=== PATIENT | male | born 1950 | race Caucasian/White ===

== ENCOUNTER 2022-01-24 09:32 | Outpatient (RCR) | payer OTHER, SELFPAY | END 2022-01-24 23:59 | disposition home or self-care (01) | LOC: CR 09:32 | PROVIDERS: PCP Family Medicine; Visit Provider Internal Medicine Cardiovascular Disease | DX: Z51.89 Encounter for other specified aftercare (principal); I25.2 Old myocardial infarction; Z95.5 Presence of coronary angioplasty implant and graft | CPT/HCPCS: S9472 ==

== ENCOUNTER 2022-02-23 10:17 | Outpatient (RCR) | payer OTHER, SELFPAY ==
--- OUTSIDE RECORDS SUMMARY | 2022-02-09 10:32 | XMS_ITS | Continuity of Care Document ---
:1950 Author Organization [facility] Care Team Providers Name Role Phone [facility] Unavailable Unavailable Problems Combined list of problems from Department of Defense and Veterans Affairs facilities. It does not include entries that were removed or entered in error. Problem Status Onset Problem Date of Comments Source Date Type Resolution Anemia Active Condition [place] [facility] Asteatotic eczema Active Condition [place] [facility] Pierre's esophagus Active Condition Nov 042017 Entered T [facility] DOM By: TRACY ALLEN Comment: Last EGD 09/25/2016; Bx demonstrate precancerous changes Chronic ischemic Active Condition Nov 04 [place] heart disease 2017 Entered [facility] By: RTACY ALLEN Comment: normal pefusion scan 2014 Diabetes mellitus Active Condition Nov 04 W [place] 2017 Entered [facility] By: TRACY ALLEN Comment: agent orange - needs to do eval Diverticulosis Active Condition [place] [facility] Essential Active Condition [place] hypertension T [facility] DOM GERD - Active Condition [place] Gastro-esophageal [place] [facility] reflux disease HLD - Hyperlipidemia Active Condition [place] [facility] Impetigo Active Condition [place] [facility] OA - Osteoarthrosis Active Condition [place] [facility] Peripheral vascular Active Condition [place] disease [place] [facility] Venous insufficiency Active Condition [place] of leg T [facility] Venous stasis edema Active Condition [place] of bilateral lower J [place] [facility] limbs Wound Active Condition [place] [facility] Diagnosis: ICD-10-CM Active Diagnosis [place] E83.42 T [facility] Hypomagnesemiawith Provider Comments: Hypomagnesemia Diagnosis: ICD-10-CM Active Diagnosis ST. R03.0 Elevated [facility] blood-pressure CBOC reading, w/o diagnosis of htnwith Provider Comments: Elevated B/P Reading w/o HTN Dx Diagnosis: ICD-10-CM Active Diagnosis [place] E87.8 Oth disorders [place] [facility] of electrolyte and fluid balance, NECwith Provider Comments: Other Disorders of Electrolyte and Fluid Balance, not elsewhere classified Diagnosis: ICD-10-CM Active Diagnosis ST. H90.3 Sensorineural [facility] hearing loss, CBOC bilateralwith Provider Comments: Sensorineural Hearing Loss, Bilateral Diagnosis: ICD-10-CM Active Diagnosis ST. 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 Z23 Encounter for [facility] immunizationwith CBO C Provider Comments: Encounter for Immunization Diagnosis: ICD-10-CM Active Diagnosis ST. L97.821 Non-prs chr [facility] ulcer oth prt l low CBOC leg limited to brkdwn skinwith Provider Comments: Non-Pressure Chronic Ulcer of other part of left lower Leg Limited to Breakdown of Skin Diagnosis: ICD-10-CM Active Diagnosis [place] I87.2 Venous [place] [facility] DOM insufficiency (chronic) (peripheral)with Provider Comments: Venous insufficiency of leg ([facility] [id number]) Diagnosis: ICD-10-CM Active Diagnosis [place] I73.89 Other [place] [facility] DOM specified peripheral vascular diseaseswith Provider Comments: Peripheral vascular disease ([facility] [id number]) Diagnosis: ICD-10-CM Active Diagnosis [place] S81.802D Unspecified [place] [facility] open wound, left lower leg, subsequent encounterwith Provider Comments: Unspecified open Wound, left lower Leg, Subsequent Encounter Diagnosis: ICD-10-CM Active Diagnosis [place] S81.801D Unspecified [place] [facility] open wound, right lower leg, subs encntrwith Provider Comments: Wound ([facility] [id number]) Diagnosis: ICD-10-CM Active Diagnosis [place] Z48.01 Encounter for [place] [facility] change or removal of surgical wound dressingwith Provider Comments: Encounter for Change or Removal of Surgical Wound Dressing Diagnosis: ICD-10-CM Active Diagnosis SARAH RAE E11.622 Type 2 [place] [facility] diabetes mellitus with other skin ulcerwith Provider Comments: Type 2 diabetes mellitus with other skin ulcer Diagnosis: ICD-10-CM Active Diagnosis SARAH RAE Z01.818 Encounter for [place] [facility] other preprocedural examinationwith Provider Comments: Encounter for other Preprocedural Examination Diagnosis: ICD-10-CM Active Diagnosis ST. E11.622 Type 2 ADRIAN LO diabetes mellitus CB OC with other skin ulcerwith Provider Comments: Type 2 Diabetes Mellitus with other Skin Ulcer Medications Combined list of outpatient medications from Department of Defense and Veterans Affairs facilities. Medications provided include 1) outpatient medications from the last 15 months, and 2) patient-reported medications. Medication Details Route Status Patient Prescription Prescription Last Ordering Order Source Instructions Expires Number Dispense Provider Date Date ALBUTEROL INHALE 2 ACTIVE 03/09/2022 [id number] Katarzyna ALLEN 03/09/ ST. 90MCG/ACTUA PUFFS BY 2 2020 MARGARITA Esparza ([facility]) MOUTH RY CBOC INHL,ORAL,8 EVERY .5GM DOSE FOUR TO COUNTER SIX HOURS NEEDED FOR BREATHIN G ALOGLIPTIN TAKE ONE ORAL SUSPEND 12/28/2022 [id number] MELISSAA NN P 02/22/ WHITE 6.25MG TAB TABLET ED 2 2021 [place] BY MOUTH [place] EVERY [facility] DAY FOR DIABETES ALOGLIPTIN TAKE ONE ORAL DISCONT 03/09/2022 [id number] Katarzyna SALINAS 03/09/ ST. 6.25MG TAB TABLET INUED 2 2020 [place] BY MOUTH RY CBOC EVERY DAY FOR DIABETES ALOGLIPTIN TAKE ONE ORAL DISCONT 09/27/2021 [id number] Katarzyna SALINAS 09/28/ ST. 6.25MG TAB TABLET INUE 1 2020 [place] BY MOUTH RY CBOC EVERY DAY FOR DIABETES ASPIRIN TAKE ONE ORAL SUSPEND 12/28/2022 [id number] VOEVERTON P 02/22/ WHITE 81MG TAB,EC TABLET ED 2 2021 [place] BY MOUTH [place] EVERY [facility] DAY TO PREVENT STROKE/H EART ATTACK OR FOR PAIN/SWE LLING/IN FLAMMATI ON ASPIRIN TAKE ONE ORAL DISCONT 03/09/2022 [id number] Katarzyna ALLEN 03/09/ ST. 81MG TAB,EC TABLET INUED 2 ICH2020 [place] U BY MOUTH RY CBOC EVERY DAY TO PREVENT STROKE/H EART ATTACK OR FOR PAIN/SWE LLING/IN FLAMMATI ON ASPIRIN TAKE ONE ORAL DISCONT 05/14/2021 [id number] Katarzyna ALLEN 05/17/ ST. 81MG TAB,EC TABLET INUE 1 ICHAEL 2019 [place] U BY MOUTH RY CBOC EVERY DAY TO PREVENT STROKE/H EART ATTACK OR FOR PAIN/SWE LLING/IN FLAMMATI ON ATORVASTATI TAKE ONE ORAL DISCONT 03/09/2022 [id number] S Katarzyna HERNDON 03/09/ ST. N CA 10MG TABLET INUED 2 ICH2020 [place] TAB BY MOUTH (EDIT) RY CBOC EVERY EVENING TO LOWER CHOLESTE ROL ATORVASTATI TAKE ONE ORAL DISCONT 05/14/2021 [id number] S Katarzyna HERNDON 07/25/ ST. N CA 10MG TABLET INUE 1 ICH2020 [place] TAB BY MOUTH RY CBOC EVERY EVENING TO LOWER CHOLESTE ROL ATORVASTATI TAKE ONE ORAL ACTIVE 12/14/2022 [id number] VO,AN N P 12/13/ ST. N CA 80MG TABLET 2 2021 [place] TAB BY MOUTH RY CBOC EVERY EVENING TO LOWER CHOLESTE ROL CALCIUM TAKE 2 ORAL ACTIVE 01/24/2023 [id number] VO,EVERTON P / WHITE 500MG/VITAM TABLETS 2 2021 [place] IN D 200UNT BY MOUTH JCT TAB TWICE A [facility] DAY TO SUPPLEME NT CALCIUM/ STRENGTH EN BONES CLOPIDOGREL TAKE ONE ORAL ACTIVE 12/14/2022 [id number] VO,AN N P 12/13/ ST. BISULFATE TABLET 2 2021 [place] 75MG TAB BY MOUTH RY CBOC EVERY DAY TO PREVENT BLOOD CLOTS COLLAGENASE APPLY TOPICA 11/18/2021 [id number] PUNNI, MAN 11/17/ WHITE 250UNT/GM SMALL LLY 1 EVERETT N 2021 [place] OINT,TOP AMOUNT J[place] TOPICALL [facility] Y EVERY OTHER DAY LEFT LEG WOUND DIRECTED FLUTICASONE INSTILL NASAL ACTIVE TIFFANYM 11/04/ WHITE PROPIONATE 1 SPRAY ICHAEL 2017 [place] 50MCG/SPRAY INTO JCT SOLN,NASAL, EACH [facility]OC 16GM NOSTRIL EVERY DAY LISINOPRIL TAKE ONE ORAL SUSPEND 12/28/2022 [id number] VO,A NN P 02/22/ WHITE 5MG TAB TABLET ED 2 2021 [place] BY MOUTH JCT EVERY [facility] DAY TO CONTROL BLOOD PRESSURE LISINOPRIL TAKE ONE ORAL DISCONT 03/09/2022 [id number] STANL EY,M 03/09/ ST. 5MG TAB TABLET INUED 2 ICHAEL 2020 [place] BY MOUTH RY CBOC EVERY DAY TO CONTROL BLOOD PRESSURE LISINOPRIL TAKE ONE ORAL DISCONT 05/14/2021 [id number] STANL EY,M 05/17/ ST. 5MG TAB TABLET INUE 1 ICHAEL 2019 [place] BY MOUTH RY CBOC EVERY DAY TO CONTROL BLOOD PRESSURE MAGNESIUM TAKE TWO ORAL ACTIVE 01/24/2023 [id number] VO,EVERTON P 01/23/ WHITE GLUCONATE TABLETS 2 2021 [place] 500MG TAB BY MOUTH JCT TWICE A [facility] DAY MAGNESIUM TAKE ONE ORAL DISCONT 09/28/2022 [id number] RAN Sierra,M 09/27/ ST. OXIDE 400MG TABLET INUED 2 ICHAEL 2021 [place] U TAB BY MOUTH RY CBOC EVERY DAY MAGNESIUM TAKE ONE ORAL ACTIVE Katarzyna ALLEN 11/04/ W ROSIO OXIDE 420MG TABLET ICHAEL 2017 [place] TAB BY MOUTH JCT EVERY [facility] DAY METFORMIN TAKE ONE ORAL SUSPEND 12/28/2022 [id number] VO,AN N P 02/22/ WHITE HCL 1000MG TABLET ED 2 2021 [place] TAB BY MOUTH J[place] TWICE [facility] DAILY WITH MEALS FOR DIABETES METFORMIN TAKE ONE ORAL DISCONT 03/09/2022 [id number] STANLE Y,M 03/09/ ST. HCL 1000MG TABLET INUED 2 ICHAEL 2020 [place] TAB BY MOUTH RY CBOC TWICE DAILY WITH MEALS FOR DIABETES METFORMIN TAKE ONE ORAL DISCONT 05/14/2021 [id number] RAN Y,M 05/17/ ST. HCL 1000MG TABLET INUE 1 ICHAEL 2019 [place] TAB BY MOUTH RY CBOC TWICE DAILY WITH MEALS FOR DIABETES METOLAZONE TAKE ONE ORAL SUSPEND 12/28/2022 [id number] VO,A NN P 02/22/ WHITE 2.5MG TAB TABLET ED 2 2021 [place] BY MOUTH J[place] EVERY [facility] MORNING METOLAZONE TAKE ONE ORAL DISCONT 03/09/2022 [id number] STANL EY,M 03/09/ ST. 2.5MG TAB TABLET INUED 2 ICHAEL 2020 [place] BY MOUTH RY CBOC EVERY MORNING METOLAZONE TAKE ONE ORAL DISCONT 09/27/2021 [id number] STANL EY,M 09/28/ ST. 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 SUCCINATE TABLET INUED 2 ICHAEL 2020 [place] 50MG TAB,SA BY MOUTH RY CB OC EVERY DAY FOR BLOOD PRESSURE /HEART METOPROLOL TAKE ONE ORAL DISCONT 09/27/2021 [id number] STANL EY,M 09/28/ ST. SUCCINATE TABLET INUE 1 ICHAEL 2020 [place] 50MG TAB,SA BY MOUTH RY CB OC EVERY DAY FOR BLOOD PRESSURE /HEART MULTIVITAMI TAKE ONE ORAL ACTIVE TIFFANY,M 11/04/ WHITE NS CAP/TAB ICHAEL 2017 [place] W/MINERALS BY MOUTH JCT CAP/TAB EVERY [facility] DAY NICOTINE APPLY 1 TOPICA 01/24/2022 [id number] VO,EVERTON P 12/13/ ST. 14MG/24HRS PATCH LLY 2 2021 [place] PATCH TOPICALL RY CBOC Y EVERY DAY TO STOP TOBACCO USE NICOTINE APPLY 1 TOPICA 01/12/2022 [id number] VO,EVERTON P 12/13/ ST. 7MG/24HRS PATCH LLY 2021 [place] PATCH TOPICALL RY CBOC Y EVERY DAY TO STOP TOBACCO USE NITROGLYCER TAKE ONE SUBLIN ACTIVE 03/13/2022 [id number] VO ,EVERTON P 12/13/ ST. IN 0.4MG TABLET GUAL 2021 [place] TAB,SUBLING UNDER RY CBOC UAL THE TONGUE EVERY 5 MINUTES NEEDED FOR CHEST PAIN (ANGINA) MAY REPEAT FOR THREE DOSES (IF NO RELIEF,S [facility] PROM[facility] )DO NOT TAKE SILDENAF IL WHILE ON THIS MEDICATI ON PANTOPRAZOL TAKE ONE ORAL SUSPEND 12/28/2022 [id number] VO,EVERTON P 02/22/ WHITE E NA 40MG TABLET ED 2 2021 [place] TAB,EC BY MOUTH JCT EVERY [facility] DAY FOR STOMACH ACID (TAKE HALF-JANNETTE R BEFORE A MEAL(S) PANTOPRAZOL TAKE ONE ORAL DISCONT 03/09/2022 [id number] S Katarzyna HERNDON 03/09/ ST. E NA 40MG TABLET INUED 2 2020 [place] TAB,EC BY MOUTH RY CBOC EVERY DAY FOR STOMACH ACID (TAKE HALF-JANNETTE R BEFORE A MEAL(S) PANTOPRAZOL TAKE ONE ORAL DISCONT 03/26/2021 [id number] S Katarzyna HERNDON 12/27/ ST. E NA 40MG TABLET INUE 1 2020 [place] TAB,EC BY MOUTH RY CBOC EVERY DAY FOR STOMACH ACID (TAKE HALF-JANNETTE R BEFORE A MEAL(S) POTASSIUM TAKE ONE ORAL ACTIVE 01/24/2023 [id number] VO,EVERTON P 01/23/ WHITE CHLORIDE TABLET 2 2021 [place] 10MEQ BY MOUTH JCT TAB,SA TWICE A [facility] DAY TO SUPPLEME NT POTASSIU M POTASSIUM TAKE ONE ORAL DISCONT 12/28/2022 [id number] VO,AN N P 02/22/ WHITE CHLORIDE TABLET INUED 2021 [place] 10MEQ BY MOUTH (EDIT) JCT TAB,SA EVERY VAOC DAY TO SUPPLEME NT POTASSIU M POTASSIUM TAKE ONE ORAL DISCONT 03/09/2022 [id number] STANLE Y,M 03/09/ ST. CHLORIDE TABLET INUED 2 ICHAEL 2020 [place] 10MEQ BY MOUTH RY CBOC TAB,SA EVERY DAY TO SUPPLEME NT ENID M POTASSIUM TAKE ONE ORAL DISCONT 09/06/2021 [id number] STANLE Y,M 09/09/ ST. CHLORIDE TABLET INUE 1 ICHAEL 2020 [place] 10MEQ BY MOUTH RY CBOC TAB,SA EVERY DAY TO SUPPLEME NT ENID M PREGABALIN TAKE ONE ORAL ACTIVE 02/14/2022 [id number] STANLE Y,M 08/15/ ST. 75MG CAPSULE 2 ICHAEL 2021 [place] CAP,ORAL BY MOUTH RY CBOC TWICE A DAY TO PREVENT SEIZURES OR NEUROPAT HIC PAIN PREGABALIN TAKE ONE ORAL DISCONT 09/08/2021 [id number] STANL MADAN,M 03/09/ ST. 75MG CAPSULE INUED 2 ICHAEL 2020 [place] CAP,ORAL BY MOUTH RY CBOC TWICE A DAY TO PREVENT SEIZURES OR NEUROPAT HIC PAIN PREGABALIN TAKE ONE ORAL DISCONT 03/29/2021 [id number] STANL MADAN,M 10/08/ ST. 75MG CAPSULE INUE 1 ICHAEL 2020 [place] CAP,ORAL BY MOUTH RY CBOC TWICE A DAY TO PREVENT SEIZURES OR NEUROPAT HIC PAIN SILDENAFIL TAKE ONE ORAL ACTIVE 09/28/2022 [id number] STANLE Rigo,M 09/27/ ST. CITRATE TABLET 2 ICHAEL 2021 [place] 100MG TAB BY MOUTH RY CBOC NEEDED FOR ERECTILE DYSFUNCT ION , MAX USE ONCE IN 24 HOUR PERIOD SULFAMETHOX TAKE 1 ORAL 07/14/2021 [id number] ANGELIA ,PE 06/14/ WHITE AZOLE TABLET 2 NNY 2021 [place] 800MG/TRIME BY MOUTH JCT THOPRIM TWICE A [facility] 160MG TAB DAY FOR LEG INFECTIO N Allergies, Adverse Reactions, Alerts Combined list of allergies from Department of Defense and Veterans Affairs facilities. It does not include entries that were removed or entered in error. Substance Category Reaction Severity Reaction Status Date Comments S ource type Reported SHELLFISH Propensity Urticaria Propensity active WHITE to adverse to adverse 8 RI FLO reactions to reactions J CT food to food [facility] (finding) (finding) Immunizations Combined list of available immunizations from the Department of Defense and Veterans Affairs facilities. Immunization Series Date Administered Site Reaction Lot CVX Drug St atus Comments Source Given By Number Code Audiometrist PNEUMOCOCCAL complet WHITE CONJUGATE 2021 ed RIVE R PCV20, [place] POLYSACCHARID [facility] E [id number] CONJUGATE, ADJUVANT, PF COVID-19 4 complet MOD; ST . (MODERNA), 2021 ed [id number]; [facility] MRNA, LNP-S, 02 RY CBOC PF, 100 2 MCG/0.5ML DOSE OR 50 MCG/0.25ML DOSE COVID-19 3 complet WH ITE (MODERNA), 2020 ed MARIA G ER MRNA, LNP-S, J CT PF, 100 [facility] MCG/0.5ML DOSE OR 50 MCG/0.25ML DOSE INFLUENZA complet W ROSIO VACCINE, 2020 ed RIVER QUADRIVALENT, [place]CT ADJUVANTED VAM DOM ZOSTER [address] RECOMBINANT 2020 ed ANTOINETTE HNSBU RY CBOC COVID-19 2 complet MOD; WH ITE (MODERNA), 2020 ed [id number]; R[place] MRNA, LNP-S, 02 JCT PF, 100 1 [facility]OC MCG/0.5 ML DOSE COVID-19 1 complet MOD; ITE (MODERNA), 2020 ed [id number]; RIVER MRNA, LNP-S, 02 JCT PF, 100 1 [facility] MCG/0.5 ML DOSE PNEUMOCOCCAL complet WHITE POLYSACCHARID 2019 ed RIVER E PPV23 [place] [facility] ZOSTER 1 complet WHIT E RECOMBINANT 2019 ed RI FLO [place] [facility] INFLUENZA, complet WHITE INJECTABLE, 2019 ed RI FLO QUADRIVALENT, [place] PRESERVATIVE V [facility] FREE INFLUENZA, complet Site: ST. INJECTABLE, 2018 ed Left ANTOINETTE [place] QUADRIVALENT, [place] d RY CBOC PRESERVATIVE FREE TDAP complet Site: ST. 2019 ed Left [place] Deltoid RY CBO C INFLUENZA, complet [place] t WHITE SEASONAL, 2017 ed in RIVE R INJECTABLE [place] ,[place] [facility] INFLUENZA, complet wallma rt WHITE SEASONAL, 2016 ed RIVE R INJECTABLE [place] [facility] TD(ADULT) complet W ROSIO UNSPECIFIED 2014 ed RI FLO FORMULATION WIN[place] T [facility] Results Combined list of recent chemistry, hematology and other laboratory results from Department of Defense and Veterans Affairs, ranging from 15 months to all on record, depending upon the facility. Order Results Value Reference Date Interpretation Specimen Commen ts Source Name Range MAGNESIUM MAGNESIUM 0.7 1.6 - 2.6 01/22 L Specimen T ype: PLASMA WHITE [MASS/VOLUM /2021 Comment: Te sts performed on [employer] (405) SN:[id number] [place] E] IN SERUM Ordering Pr ovider: EVERTON TORRES [facility] OR PLASMA Report Releas ed Date/Time: Jan 22, 2022 09:48 AM Reporting Lab: [place] [facility] [address] [place] [facility] [place] [place] [address] Performing Lab: [place] [facility] [address] [place] [facility] [place] [address] PHOSPHORU PHOSPHATE 3.2 2.5 - 5.0 01/22 Specimen T ype: PLASMA WHITE S [MASS/VOLUM /2021 Comment: Te sts performed on [employer] (405) SN:[id number] [place] E] IN SERUM Ordering Pr ovider: EVERTON TORRES [facility] OR PLASMA Report Releas ed Date/Time: Jan 22, 2022 09:48 AM Reporting Lab: [place] [facility] [address] [place] [facility] [place] [facility] [place] [address] Performing Lab: [place] [facility] [address] [place] [facility] [place] [address] CALCIUM CALCIUM 8.8 8.5 - 10.5 01/22 Specimen Type : PLASMA WHITE [MASS/VOLUM Comment: Te sts performed on [employer] (405) SN:[id number] [place] E] IN SERUM Ordering Pr ovider: EVERTON TORRES [facility] OR PLASMA Report Releas ed Date/Time: Jan 22, 2022 09:48 AM Reporting Lab: [place] [facility] [address] [place] [facility] [place] [facility] [place] [address] Performing Lab: [facility] [address] [facility] [address] P4 UREA 13 7 - 25 01/22 Specimen Type: P CY WHITE GLU,BUN,C NITROGEN /2021 Comment: Carolann ts performed on [employer] (405) SN:[id number] [facility] [MASS/VOLUM Ordering Provider: EVERTON TORRES,ALEJO E] IN SERUM Report Rele ased Date/Time: Jan 22, 2022 09:48 AM OR PLASMA Reporting Lab : [facility] [address] [facility] [address] Performing Lab: [facility] [address] [facility] [address] P4 SODIUM 137 135 - 145 01/22 Specimen Type: PLASMA WHITE GLU,BUN,C [MOLES/VOLU /2021 Comment: Tests performed on [employer] (405) SN:[id number] [facility] [place] ME] IN Ordering Prov ider: EVERTON TORRES S,CA SERUM OR Report Release d Date/Time: Jan 22, 2022 09:48 AM PLASMA Reporting Lab: [facility] [address] [facility] [address] Performing Lab: [facility] [address] [facility] [address] P4 POTASSIUM 3.8 3.5 - 5.0 01/22 Specimen Typ e: PLASMA WHITE GLU,BUN,C [MOLES/VOLU /2021 Comment: Tests performed on [employer] (405) SN:[id number] [facility] [place] ME] IN Ordering Prov ider: EVERTON TORRES S,CA SERUM OR Report Release d Date/Time: Jan 22, 2022 09:48 AM PLASMA Reporting Lab: [facility] [address] [facility] [address] Performing Lab: [facility] [address] [facility] [address] P4 CHLORIDE 99 100 - 110 01/22 L Specimen Type : PLASMA WHITE GLU,BUN,C [MOLES/VOLU /2021 Comment: Tests performed on [employer] (405) SN:[id number] [facility] RE[facility] ME] IN Ordering Prov ider: EVERTON TORRES CA SERUM OR Report Release d Date/Time: Jan 22, 2022 09:48 AM PLASMA Reporting Lab: [facility] [address] [facility] [address] Performing Lab: [place] [facility] [address] [facility] [address] P4 CARBON 26 20 - 30 01/22 Specimen Type: P LASMA WHITE GLU,BUN,C DIOXIDE, /2021 Comment: Carolann ts performed on [employer] (405) SN:[id number] [place] RECOSTALYTE TOTAL Ordering Prov ider: EVERTON TORRES CA [MOLES/VOLU Report Rele ased Date/Time: Jan 22, 2022 09:48 AM ME] IN Reporting Lab: [facility] SERUM OR [address] [facility] [address] PLASMA Performing Lab: [facility] [address] [facility] [address] P4 ANION GAP 12 4 - 16 01/22 Specimen Type: PLASMA WHITE GLU,BUN,C IN SERUM OR /2021 Comment: Tests performed on [employer] (405) SN:[id number] [place] JOVANYLYYONI PLASMA Ordering Prov ider: EVERTON TORRES CA Report Released Date/Time: Jan 22, 2022 09:48 AM Reporting Lab: [facility] [address] [facility] [address] Performing Lab: [facility] [address] [facility] [address] P4 GLUCOSE 121 65 - 100 01/22 H Specimen Type: PLASMA WHITE GLU,BUN,C [MASS/VOLUM /2021 Comment: Tests performed on [employer] (405) SN:[id number] [place] WINIFREDT CYDNEY MANZO E] IN SERUM Ordering Provider: EVERTON TORRES CA OR PLASMA Report Releas ed Date/Time: Jan 22, 2022 09:48 AM Reporting Lab: [facility] [address] [facility] [address] Performing Lab: [facility]ITE [place] [facility] [address] [facility] [address] P4 CREATININE 0.89 0.5 - 1.5 01/22 Specimen Ty pe: PLASMA WHITE GLU,BUN,C [MASS/VOLUM /2021 Comment: Tests performed on [employer] (405) SN:[id number] [place] REATLYTE E] IN SERUM Ordering Provider: EVERTON TORRES S,CA OR PLASMA Report Releas ed Date/Time: Jan 22, 2022 09:48 AM Reporting [facility] [address] [facility] [address] Performing Lab: [place] [facility] [address] [facility] [address] P4 CALCIUM 8.8 8.5 - 10.5 01/22 Specimen Type : PLASMA WHITE GLU,BUN,C [MASS/VOLUM /2021 Comment: Tests performed on [employer] (405) SN:[id number] [place] REATLYTE E] IN SERUM Ordering Provider: EVERTON TORRES SCA OR PLASMA Report Releas ed Date/Time: Jan 22, 2022 09:48 AM Reporting Lab: [place] [facility] [address] [facility] [address] [facility] [address] [facility] [address] P4 eGFR(CKD-EP >90.0 60 01/22 Specimen Typ e: PLASMA WHITE GLU,BUN,C I /2021 Comment: Test s performed on [employer] (405) SN:[id number] [place] JOVANYLYTE Ordering Prov ider: EVERTON TORRES S,CA Report Released Date/Time: Jan 22, 2022 09:48 AM Reporting Lab: [place] [facility] [address] [facility] [address] [facility] [address] [facility] [address] PHOSPHORU PHOSPHATE 2.9 2.5 - 5.0 09/27 Specimen T ype: PLASMA ST. S [MASS/VOLUM /2021 Comment: Te sts performed on [employer] (405) SN:[id number] [place] E] IN SERUM Ordering Pr ovider: SHANELL ALLEN [facility] OR PLASMA Report Releas ed Date/Time: Aug 14, 2021 03:10 PM Reporting [facility] [address] [facility] [address] [facility] Lab: [facility] [address] [facility] [address] MAGNESIUM MAGNESIUM 0.7 1.6 - 2.6 05/04 L Specimen T ype: PLASMA ST. [MASS/VOLUM /2021 Comment: Te sts performed on [employer] (405) SN:[id number] SHILPI E] IN SERUM Ordering Pr ovider: SHANELL ALLEN OR PLASMA Report Releas ed Date/Time: Aug 14, 2021 03:10 PM Reporting Lab: [facility] [address] [facility] [address] Performing Lab: [facility] [address] [facility] [address] LIPOPROTE CHOLESTEROL 156 0 - 199 05/04 Specimen T ype: PLASMA ST. IN [MASS/VOLUM /2021 Comment: Te sts performed on [employer] (405) SN:[id number] SHILPI CHOLESTER E] IN SERUM Ordering Provider: SHANELL ALLEN OL FRACT. OR PLASMA Report Rele ased Date/Time: Aug 14, 2021 03:10 PM PANEL Reporting Lab: [facility] [address] [facility] [address] Performing Lab: [facility] [address] [facility] [address] LIPOPROTE TRIGLYCERID 109 0 - 149 05/04 Specimen T ype: PLASMA ST. IN E Comment: Tests performed on [employer] (405) SN:[id number] SHILPI CHOLESTER [MASS/VOLUM Ordering Provider: SHANELL ALLEN OL FRACT. E] IN SERUM Report Re leased Date/Time: Aug 14, 2021 03:10 PM PANEL OR PLASMA Reporting Lab : [facility] [address] [facility] [address] Performing Lab: [facility] [address] [facility] [address] LIPOPROTE CHOLESTEROL 40 40 05/04 Specimen T ype: PLASMA ST. IN IN HDL Comment: Tests performed on [employer] (405) SN:[id number] [place] CHOLESTER [MASS/VOLUM Ordering Provider: SHANELL ALLEN OL FRACT. E] IN SERUM Report Re leased Date/Time: Aug 14, 2021 03:10 PM PANEL OR PLASMA Reporting Lab : [facility] [address] [place] [facility] [place] [place] [address] Performing Lab: [facility] [address] [place] [place] [place] [address] LIPOPROTE CHOLESTEROL 94 0 - 129 05/04 Specimen T ype: PLASMA ST. IN IN LDL /2021 Comment: Tests performed on [employer] (405) SN:[id number] [facility] CHOLESTER [MASS/VOLUM Ordering Provider: SHANELL ALLEN OL FRACT. E] IN SERUM Report Re leased Date/Time: Aug 14, 2021 03:10 PM PANEL OR PLASMA Reporting Lab : [facility] BY [address] [place] [place] [place] [address] CALCULATION Performing Lab: [facility] [address] [place] [facility] [place] [address] LIVER PROTEIN 7.7 6.0 - 8.5 09/27 Specimen Type: PLASMA ST. PROFILE [MASS/VOLUM /2021 Comment: Te sts performed on [employer] (405) SN:[id number] [facility] E] IN SERUM Ordering Pr ovider: SHANELL ALLEN CBOC OR PLASMA Report Releas ed Date/Time: Aug 14, 2021 03:10 PM Reporting Lab: [facility] [address] [place] [place] [place] [address] Performing Lab: [facility] [address] [place] [facility] [place] [address] LIVER ALBUMIN 3.3 3.2 - 5.0 05/ Specimen Type: PLASMA ST. PROFILE [MASS/VOLUM /2021 Comment: Te sts performed on [employer] (405) SN:[id number] [facility] E] IN SERUM Ordering Pr ovider: SHANELL ALLEN CBOC OR PLASMA Report Releas ed Date/Time: Aug 14, 2021 03:10 PM Reporting Lab: [facility] [address] [place] [place] [facility] [place] [address] Performing Lab: [facility] [address] [place] [place] [address] LIVER BILIRUBIN.T 1.2 0.2 - 1.2 05/04 Specimen T ype: PLASMA ST. PROFILE OTAL /2021 Comment: Tests performed on [employer] (405) SN:[id number] [facility] [MASS/VOLUM Ordering Pr ovider: SHANELL ALLEN E] IN SERUM Report Rele ased Date/Time: Aug 14, 2021 03:10 PM OR PLASMA Reporting Lab : [facility] [address] [place] [facility] [place] [address] Performing Lab: [facility] [address] [facility] [address] LIVER BILIRUBIN.D 0.5 0 - 0.5 09/27 Specimen Typ e: PLASMA ST. PROFILE IRECT /2021 Comment: Tests performed on [employer] (405) SN:[id number] [facility] [MASS/VOLUM Ordering Pr ovider: SHANELL ALLEN E] IN SERUM Report Rele ased Date/Time: Aug 14, 2021 03:10 PM OR PLASMA Reporting Lab : [facility] [address] [place] [facility] [place] [address] Performing Lab: [facility] [address] [place] [facility] [place] [address] LIVER ALKALINE 118 40 - 150 09/27 Specimen Type: PLASMA ST. PROFILE PHOSPHATASE /2021 Comment: Te sts performed on [employer] (405) SN:[id number] [facility] [ENZYMATIC Ordering Pro vider: SHANELL ALLEN ACTIVITY/VO Report Rele ased Date/Time: Aug 14, 2021 03:10 PM LUME] IN Reporting Lab: [facility] SERUM OR [address] [place] [facility] [place] [address] PLASMA Performing Lab: [facility] [address] [place] [facility] [place] [address] LIVER ALANINE 25 7 - 52 05 Specimen Type: P LASMA ST. PROFILE AMINOTRANSF /2021 Comment: Te sts performed on [employer] (405) SN:[id number] [facility] ERASE Ordering Provid er: SHANELL ALLEN [ENZYMATIC Report Relea sed Date/Time: Aug 14, 2021 03:10 PM ACTIVITY/VO Reporting L ab: [facility] LUME] IN [address] [place] [facility] [place] [address] SERUM OR Performing Lab : [facility] PLASMA [address] [facility] [address] LIVER ASPARTATE 26 5 - 34 05/ Specimen Type: PLASMA ST. PROFILE AMINOTRANS Comment: Te sts performed on [employer] (405) SN:[id number] [facility] Ordering Provid er: SHANELL ALLEN [ENZYMATIC Report Relea sed Date/Time: Aug 14, 2021 03:10 PM ACTIVITY/VO Reporting L ab: [facility] LUME] IN [address] [facility] [address] SERUM OR Performing Lab : [facility] [place] PLASMA [address] [facility] [address] LIVER FIB-4 SCORE 1.46 <2.67 - 09/27 Specimen Typ e: PLASMA ST. PROFILE 2. Comment: Tests performed on [employer] (405) SN:[id number] [facility] Ordering Provid er: SHANELL ALLEN Report Released Date/Time: Aug 14, 2021 03:10 PM Reporting Lab: [facility] [address] [facility] [address] Performing Lab: [facility] [address] [place] [facility] [place] [address] CBC NO LEUKOCYTES 12.0 4.5 - 11.0 05/04 H Specimen T ype: BLOOD ST. DIFF [#/VOLUME] /2021 No comment en tered. DOBBINS IN BLOOD BY Ordering Pr ovider: SHANELL ALLEN AUTOMATED Report Releas ed Date/Time: Aug 14, 2021 03:10 PM COUNT Reporting Lab: [facility] [address] [place] [place] [facility] [place] [address] Performing Lab: [facility] [address] [place] [facility] [place] [address] CBC NO ERYTHROCYTE 5.00 4.23 - 05/04 Specimen Typ e: BLOOD ST. DIFF S 5.66 No comment enter ed. ADRIANBANNER [#/VOLUME] Ordering Pro vider: SHANELL ALLEN IN BLOOD BY Report Rele ased Date/Time: Aug 14, 2021 03:10 PM AUTOMATED Reporting Lab : [facility] COUNT [address] [facility] [address] Performing Lab: [facility] [address] [place] [place] [facility] [place] [address] CBC NO HEMOGLOBIN 14.1 12.8 - 17 09/27 Specimen Ty pe: BLOOD ST. DIFF [MASS/VOLUM /2021 No comment e ntered. [place] E] IN BLOOD Ordering Pr ovider: SHANELL ALLEN Report Released Date/Time: Aug 14, 2021 03:10 PM Reporting Lab: [facility] [address] [place] [place] [facility] [place] [address] Performing Lab: [facility] [address] [place] [facility] [place] [address] CBC NO HEMATOCRIT 44.6 39.2 - 05 Specimen Type : BLOOD ST. DIFF [VOLUME 50.4 /2021 No comment enter ed. [place] FRACTION] Ordering Prov ider: SHANELL ALLEN OF BLOOD BY Report Rele ased Date/Time: Aug 14, 2021 03:10 PM AUTOMATED Reporting Lab : [facility] COUNT [address] [place] [facility] [place] [address] Performing Lab: [facility] [address] [place] [facility] [place] [address] CBC NO MCV 89.2 82 - 99 09/27 Specimen Type: B LOOD ST. DIFF [ENTITIC /2021 No comment ente red. [facility] VOLUME] BY Ordering Pro vider: SHANELL ALLEN AUTOMATED Report Releas ed Date/Time: Aug 14, 2021 03:10 PM COUNT Reporting Lab: [facility] [address] [place] [place] [facility] [place] [address] Performing Lab: [facility] [address] [place] [facility] [place] [address] CBC NO MCH 28.2 26.2 - 09/27 Specimen Type: B LOOD ST. DIFF [ENTITIC 32.6 No comment ente red. [place] MASS] BY Ordering Provi violet: SHANELL ALLEN AUTOMATED Report Releas ed Date/Time: Aug 14, 2021 03:10 PM COUNT Reporting Lab: [facility] [address] [place] [place] [facility] [place] [address] Performing Lab: [facility] [address] [place] [facility] [place] [address] CBC NO MCHC 31.6 30.8 - 05 Specimen Type: B LOOD ST. DIFF [MASS/VOLUM 35.1 /2021 No comment e ntered. [place] E] BY Ordering Provid er: SHANELL ALLEN AUTOMATED Report Releas ed Date/Time: Aug 14, 2021 03:10 PM COUNT Reporting Lab: [facility] [address] [place] [place] [facility] [place] [address] Performing Lab: [facility] [address] [place] [place] [facility] [place] [address] CBC NO PLATELETS 257 140 - 360 05 Specimen Typ e: BLOOD ST. DIFF [#/VOLUME] /2021 No comment en tered. DOBBINS IN BLOOD BY Ordering Pr ovider: SHANELL ALLEN AUTOMATED Report Releas ed Date/Time: Aug 14, 2021 03:10 PM COUNT Reporting Lab: [facility] [address] [place] [place] [facility] [place] [address] Performing Lab: [facility] [address] [place] [facility] [place] [address] CBC NO PLATELET 11.6 9.2 - 12.4 09/27 Specimen Typ e: BLOOD ST. DIFF MEAN VOLUME /2021 No comment e ntsandra. SHILPI [ENTITIC Ordering Provi violet: SHANELL ALLEN VOLUME] IN Report Relea sed Date/Time: Aug 14, 2021 03:10 PM BLOOD BY Reporting Lab: [facility] AUTOMATED [address] [place] [place] [address] COUNT Performing Lab: [facility] [address] [place] [facility] [place] [address] CBC NO ERYTHROCYTE 15.8 12.0 - 05 Specimen Typ e: BLOOD ST. DIFF DISTRIBUTIO 16.0 /2021 No comment e ntered. SHILPI N WIDTH Ordering Provid er: SHANELL ALLEN [RATIO] BY Report Relea sed Date/Time: Aug 14, 2021 03:10 PM AUTOMATED Reporting Lab : [facility] COUNT [address] [place] [place] [facility] [place] [address] Performing Lab: [facility] [address] [place] [place] [facility] [place] [address] GLYCOHEMO HEMOGLOBIN 6.4 4.0 - 5.6 05/04 H Specimen Type: BLOOD ST. GLOBIN A1C/HEMOGLO /2021 Comment: Te sts performed on [employer] (405) SN:[id number] [facility] (A1C BIN.TOTAL Ordering Prov ider: SHANELL ALLEN [facility] ONLY) IN BLOOD BY Report Rele ased Date/Time: Aug 14, 2021 03:10 PM HPLC Reporting Lab: [facility] [address] [place] [facility] [place] [address] Performing Lab: [facility] [address] [place] [facility] [place] [address] Vital Signs Combined list of inpatient and outpatient Vital Signs from Department of Defense and Veterans Affairs, ranging from 12 months to all on record, depending upon the facility. Vital Sign Value Date Comments Source SYSTOLIC BLOOD PRESSURE 145 01/22/2022 09:17:29 [facility] DIASTOLIC BLOOD PRESSURE 73 01/22/2022 09:17:29 [facility] PULSE OXIMETRY 94% 01/22/2022 09:17:29 [facility] WEIGHT 192.2 01/22/2022 09:17:29 [facility] BMI 29kg/m2 01/22/2022 09:17:29 [facility] PAIN 0 01/22/2022 09:17:29 [facility] HEIGHT 68 01/22/2022 09:17:29 [facility] TEMPERATURE 96.8 01/22/2022 09:17:29 [facility] PULSE 77 01/22/2022 09:17:29 [facility] RESPIRATION 20 01/22/2022 09:17:29 [facility] SYSTOLIC BLOOD PRESSURE 129 12/27/2021 11:20:03 [facility] DIASTOLIC BLOOD PRESSURE 80 12/27/2021 11:20:03 [facility] PULSE OXIMETRY 97% 12/27/2021 11:20:03 [facility] WEIGHT 191.2 12/27/2021 11:20:03 [facility] BMI 29kg/m2 12/27/2021 11:20:03 [facility] PAIN 0 12/27/2021 11:20[facility] HEIGHT 68 12/27/2021 11:20:03 [facility] TEMPERATURE 96.8 12/27/2021 11:20:03 [facility] PULSE 92 12/27/2021 11:20:03 [facility] SYSTOLIC BLOOD PRESSURE 119 09/27/2021 08:51:00 [facility] DIASTOLIC BLOOD PRESSURE 73 09/27/2021 08:51:00 [facility] PULSE OXIMETRY 93% 09/27/2021 08:51:00 [facility] WEIGHT 207.8 09/27/2021 08:51:00 [facility] BMI 32kg/m2 09/27/2021 08:51:00 [facility] PAIN 0 09/27/2021 08:51:00 [facility] HEIGHT 68 09/27/2021 08:51:00 [facility] TEMPERATURE 96.4 09/27/2021 08:51:00 [facility] PULSE 88 09/27/2021 08:51:00 [facility] Encounters Combined list of: 1) Encounters from Department of Veterans Affairs facilities going back up to the last 18 months. 2) Encounters from the Department of Defense facilities going back up to 280 months. Location Location Encounter Encounter Reason Attending ADM DC Stat us Disposition Source Details Type Number For Provider Date Date Visit Outpatient 52424-3.40 TRISH MATA 08/15 WHITE Encounter [id number] ANA L R IVER [facility] Outpatient 04544-0.40 08/17 WHIT E Encounter [id number] /[facility]21 [facility] 56474-9.40 Diagnos KENNA TELLEZ 08/18 WHITE EST LOW [id number] is: TI N RIVER 20-29 MIN ICD-10- [place] CM [facility] S81.802 D Unspeci fied open wound, left lower leg, subsequ ent encount er
with Provide r Comment s: Unspeci fied open Wound, left lower Leg, Subsequ ent Encount er OFFICE O/P 08016-0.40 Diagnos DEV JORGENSEN 08/29 ST. EST [id number] is: MIKE M [place] MINIMAL 73 ICD-10- R[facility] PROB CM Z23 Encount er for immuniz ation<b r/>with Provide r Comment s: Encount er for Immuniz ation OFFICE O/P Diagnos MAN TELLEZ 09/01 WHITE EST MOD [id number] is: TI N [place] 30-39 MIN ICD-10- [place] [facility] S81.802 D Unspeci fied open wound, left lower leg, subsequ ent encount er
with Provide r Comment s: Unspeci fied open Wound, left lower Leg, Subsequ ent Encount er Outpatient 57839-709/01 WHIT E Encounter [id number] /2021 [place] [facility] OFFICE O/P Diagnos KENNA TELLEZ 09/15 WHITE EST MOD [id number] is: TI N [place] 30-39 MIN ICD-10- [place] [facility] S81.802 D Unspeci fied open wound, left lower leg, subsequ ent encount er
with Provide r Comment s: Unspeci fied open Wound, left lower Leg, Subsequ ent Encount er Outpatient 09/15 WHIT E Encounter [id number] /2020 [place] [facility] [facility] OFFICE O/P Diagnos PHILIP PATTERSON 09/23 WHITE EST [id number] is: A [place] MINIMAL ICD-10- [place] PROB CM [facility] Z01.818 Encount er for other preproc edural examina tion
with Provide r Comment s: Encount er for other Preproc edural Examina tion Outpatient 64784-609/26 WHIT E Encounter [id number] /2020 [place] [facility] OFFICE O/P Diagnos [place] 09/26 . EST MOD [id number] is: CHAEL J[place] 30-39 MIN 86 ICD-10- [facility] CM E11.622 Type 2 diabete s mellitu s with other skin ulcer<b r/>with Provide r Comment s: Type 2 Diabete s Mellitu s with other Skin Ulcer Outpatient 28776-4.40 09/27 WHIT E Encounter [id number] /2021 [place] [facility] OFFICE O/P 98645-6.40 Diagnos KENNA TELLEZ 09/28 WHITE EST LOW [id number] is: TI N [place] 20-29 MIN ICD-10- [facility] [facility] S81.802 D Unspeci fied open wound, left lower leg, subsequ ent encount er
with Provide r Comment s: Unspeci fied open Wound, left lower Leg, Subsequ ent Encount er Outpatient 27302-109/28 WHIT E Encounter [id number] /2021 [place] [facility] [facility] HC PRO 34180-8.40 Diagnos SUNILVilma 09/29 W ROSIO PHONE CALL [id number] is: GARLAND L /2020 [place] G ER 5-10 MIN ICD-10- [place] [facility] Z01.818 Encount er for other preproc edural examina tion
with Provide r Comment s: Encount er for other Preproc edural Examina tion Outpatient 17976-4.40 09/30 WHIT E Encounter [id number] /2021 [place] [facility] [facility] Outpatient 42278-509/30 WHIT E Encounter [id number] /2021 [place] [facility] [facility] Outpatient 13462-3.40 Diagnos KENNA TELLEZ 09/30 WHITE Encounter [id number] is: TI N [place] ICD-10- [facility] [facility] E11.622 Type 2 diabete s mellitu s with other skin ulcer<b r/>with Provide r Comment s: Type 2 diabete s mellitu s with other skin ulcer [place] 74453-4.40 KENNA TELLEZ 09/30 W ROSIO TISSUE 20 [id number] TI N [place] SQ CM/< [place] [facility] Outpatient 74491-6.10/03 WHIT E Encounter [id number] /2020 [place] [facility] [facility] Outpatient 48467-2.40 10/05 ST. Encounter [id number] [facility] RY CBOC OFFICE O/P 44818-8 Diagnos KOFI TELLEZ 10/05 WHITE EST MOD [id number] is: TI N RIVER 30-39 MIN ICD-10- [place] CM [facility] Z48.01 Encount er for change or removal of surgica l wound dressin g
w ith Provide r Comment s: Encount er for Change or Removal of Surgica l Wound Dressin g OFFICE O/P 48768-6 Diagnos KOFI TELLEZ 10/13 WHITE EST [place] [id number] is: TI N RIVER 40-54 MIN ICD-10- [place] CM [facility] S81.802 D Unspeci fied open wound, left lower leg, subsequ ent encount er
with Provide r Comment s: Unspeci fied open Wound, left lower Leg, Subsequ ent Encount er Outpatient 36825-010/17 WHIT E Encounter [id number] /2020 [place] [facility] OFFICE O/P 87393-2 Diagnos KOFI TELLEZ 10/20 WHITE EST HI [id number] is: TI RIVER 40-54 MIN ICD-10- [place] [facility] S81.802 D Unspeci fied open wound, left lower leg, subsequ ent encount er
with Provide r Comment s: Unspeci fied open Wound, left lower Leg, Subsequ ent Encount er OFFICE O/P 86295-1.40 Diagnos KOFI TELLEZ 10/27 WHITE EST MOD [id number] is: TI RIVER 30-39 MIN ICD-10- [place] CM [facility] S81.802 D Unspeci fied open wound, left lower leg, subsequ ent encount er
with Provide r Comment s: Unspeci fied open Wound, left lower Leg, Subsequ ent Encount er OFFICE O/P 78870-840 Diagnos KOFI TELLEZ 11/03 WHITE EST MOD [id number] is: TI N RIVER 30-39 MIN ICD-10- [place] [facility] S81.802 D Unspeci fied open wound, left lower leg, subsequ ent encount er
with Provide r Comment s: Unspeci fied open Wound, left lower Leg, Subsequ ent Encount er Outpatient [id number] 11/03 ST. Encounter [id number] /2020 [facility] 14 RY CBOC OFFICE O/P 80809-8 Diagnos KENNA TELLEZ 11/17 WHITE EST MOD [id number] is: TI N RIVER 30-39 MIN ICD-10- [place] [facility] S81.802 D Unspeci fied open wound, left lower leg, subsequ ent encount er
with Provide r Comment s: Unspeci fied open Wound, left lower Leg, Subsequ ent Encount er Outpatient 80033-740 11/21 WHIT E Encounter [id number] /2020 [place] [facility] [facility] Outpatient 09886-7 Diagnos SALGADOBenny 11/22 WHITE Encounter [id number] is: RESHMA /2020 [place] ICD-10- [facility] [facility] I73.89 Other specifi ed periphe ral vascula r disease s
w ith Provide r Comment s: Periphe ral vascula r disease (SCT [id number] 06) Outpatient [id number] 11/29 WHIT E Encounter [id number] /2020 [place] [facility] OFFICE O/P 84018-3 Diagnos KENNA TELLEZ 12/02 WHITE EST MOD [id number] is: TI N RIVER 30-39 MIN ICD-10- [place] [facility] S81.802 D Unspeci fied open wound, left lower leg, subsequ ent encount er
with Provide r Comment s: Unspeci fied open Wound, left lower Leg, Subsequ ent Encount er OFFICE O/P 40749-640 Diagnos KENNA TELLEZ 12/15 WHITE EST MOD [id number] is: TI N RIVER 30-39 MIN ICD-10- [place] [facility] S81.802 D Unspeci fied open wound, left lower leg, subsequ ent encount er
with Provide r Comment s: Unspeci fied open Wound, left lower Leg, Subsequ ent Encount er Outpatient 77250-0.40 12/20 WHIT E Encounter [id number] /2020 [place] [facility] [facility] Outpatient 79835-8.40 ALANNA CELESTIN 12/26 WHITE Encounter [id number] [facility] OFFICE O/P 69090-8.40 Diagnos KENNA TELLEZ 01/04 WHITE EST MOD [id number] is: TI R[place] 30-39 MIN ICD-10- [place] [facility] S81.802 D Unspeci fied open wound, left lower leg, subsequ ent encount er
with Provide r Comment s: Unspeci fied open Wound, left lower Leg, Subsequ ent Encount er OFFICE O/P 70592-1. Diagnos ANGELIA,PEN 01/25 WHITE EST LOW [id number] is: RIVER 20-29 MIN ICD-10- [facility] [facility] I73.89 Other specifi ed periphe ral vascula r disease s
w ith Provide r Comment s: Periphe ral vascula r disease ([facility] [id number] ) OFFICE O/P 77494-1.40 Diagnos ANGELIA,PEN 02/16 WHITE EST HI [id number] is: RIVER 40-54 MIN ICD-10- [facility] [facility] I87.2 Venous insuffi ciency (chroni c) (periph eral)<b r/>with Provide r Comment s: Venous insuffi ciency of leg (SCT [id number] ) Outpatient 62174-5.40 02/17 WHIT E Encounter [id number] /2020 [place] [facility] [facility] Outpatient 11221-8.40 02/22 WHIT E Encounter [id number] /2021 [facility] [facility] IMMUNIZATI 23898-9.40 Diagnos CK BAKER 03/02 WHITE ON ADMIN [id number] is: RIVER ICD-10- J[place] CM Z23 [facility] Encount er for immuniz ation<b r/>with Provide r Comment s: Encount er for Immuniz ation OFFICE O/P 47281-6.40 Diagnos ANGELIA,PEN 03/02 WHITE EST HI [id number] is: RIVER 40-54 MIN ICD-10- [facility] [facility] I73.89 Other specifi ed periphe ral vascula r disease s
w ith Provide r Comment s: Periphe ral vascula r disease (SCT [id number] 06) Outpatient 20158-7.40 SABIPAMEL 03/07 WHITE Encounter [id number] [place] [facility] OFFICE O/P 80455-2. Diagnos ANGELIA,PEN 03/16 WHITE EST MOD [id number] is: RIVER 30-39 MIN ICD-10- [facility] [facility] I87.2 Venous insuffi ciency (chroni c) (periph eral)<b r/>with Provide r Comment s: Venous insuffi ciency of leg (SCT [id number] 02) Outpatient 23799-3.40 03/17 WHIT E Encounter [id number] /2021 [place] [facility] OFFICE O/P 71114-6. Diagnos ANGELIA,PEN 04/13 WHITE EST MOD [id number] is: RIVER 30-39 MIN ICD-10- [place] [facility] S81.801 D Unspeci fied open wound, right lower leg, subs encntr< br/>wit h Provide r Comment s: Wound (SCT [id number] 03) OFFICE O/P 76562-2.40 Diagnos ANGELIA,PEN 04/26 WHITE EST LOW [id number] is: RIVER 20-29 MIN ICD-10- [facility] [facility] I73.89 Other specifi ed periphe ral vascula r disease s
w ith Provide r Comment s: Periphe ral vascula r disease (SCT [id number] 06) OFFICE O/P 22152-8.40 Diagnos ANGELIA,PEN 05/16 WHITE EST SF [id number] is: RIVER 10-19 MIN ICD-10- [place] [facility] S81.802 D Unspeci fied open wound, left lower leg, subsequ ent encount er
with Provide r Comment s: Unspeci fied open Wound, left lower Leg, Subsequ ent Encount er OFFICE O/P 45856-1.40 Diagnos ANGELIA,PEN 06/07 WHITE EST HI [id number] is: RIVER 40-54 MIN ICD-10- [facility] [facility] I87.2 Venous insuffi ciency (chroni c) (periph eral)<b r/>with Provide r Comment s: Venous insuffi ciency of leg (SCT [id number] ) Outpatient 17691-8.40 06/07 WHIT E Encounter [id number] /2021 [place] [facility] OFFICE O/P 15473-0.40 Diagnos ANGELIA,PEN 06/14 WHITE EST MOD [id number] is: RIVER 30-39 MIN ICD-10- [facility] [facility] I73.89 Other specifi ed periphe ral vascula r disease s
w ith Provide r Comment s: Periphe ral vascula r disease (SCT [id number] 06) OFFICE O/P 81020-2.40 Diagnos ANGELIA,PEN 06/21 WHITE EST LOW [id number] is: [facility] 20-29 MIN ICD-10- [facility] S81.802 D Unspeci fied open wound, left lower leg, subsequ ent encount er
with Provide r Comment s: Unspeci fied open Wound, left lower Leg, Subsequ ent Encount er OFFICE O/P 29452-5.40 Diagnos ANGELIA,PEN 07/05 WHITE EST SF [id number] is: [facility] 10-19 MIN ICD-10- [facility] I73.89 Other specifi ed periphe ral vascula r disease s
w ith Provide r Comment s: Periphe ral vascula r disease (SCT [id number] 06) OFFICE O/P 95222-5.40 Diagnos ANGELIA,PEN 08/04 WHITE EST LOW [id number] is: [place] 20-29 MIN ICD-10- [facility] I73.89 Other specifi ed periphe ral vascula r disease s
w ith Provide r Comment s: Periphe ral vascula r disease (SCT [id number] 06) Outpatient 58206-7. SABIALANNA JAQUEZ 08/14 WHITE Encounter [id number] [facility] 31220-308/14 WHIT E Encounter [id number] [facility] OFFICE O/P 96411-9.40 Diagnos ANGELIA,PEN 09/08 WHITE EST SF [id number] is: [place] 10-19 MIN ICD-10- [facility] I87.2 Venous insuffi ciency (chroni c) (periph eral)<b r/>with Provide r Comment s: Venous insuffi ciency of leg (SCT [id number] 02) OFFICE O/P 95342-9 Diagnos TIFFANYNV 09/27 ST. EST MOD [id number] is: CHAEL JOHNSBU 30-39 MIN 32 ICD-10- [facility] CM L97.821 Non-prs chr ulcer oth prt l low leg limited to brkdwn skin
with Provide r Comment s: Non-Pre ssure Chronic Ulcer of other part of left lower Leg Limited to Break[place] wn of Skin Outpatient 08387-609/27 WHIT E Encounter [id number] [facility] ADM 85748-2 Diagnos DEV JORGENSEN 09/28 ST . SARSCOV2 [id number].[id number] is: MIKE M CAMPBELL BU 50MCG/0.25 97 ICD-10- [facility] MLBST CM Z23 Encount er for immuniz ation<b r/>with Provide r Comment s: Encount er for Immuniz ation OFFICE O/P 19324-7.40 Diagnos ANGELIA,PEN 11/09 WHITE EST MOD [id number] is: [facility] 30-39 MIN ICD-10- [facility] E11.9 Type 2 diabete s mellitu s without complic ations< br/>wit h Provide r Comment s: Diabete s mellitu s (SCT [id number]) Outpatient 18455-5.40 12/13 WHIT E Encounter [id number] /2022 [facility] Out[facility] 23121-9.40 12/13 WHIT E Encounter [id number] /2021 [facility] Outpatient 92308-3.40 12/13 WHIT E Encounter [id number] [facility] 70998-9.40 12/13 WHIT E Encounter [id number] /2021 [facility] Outpatient [id number] 12/25 WHIT E Encounter [id number] /2021 [facility] TELEHEALTH 74370-9.40 Diagnos VO,EVERTON P 12/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.[id number] is: [facility] ON 70 ICD-10- RY CBOC CM I25.9 Chronic ischemi c heart disease , unspeci fied
with Provide r Comment s: Chronic ischemi c heart disease (SCT [id number]) Outpatient 29504-1.40 OSIRIS FELIZ 01/08 WHITE Encounter [id number] ASHLYN [place]ERTON /2021 RI FLO JCT [facility] Outpatient 60901-5.40 01/08 WHIT E [id number] [facility] 52351-1.40 Diagnos YVONNE ARRIAZA 01/18 [facility] EXAM [id number] is: TIMOTEO R /2021 JOHNSB U BOTH EARS 18 ICD-10- RY CBOC CM H90.3 Sensori neural hearing loss, bilater al
with Provide r Comment s: Sensori neural Hearing Loss, Bilater al Outpatient 17489-101/22 ST. Encounter [id number] [facility] 70 RY CBOC OFFICE O/P Diagnos VO,EVERTON P 01/22 WHITE EST MOD [id number] is: /2021 RIVER 30-39 MIN ICD-10- JCT CM [facility] E87.8 Oth disorde rs of electro lyte and fluid balance , NEC<br/ >with Provide r Comment s: Other Disorde rs of Electro lyte and Fluid Balance , not elsewhe re classif ied OFFICE O/P Diagnos PETTIGLIO, 01/22 ST. 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
wi th Provide r Comment s: Hypomag nesemia Outpatient 02/05 WHIT E Encounter [id number] /2021 [facility] Procedures Combined list of: 1) Procedures from Department of Veterans Affairs facilities going back up to the last 18 months, not all VA non-surgical procedures are included; 2) All procedures from the Department of Defense facilities. Procedure Procedure Type Code Date Perfomer Comments Sourc e WOUND DEBRIDEMENT CONRADO SUBQ TISSUE [id number] 09/30/2020 MEJIA TELLEZ WHITE KYRA LEFT LOWER LEG 20 SQ CM/< JCT [facility] Social History Combined list of available smoking, tobacco, and other social history from Department of Defense andVeterans Affairs facilities. Social History Type Response Date Comment Source Tobacco smoking VA-TOBACCO USER EVERY 09/27/2021 [facility] status NHIS DAY History of tobacco VA-TOBACCO USE WI 30 09/27/2021 S Benitez [facility]IL[facility] use MIN OF WAKEUP History of tobacco VA-TOBACCO USE 12/15/2019 TOM [facility] use DAYCARE PROVIDER NO History of tobacco CURRENT SMOKER 02/06/2019 SARAH KUO [facility] use History of tobacco CURRENT SMOKER 02/06/2019 SARAH KUO [facility] use History of tobacco VA-TOBACCO USE 06/18/2018 Bin TOM [facility] use DAYCARE PROVIDER NO History of tobacco CURRENT SMOKER 09/19/2017 Bin TOM [facility] CBOC use Plan of Care List of future care activities from Department of Veterans Affairs facilities. Additional future care activities may be listed in the Assessment and Plan section. Date/Time Care Activity Care Activity Detail Facility 02/12/2022 AMBULATORY - SURGERY AMBULATORY - SURGERY SARAH RAE [facility]
--- OUTSIDE RECORDS SUMMARY | 2022-02-09 10:32 | XMS_ITS | Encounter Summary ---
:1950 Author Organization [facility] Address [address] [place] [address] Support Name Relationship Address Phone ZUHAIR FOSTER Unavailable [address] [place] [address] ZUHAIR FOSTER Unavailable [address] [place] [address] Insurance Providers: All historical and current Section Date Range: From patient's date of to the date document was created.This section includes the names of all active insurance providers for the patient. Insurance Type of Plan Start of End of Group Member Insurance Policy P atient's Provider Coverage Name Policy Policy Number ID Provider's Liu's Relationship Coverage Coverage Telephone Name to Policy Number Liu CBA BLUE HIGH [facility] Jan 25, [id number] [phone] DO Stephanie FOSTER SPOUSE DEDUCTIBL [place] 2013 [id number] NA E [facility] PLAN EXPRESS PRESCRIPT WEI May 27, RXBWEID [id number] [phone] PEYTON FOSTER SPOUSE SCRIPTS ION [place] 2017 [id number] [phone] NA ([id number]) (HD ) MEDICARE MEDICARE PART Jan 25, PART A [id number] CRISTIAN, AND PATIENT (WNR) (M) A 2013 [id number] 2 REW Selected Encounter This section includes the information on record at [place] for the Encounter. Date/Time Encounter Type Encounter Description Reason Provider Source Feb 17, 2021 04:02 Outpatient Encounter TELEPHONE TRIAGE PM IHE Encounter Template Text not used by VA Plan of Treatment: Future Appointments (+ 6 months) and Future Tests (+/- 45 days) The Plan of Treatment section includes future care activities for the patient from all VA treatmentfacilities. This section includes future appointments and future orders which are active, pending orscheduled.Future Appointments This section includes appointments that were scheduled to occur 6 months from the date of the Encounter, up to a maximum of 20 appointments. The data comes from all [place] treatment facilities. Appointment Date/Time Appointment Type Appointment Sonia alex Name Feb 22, 2021 08:00 AM AMBUL[facility]ORY - [place]ONE [place] [facility] Mar 02, 2021 11:00 AM AMBULATORY - SURGERY [place] [facility] Mar 16, 2021 11:00 AM [facility]BUL[place]ORY [facility] [place] [facility] Apr 13, 2021 02:00 PM AMBULATORY - SURGERY [place] [facility] Apr 26, 2021 12:30 PM AMBULATORY - SURGERY [place] [facility] May 16, 2021 10:00 AM AMBUL[facility]ORY - [place] [facility] Jun 07, 2021 01:30 PM AMBULATORY - SURGERY [place] [facility] Jun 14, 2021 12:30 PM AMBULATORY - SURGERY [place] [facility] Jun 21, 2021 01:30 PM AMBULATORY - SURGERY [place] [facility] Jul 05, 2021 12:30 PM AMBULATORY - SURGERY [place] [facility] Aug 04, 2021 01:30 PM AMBULATORY - SURGERY [place] [facility] Social History: Smoking Status (Most current) and Tobacco Use (All prior to encounter date) This section includes the most current, and the historical, smoking and tobacco-related health factors from the VA facility where the Encounter took place.Current Smoking Status This section includes the most current smoking, or tobacco-related health factor, from the VA facility where the Encounter took place. Date/Time Current Smoking Status Comment Facility Feb 06, 2019 11:00 PM CURRENT SMOKER SARAH Whitney [facility] Tobacco Use History This section includes a history of the smoking, or tobacco- related health factors, that were collected on or before the date of the Encounter. The data comes from the [place] facility where the Encounter took place. Date/Time Smoking Status/Tobacco Use Comment [facility] Feb 06, 2019 05:51 PM CURRENT SMOKER SARAH Whitney [facility] Encounter Notes: All associated encounter notes This section contains the clinical notes associated to the Encounter. Date/Time Encounter Note(s) Provider Source Feb 17, 2021 04:03 PM PRIMARY CARE ADMINISTRATIVE NOTE: GEORGETTE CELESTIN [facility] LOCAL TITLE: Administrative Note/Primary Care STANDARD TITLE: PRIMARY CARE ADMINISTRATIVE NOTE DATE OF NOTE: FEB 17, 2021@16:03 ENTRY DATE: FEB 17, 2021@16:03:06 AUTHOR: WANG CELESTIN EXP COSIGNER: URGENCY: STATUS: COMPLETED Administrative Note/Primary Care Has ADDEND A Community Care Consult Being For: Facility: [facility] Address: [address] [place] [address] DX: Routine Eye Exam Does already have appointment: yes If so , when: February 22, 2021 Please confirm completion with , loretta pires. /meena/ WANG CELESTIN AMSLauri Signed: 02/17/2021 16:04 Receipt Acknowledged By: 02/17/2021 16:22 /meena/ SADI CÁRDENAS RN 02/17/2021 16:22 /meena/ JOAQUIN ROSS Registered Nurse * AWAITING SIGNATURE * SHANELL ALLEN 02/17/2021 ADDENDUM STATUS: COMPLETED contact with vet- informed that [facility] for eye care hs been enter- vet is appreciative. /meena/ SADI CÁRDENAS RN Signed: 02/17/2021 16:23
--- OUTSIDE RECORDS SUMMARY | 2022-02-09 10:32 | XMS_ITS ---
:1950 Author Organization [facility] rs Address [address] [place] [address] Support Name Relationship Address Phone ZUHAIR FOSTER Unavailable [address] [place] [address] ZUHAIR FOSTER Unavailable [address] [place] [address] Insurance Providers: All historical and current Section [...] to Policy Number Liu CBA BLUE [place]IGH [facility]I Jan 25, [id number] [phone] DO Stephanie FOSTER SPOUSE DEDUCTIBL [place] 2013 [id number] NA E [facility] PLAN EXPRESS PRESCRIPT WEIDM May 27, RXBWEID [id number] [phone] PEYTON FOSTER SPOUSE SCRIPTS ION [place] 2017 [id number] 557 NA ([id number]) ([facility] ) MEDICARE MEDICARE PART Jan 25, PART A [id number] CRISTIAN, AND PATIENT (WNR) (M) A 2013 [id number] 2 REW Selected Encounter This section includes the information on record at VA for the Encounter. Date/Time Encounter Type Encounter Reason Provider Source Description Feb 16, 2021 OFFICE O/P EST PODIATRY ICD-10-CM I87.2 GENESIS GALAN 10:00 AM [place] 40-54 MIN Venous insufficiency (chronic) (peripheral) with Provider Comments: Venous insufficiency of leg (SCT [id number]) IHE Encounter Template Text not used by VA Assessments - Encounter Diagnoses This section includes the primary and secondary diagnoses documented for the Encounter. Date/Time Primary/Secondary Diagnosis Name Provider Source Diagnosis Mar 01, 2021 PRIMARY Venous insufficiency ANGELIA,GENESIS SMITH R IVER 08:06 AM (chronic[facility]peripheral[facility] Mar 01, 2021 SECONDARY Edema, unspecified ANGELIA,GENESIS SMITH MARIA G ER 08:06 AM JCT [facility] Mar 01, 2021 SECONDARY Other specified ANGELIA,GENESIS SMITH [place] 08:06 AM peripheral vascular T [facility] diseases Mar 01, 2021 SECONDARY Type 2 diabetes ANGELIA,GENESIS SMITH [place] 08:06 AM mellitus without T [facility] complications Mar 01, 2021 SECONDARY Unspecified open ANGELIA,GENESIS SMITH [place] 08:06 AM wound, right lower JCT VA[facility] C leg, subs encntr Plan of Treatment: Future Appointments (+ 6 months) and Future Tests (+/- 45 days) The Plan of Treatment section includes future care activities for the patient from all [place] treatmentfacilities. This section includes future appointments and future orders which are active, pending orscheduled.Future Appointments This section includes appointments that were scheduled to occur 6 months from the date of the Encounter, up to a maximum of 20 appointments. The data comes from all [place] treatment facilities. Appointment Date/Time Appointment Type Appointment Facili ty Name Feb 22, 2021 08:00 AM AMBULATORY - NONE [place] [facility] Mar 02, 2021 11:00 AM AMBULATORY - SURGERY [place] [facility] Mar 16, 2021 11:00 AM AMBULATORY - SURGERY [place] [facility] Apr 13, 2021 02:00 PM AMBULATORY - SURGERY [place] [facility] Apr 26, 2021 12:30 PM AMBULATORY - SURGERY [place] [facility] May 16, 2021 10:00 AM AMBULATORY - SURGERY [place] [facility] Jun 07, 2021 01:30 PM AMBULATORY - [...] smoking and tobacco-related health factors from the [place] facility where the Encounter took place.Current Smoking Status This section includes the most current smoking, or tobacco-related health factor, from the [place] facility where the Encounter took place. Date/Time Current Smoking Status Comment Facility Feb 06, 2019 11:00 PM CURRENT SMOKER SARAH Whitney [facility] Tobacco Use History This section includes a history of the smoking, or tobacco- related health factors, that were collected on or before the date of the Encounter. The data comes from the [place] facility where the Encounter took place. Date/Time Smoking Status/Tobacco Use Comment [facility] Feb 06, 2019 05:51 PM CURRENT SMOKER SARAH Whitney Vilma [facility] Encounter Notes: All associated encounter notes This section contains the clinical notes associated to the Encounter. Date/Time Encounter Note(s) Provider Source Feb 16, 2021 10:13 AM PODIATRY E & M NOTE: GENESIS GALAN [facility] LOCAL TITLE: Podiatry/High Risk Foot [facility] STANDARD TITLE: PODIATRY E & M NOTE DATE OF NOTE: FEB 16, 2021@10:13 ENTRY DATE: FEB 16, 2021@10:14:01 AUTHOR: GENESIS GALAN EXP COSIGNER: URGENCY: STATUS: COMPLETED Mr. Foster is a 70 y/o DM mal e with PVD who was seen today as a follow up for non-healing ulcer LLE. He reports that his W alesia states the wound is improving and appears to hav e new tissue growth in the base. He reports that he has some burning discomfort/pain when th e medihoney colloid sheet is initially placed over the wound for about 20 minutes then it goes away. Per previous notes: THIS ULCER HAS BEEN FOLLOWED WITH VIRTUALLY NO I MPROVEMENT WITH OFFICE DEBRIDEMENT NOT AN OPTION DUE TO SEVERE TENDERNE SS AND SUBSEQUENTLY S/P DEBRIDEMENT OF WOUND LEFT LEG 04/15/2020 IN OR S TILL WITH NO SIGNIFICANT IMPROVEMENT; WITH PVD,POORLY CONTROLLED LES EDEMA AND AT ONE POINT SUPERIMPOSED SIGNIFICANT ECZEMA MANAGED SUCCESSFULLY BY DERM FURTHER COMPLICATED HEALING; EDEMA FACTOR HAS BEEN THE PROBLEM UNTIL RECENTLY AFTER PCP INTERVENTION WITH CHNAGES IN MEDICATIONS THAT LEAD TO BETTER STATU S OF THE WOUND TO ALLOW PLACEMENT OF SUBSTITUTE GRAFT; S/P DEBRIDMENT AN D PLACEMENT OF RESTRATA SUBSTITUTE GRAFT 09/30/2020. ---- MICROBIOLOGY ---- Reporting Lab: [facility] [CLIA# [id number]] [address] [place] [address] Accession [UID]: [id number] [[id number]] Received : Jun 27, 2020@15:49 Collection sample: SWAB/RED Collection date: Jun 27, 2020 15:00 Site/Specimen: WOUND Provider: MEJIA TELLEZ Comment on specimen: L LEG Test(s) ordered: CULTURE,WOUND SUPERFICAL SKIN PANEL completed: Jul 01, 2020 09:37 * BACTERIOLOGY FINAL REPORT => Jul 01, 2020 09:3 8 TECH CODE: [id number] GRAM STAIN: 06/27/20: 3+ WBC'S 4+ GRAM POSITIVE COCCI 2+ GRAM NEGATIVE RODS 1+ GRAM POSITIVE RODS CULTURE RESULTS: 1. KLEBSIELLA OXYTOCA - Quantit y: 4+ 2. STAPHYLOCOCCUS AUREUS - Quantity: 4+ ANTIBIOTIC SUSCEPTIBILITY TEST RESULTS: 1. KLEBSIELLA OXYTOCA : 2. STAPHYLOCOCCUS AUREUS : : Ampicillin.................... R Augmentin..................... S Cefazolin..................... S Cefepime...................... S Cefoxitin..................... S Cefuroxime.................... S Ciprofloxacin................. S Clindamycin................... S Erythromycin.................. S Gentamicin.................... S Oxacillin..................... S Penicillin-G.................. S Tetracycline.................. S Trimeth/Sulfa................. S Vancomycin.................... 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 Essential hypertension ([facility] 62857790) E11.9 Diabetes mellitus ([facility] 61608967) R69. Anemia ([facility] 090916378) E78.5 HLD - Hyperlipidemia ([facility] 84660401) K22.719 Pierre's esophagus ([facility] 317919487) R69. GERD - Gastro-esophageal reflux disease (OR T [id number]) R69. Diverticulosis ([facility] 643201334) R69. OA - Osteoarthrosis ([facility] 621922492) I25.9 Chronic ischemic heart disease ([facility] 880298 009) HGB A1C: 7.4 (10/26/20) BUN/CREAT: 20/0.89 (09/26/20) GLU: 128 (09/26/20) HGB: 14.3 (10/26/20) HCT: 43.3 (10/26/20) Active Outpatient Medications (excluding Supplie s): Active Outpatient Medications Status 1) ACCU-CHEK KYLER PLUS(GLUCOSE) TEST STRIP USE 1 STRIP ACTIVE ACCU-CHEK KYLER PLUS(GLUCOSE) TEST STRIP NEE DED TO TEST BLOOD GLUCOSE LEVEL 2) ALOGLIPTIN 6.25MG TAB/ONE TAB PO QD FOR DIABE MILAGROS ACTIVE 3) ASPIRIN 81MG EC TAB/ONE TAB PO QD PREVENT STR YOSELIN/ ACTIVE HEART ATTACK OR FOR PAIN/SWELLING/INFLAMMATION 4) ATORVASTATIN CALCIUM 10MG TAB/ONE TAB PO QPM ACTIVE TO LOWER CHOLESTEROL 5) COLLAGENASE 250 UNT/GM TOP OINT APPLY SMALL A MOUNT ACTIVE TOPICALLY QOD LEFT LEG WOUND DIRECTED 6) LISINOPRIL 5MG TAB/ONE TAB PO QD FOR BP ACTIV E 7) METFORMIN HCL 1000MG TAB/ONE TAB PO BID W/OTTONIEL LS DM ACTIVE 8) METOLAZONE 2.5MG TAB TAKE ONE TABLET BY MOUTH EVERY ACTIVE MORNING PATIENT TO ATHLETIC AGENT 08/18 9) METOPROLOL SUCCINATE 50MG SA TAB TAKE ONE TAB LET BY ACTIVE MOUTH EVERY DAY FOR BLOOD PRESSURE/HEART 10) PANTOPRAZOLE NA 40MG EC TAB/ONE TAB PO QD FO R STOMACH ACTIVE ACID (TAKE HALF-HOUR BEFORE A MEAL(S) 11) POTASSIUM CHLORIDE 10MEQ SA TAB/ONE TAB PO Q D FOR K+ ACTIVE 12) PREGABALIN 75MG ORAL CAP TAKE ONE CAPSULE BY MOUTH ACTIVE TWICE A DAY TO PREVENT SEIZURES OR NEUROPATHIC PAIN 13) SODIUM HYPOCHLORITE 0.25% TOP SOLN APPLY DANGELO LICATION ACTIVE TOPICALLY QD FOR LEFT LEG WOUND INSTRUCTED Active Non-VA Medications Status 1) Non-VA FLUTICASONE PROP 50MCG 120D NASAL INHL 1 SPRAY ACTIVE INTO EACH NOSTRIL EVERY DAY 2) Non-VA MAGNESIUM OXIDE 420MG TAB 420MG PO QD ACTIVE 3) Non-VA MULTIVITAMIN/MINERALS CAP/TAB ONE CAP/ TAB PO QD ACTIVE 16 Total Medications LAST VITALS: BP: 130/64 (09/26/2020 11:18) Pulse: 91 (09/26/2020 10:31) Temp: 95.7 F [35.4 C] (09/26/2020 10:31) Resp: 18 (04/14/2020 09:56) HT(in): 68 in [172.7 cm] (09/26/2020 10:31) WT(lbs.):224.2 lb [101.9 kg] (09/26/2020 10:31) PULSE OXIMETRY - NONE FOUND - 1M BODY MASS INDEX - SEPTEMBER 26, 2020@10:31:56 34.2 Allergies: SHELLFISH Social: , smoker Shoe/Amb: in good repair/independent Vasc: Previous assessment: +ve doppler pulses, CFT slight decreased B/L but > relatively RIGHT, TEMP WNL, STILL pitting LES edema > LLE as usual but overall some relative improvement but not as impressive today, still more at the foot with pitting.; stable stasis changes with associated ulcer LLE anteriorly DATE: SEPTEMBER 28, 2020 Procedure: LOWER EXTREMITY ARTERIAL STUDY Registered It Engineer: VERONICA IBRAHIM Segmental Pressures (SEG) Ordering Provider: MEJIA TELLEZ Indication for Vascular Lab procedure: DIABETIC MALE WITH H/O PVD WITH NONHEALING CHRONIC LEFT MID LEG ULCERATION S PERTINENT HISTORY: DIABETES:YES VASC OPERATIONS: SYSTOLIC BLOOD PRESSURES (mmHg.): Brach Dorsal Pedal Post Tibial Toe Right 120 81 87 72 Left 109 108 121 60 RATIOS of systolic pressures compared to brachia l pressure: Right DP:0.68 PT:0.73 TOE:0.60 Left DP:0.90 PT:1.01 TOE:0.50 DOPPLER WAVEFORMS: Dorsal Pedal Post Tibial Right [place]-Biphasic Monophasic Left Monophasic INTERPRETATION: RIGHT: Mild lower extremity arterial oc clusive disease. No significant change since the last study on 03-02-20. LEFT: Moderate lower extremity arterial occlusi ve disease. No significant change since the last study on 03-02-20. The left ankle pressures are falsely elevated compared to the Doppler waveforms, due to calcified tibial arteries. Thus, disease severity is based on Doppler waveforms and toe pressures. DERM: LLE distal to tibia there is a small area in the proximal area of the wound that is of concern that it could open back up. He was using Hydrogel, Adaptic and 4X4 over the top, will change to just Adaptic and 4X 4 until next visit or if area looks worse go back to the Hydrogel, Adaptic and 4X4. LLE proximal to tibia previo usly measured 2.4CM long by 2.2CM wide, not measured today. Cleaned away slough in the base of the wo und, pink epithelial layer underneath. Using Medihoney 2X2 colloid sheets a s he has a shellfish allergy. Neurologic: S-W 5.07 intact B/L Orthopedic: Continues to have tenderness to palp ation on LLE proximal wound Previous IMP: Mr. 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 CLOSED AFTER OR DEBRIDEMENT AND PL ACEMENT OF RESTRATA SKIN SUBSTITUTE GRAFT NOW CHRONICALLY WITH UL CER LEFT LEG AFTER TRAUMA/SCRATCH FROM [employer] PRIOR; THIS ULCER HAS BEEN FOLLOWED WITH VIRTUALLY NO IMPROVEMENT WITH OFFICE DEBRIDEMENT NOT AN OPTION DUE TO SEVERE TENDERNESS AND SUBSEQUENTLY S/P DEBRIDEMENT OF WOUND LEFT LEG 1 06/15/2019 IN OR STILL WITH NO SIGNIFICANT IMPROVEMENT; WITH PVD,POORLY CONTROLLED LES EDEMA AND AT ONE POINT SUPERIMPOSED SIGNIFICANT ECZ ALLYSON MANAGED SUCCESSFULLY BY DERM FURTHER COMPLICATED HEALING; EDEMA FACTOR HAS BE EN THE PROBLEM UNTIL RECENTLY AFTER PCP INTERVENTION WITH CHNAGES IN MEDICATIONS THAT LEAD TO BETTER STATUS OF THE WOUND TO ALLOW PLACEMENT OF SUBSTITUTE GRAFT; S/P DEBRIDMENT AN D PLACEMENT OF RESTRATA SUBSTITUTE GRAFT 09/30/2020. TODAY: Mr. Foster continues t o have minimal edema in and around the LLE proximal wound. There was significant slough in the bed o ff the wound that was easily removed with a dry 4X4. Redressed with Medihoney colloid sheet cut out to fit the bed of the wound. There were prints in his leg surrounding the wound where the Medihoney was previously placed. ECZEMA LLE: Remains resolved with Derm intervent ion PLAN: 1. Exam and education 2. LLE Proximal wound: a. Controlling edema with daily compression B/L b. Slowly healing at the proximal edge c. Continued encouragement of smoking cessation 3. LLE Distal to tibia: a. Former wound site b. Healed with dry flaky layer of skin c. Encouraged lotion B/L LE w/exception of open wound area 4. Edema: a. Control as directed by PCP DERESSING INSTRUCTION: Continue same dressings n oted below PROXIMAL TO TIBIA WOUND + Cleaned with dry 4X4 + Medihoney Colloid sheet cut down to size + Adaptic over Medihoney + 2-4X4's, covering proximal wound and distal ar ea of previous wound + 4 Guerrero + Dressings to be done QOD + Advised to go back to QD dressing changes if d ressings become too wet. + Supplies provided RTC: 2 Weeks or as needed /meena/ Genesis Galan MSN GARMENT MANUFACTURER Staff Nurse Practitioner Signed: 03/01/2021 08:06
--- OUTSIDE RECORDS SUMMARY | 2022-02-09 10:34 | XMS_ITS ---
:1950 Author Organization [facility] rs Address [address] [place] [id number] Support Name Relationship Address Phone ZUHAIR FOSTER Unavailable [address] [place] [address] ZUHAIR FOSTER Unavailable [address] [place] [address] Insurance Providers: All historical and current Section [...] Liu CBA BLUE HIGH [place]I Jan 25, [id number] [phone] DO Stephanie FOSTER SPOUSE DEDUCTIBL [place] 2013 [id number] NA E [facility] PLAN EXPRESS PRESCRIPT WEIDM May 27, RXBWEID [id number] [phone] PEYTON FOSTER SPOUSE SCRIPTS ION [place] 2017 [id number] NA ([id number]) ([facility] ) MEDICARE MEDICARE PART Jan 25, PART A [id number] CRISTIAN, AND PATIENT (WNR) (M) A 2013 [id number] 2 REW Selected Encounter This section includes the information on record at [facility] for [facility]counter. Date/Time Encounter Type Encounter Reason Provider Source Description May 16, 2021 OFFICE O/P EST PODIATRY ICD-10-CM GENESIS GALAN 10:00 AM SF 10-19 MIN S81.802D Unspecified open wound, left lower leg, subsequent encounter with Provider Comments: Unspecified open Wound, left lower Leg, Subsequent Encounter IHE Encounter Template Text not used by [facility] Assessments - Encounter Diagnoses This section includes the primary and secondary diagnoses documented for the Encounter. Date/Time Primary/Secondary Diagnosis Name Provider Source Diagnosis May 18, 2021 PRIMARY Unspecified open ANGELIA,GENESIS [place] 02:19 PM wound, left lower [facility] leg, subsequent encounter May 18, 2021 SECONDARY Edema, unspecified ANGELIA,GENESIS SMITH [place] G [place] 02:19 PM [facility] May 18, 2021 SECONDARY Other specified ANGELIA,GENESIS [place] 02:19 PM peripheral vascular [facility] diseases May 18, 2021 SECONDARY Type 2 diabetes ANGELIA,GENESIS [place] 02:19 PM mellitus without [facility] complications May 18, 2021 SECONDARY Venous insufficiency ANGELIA,GENESIS SM[place] 02:19 PM (chronic) [facility] Plan of Treatment: Future Appointments (+ 6 [...] 20 appointments. The data comes from all [place] treatment facilities. Appointment Date/Time Appointment Type Appointment Facili ty Name Jun 07, 2021 01:30 PM AMBULATORY - [...] - SURGERY [place] [facility] Sep 08, 2021 10:30 AM AMBULATORY - SURGERY [place] [facility] September 27, 2021 09:00 AM AMBULATORY - MEDICINE [facility] September 28, 2021 10:00 AM AMBULATORY - NONE [facility] October 18, 2021 09:30 AM AMBULATORY - NONE [place] [facility] Nov 09, 2021 11:00 AM AMBULATORY - SURGERY [place] [facility] Social History: Smoking Status (Most current) and Tobacco Use (All prior to encounter date) This section includes the most current, and the historical, smoking and tobacco-related health factors from the [place] facility where the Encounter took place.Current Smoking Status This section includes the most current smoking, or tobacco-related health factor, from the [place] facility where the Encounter took place. Date/Time Current Smoking Status Comment Facility Feb 06, 2019 11:00 PM CURRENT SMOKER SARAH Whitney [facility] Tobacco Use History This section includes a history of the smoking, or tobacco- related health factors, that were collected on or before the date of the Encounter. The data comes from the [place] facility where the Encounter took place. Date/Time Smoking Status/Tobacco Use Comment [facility] Feb 06, 2019 05:51 PM CURRENT SMOKER SARAH Whitney [facility] Pathology Reports: +/- 30 days of the encounter Pathology Reports For cases when an order for pathology services may have been completed prior to the date of the Encounter, the report list includes the Pathology Reports that were completed up to 30 days before date of the Encounter. For cases when an order for pathology services may have been completed after the date of the Encounter, the report list also includes the Pathology Reports that were completed up to 30days after date of the Encounter. The data comes from all [place] treatment facilities. Date/Time Pathology Report Provider Source Jun 14, 2021 12:30 PM LR [facility] Reporting Lab: [facility] [CLIA# [id number]] [address] [place] [address] Accession [UID]: ID [id number] [[id number]] Received : Jun 14, 2021@13:06 Collection sample: WOUND Collection date: May 12:30 Site/Specimen: LEFT LEG Provider: GENESIS GALAN Comment on specimen: LLE Test(s) ordered: CULTURE,WOUND DEEP ABSCESS(ROBIN EL)completed: Jun 19, 2021 * BACTERIOLOGY FINAL REPORT => Jun 19, 2021 11:4 1 TECH CODE: [id number] GRAM STAIN: 06/14/21 2+ WBC'S 2-3+ GRAM POSITIVE COCCI, IN CLUSTERS <1+ GRAM NEGATIVE RODS CULTURE RESULTS: STAPHYLOCOCCUS AUREUS - Quantit y: 4+ ANTIBIOTIC SUSCEPTIBILITY TEST RESULTS: STAPHYLOCOCCUS AUREUS : Ciprofloxacin................. S Clindamycin................... S Erythromycin.................. S Gentamicin.................... S Linezolid..................... S Oxacillin..................... S Penicillin-G.................. S Tetracycline.................. S Trimeth/Sulfa................. S Vancomycin.................... S =--=--=--=--=--=--=--=--=--=--=--=--=--= --=--=--=--=--=--=--=--=--=--=--=--=-- Performing Laboratory: Bacteriology Report Performed By: [facility] [CLIA# [id number]] [address] [address] 3 Gram Stain Performed By: [facility] [CLIA# [id number]] [address] [address] 3 Encounter Notes: All associated encounter notes This section contains the clinical notes associated to the Encounter. Date/Time Encounter Note(s) Provider Source May 16, 2021 04:14 PM PODIATRY E & M NOTE: GENESIS GALAN [facility] LOCAL TITLE: Podiatry/High Risk Foot [facility] STANDARD TITLE: PODIATRY E & M NOTE DATE OF NOTE: MAY 16, 2021@16:14 ENTRY DATE: MAY 16, 2021@16:14:32 AUTHOR: GENESIS GALAN EXP COSIGNER: URGENCY: STATUS: COMPLETED Mr. Foster is a 71 y/o DM male with PVD w ho is seen today for ongoing wound care of non-healing ulcer LLE. Tod ay Mr. Foster presents with a LLE wound that is slowly filling in at the edges. It is clean and intact, he uses Santyl on it therefore it always lo oks shiny and slightly moist. Otherwise there are no concerns for infection. Mr. Lopez asks about trying a graft on this site. Per previous notes: THIS ULCER HAS BEEN FOLLOWED WITH VIRTUALLY NO I MPROVEMENT WITH OFFICE DEBRIDEMENT NOT AN OPTION DUE TO SEVERE TENDERNE SS AND SUBSEQUENTLY S/P DEBRIDEMENT OF WOUND LEFT LEG 04/15/2020 IN OR S TILL WITH NO SIGNIFICANT IMPROVEMENT; WITH PVD,POORLY CONTROLLED LES RAZ A AND AT ONE POINT SUPERIMPOSED SIGNIFICANT ECZEMA MANAGED SUCCESSF ULLY BY DERM FURTHER COMPLICATED HEALING; EDEMA FACTOR HAS BEEN THE PROBLEM UNTIL RECENTLY AFTER PCP INTERVENTION WITH CHNAGES IN MEDICATIONS THAT LEAD TO BETTER STATUS OF THE WOUND TO ALLOW PLACEMENT OF SUBSTITUTE GRAFT; S/P DEBRIDMENT AN D PLACEMENT OF RESTRATA SUBSTITUTE GRAFT 09/30/2020. 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 Essential hypertension ([facility] 23996330) E11.9 Diabetes mellitus ([facility] 51755973) R69. Anemia ([facility] 846296207) E78.5 HLD - Hyperlipidemia ([facility] 51912127) K22.719 Pierre's esophagus ([facility] 945709034) R69. GERD - Gastro-esophageal reflux disease ([place] T 104645527) R69. Diverticulosis ([facility] 404700120) R69. OA - Osteoarthrosis ([facility] 688375075) I25.9 Chronic ischemic heart disease ([facility] 083432 009) Active Outpatient Medications (excluding Supplie s): Active Outpatient Medications Status 1) ACCU-CHEK KYLER PLUS(GLUCOSE) TEST STRIP USE 1 STRIP ACTIVE ACCU-CHEK KYLER PLUS(GLUCOSE) TEST STRIP NEE DED TO TEST BLOOD GLUCOSE LEVEL 2) ALBUTEROL 90MCG (CFC-F) 200D ORAL INHL INHALE 2 PUFFS ACTIVE BY MOUTH EVERY FOUR TO SIX HOURS NEEDED FOR BREATHING 3) ALOGLIPTIN 6.25MG TAB TAKE ONE TABLET BY MOUT H EVERY ACTIVE DAY FOR DIABETES 4) ASPIRIN 81MG EC TAB TAKE ONE TABLET BY MOUTH EVERY ACTIVE DAY TO PREVENT STROKE/HEART ATTACK OR FOR PAIN/SWELLING/INFLAMMATION 5) ATORVASTATIN CALCIUM 10MG TAB TAKE ONE TABLET BY ACTIVE MOUTH EVERY EVENING TO LOWER CHOLESTEROL 6) COLLAGENASE 250 UNT/GM TOP OINT APPLY SMALL A MOUNT ACTIVE TOPICALLY EVERY OTHER DAY LEFT LEG WOUND DIRECTED 7) LISINOPRIL 5MG TAB TAKE ONE TABLET BY MOUTH E VERY DAY ACTIVE TO CONTROL BLOOD PRESSURE 8) METFORMIN HCL 1000MG TAB TAKE ONE TABLET BY M OUTH ACTIVE TWICE DAILY WITH MEALS FOR DIABETES 9) METOLAZONE 2.5MG TAB TAKE ONE TABLET BY MOUTH EVERY ACTIVE MORNING 10) METOPROLOL SUCCINATE 50MG SA TAB TAKE ONE TA BLET BY ACTIVE MOUTH EVERY DAY FOR BLOOD PRESSURE/HEART 11) PANTOPRAZOLE NA 40MG EC TAB TAKE ONE TABLET BY MOUTH ACTIVE EVERY DAY FOR STOMACH ACID (TAKE HALF-HOUR BEFO RE A MEAL(S) 12) POTASSIUM CHLORIDE 10MEQ SA TAB TAKE ONE TAB LET BY ACTIVE MOUTH EVERY DAY TO SUPPLEMENT POTASSIUM 13) PREGABALIN 75MG ORAL CAP TAKE ONE CAPSULE BY MOUTH ACTIVE TWICE A DAY TO PREVENT SEIZURES OR NEUROPATHIC PAIN Active Non-VA Medications Status 1) Non-VA FLUTICASONE PROP 50MCG 120D NASAL INHL 1 SPRAY ACTIVE INTO EACH NOSTRIL EVERY DAY 2) Non-VA MAGNESIUM OXIDE 420MG TAB 420MG BY RENETTA TH EVERY ACTIVE DAY 3) Non-VA MULTIVITAMIN/MINERALS CAP/TAB ONE CAP/ TAB BY ACTIVE MOUTH EVERY DAY 16 Total Medications HGB A1C: 7.4 (10/26/20) BUN/CREAT: 20/0.89 (09/26/20) GLU: 128 (09/26/20) HGB: 14.3 (10/26/20) HCT: 43.3 (10/26/20) LAST VITALS: BP: 130/64 (09/26/2020 11:18) Pulse: 91 (09/26/2020 10:31) Temp: 95.7 F [35.4 C] (09/26/2020 10:31) Resp: 18 (04/14/2020 09:56) HT(in): 68 in [172.7 cm] (09/26/2020 10:31) WT(lbs.):224.2 lb [101.9 kg] (09/26/2020 10:31) PULSE OXIMETRY: 97% RA (09/26/2020 10:31) BODY MASS INDEX - SEPTEMBER 26, 2020@10:31:56 34.2 Allergies: SHELLFISH Social: , smoker-this is from pre vious visits will inquire next appt if he continues to smoke. Shoe/Amb: in good repair/independent Vasc: Previous assessment: +ve doppler pulses, CFT slight decreased B/L but > relatively RIGHT, TEMP WNL, LES edema improvement. DATE: SEPTEMBER 28, 2020 Procedure: LOWER EXTREMITY ARTERIAL STUDY Registered Fugitive Investigator: VERONICA IBRAHIM Segmental Pressures (SEG) Ordering Provider: [...] DOPPLER WAVEFORMS: Dorsal Pedal Post Tibial Right [place]-Biphasic Monophasic Left Monophasic INTERPRETATION: RIGHT: Mild lower extremity arterial occlusive disease. No significant change since the last study on 03-02-20. LEFT: Moderate lower extremity arterial occlusi ve disease. No significant change since the last study on 03-02-20. The left ankle pressures are falsely elevated co mpared to the Doppler waveforms, due to calcified tibial arteries. Kathleen s, disease severity is based on Doppler waveforms and toe pressures. DERM: LLE proximal to tibia today measured 1.5CM wide X 1.7CM high X 0.2CM deep. Down from original size of 2.4CM long X 2.2CM wide. There was no slough in the base of the wound today and has a nice p ink epithelial layer in the wound bed. He has a shell -fish allergy. Will continue with the Santyl and 4X4, then wrapped with Guerrero and paper tape. No debriding today. Neurologic: S-W 5.07 intact B/L Orthopedic: Continues to have tenderness to palp ation on LLE proximal wound Previous IMP: Mr. Foster is a 71 Y/O diabetic male with PVD, H/O RIGHT [...] AT ONE POINT SUPERIMPOSED SIGNIFICANT ECZEMA MANAGED SUCCESSF ULLY BY DERM THAT FURTHER COMPLICATED HEALING; EDEMA FACTOR HAS BEEN THE P ROBLEM UNTIL RECENTLY AFTER PCP INTERVENTION WITH CHNAGES IN MEDICAT IONS THAT LEAD TO BETTER STATUS OF THE WOUND TO ALLOW PLACEMENT OF SUBSTITUTE GRAFT; S/ P DEBRIDMENT AND PLACEMENT OF RESTRATA SUBSTITUTE GRAFT 09/30/2020. Today Mr. Foster continues to have no edema in an d around the LLE wound. The area is clean and intact around the wound, t here is no erythema. At this point he looks to be a good candidate to try another graft. ECZEMA LLE: Remains resolved with Derm intervention. PLAN: 1. Exam and education: a. Smoking cessation if continues 2. LLE Proximal wound: a. Controlling edema with daily compression B/L b. Currently at a standstill in the healing pro cess. c. Dressed with Santyl, 4X4, Guerrero and paper ta pe. 4. Edema: a. Control as directed by PCP DERESSING INSTRUCTION: PROXIMAL TO TIBIA WOUND + Wipe with dry 4X4, then saline gently wipe + Continue with a small amount of Santyl, + 4X4, covering wound + 4 Guerrero + Dressings to be done QD, . + Supplies not needed today RTC: 3 Weeks or as needed /meena/ Genesis Galan MSN RECREATION ADVISER Staff Nurse Practitioner Signed: 05/18/2021 14:20
--- OUTSIDE RECORDS SUMMARY | 2022-02-09 10:34 | XMS_ITS ---
:1950 Author Organization [facility] rs Address [address] [place] [address] Support Name Relationship Address Phone ZUHAIR FOSTER Unavailable [address] [place] [address] ZUHAIR FOSTER Unavailable [address] [place] [address] Insurance Providers: All historical and current Section [...] to Policy Number Liu CBA BLUE HIGH [facility] Jan 25, [id number] [phone] DO Stephanie FOSTER SPOUSE DEDUCTIBL [place] 2013 [id number] NA E [facility] PLAN EXPRESS PRESCRIPT WEI May 27, RXBWEID [id number] [phone] PEYTON FOSTER SPOUSE SCRIPTS ION [place] 2017 [id number] NA ([id number]) ([facility] ) MEDICARE MEDICARE PART Jan 25, PART A [id number] CRISTIAN, AND PATIENT (WNR) (M) A 2013 [id number] 2 REW Selected Encounter This section includes the information on record at [place] for the Encounter. Date/Time Encounter Type Encounter Reason Provider Source Description Jun 07, 2021 OFFICE O/P EST PODIATRY ICD-10-CM I87.2 GENESIS GALAN 01:30 PM HI 40-54 MIN Venous insufficiency (chronic) (peripheral) with Provider Comments: Venous insufficiency of leg ([facility] 140521878) IHE Encounter Template Text not used by [facility] Assessments - Encounter Diagnoses This section includes the primary and secondary diagnoses documented for the Encounter. Date/Time Primary/Secondary Diagnosis Name Provider Source Diagnosis Jun 07, 2021 PRIMARY Venous insufficiency ANGELIAGENESIS IVER 04:51 PM (chronic) [facility] (peripheral) Jun 07, 2021 SECONDARY Edema, unspecified ANGELIAGENESIS MARIA G ER 04:51 PM [facility] Jun 07, 2021 SECONDARY Encounter for ANGELIAGENESIS 04:51 PM fitting and [facility] adjustment of oth devices Jun 07, 2021 SECONDARY Other specified ANGELIA,GENESIS RAE 04:51 PM peripheral vascular [facility] diseases Jun 07, 2021 SECONDARY Type 2 diabetes ANGELIAGENESIS 04:51 PM mellitus without [facility] complications Jun 07, 2021 SECONDARY Unspecified open ANGELIA,GENESIS RAE 04:51 PM wound, right lower [facility] leg, subs encntr Plan of Treatment: Future Appointments (+ 6 months) and Future Tests (+/- 45 days) The Plan of Treatment section includes future care activities for the patient from all [place] treatmentfacilities. This section includes future appointments and future orders which are active, pending orscheduled.Future Appointments This section includes appointments that were scheduled to occur 6 months from the date of the Encounter, up to a maximum of 20 appointments. The data comes from all [place] treatment facilities. Appointment Date/Time Appointment Type Appointment Facili ty Name Jun 14, 2021 12:30 PM AMBULATORY - [...] 27, 2021 09:00 AM AMBULATORY - MEDICINE [facility] September 28, 2021 10:00 AM AMBULATORY - NONE [facility] October 18, 2021 09:30 AM AMBULATORY - NONE [place] [facility] Nov 09, 2021 11:00 AM AMBULATORY - SURGERY [place] [facility] Social History: Smoking Status (Most current) and Tobacco Use (All prior to encounter date) This section includes the most current, and the historical, smoking and tobacco-related health factors from the [place] facility where the Encounter took place.Current Smoking Status This section includes the most current smoking, or tobacco-related health factor, from the [place] facility where the Encounter took place. Date/Time Current Smoking Status Comment Facility Feb 06, 2019 11:00 PM CURRENT SMOKER SARAH Whitney [facility] Tobacco Use History This section includes a history of the smoking, or tobacco- related health factors, that were collected on or before the date of the Encounter. The data comes from the [place] facility where the Encounter took place. Date/Time Smoking Status/Tobacco Use Comment [facility] Feb 06, 2019 05:51 PM CURRENT SMOKER SARAH Whitney [facility] Pathology Reports: +/- 30 days of the [...] the Encounter. The data comes from all [place] treatment facilities. Date/Time Pathology Report Provider Source Jun 14, 2021 12:30 PM LR MICROBIOLOGY REPORT: KIERRA RAE [facility] Reporting Lab: [facility] [CLIA# [id number]] [address] [place] [address] Accession [UID]: [id number] [[id number]] Received : Jun 14, 2021@13:06 Collection sample: WOUND Collection date: May 12:30 Site/Specimen: LEFT LEG Provider: GENESIS GALAN Comment on specimen: LLE Test(s) ordered: CULTURE,WOUND DEEP ABSCESS(ROBIN EL)completed: Jun 19, 2021 * BACTERIOLOGY FINAL REPORT => Jun 19, 2021 11:4 1 TECH CODE: [id number] GRAM STAIN: 06/14/21 2+ WBC'S 2-3+ GRAM POSITIVE COCCI, IN CLUSTERS <1+ GRAM NEGATIVE RODS CULTURE RESULTS: STAPHYLOCOCCUS AUREUS - Quantit y: 4+ ANTIBIOTIC SUSCEPTIBILITY TEST RESULTS: STAPHYLOCOCCUS AUREUS : Ciprofloxacin................. S Clindamycin................... S Erythromycin.................. S Gentamicin.................... S Linezolid..................... S Oxacillin..................... S Penicillin-G.................. S Tetracycline.................. S Trimeth/Sulfa................. S Vancomycin.................... S =--=--=--=--=--=--=--=--=--=--=--=--=--= --=--=--=--=--=--=--=--=--=--=--=--=-- Performing Laboratory: Bacteriology Report Performed By: [facility] [CLIA# [id number]] [address] [address] 3 Gram Stain Performed By: [facility] [CLIA# [id number]] [address] [address] Encounter Notes: All associated encounter notes This section contains the clinical notes associated to the Encounter. Date/Time Encounter Note(s) Provider Source Jun 07, 2021 01:34 PM PODIATRY E & M NOTE: GENESIS GALAN [facility] LOCAL TITLE: Podiatry/High [facility] STANDARD TITLE: PODIATRY E & M NOTE DATE OF NOTE: JUN 07, 2021@13:34 ENTRY DATE: JUN 07, 2021@13:34:16 AUTHOR: GENESIS GALAN EXP COSIGNER: URGENCY: STATUS: [...] Otherwise there are no concerns for infection. A graft is applied today without incidence Per previous notes: THIS ULCER HAS BEEN [...] GRAFT 09/30/2020. 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 Essential hypertension ([facility] 48081702) E11.9 Diabetes mellitus ([facility] 93467309) R69. Anemia ([facility] 518657654) E78.5 HLD - Hyperlipidemia ([facility] 76886804) K22.719 Pierre's esophagus ([facility] 268972255) R69. GERD - Gastro-esophageal reflux disease ([place] T 989528738) R69. Diverticulosis ([facility] 722434760) R69. OA - Osteoarthrosis ([facility] 009968501) I25.9 Chronic ischemic heart disease ([facility] 919516 009) Active Outpatient Medications (excluding Supplie s): [...] Allergies: SHELLFISH Social: , smoker-this is from previous vi sits Shoe/Amb: NB sneakers in good repair/independent Vasc: Previous assessment: +ve doppler pulses, CFT slight decreased B/L but > relatively RIGHT, TEMP WNL, LES edema improvement. DATE: SEPTEMBER 28, 2020 Procedure: LOWER EXTREMITY ARTERIAL STUDY Registered Expander: VERONICA IBRAHIM Segmental Pressures (SEG) Ordering Provider: [...] DOPPLER WAVEFORMS: Dorsal Pedal Post Tibial Right [place]-Biphasic Monophasic Left Monophasic INTERPRETATION: RIGHT: Mild lower [...] toe pressures. DERM: LLE proximal to tibia not me asured today. Previously measured 1.5CM wide X 1.7CM high X 0.2CM deep. Down from original size of 2.4CM long X 2.2CM wide. There was no slough in the base of the wound today and has a nice pink epithelial layer in the wound bed. He has a anatoliy l -fish allergy never use Cadexomer. Restrata graft placed over LLE wound with no issues. Neurologic: S-W 5.07 intact B/L Orthopedic: Continues [...] LLE wound. The area is clean and intact, there is no erythe ma. ECZEMA LLE: Remains resolved with previous Derm intervention. Today a graft is placed over LLE. PLAN: 1. Exam and education: a. Smoking cessation if continues 2. LLE Proximal wound: a. Restrata Graft placed Lot# [id number], ID# [id number], 2.5CM X 2.5CM b. Covered with wound veil, steri strips, then 4X4 Guerrero and 3M tape c. No compression while graft is in place. d. Outer dressing can be changed every two days 3. Ortho footwear: a. Medical Justification: Hallux valgus Enrobing Machine Corder: Dr. Wallace Style #: Dwayne X [id number] Color: Black Size: 12 W b. Educated pt. stop wearing immediately if any ill-fitting issues DERESSING INSTRUCTION: PROXIMAL TO TIBIA WOUND + 4X4, covering graft + 4 Guerrero + Dressings to be done Q 2 days. + Supplies provided today RTC: 1 Week or as needed /meena/ Genesis Galan MSN FLIGHT PARAMEDIC Staff Nurse Practitioner Signed: 06/07/2021 16:54
--- OUTSIDE RECORDS SUMMARY | 2022-02-09 10:34 | XMS_ITS | Encounter Summary ---
:[address] [facility] Address [address] [place] [address] Support Name Relationship Address Phone ZUHAIR FOSTER Unavailable [address] [place] [address] ZUHAIR FOSTER Unavailable [address] [place] [address] Insurance Providers: All historical and current Section [...] to Policy Number Liu CBA BLUE HIGH [facility] Jan 25, [id number] [phone] DO Stephanie FOSTER SPOUSE DEDUCTIBL [place] 2013 [id number] NA E [facility] PLAN EXPRESS PRESCRIPT WEI May 27, RXBWEID [id number] [phone] PEYTON FOSTER SPOUSE SCRIPTS ION [place] 2017 [id number] 557 NA ([id number]) (HDHP ) MEDICARE MEDICARE PART Jan 25, PART A [id number] CRISTIAN, AND PATIENT (WNR) (M) A 2013 VU70 2 REW Selected Encounter This section includes the information on record at MD for the Encounter. Date/Time Encounter Type Encounter Description Reason Provider Source Jun 07, 2021 02:11 Outpatient Encounter EVENT (HISTORICAL) PM IHE Encounter Template Text not used [...] 20 appointments. The data comes from all MD treatment facilities. Appointment Date/Time Appointment Type Appointment [...] 27, 2021 09:00 AM AMBULATORY - MEDICINE [facility] September 28, 2021 10:00 AM AMBULATORY - NONE [facility] October 18, 2021 09:30 AM AMBULATORY - NONE [place] [facility] Nov 09, 2021 11:00 AM AMBULATORY - [...] smoking, or tobacco-related health factor, from the MD facility where the Encounter took place. Date/Time Current Smoking Status Comment Facility Feb 06, 2019 11:00 PM CURRENT SMOKER SARAH Whitney [facility] Tobacco Use History This section includes a history of the smoking, or tobacco- related health factors, that were collected on or before the date of the Encounter. The data comes from the MD facility where the Encounter took place. Date/Time Smoking Status/Tobacco Use Comment [facility] Feb 06, 2019 05:51 PM CURRENT SMOKER SARAH Whitney [facility] Pathology Reports: +/- 30 days [...] the Encounter. The data comes from all MD treatment facilities. Date/Time Pathology Report Provider Source Jun 14, 2021 12:30 PM LR MICROBIOLOGY REPORT: WH [place] T [facility] Reporting Lab: [facility] [CLIA# [id number]] [address] [place] [address] Accession [UID]: [id number] [[id number]] Received : Jun 14, 2021@13:06 Collection sample: WOUND Collection date: May 12:30 Site/Specimen: LEFT LEG Provider: JOANN GALAN Comment on specimen: LLE Test(s) ordered: CULTURE,WOUND DEEP ABSCESS(ROBIN EL)completed: Jun 19, 2021 * BACTERIOLOGY FINAL REPORT => Jun 19, 2021 11:4 1 TECH CODE: [id number] GRAM STAIN: 06/14/21 2+ WBC'S 2-3+ GRAM POSITIVE COCCI, IN CLUSTERS <1+ GRAM NEGATIVE RODS CULTURE RESULTS: STAPHYLOCOCCUS AUREUS - Quantit y: 4+ ANTIBIOTIC SUSCEPTIBILITY TEST RESULTS: STAPHYLOCOCCUS AUREUS : Ciprofloxacin................. S Clindamycin................... S Erythromycin.................. S Gentamicin.................... S Linezolid..................... S Oxacillin..................... S Penicillin-G.................. S Tetracycline.................. S Trimeth/Sulfa................. S Vancomycin.................... S =--=--=--=--=--=--=--=--=--=--=--=--=--= --=--=--=--=--=--=--=--=--=--=--=--=-- Performing Laboratory: Bacteriology Report Performed By: [facility] [CLIA# [id number]] [address] [address] 3 Gram Stain Performed By: [facility] [CLIA# [id number]] [address] [address]
--- OUTSIDE RECORDS SUMMARY | 2022-02-09 10:34 | XMS_ITS ---
:1950 Author Organization [facility] rs Address [address] [place] [address] Support Name Relationship Address Phone ZUHAIR FOSTER Unavailable [address] [place] [address] ZUHAIR FOSTER Unavailable [address] [place] [address] Insurance Providers: All historical and current Section [...] Liu CBA BLUE HIGH WEI Jan 25, [id number] [phone] DO Stephanie FOSTER SPOUSE DEDUCTIBL [place] 2013 [id number] NA E [facility] PLAN EXPRESS PRESCRIPT WEIDM May 27, RXBWEID [id number] [phone] PEYTON FOSTER SPOUSE SCRIPTS ION [place] 2017 [id number] 557 NA ([id number]) ([facility] ) MEDICARE MEDICARE PART Jan 25, PART A [id number] CRISTIAN, AND PATIENT (WNR) (M) A 2013 VU70 2 REW Selected Encounter This section includes the information on record at OR for the Encounter. Date/Time Encounter Type Encounter Reason Provider Source Description Jun 14, 2021 OFFICE O/P EST PODIATRY ICD-10-CM I73.89 GENESIS GALAN 12:30 PM MOD 30-39 MIN Other specified peripheral vascular diseases with Provider Comments: Peripheral vascular disease (SCT [id number]) IHE Encounter Template Text not used by [facility] Assessments - Encounter Diagnoses This section includes the primary and secondary diagnoses documented for the Encounter. Date/Time Primary/Secondary Diagnosis Name Provider Source Diagnosis Jun 14, 2021 PRIMARY Other specified ANGELIA,GENESIS RAE 04:01 PM peripheral vascular T [facility] diseases Jun 14, 2021 SECONDARY Type 2 diabetes ANGELIA,GENESIS RAE 04:01 PM mellitus without T [facility] complications Jun 14, 2021 SECONDARY Unspecified open ANGELIAGENESIS 04:01 PM wound, right lower T [facility] leg, subs encntr Jun 14, 2021 SECONDARY Venous insufficiency ANGELIA,GENESIS [facility] IVER 04:01 PM (chronic) T [facility] (peripheral) Plan of Treatment: Future Appointments (+ 6 months) and Future Tests (+/- 45 days) The Plan of Treatment section includes future care activities for the patient from all OR treatmentfacilities. This section includes future appointments and future orders which are active, pending orscheduled.Future Appointments This section includes appointments that were scheduled to occur 6 months from the date of the Encounter, up to a maximum of 20 appointments. The data comes from all OR treatment facilities. Appointment Date/Time Appointment Type Appointment Facili ty Name Jun 21, 2021 01:30 PM AMBULATORY - SURGERY [place] [facility] Jul 05, 2021 12:30 PM AMBULATORY - SURGERY [place] [facility] Aug 04, 2021 01:30 PM AMBULATORY - SURGERY [place] [facility] Sep 08, 2021 10:30 AM AMBULATORY - SURGERY [place] [facility] September 27, 2021 09:00 AM AMBULATORY - MEDICINE [facility] September 28, 2021 10:00 AM AMBULATORY - NONE [facility] October 18, 2021 09:30 AM AMBULATORY - NONE [place] [facility] Nov 09, 2021 11:00 AM AMBULATORY [...] 06, 2019 11:00 PM CURRENT SMOKER SARAH LIN[place] R [facility] Tobacco Use History This section includes a history of the smoking, or tobacco- related health factors, that were collected on or before the date of the Encounter. The data comes from the OR facility where the Encounter took place. Date/Time Smoking Status/Tobacco Use Comment Julián loyd Feb 06, 2019 05:51 PM CURRENT SMOKER SARAH Whitney [facility] Pathology Reports: +/- [...] the Encounter. The data comes from all OR treatment facilities. Date/Time Pathology Report Provider Source Jun 14, 2021 12:30 PM LR MICROBIOLOGY REPORT: KIERRA RAE [facility] Reporting Lab: [facility] [CLIA# [id number]] [address] [place] [address] Accession [UID]: [id number] [[id number]] Received : Jun 14, 2021@13:06 Collection sample: WOUND Collection date: May 12:30 Site/Specimen: LEFT LEG Provider: GENESIS GALAN Comment on specimen: LLE Test(s) ordered: CULTURE,WOUND DEEP ABSCESS(ROBIN EL)completed: Jun 19, 2021 * BACTERIOLOGY FINAL REPORT => Jun 19, 2021 11:4 1 TECH CODE: [id number] GRAM STAIN: 06/14/21 2+ WBC'S 2-3+ GRAM POSITIVE COCCI, IN CLUSTERS <1+ GRAM NEGATIVE RODS CULTURE RESULTS: STAPHYLOCOCCUS AUREUS - Quantit y: 4+ ANTIBIOTIC SUSCEPTIBILITY TEST RESULTS: STAPHYLOCOCCUS AUREUS : Ciprofloxacin................. S Clindamycin................... S Erythromycin.................. S Gentamicin.................... S Linezolid..................... S Oxacillin..................... S Penicillin-G.................. S Tetracycline.................. S Trimeth/Sulfa................. S Vancomycin.................... S =--=--=--=--=--=--=--=--=--=--=--=--=--= --=--=--=--=--=--=--=--=--=--=--=--=-- Performing Laboratory: Bacteriology Report Performed By: [facility] [CLIA# [id number]] [address] [address] 3 Gram Stain Performed By: [facility] [CLIA# [id number]] [address] [address] Encounter Notes: All associated encounter notes This section contains the clinical notes associated to the Encounter. Date/Time Encounter Note(s) Provider Source Jun 14, 2021 12:48 PM PODIATRY E & M NOTE: GENESIS GALAN [facility] LOCAL TITLE: Podiatry/High Risk Foot [facility] STANDARD TITLE: PODIATRY E & M NOTE DATE OF NOTE: JUN 14, 2021@12:48 ENTRY DATE: JUN 14, 2021@12:48:29 AUTHOR: GENESIS GALAN EXP COSIGNER: URGENCY: STATUS: COMPLETED Mr. Foster is a 71 y/o DM male with PVD w ho is seen for ongoing wound care of non-healing ulcer LLE. Today Mr. Foster p resents with a LLE wound that has infection under the Restrata graft that was applied one week ago. He has c/o erythema and discomfort where he has had none in recent history. Per previous notes: THIS ULCER HAS BEEN FOLLOWED WITH VIRTUALLY NO I MPROVEMENT WITH OFFICE DEBRIDEMENT NOT AN OPTION DUE TO SEVERE TENDERNE SS AND SUBSEQUENTLY S/P DEBRIDEMENT OF WOUND LEFT LEG 04/15/2020 IN OR S TILL WITH NO SIGNIFICANT IMPROVEMENT; WITH PVD,POORLY CONTROLLED LES RAZ A AND AT ONE POINT SUPERIMPOSED SIGNIFICANT ECZEMA MANAGED SUCCESSF ULLY BY DERM FURTHER COMPLICATED HEALING; EDEMA F ACTOR HAS BEEN THE PROBLEM UNTIL RECENTLY AFTER PCP INTERVENTION WITH CHNAGES IN MEDICATIONS THAT LEAD TO BETTER STATUS OF THE WOUND TO ALLOW PLACEMENT OF SUBSTI TUTE GRAFT; S/P DEBRIDMENT AND PLACEMENT OF RESTRATA SUBSTITUTE GRAFT 09/30/2020. 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 Essential hypertension ([facility] 88472133) E11.9 Diabetes mellitus ([facility] 22080614) R69. Anemia ([facility] 449486151) E78.5 HLD - Hyperlipidemia ([facility] 57784856) K22.719 Pierre's esophagus ([facility] 568263742) R69. GERD - Gastro-esophageal reflux disease ([place] T 794498705) R69. Diverticulosis ([facility] 796076120) R69. OA - Osteoarthrosis ([facility] 702598915) I25.9 Chronic ischemic heart disease ([facility] 040594 009) Active Outpatient Medications (excluding Supplie s): [...] DAY TO PREVENT SEIZURES OR NEUROPATHIC PAIN 14) SULFAMETHOXAZOLE 800/TRIMETH 160MG TAB TAKE 1 TABLET ACTIVE BY MOUTH TWICE A DAY FOR LEG INFECTION Active Non-VA Medications Status 1) Non-VA FLUTICASONE PROP 50MCG 120D NASAL INHL 1 SPRAY ACTIVE INTO EACH NOSTRIL EVERY DAY 2) Non-VA MAGNESIUM OXIDE 420MG TAB 420MG BY RENETTA TH EVERY ACTIVE DAY 3) Non-VA MULTIVITAMIN/MINERALS CAP/TAB ONE CAP/ TAB BY ACTIVE MOUTH EVERY DAY 17 Total Medications HGB A1C: 7.4 (10/26/20) BUN/CREAT: [...] 2020 Procedure: LOWER EXTREMITY ARTERIAL STUDY Registered Coroner'S Juror: VERONICA IBRAHIM Segmental Pressures (SEG) Ordering Provider: [...] DOPPLER WAVEFORMS: Dorsal Pedal Post Tibial Right Wallace-Biphasic Monophasic Left Monophasic INTERPRETATION: RIGHT: Mild lower [...] 2.4CM long X 2.2CM wide. There was slough and serosanguinous drainage in the base o f the wound today as well as covering the dressing. He al so has erythema and pain to palpation in and around the wound. There are many sm all blisters under the medial edge of the graft and on the outside of the graft continuing on the me dial side. He has a shellfish allergy never use Cadexomer. Restrata graft muriel sumanth today. Neurologic: S-W 5.07 intact B/L Orthopedic: [...] AND PLACEMENT OF RESTRATA SUBSTITUTE GRAFT 09/30/2020. Mr. foster is a 71 year old DMII male vet hiral who is seen in clinic today for a one week follow up to graft placement. On arrival he is noted to have blistering and cellulitis under and cassius und the wound. The graft is removed and he is placed on ABX for 10days. His dressing modality is chambers ged from Santyl (previous to graft placement) to Melgisorb. PLAN: 1. Exam and education: a. Smoking cessation if continues 2. LLE Proximal wound: a. Restrata Graft removed b. Covered with Melgisorb, 4X4 Guerrero and 3M tap e c. Dressing needs to be changed every day d. ABX Bactrim for 10 days (Instructed to not t josiah his K+ for the 10 days he is taking the Bactrim) DERESSING INSTRUCTION: PROXIMAL TO TIBIA WOUND + Melgisorb + 4X4, + 4 Guerrero + Dressings to be done Q day. + Supplies provided today RTC: 1 Week or as needed /meena/ Genesis Galan MSN AUTOMOTIVE WORKER Staff Nurse Practitioner Signed: 06/14/2021 16:01
--- OUTSIDE RECORDS SUMMARY | 2022-02-09 10:35 | XMS_ITS ---
:1950 Author Organization [facility] rs Address [address] [place] [address] Support Name Relationship Address Phone ZUHAIR FOSTER Unavailable [address] [place] [address] ZUHAIR FOSTER Unavailable [address] [place] [address] Insurance Providers: All historical and current Section [...] Liu CBA BLUE HIGH WEI Jan 25, [id number] [phone] DO Stephanie FOSTER SPOUSE DEDUCTIBL [place] 2013 [id number] NA E [facility] PLAN EXPRESS PRESCRIPT WEIDM May 27, RXBWEID [id number] [phone] PEYTON FOSTER SPOUSE SCRIPTS ION [place] 2017 [id number] NA ([id number]) ([facility] ) MEDICARE MEDICARE PART Jan 25, PART A [id number] CRISTIAN, AND PATIENT (WNR) (M) A 2013 VU70 2 REW Selected Encounter This section includes the information on record at [facility] for the Encounter. Date/Time Encounter Type Encounter Reason Provider Source Description Apr 13, 2021 OFFICE O/P EST PODIATRY ICD-10-CM ANGELIAGENESIS 02:00 PM MOD 30-39 MIN S81.801D Unspecified open wound, right lower leg, subs encntr with Provider Comments: [facility]ound [facility] [id number]) IHE Encounter Template Text not used by VA Assessments - Encounter Diagnoses This section includes the primary and secondary diagnoses documented for the Encounter. Date/Time Primary/Secondary Diagnosis Name Provider Source Diagnosis Apr 14, 2021 PRIMARY Unspecified open ANGELIAGENESIS 04:19 PM wound, right lower [facility] leg, subs encntr Apr 14, 2021 SECONDARY Type 2 diabetes ANGELIAGENESIS 04:19 PM mellitus without [facility] complications Apr 14, 2021 SECONDARY Venous insufficiency ANGELIAGENESIS IVER 04:19 PM (chronic) [facility] (peripheral) Plan of Treatment: Future Appointments (+ [...] Date/Time Appointment Type Appointment Facili ty Name Apr 26, 2021 12:30 PM AMBULATORY - [...] 27, 2021 09:00 AM AMBULATORY - MEDICINE [facility] September 28, 2021 10:00 AM [facility] Social History: Smoking Status (Most current) and [...] 2019 11:00 PM CURRENT SMOKER SARAH [facility] Tobacco Use History This section includes a history of the smoking, or tobacco- related health factors, that were collected on or before the date of the Encounter. The data comes from the OR facility where the Encounter took place. Date/Time Smoking Status/Tobacco Use Comment Julián loyd Feb 06, 2019 05:51 PM CURRENT SMOKER SARAH [facility] Encounter Notes: All associated encounter notes This section contains the clinical notes associated to the Encounter. Date/Time Encounter Note(s) Provider Source Apr 13, 2021 01:27 PM PODIATRY OUTPATIENT NOTE: GENESIS GALAN LOCAL TITLE: Podiatry/Outpatient Note [facility] STANDARD TITLE: PODIATRY OUTPATIENT NOTE DATE OF NOTE: APR 13, 2021@13:27 ENTRY DATE: APR 13, 2021@13:27:30 AUTHOR: GENESIS GALAN EXP COSIGNER: URGENCY: STATUS: COMPLETED Mr. Foster is a 71 y/o DM male with PVD w ho is seen today for ongoing wound care of non-healing ulcer LLE. Tod ay Mr. Foster presents with a LLE wound that is no longer macerated/wet around it. He rodriguez s been using the Medihoney sheets with good healing effect but does not lik e the burning that it causes for about an hour or two after it is applied. Per previous notes: THIS ULCER HAS BEEN FOLLOWED WITH VIRTUALLY NO I MPROVEMENT WITH OFFICE DEBRIDEMENT NOT AN OPTION DUE TO SEVERE TENDERNE SS AND SUBSEQUENTLY S/P DEBRIDEMENT OF WOUND LEFT LEG 04/15/2020 IN OR S TILL WITH NO SIGNIFICANT IMPROVEMENT; WITH PVD,POORLY CONTROLLED LES RAZ A AND AT ONE POINT SUPERIMPOSED SIGNIFICANT ECZ ALLYSON MANAGED SUCCESSFULLY BY DERM FURTHER COMPLICATED HEALING; EDEMA FACTOR HAS BE EN THE PROBLEM UNTIL RECENTLY AFTER PCP INTERVENTION WITH CHNAGES IN MEDICATIONS THAT LEAD TO BETTER STATUS OF THE WOUND TO ALLOW PLACEMENT OF SUBSTITUTE GRAFT; S/P DEBRIDMENT AN D PLACEMENT OF RESTRATA SUBSTITUTE GRAFT 09/30/2020. 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 Essential hypertension ([facility] 50742604) E11.9 Diabetes mellitus ([facility] 22891431) R69. Anemia ([facility] 841371317) E78.5 HLD - Hyperlipidemia ([facility] 68039737) K22.719 Pierre's esophagus ([facility] 263945151) R69. GERD - Gastro-esophageal reflux disease ([place] T 434199452) R69. Diverticulosis ([facility] 369583007) R69. 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 Down from original size of 2.4CM long X 2.2CM wide. There was a moderate amount of slough in the base of the wound, wi th pink epithelial layer underneath. He has a shell -fish allergy. Today switched to Santyl and 4X4, then wrapped with Guerrero and paper tape. (We actually used Hydrogel in the of fice today, when he does the dressing at home he will use Santyl) Numbed with Lido gel before debriding. Neurologic: S-W 5.07 intact B/L Orthopedic: Continues [...] BY DERM THAT FURTHER COMPLICATED HEALING; EDEMA F ACTOR HAS BEEN THE PROBLEM UNTIL RECENTLY AFTER PCP INTERVENTION WITH CHNAGES IN MEDICATIONS THAT LEAD TO BETTER STATUS OF THE WOUND TO ALLOW PLACEMENT OF SUBSTI TUTE GRAFT; S/P DEBRIDMENT AND PLACEMENT OF RESTRATA SUBSTITUTE GRAFT 09/30/2020. Mr. Foster continues to have minimal edema in and around the LLE proximal wound. There was moderate sl ough in the bed of the wound today that was removed ECZEMA LLE: Remains resolved with Derm intervent ion PLAN: 1. Exam and education 2. LLE Proximal wound: a. Controlling edema with daily compression B/L b. Slowly healing at the proximal edges slight decrease in size. c. Dressed with Hydrogel, 4X4, Guerrero and paper tape. 4. Edema: a. Control as directed by PCP DERESSING INSTRUCTION: PROXIMAL TO TIBIA WOUND + Wipe with dry 4X4, then saline gently wipe + Changed to Santyl, + 4X4, covering proximal wound + 4 Guerrero + Dressings to be done QD, . + Supplies provided except for Santyl of which h e has at home RTC: 2 Weeks or as needed /meena/ Genesis Galan MSN DEVOPS ARCHITECT Staff Nurse Practitioner Signed: 04/14/2021 16:19
--- OUTSIDE RECORDS SUMMARY | 2022-02-09 10:35 | XMS_ITS ---
:1950 Author Organization [facility] rs Address [address] [place] [address] Support Name Relationship Address Phone ZUHAIR FOSTER Unavailable [address] [place] [address] ZUHAIR FOSTER Unavailable [address] [place] [address] Insurance Providers: All historical and current Section [...] Liu CBA BLUE HIGH WEI Jan 25, [id number] [phone] DO Stephanie FOSTER SPOUSE DEDUCTIBL [place] 2013 [id number] NA E [facility] PLAN EXPRESS PRESCRIPT WEIDM May 27, RXBWEID [id number] [phone] PEYTON FOSTER SPOUSE SCRIPTS ION [place] 2017 [id number] 557 NA ([id number]) ([facility] ) MEDICARE MEDICARE PART Jan 25, PART A [id number] CRISTIAN, AND PATIENT (WNR) (M) A 2013 VU70 2 REW Selected Encounter This section includes the information on record at [place] for the Encounter. Date/Time Encounter Type Encounter Reason Provider Source Description Mar 16, 2021 OFFICE O/P EST PODIATRY ICD-10-CM I87.2 GENESIS GALAN 11:00 AM MOD 30-39 MIN Venous insufficiency (chronic) (peripheral) with Provider Comments: Venous insufficiency of leg (SCT [id number]) IHE Encounter Template Text not used by [facility] Assessments - Encounter Diagnoses This section includes the primary and secondary diagnoses documented for the Encounter. Date/Time Primary/Secondary Diagnosis Name Provider Source Diagnosis Mar 16, 2021 PRIMARY Venous insufficiency ANGELIAGENESIS IVER 11:57 AM (chronic) [facility] (peripheral) Mar 16, 2021 SECONDARY Edema, unspecified ANGELIAGENESIS MARIA G ER 11:57 AM [facility] Mar 16, 2021 SECONDARY Type 2 diabetes ANGELIA,GENESIS [place] 11:57 AM mellitus without [facility] complications Mar 16, 2021 SECONDARY Unspecified open ANGELIA,GENESIS [place] 11:57 AM wound, right lower [facility] leg, subs encntr Plan of Treatment: Future Appointments (+ 6 months) and Future Tests (+/- 45 days) The Plan of Treatment section includes future care activities for the patient from all [place] treatmentfacilities. This section includes future appointments and future orders which are active, pending orscheduled.Future Appointments This section includes appointments that were scheduled to occur 6 months from the date of the Encounter, up to a maximum of 20 appointments. The data comes from all [place] treatment facilities. Appointment Date/Time Appointment Type Appointment Facili ty Name Apr 13, 2021 02:00 PM AMBULATORY - [...] 2019 11:00 PM CURRENT SMOKER SARAH Whitney L[facility] Tobacco Use History This section includes a history of the smoking, or tobacco- related health factors, that were collected on or before the date of the Encounter. The data comes from the [place] facility where the Encounter took place. Date/Time Smoking Status/Tobacco Use Comment [facility] Feb 06, 2019 05:51 PM CURRENT SMOKER SARAH Whitney Vilma [facility] Encounter Notes: All associated encounter notes This section contains the clinical notes associated to the Encounter. Date/Time Encounter Note(s) Provider Source Mar 16, 2021 11:26 AM PODIATRY OUTPATIENT NOTE: GENESIS GALAN LOCAL TITLE: Podiatry/Outpatient Note [facility] STANDARD TITLE: PODIATRY OUTPATIENT NOTE DATE OF NOTE: MAR 16, 2021@11:26 ENTRY DATE: MAR 16, 2021@11:26:11 AUTHOR: GENESIS GALAN EXP COSIGNER: URGENCY: STATUS: COMPLETED Mr. Foster is a 70 y/o DM male with PVD w ho is seen today for ongoing wound care of non-healing ulcer LLE. Tod ay Mr. Foster presents with a LLE wound that is no longer macerated/wet around it. He rodriguez s been using the Medihoney sheets with good effect. He states that he continues to have burning for about 2-3 hours after the new medihoney sheet is applied. He understands the science behind why it rosado. We talked about doing the d ressing QOD to lessen the burning. Per previous notes: THIS ULCER HAS BEEN [...] 09/30/2020. 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 Essential hypertension ([facility] 54845885) E11.9 Diabetes mellitus ([facility] 91016081) R69. Anemia ([facility] 370246995) E78.5 HLD - Hyperlipidemia ([facility] 37276617) K22.719 Pierre's esophagus ([facility] [id number]) R69. GERD - Gastro-esophageal reflux disease ([facility] [id number]) R69. Diverticulosis ([facility] 868590037) R69. OA - Osteoarthrosis ([facility] [id number]) I25.9 Chronic ischemic heart disease ([facility] 526593 009) HGB A1C: 7.4 (10/26/20) BUN/CREAT: 20/0.89 [...] BY MOUTH EVERY ACTIVE MORNING PATIENT TO MANAGER CULINARY 08/18 9) METOPROLOL SUCCINATE 50MG SA TAB [...] 2020 Procedure: LOWER EXTREMITY ARTERIAL STUDY Registered Firm Administrator: VERONICA IBRAHIM Segmental Pressures (SEG) Ordering Provider: [...] DOPPLER WAVEFORMS: Dorsal Pedal Post Tibial Right Motley-Biphasic Monophasic Left Monophasic INTERPRETATION: RIGHT: Mild lower [...] DERM: LLE proximal to tibia today measured 1.4CM X 2.0 CM X 0.2CM deep. Previously measured 2.4CM long X 2.2CM wide. Modera te amount of slough in the base of the wound, pink epithelial layer underneath. Using Medihoney 2X2 sheets as he has a shellfish allergy. Placed medihoney shee t in wound bed(trimmed to fit),covered with Adaptic and 4X4, then wrapped with Guerrero an d paper tape. Neurologic: S-W 5.07 intact B/L Orthopedic: Continues [...] was moderate sl ough in the bed off the wound today. Redressed with Medihoney sheet cut out to fit the bed o f the wound. Continued directions that he not do soaks. ECZEMA LLE: Remains resolved with Derm intervent ion PLAN: 1. Exam and education 2. LLE Proximal wound: a. Controlling edema with daily compression B/L b. Slowly healing at the proximal edges c. Dressed today with Medihoney, first cleansed with saline to remove slough c. Continued encouragement of smoking cessation 3. LLE Distal to tibia: a. Former wound site b. Healed with dry flaky layer of skin c. Encouraged lotion B/L LE w/exception of open wound area 4. Edema: a. Control as directed by PCP DERESSING INSTRUCTION: Continue same dressings n oted below PROXIMAL TO TIBIA WOUND + Wipe with dry 4X4, then saline gently wipe + Medihoney sheet cut down to size + Adaptic over Medihoney + 4X4, covering proximal wound + 4 Guerrero + Dressings to be done QOD, to limit burning + Advised to go back to QD dressing changes if d ressings become too wet. + Supplies provided RTC: 4 Weeks or as needed /meena/ Genesis Galan MSN TANK BUILDER HELPER Staff Nurse Practitioner Signed: 03/16/2021 11:57
--- OUTSIDE RECORDS SUMMARY | 2022-02-09 10:35 | XMS_ITS | Encounter Summary ---
:1950 Author Organization [facility] rs Address [address] [place] [address] Support Name Relationship Address Phone ZUHAIR FOSTER Unavailable [address] [place] [address] ZUHAIR FOSTER Unavailable [address] [place] [address] Insurance Providers: All historical and current Section [...] Liu CBA BLUE HIGH WEI Jan 25, 67932 [id number] [phone] DO Stephanie FOSTER SPOUSE DEDUCTIBL [place] 2013 [id number] NA E [facility] PLAN EXPRESS PRESCRIPT WEIDM May 27, RXBWEID [id number] [phone] PEYTON FOSTER SPOUSE SCRIPTS ION [place] 2017 [id number] 557 NA ([id number]) ([facility] ) MEDICARE MEDICARE PART Jan 25, PART A [id number] CRISTIAN, AND PATIENT (WNR) (M) A 2013 VU70 2 REW Selected Encounter This section includes the information on record at [place] for the Encounter. Date/Time Encounter Type Encounter Reason Provider Source Description Apr 26, 2021 OFFICE O/P EST PODIATRY ICD-10-CM I73.89 GENESIS GALAN 12:30 PM LOW 20-29 MIN Other specified peripheral vascular diseases with Provider Comments: Peripheral vascular disease (SCT [id number]) IHE Encounter Template Text not used by VA Assessments - Encounter Diagnoses This section includes the primary and secondary diagnoses documented for the Encounter. Date/Time Primary/Secondary Diagnosis Name Provider Source Diagnosis Apr 26, 2021 PRIMARY Other specified ANGELIAGENESIS 01:40 PM peripheral vascular T [facility] diseases Apr 26, 2021 SECONDARY Type 2 diabetes ANGELIA,GENESIS RAE 01:40 PM mellitus without T [facility] complications Apr 26, 2021 SECONDARY Unspecified open ANGELIAGENESIS 01:40 PM wound, right lower [facility] leg, subs encntr Apr 26, 2021 SECONDARY Venous insufficiency NAGELIA,GENESIS SMITH R IVER 01:40 PM (chronic) T [facility] (peripheral) Plan of Treatment: Future Appointments (+ 6 months) and Future Tests (+/- 45 days) The Plan of Treatment section includes future care activities for the patient from all [place] treatmentfacilities. This section includes future appointments and future orders which are active, pending orscheduled.Future Appointments This section includes appointments that were scheduled to occur 6 months from the date of the Encounter, up to a maximum of 20 appointments. The data comes from all [place] treatment facilities. Appointment Date/Time Appointment Type Appointment Facili ty Name May 16, 2021 10:00 AM AMBULATORY - [...] 27, 2021 09:00 AM AMBULATORY - MEDICINE [facility] September 28, 2021 10:00 AM AMBULATORY - NONE [facility] October 18, 2021 09:30 AM AMBULATORY - NONE [place] [facility] Social History: Smoking Status (Most current) and Tobacco Use (All prior to encounter date) This section includes the most current, and the historical, smoking and tobacco-related health factors from the [facility] facility where the Encounter took place.Current Smoking Status This section includes the most current smoking, or tobacco-related health factor, from the [place] facility where the Encounter took place. Date/Time Current Smoking Status Comment Facility Feb 06, 2019 11:00 PM CURRENT SMOKER SARAH Whitney L[facility] Tobacco Use History This section includes a history of the smoking, or tobacco- related health factors, that were collected on or before the date of the Encounter. The data comes from the [place] facility where the Encounter took place. Date/Time Smoking Status/Tobacco Use Comment [facility] Feb 06, 2019 05:51 PM CURRENT SMOKER SARAH Whitney [facility] Encounter Notes: All associated encounter notes This section contains the clinical notes associated to the Encounter. Date/Time Encounter Note(s) Provider Source Apr 26, 2021 12:56 PM PODIATRY E & M NOTE: GENESIS GALAN LOCAL TITLE: Podiatry/High Risk Foot [facility] STANDARD TITLE: PODIATRY E & M NOTE DATE OF NOTE: APR 26, 2021@12:56 ENTRY DATE: APR 26, 2021@12:56:42 AUTHOR: GENESIS GALAN EXP COSIGNER: URGENCY: STATUS: COMPLETED Mr. Foster is a 71 y/o DM male with PVD w ho is seen today for ongoing wound care of non-healing ulcer LLE. Tod ay Mr. Foster presents with a LLE wound that is no longer macerated/wet around it. he do es have some erythema on the distal edge of the wound from banging his maza r ight at the distal end of the wound a few days ago. Otherw ise the wound appears to be slowly filling in at the outer perimeter. Per previous notes: THIS ULCER HAS BEEN [...] ---- MICROBIOLOGY ---- Reporting Lab: SARAH PERES [facility] [CLIA# [id number]] [address] [place] [id number] Accession [UID]: [id number] [[id number]] Received : Jun 27, 2020@15:49 Collection sample: SWAB/RED Collection date: Jun 27, 2020 15:00 Site/Specimen: WOUND Provider: MEJIA TELLEZ Comment on specimen: L LEG Test(s) ordered: CULTURE,WOUND SUPERFICAL SKIN PANEL completed: Jul 01, 2020 09:37 * BACTERIOLOGY FINAL REPORT => Jul 01, 2020 09:3 8 TECH CODE: [id number] GRAM STAIN: 06/27/20: 3+ WBC'S 4+ GRAM [...] Problem list: Code Description 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 Essential hypertension ([facility] 15496400) E11.9 Diabetes mellitus ([facility] 55112777) R69. Anemia ([facility] 407422555) E78.5 HLD - Hyperlipidemia ([facility] 81933674) K22.719 Pierre's esophagus ([facility] 955151548) R69. GERD - Gastro-esophageal reflux disease ([facility] [id number]) R69. Diverticulosis ([facility] 931255439) R69. OA - Osteoarthrosis ([facility] 963449206) I25.9 Chronic ischemic heart disease ([facility] 580703 009) HGB A1C: 7.4 (10/26/20) BUN/CREAT: 20/0.89 [...] BY MOUTH EVERY ACTIVE MORNING PATIENT TO LICENSE CLERK 08/18 9) METOPROLOL SUCCINATE 50MG SA TAB [...] 2020 Procedure: LOWER EXTREMITY ARTERIAL STUDY Registered Betting Clerk: VERONICA IBRAHIM Segmental Pressures (SEG) Ordering Provider: [...] DOPPLER WAVEFORMS: Dorsal Pedal Post Tibial Right Tarrant-Biphasic Monophasic Left Monophasic INTERPRETATION: RIGHT: Mild lower [...] to tibia today measured 1.5CM wide X 1.3CM high X 0.2CM deep. Down from original [...] in and around the LLE proximal wound. He did have some eryt holley from inadvertently banging the wound a few days ago. There was no slough in the bed of the wound today. ECZEMA LLE: Remains resolved with Derm intervent ion PLAN: 1. Exam and education 2. LLE Proximal wound: a. Controlling edema with daily compression B/L b. Slowly healing at the proximal edges slight decrease in size. c. Dressed with Santyl, 4X4, Guerrero and paper ta pe. 4. Edema: a. Control as directed by PCP DERESSING INSTRUCTION: PROXIMAL TO TIBIA WOUND + Wipe with dry 4X4, then saline gently wipe + Continue with a small amount of Santyl, + 4X4, covering proximal wound + 4 Guerrero + Dressings to be done QD, . + Supplies not needed today RTC: 3 Weeks or as needed /meena/ Genesis Galan MSN LCAC RADAR OPERATOR/NAVIGATOR Staff Nurse Practitioner Signed: 04/26/2021 13:40
--- OUTSIDE RECORDS SUMMARY | 2022-02-09 10:36 | XMS_ITS | Encounter Summary ---
:1950 Author Organization [facility] Address [address] [place] [address] Support Name Relationship Address Phone ZUHAIR FOSTER Unavailable [address] [place] [address] ZUHAIR FOSTER Unavailable [address] [place] [address] Insurance Providers: All historical and current Section [...] to Policy Number Liu CBA BLUE HIGH [facility] Jan 25, [id number] [phone] DO Stephanie FOSTER SPOUSE DEDUCTIBL [place] 2013 [id number] NA E [facility] PLAN EXPRESS PRESCRIPT WEI May 27, RXBWEID [id number] [phone] PEYTON FOSTER SPOUSE SCRIPTS ION [place] 2017 [id number] 557 NA ([phone]) ([facility] ) MEDICARE MEDICARE PART Jan 25, PART A [id number] CRISTIAN, AND PATIENT (WNR) (M) A 2013 [id number] 2 REW Selected Encounter This section includes the information on record at [facility] for the Encounter. Date/Time Encounter Type Encounter Reason Provider Source Description Mar 02, 2021 IMMUNIZATION ADMIN PRIMARY ICD-10-CM Z23 ANDRES BAKER 10:00 AM CARE/MEDICINE Encounter for immunization with Provider Comments: Encounter for Immunization IHE Encounter Template Text not used by VA Assessments - Encounter Diagnoses This section includes the primary and secondary diagnoses documented for the Encounter. Date/Time Primary/Secondary Diagnosis Name Provider Source Diagnosis Mar 07, 2021 PRIMARY Encounter for ANDRES BAKER 07:48 AM immunization T [facility] Plan of Treatment: Future Appointments (+ 6 months) and Future Tests (+/- 45 days) The Plan of Treatment section includes future care activities for the patient from all [place] treatmentfacilities. This section includes future appointments and future orders which are active, pending orscheduled.Future Appointments This section includes appointments that were scheduled to occur 6 months from the date of the Encounter, up to a maximum of 20 appointments. The data comes from all [place] treatment facilities. Appointment Date/Time Appointment Type Appointment Facili ty Name Mar 16, 2021 11:00 AM AMBULATORY - [...] - SURGERY [place] [facility] Immunizations: All administered on the encounter date This section contains immunizations associated to the Encounter. Immunization Series Date Issued Reaction Comments INFLUENZA VACCINE, QUADRIVALENT, ADJUVANTED Mar 02 Social History: Smoking Status (Most current) and Tobacco Use (All prior to encounter date) This section includes the most current, and the historical, smoking and tobacco-related health factors from the [place] facility where the Encounter took place.Current Smoking Status This section includes the most current smoking, or tobacco-related health factor, from the [place] facility where the Encounter took place. Date/Time Current Smoking Status Comment Facility Feb 06, 2019 11:00 PM CURRENT SMOKER SARAH Whitney [facility] Tobacco Use History This section includes a history of the smoking, or tobacco- related health factors, that were collected on or before the date of the Encounter. The data comes from the [place] facility where the Encounter took place. Date/Time Smoking Status/Tobacco Use Comment Julián miller Feb 06, 2019 05:51 PM CURRENT SMOKER SARAH Whitney [facility] Encounter Notes: All associated encounter notes This section contains the clinical notes associated to the Encounter. Date/Time Encounter Note(s) Provider Source Mar 07, 2021 07:47 AM IMMUNIZATION NOTE: ANDRES BAKER Vilma [facility] LOCAL TITLE: Flu Shot Note STANDARD TITLE: IMMUNIZATION NOTE DATE OF NOTE: MAR 07, 2021@07:47 ENTRY DATE: MAR 07, 2021@07:47:17 AUTHOR: ANDRES BAKER EXP COSIGNER: URGENCY: STATUS: COMPLETED The patient was given the influenza VIS which li sts the benefits and side effects of the vaccine and which reviews the ris ks of not receiving the flu vaccine. The VIS was reviewed with the patient a nd they were given an opportunity to ask questions. The patient was pr ovided education on how to decrease the risk of influen za infection including social distancing and use of good hand hygiene. The patient denied any prior severe reaction to the flu vaccine or its components. The patient gave verb al consent to receive the vaccine. The seasonal influenza vaccine VIS given to the patient: VIS version date Dec. The patient received seasonal influenza vaccine today - Influenza, Quadrivalent, Adjuvanted (Fluad) 0.5 ml IM toda y in Right Deltoid. Chief Ii Dispatcher: Seq[employer] Lot # and Expiration Date: Lot # [id number] Exp. (Fluad) Administered by protocol/policy Complications: None /meena/ ANDRES BAKER RN Signed: 03/07/2021 07:48
--- OUTSIDE RECORDS SUMMARY | 2022-02-09 10:36 | XMS_ITS | Encounter Summary ---
:1950 Author Organization [facility] Address [address] [place] [address] Support Name Relationship Address Phone ZUHAIR FOSTER Unavailable [address] [place] [address] ZUHAIR FOSTER Unavailable [address] [place] [address] Insurance Providers: All historical and current Section [...] to Policy Number Liu CBA BLUE HIGH [facility] Jan 25, [id number] [phone] DO Stephanie FOSTER SPOUSE DEDUCTIBL [place] 2013 [id number] NA E [facility] PLAN EXPRESS PRESCRIPT WEI May 27, RXBWEID [id number] [phone] PEYTON FOSTER SPOUSE SCRIPTS ION [place] 2017 [id number] 557 NA ([id number]) ([facility] ) MEDICARE MEDICARE PART Jan 25, PART A [id number] CRISTIAN, AND PATIENT (WNR) (M) A 2013 VU70 2 REW Selected Encounter This section includes the information on record at [place] for the Encounter. Date/Time Encounter Type Encounter Reason Provider Source Description Mar 07, 2021 11:51 Outpatient Encounter PRIMARY SILVIA CELESTIN AM CARE/MEDICINE IHE Encounter Template Text not used by [...] 20 appointments. The data comes from all [place] treatment facilities. Appointment Date/Time Appointment Type Appointment [...] smoking, or tobacco-related health factor, from the [place] facility where the Encounter took place. Date/Time Current Smoking Status Comment Facility Feb 06, 2019 11:00 PM CURRENT SMOKER SARAH Whitney [place] [facility] Tobacco Use History This section includes a history of the smoking, or tobacco- related health factors, that were collected on or before the date of the Encounter. The data comes from the [place] facility where the Encounter took place. Date/Time Smoking Status/Tobacco Use Comment [facility] Feb 06, 2019 05:51 PM CURRENT SMOKER SARAH Whitney [place] [facility] Encounter Notes: All associated encounter notes This section contains the clinical notes associated to the Encounter. Date/Time Encounter Note(s) Provider Source Mar 07, 2021 11:51 AM PRIMARY CARE SECURE MESSAGING: WANG CELESTIN [facility] LOCAL TITLE: PRIMARY CARE SECURE MESSAGING STANDARD TITLE: PRIMARY CARE SECURE MESSAGING DATE OF NOTE: MAR 07, 2021@11:51:40 ENTRY DATE: MAR 07, 2021@11:51:40 AUTHOR: WANG CELESTIN EXP COSIGNER: URGENCY: STATUS: COMPLETED ------Original Message Sent: 03/07/2021 09:01 AM From: ANASTASIA FOSTER To: Katarzyna [facility] Subject: refills I need 6 months refills for all my meds ALBUTEROL 90MCG (CFC-F) 200D ORAL INHL ALOGLIPTIN 6.25MG TAB ASPIRIN 81MG EC TAB ATORVASTATIN CALCIUM 10MG TAB LISINOPRIL 5MG TAB METFORMIN HCL 1000MG TAB METOLAZONE 2.5MG TAB METOPROLOL SUCCINATE 50MG SA TAB PANTOPRAZOLE NA 40MG EC TAB PREGABALIN 75MG ORAL CAP POTASSIUM CHLORIDE 10MEQ SA TAB all except pregabalin, 90 day supply please. Thank you for the help /meena/ WANG CELESTIN AMSA Signed: 03/07/2021 11:51 Receipt Acknowledged By: * AWAITING SIGNATURE * AXEL JORGENSEN * AWAITING SIGNATURE * SADI CÁRDENAS * AWAITING SIGNATURE * SHANELL ALLEN
--- OUTSIDE RECORDS SUMMARY | 2022-02-09 10:36 | XMS_ITS ---
:1950 Author Organization [facility] Address [address] [place] [address] Support Name Relationship Address Phone ZUHAIR FOSTER Unavailable [address] [place] [address] ZUHAIR FOSTER Unavailable [address] [place] [address] Insurance Providers: All historical and current Section [...] Liu CBA BLUE HIGH WEI Jan 25, 13765 [id number] [phone] DO Stephanie FOSTER SPOUSE DEDUCTIBL [place] 2013 [id number] NA E [facility] PLAN EXPRESS PRESCRIPT WEIDM May 27, RXBWEID [id number] [phone] PEYTON FOSTER SPOUSE SCRIPTS ION [place] 2017 [id number] NA ([id number]) ([facility] ) MEDICARE MEDICARE PART Jan 25, PART A [id number] CRISTIAN, AND PATIENT (WNR) (M) A 2013 VU70 2 REW Selected Encounter This section includes the information on record at [facility] for the Encounter. Date/Time Encounter Type Encounter Reason Provider Source Description Jun 21, 2021 OFFICE O/P EST PODIATRY ICD-10-CM ANGELIAGENESIS BARNETT 01:30 PM LOW 20-29 MIN S81.802D Unspecified open wound, left lower leg, subsequent encounter with Provider Comments: Unspecified open Wound, left lower Leg, Subsequent Encounter IHE Encounter Template Text not used by [facility] Assessments - Encounter Diagnoses This section includes the primary and secondary diagnoses documented for the Encounter. Date/Time Primary/Secondary Diagnosis Name Provider Source Diagnosis Jun 21, 2021 PRIMARY Unspecified open ANGELIA,GENESIS RAE 02:09 PM wound, left lower [facility] leg, subsequent encounter Plan of Treatment: Future Appointments (+ 6 months) and Future Tests (+/- 45 days) The Plan of Treatment section includes future care activities for the patient from all [place] treatmentfacilities. This section includes future appointments and future orders which are active, pending orscheduled.Future Appointments This section includes appointments that were scheduled to occur 6 months from the date of the Encounter, up to a maximum of 20 appointments. The data comes from all [place] treatment facilities. Appointment Date/Time Appointment Type Appointment Facili ty Name Jul 05, 2021 12:30 PM AMBULATORY - [place] [facility] Aug 04, 2021 01:30 PM AMBUL[facility]ORY - SUR[facility] [facility] Sep 08, 2021 10:30 AM AMB[facility] - SURGERY [place] [facility] September 27, 2021 09:00 AM AM[facility] - MEDICINE [facility] September 28, 2021 10:00 AM AMBULATORY - NONE [facility] October 18, 2021 09:30 AM AMBUL[place]ORY [place] NONE [place] [facility] Nov 09, 2021 11:00 AM AMBULATORY - SURGERY [place] [facility] Social History: Smoking Status (Most current) and Tobacco Use (All prior to encounter date) This section includes the most current, and the historical, smoking and tobacco-related health factors from the [place] facility where the Encounter took place.Current Smoking Status This section includes the most current smoking, or tobacco-related health factor, from the [facility] facility where the Encounter took place. Date/Time Current Smoking Status Comment Facility Feb 06, 2019 11:00 PM CURRENT SMOKER SARAH Whitney [facility] Tobacco Use History This section includes a history of the smoking, or tobacco- related health factors, that were collected on or before the date of the Encounter. The data comes from the [place] facility where the Encounter took place. Date/Time Smoking Status/Tobacco Use Comment [facility] Feb 06, 2019 05:51 PM CURRENT SMOKER SARAH Whitney Vilma [facility] Pathology Reports: +/- 30 days of [...] the Encounter. The data comes from all [place] treatment facilities. Date/Time Pathology Report Provider Source Jun 14, 2021 12:30 PM LR MICROBIOLOGY REPORT: [facility]IER[facility] Reporting Lab: [facility] [CLIA# [id number]] [address] [place] [address] Accession [UID]: [id number] [[id number]] Received : Jun 14, 2021@13:06 Collection sample: WOUND Collection date: May 12:30 Site/Specimen: LEFT LEG Provider: GENESIS HOFFMAN Comment on specimen: LLE Test(s) ordered: CULTURE,WOUND DEEP ABSCESS(ROBIN EL)completed: Jun 19, 2021 * BACTERIOLOGY FINAL REPORT => Jun 19, 2021 11:4 1 TECH CODE: [id number] GRAM STAIN: 06/14/21 2+ WBC'S 2-3+ GRAM POSITIVE COCCI, IN CLUSTERS <1+ GRAM NEGATIVE RODS CULTURE RESULTS: STAPHYLOCOCCUS AUREUS - Quantit y: 4+ ANTIBIOTIC SUSCEPTIBILITY TEST RESULTS: STAPHYLOCOCCUS AUREUS : Ciprofloxacin................. S Clindamycin................... S Erythromycin.................. S Gentamicin.................... S Linezolid..................... S Oxacillin..................... S Penicillin-G.................. S Tetracycline.................. S Trimeth/Sulfa................. S Vancomycin.................... S =--=--=--=--=--=--=--=--=--=--=--=--=--= --=--=--=--=--=--=--=--=--=--=--=--=-- Performing Laboratory: Bacteriology Report Performed By: [facility] [CLIA# [id number]] [address] [place] [address] Gram Stain Performed By: [facility] [CLIA# [id number]] [address] [place] [address] Encounter Notes: All associated encounter notes This section contains the clinical notes associated to the Encounter. Date/Time Encounter Note(s) Provider Source Jun 21, 2021 01:36 PM PODIATRY E & M NOTE: GENESIS HOFFMAN [facility] LOCAL TITLE: Podiatry/High Risk Foot [facility] STANDARD TITLE: PODIATRY E & M NOTE DATE OF NOTE: JUN 21, 2021@13:36 ENTRY DATE: JUN 21, 2021@13:36:29 AUTHOR: GENESIS HOFFMAN EXP COSIGNER: URGENCY: STATUS: COMPLETED Mr. Foster is a 71 y/o DM male with PVD w ho is seen for ongoing wound care of non-healing ulcer LL E. Today Mr. Foster presents with a week of ABX taken and a wound that is looking better. There remains some light erythema around the wound. The wound itself has almost fully crusted over. He has a history of LE wounds and this one in particular; we re cently tried a Restrata graft that was applied on 06/07/21. He had c/o erythema and discomfort under the graft where he has had none in recent [...] GRAFT 09/30/2020. 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 Essential hypertension ([facility] 65060752) E11.9 Diabetes mellitus ([facility] 98712015) R69. Anemia ([facility] 408616495) E78.5 HLD - Hyperlipidemia ([facility] 03588396) K22.719 Pierre's esophagus ([facility] [id number]) R69. GERD - Gastro-esophageal reflux disease ([facility] [id number]) R69. Diverticulosis ([facility] [id number]) R69. OA - Osteoarthrosis ([facility] 691076177) I25.9 Chronic ischemic heart disease ([facility] 799881 009) Active Outpatient Medications (excluding Supplie s): [...] 2020 Procedure: LOWER EXTREMITY ARTERIAL STUDY Registered Operations Specialists: VERONICA IBRAHIM Segmental Pressures (SEG) Ordering Provider: [...] DOPPLER WAVEFORMS: Dorsal Pedal Post Tibial Right Floyd-Biphasic Monophasic Left Monophasic INTERPRETATION: RIGHT: Mild lower [...] toe pressures. DERM: LLE proximal to tibia measured today at 0.6CM X 0.5CM X superficial. Down from original size of 2.4CM long X 2.2CM wide. There was no drainage today, there was minimal erythema around the wound and mu ch less than last visit. He has a nice crust forming over the top of the wound. Between the ABX and the Melgisorb the wound has decreased significantly. Neurologic: S-W 5.07 intact B/L Orthopedic: Continues [...] for a one week follow up to ABX for graft plac ement that became infected. On arrival today the LLE wound has improved significantly. He has a few more days of ABX and we will continue the Melgisorb and see him b ack in two weeks. PLAN: 1. Exam and education: a. Smoking cessation if continues b. He knows if there are any negative changes t o call us immediately or go to the ER. 2. LLE Proximal wound: a. Covered with Melgisorb, 4X4, Guerrero and 3M ta pe c. Dressing needs to be changed every day d. ABX Bactrim for 10 days (Instructed to not t josiah his K+ for the 10 days he is taking the Bactrim) DERESSING INSTRUCTION: PROXIMAL TO TIBIA WOUND + Melgisorb + 4X4, + 4 Guerrero + Dressings to be done Q day. + Supplies provided today RTC: 2 Weeks or as needed /meena/ Genesis Hoffman MSN GLOBE CLEANER Staff Nurse Practitioner Signed: 06/21/2021 14:09
--- OUTSIDE RECORDS SUMMARY | 2022-02-09 10:36 | XMS_ITS | Encounter Summary ---
:1950 Author Organization [facility] Address [address] [place] [address] Support Name Relationship Address Phone ZUHAIR FOSTER Unavailable [address] [place] [address] ZUHAIR FOSTER Unavailable [address] [place] [address] Insurance Providers: All historical and current Section [...] to Policy Number Liu CBA BLUE HIGH WEIDM Jan 25, 03285 [id number] [phone] DO Stephanie FOSTER SPOUSE DEDUCTIBL [place] 2013 [id number] NA E [facility] PLAN EXPRESS PRESCRIPT WEIDM May 27, RXBWEID [id number] [phone] PEYTON FOSTER SPOUSE SCRIPTS ION [place] 2017 [id number] NA ([id number]) ([facility] ) MEDICARE MEDICARE PART Jan 25, PART A [id number] CRISTIAN, AND PATIENT (WNR) (M) A 2013 VU70 2 REW Selected Encounter This section includes the information on record at [place] for the Encounter. Date/Time Encounter Type Encounter Reason Provider Source Description Jul 05, 2021 OFFICE O/P EST PODIATRY ICD-10-CM I73.89 GENESIS GALAN 12:30 PM SF 10-19 MIN Other specified peripheral vascular diseases with Provider Comments: Peripheral vascular disease ([facility] [id number]) IHE Encounter Template Text not used by [facility] Assessments - Encounter Diagnoses This section includes the primary and secondary diagnoses documented for the Encounter. Date/Time Primary/Secondary Diagnosis Name Provider Source Diagnosis Jul 05, 2021 PRIMARY Other specified ANGELIA,GENESIS [place] 01:28 PM peripheral vascular T [facility] diseases Jul 05, 2021 SECONDARY Edema, unspecified ANGELIA,GENESIS [place] 01:28 PM [place] [facility] Jul 05, 2021 SECONDARY Type 2 diabetes ANGELIA,GENESIS [place] 01:28 PM mellitus without T [facility] complications Jul 05, 2021 SECONDARY Unspecified open ANGELIA,GENESIS [place] 01:28 PM wound, right lower T [facility] leg, subs encntr Jul 05, 2021 SECONDARY Venous insufficiency ANGELIA,GENESIS [place] 01:28 PM (chronic) T [facility] (peripheral) Plan of Treatment: Future Appointments (+ 6 months) and Future Tests (+/- 45 days) The Plan of Treatment section includes future care activities for the patient from all [place] treatmentfacilities. This section includes future appointments and future orders which are active, pending orscheduled.Future Appointments This section includes appointments that were scheduled to occur 6 months from the date of the Encounter, up to a maximum of 20 appointments. The data comes from all [place] treatment facilities. Appointment Date/Time Appointment Type Appointment Facili ty Name Aug 04, 2021 01:30 PM AMBULATORY - [place] [facility] Sep 08, 2021 10:30 AM [facility] [place] [facility] September 27, 2021 09:00 AM [facility] - MEDICINE [facility] September 28, 2021 10:00 AM AMBULATORY - NONE [facility] October 18, 2021 09:30 AM AMBULATORY - NONE [place] [facility] Nov 09, 2021 11:00 AM [facility] [place] [facility] Dec 22, 2021 11:00 AM AM[facility]ORY - NONE [place] [facility] Dec 27, 2021 11:30 AM AMBULATORY - MEDICINE [facility] Dec 27, 2021 11:31 AM [facility]ORY - NONE [place] [facility] Dec 27, 2021 12:00 PM AMBULATORY - MEDICINE [facility] Social History: Smoking Status (Most current) and Tobacco Use (All prior to encounter date) This section includes the most current, and the historical, smoking and tobacco-related health factors from the [place] facility where the Encounter took place.Current Smoking Status This section includes the most current smoking, or tobacco-related health factor, from the [place] facility where the Encounter took place. Date/Time Current Smoking Status Comment Facility Feb 06, 2019 11:00 PM CURRENT SMOKER SARAH Whitney [facility] Tobacco Use History This section includes a history of the smoking, or tobacco- related health factors, that were collected on or before the date of the Encounter. The data comes from the [place] facility where the Encounter took place. Date/Time Smoking Status/Tobacco Use Comment [facility] Feb 06, 2019 05:51 PM CURRENT SMOKER SARAH Whitney [facility] Pathology Reports: +/- [...] the Encounter. The data comes from all [place] treatment facilities. Date/Time Pathology Report Provider Source Jun 14, 2021 12:30 PM LR MICROBIOLOGY REPORT: [facility] Reporting Lab: [facility] [CLIA# [id number]] [address] [place] [address] Accession [UID]: [id number] [[id number]] Received : Jun 14, 2021@13:06 Collection sample: WOUND Collection date: May 12:30 Site/Specimen: LEFT LEG Provider: GENESIS GALAN Comment on specimen: LLE Test(s) ordered: CULTURE,WOUND DEEP ABSCESS(ROBIN EL)completed: Jun 19, 2021 * BACTERIOLOGY FINAL REPORT => Jun 19, 2021 11:4 1 TECH CODE: [id number] GRAM STAIN: 06/14/21 2+ WBC'S 2-3+ GRAM POSITIVE COCCI, IN CLUSTERS <1+ GRAM NEGATIVE RODS CULTURE RESULTS: STAPHYLOCOCCUS AUREUS - Quantit y: 4+ ANTIBIOTIC SUSCEPTIBILITY TEST RESULTS: STAPHYLOCOCCUS AUREUS : Ciprofloxacin................. S Clindamycin................... S Erythromycin.................. S Gentamicin.................... S Linezolid..................... S Oxacillin..................... S Penicillin-G.................. S Tetracycline.................. S Trimeth/Sulfa................. S Vancomycin.................... S =--=--=--=--=--=--=--=--=--=--=--=--=--= --=--=--=--=--=--=--=--=--=--=--=--=-- Performing Laboratory: Bacteriology Report Performed By: [facility] [CLIA# [id number]] [address] [place] [address] Gram Stain Performed By: [facility] [CLIA# [id number]] [address] [place] [address] Encounter Notes: All associated encounter notes This section contains the clinical notes associated to the Encounter. Date/Time Encounter Note(s) Provider Source Jul 05, 2021 12:57 PM PODIATRY E & M NOTE: GENESIS GALAN [facility] LOCAL TITLE: Podiatry/High Risk Foot [facility] STANDARD TITLE: PODIATRY E & M NOTE DATE OF NOTE: JUL 05, 2021@12:57 ENTRY DATE: JUL 05, 2021@12:57:14 AUTHOR: GENESIS GALAN EXP COSIGNER: URGENCY: STATUS: COMPLETED Mr. Foster is a 71 y/o DM male with PVD w ho is seen for ongoing wound care of non-healing ulcer LLE. Today Mr. Cristian flores resents with a wound that is improving after graft failur e and 10 days of ABX. He reports that there has been a nice crust over the top of the wound until yesterday when they changed it and while removing the Melgisorb the crust came off with it. On the distal border there remains a minimal amount of crusti ng. Despite all of the recent setbacks the wound is filling in. Per previous notes: THIS ULCER HAS BEEN [...] GRAFT 09/30/2020. 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 Essential hypertension ([facility] 50937649) E11.9 Diabetes mellitus ([facility] 60695553) R69. Anemia ([facility] 393510368) E78.5 HLD - Hyperlipidemia ([facility] 69699111) K22.719 Pierre's esophagus ([facility] 646159867) R69. GERD - Gastro-esophageal reflux disease ([facility] 207422861) R69. Diverticulosis ([facility] 838932390) R69. OA - Osteoarthrosis ([facility] 973138324) I25.9 Chronic ischemic heart disease ([facility] 154704 009) Active Outpatient Medications (excluding Supplie s): Active Outpatient Medications Status 1) ACCU-CHEK KYLER PLUS(GLUCOSE) TEST STRIP USE 1 STRIP ACTIVE ACCU-CHEK KYLER PLUS(GLUCOSE) TEST STRIP NEE DED TO TEST BLOOD GLUCOSE LEVEL 2) ALBUTEROL 90MCG (CFC-F) 200D ORAL INHL INHALE 2 PUFFS ACTIVE PO Q4-6 HRS NEEDED FOR BREATHING 3) ALOGLIPTIN 6.25MG TAB/ONE TAB PO QD FOR DMII ACTIVE 4) ASPIRIN 81MG EC TAB/ONE TAB PO QD TO PREVENT STROKE/ ACTIVE HEART ATTACK OR FOR PAIN/SWELLING/INFLAMMATION 5) ATORVASTATIN CALCIUM 10MG TAB TAKE ONE TABLET BY ACTIVE MOUTH EVERY EVENING TO LOWER CHOLESTEROL 6) COLLAGENASE 250 UNT/GM TOP OINT APPLY SMALL A MOUNT ACTIVE TOPICALLY QOD TO LEFT LEG WOUND DIRECTED 7) LISINOPRIL 5MG TAB/ONE TAB PO QD TO CONTROL B P ACTIVE 8) METFORMIN HCL 1000MG TAB TAKE ONE TABLET BY M OUTH ACTIVE TWICE DAILY WITH MEALS FOR DIABETES 9) METOLAZONE 2.5MG TAB TAKE ONE TABLET PO QAM A CTIVE 10) METOPROLOL SUCCINATE 50MG SA TAB/ONE TAB PO QD FOR BP ACTIVE 11) PANTOPRAZOLE NA 40MG EC TAB ONE TAB PO QD AC TIVE FOR STOMACH ACID (TAKE HALF-HOUR BEFORE MEAL(S) 12) POTASSIUM CHLORIDE 10MEQ SA TAB [...] CAP/TAB ONE CAP/ TAB PO QD ACTIVE 17 Total Medications HGB A1C: 7.4 (10/26/20) [...] 26, 2020@10:31:56 34.2 Allergies: SHELLFISH Social: , smoker; 1/2 - 1 PPD Shoe/Amb: [facility] issued Dwayne's in new condition/ind ependent Vasc: Previous assessment: +ve doppler pulses, CFT slight decreased B/L but > relatively RIGHT, TEMP WNL, LES edema improvement. DATE: SEPTEMBER 28, 2020 Procedure: LOWER EXTREMITY ARTERIAL STUDY Registered Fitter Welder: VERONICA IBRAHIM Segmental Pressures (SEG) Ordering Provider: [...] DOPPLER WAVEFORMS: Dorsal Pedal Post Tibial Right Stephenson-Biphasic Monophasic Left Monophasic INTERPRETATION: RIGHT: Mild lower [...] toe pressures. DERM: LLE proximal to tibia measur ed today at 2.0CM Wide X1.5CM H X superficial. Down from original size of 2.4CM long X 2.2CM wide. T here was no drainage today, there was minimal erythema around the wound. No debridement done today. Neurologic: S-W 5.07 intact B/L Orthopedic: [...] is a 71 year old DMII male who is seen in clinic today for ongoing care of wound to LLE. He is post graft f ailure and ABX for 10 days. On arrival today the LLE wound has impro sumanth significantly. It had a crust come off the entire surface of the wound yest erday when it was changed by his . The depth is filling in, it measures a little bigger today possible the way the crust came off is making it measure larger. PLAN: 1. Exam and education: a. Smoking cessation talked about him trying to at least cut down b. He knows if there are any negative changes t o call us immediately or go to the ER. 2. LLE Proximal wound: a. Covered with Melgisorb, 2X2, 4X4, Guerrero and 3M tape c. Dressing needs to be changed every day d. ABX Bactrim Completed 3. Smoking Cessation: a. He has supplies at home to help with cessati on. b. He knows he needs to stop c. We talked about smoking inhibiting wound fernie luz. DERESSING INSTRUCTION: PROXIMAL TO TIBIA WOUND + Melgisorb + 4X4, + 4 Guerrero + Dressings to be done Q day. + Supplies provided today RTC: One Month or as needed /meena/ Genesis Galan MSN AML ANALYST Staff Nurse Practitioner Signed: 07/05/2021 13:28
--- OUTSIDE RECORDS SUMMARY | 2022-02-09 10:36 | XMS_ITS ---
:1950 Author Organization [facility] rs Address [address] [place] [address] Support Name Relationship Address Phone ZUHAIR FOSTER Unavailable [address] [place] [address] ZUHAIR FOSTER Unavailable [address] [place] [address] Insurance Providers: All historical and current Section [...] Liu CBA BLUE HIGH [place] Jan 25, [id number] [phone] DO Stephanie FOSTER SPOUSE DEDUCTIBL [place] 2013 [id number] NA E [facility] PLAN EXPRESS PRESCRIPT WEIDM May 27, RXBWEID [id number] [phone] PEYTON FOSTER SPOUSE SCRIPTS ION [place] 2017 [id number] 557 NA ([id number]) ([facility] ) MEDICARE MEDICARE PART Jan 25, PART A [id number] CRISTIAN, AND PATIENT (WNR) (M) A 2013 [id number] 2 REW Selected Encounter This section includes the information on record at [facility] for the Encounter. Date/Time Encounter Type Encounter Reason Provider Source Description Mar 02, 2021 OFFICE O/P EST PODIATRY ICD-10-CM I73.89 GENESIS GALAN 11:00 AM HI 40-54 MIN Other specified peripheral vascular diseases with Provider Comments: Peripheral vascular disease (SCT [id number]) IHE Encounter Template Text not used by [facility] Assessments - Encounter Diagnoses This section includes the primary and secondary diagnoses documented for the Encounter. Date/Time Primary/Secondary Diagnosis Name Provider Source Diagnosis Mar 02, 2021 PRIMARY Other specified ANGELIA,GENESIS [place] 12:12 PM peripheral vascular [facility] diseases Mar 02, 2021 SECONDARY Edema, unspecified ANGELIA,GENESIS SMITH [place] G [place] 12:12 PM [place] [facility] Mar 02, 2021 SECONDARY Type 2 diabetes ANGELIA,GENESIS [place] 12:12 PM mellitus without [facility] complications Mar 02, 2021 SECONDARY Unspecified open ANGELIA,GENESIS [place] 12:12 PM wound, right lower [place] [facility] leg, subs encntr Mar 02, 2021 SECONDARY Venous insufficiency ANGELIA,GENESIS SMITH R IV[place] 12:12 PM (chronic) T [facility] (peripheral) Plan of Treatment: Future [...] 11:00 PM CURRENT SMOKER SARAH Whitney LARISA [facility] Tobacco Use History This section includes a history of the smoking, or tobacco- related health factors, that were collected on or before the date of the Encounter. The data comes from the [place] facility where the Encounter took place. Date/Time Smoking Status/Tobacco Use Comment [facility] Feb 06, 2019 05:51 PM CURRENT SMOKER SARAH PERES [facility] Encounter Notes: All associated encounter notes This section contains the clinical notes associated to the Encounter. Date/Time Encounter Note(s) Provider Source Mar 02, 2021 11:44 AM PODIATRY OUTPATIENT NOTE: GENESIS GALAN LOCAL TITLE: Podiatry/Outpatient Note [facility] STANDARD TITLE: PODIATRY OUTPATIENT NOTE DATE OF NOTE: MAR 02, 2021@11:44 ENTRY DATE: MAR 02, 2021@11:44:51 AUTHOR: GENESIS GALAN EXP COSIGNER: URGENCY: STATUS: COMPLETED Mr. Foster is a 70 y/o DM male with PVD w ho was seen today for ongoing wound care of non-healing ulcer LLE. He reports that his states the wound is improving and appears to have new tissue growth in the base. He reports that he has some burning discomfort/pain when the med ihoney colloid sheet is initially placed over the wound for ab out 20 minutes then it goes away. Today he presents with the proximal tibia wound looking very wet a round the wound and the wound bed was full of yellow/white slough. He reports that his has been doing saline saturated 4X4's and laying them o dakota the proximal tibia wound for about five minutes. Per previous notes: THIS ULCER HAS BEEN [...] GRAFT 09/30/2020. 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 Essential hypertension ([facility] [id number]) E11.9 Diabetes mellitus ([facility] [id number]) R69. 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 GERD - Gastro-esophageal reflux disease ([place] T [id number]) R69. Diverticulosis ([facility] [id number]) R69. OA - Osteoarthrosis ([facility] [id number]) I25.9 Chronic ischemic heart disease ([facility] [id number]) HGB A1C: 7.4 (10/26/20) BUN/CREAT: 20/0.89 [...] BY MOUTH EVERY ACTIVE MORNING PATIENT TO SUPERVISOR WINDING DEPARTMENT 08/18 9) METOPROLOL SUCCINATE 50MG SA TAB [...] 2020 Procedure: LOWER EXTREMITY ARTERIAL STUDY Registered Nail Welter: VERONICA IBRAHIM Segmental Pressures (SEG) Ordering Provider: [...] DOPPLER WAVEFORMS: Dorsal Pedal Post Tibial Right [place]-Biphasic Monophasic Left Monophasic INTERPRETATION: RIGHT: Mild lower [...] toe pressures. DERM: LLE distal to tibia is tentatively healed placed Adaptic and 4X4 over the top just for protection. LLE proximal to tibia previo usly measured 2.4CM long by 2.2CM wide, not measured today. Cleaned away a lot of slough in the base of the wound, pink epithelial layer underneath. Using Medihoney 2X2 colloid sh eets as he has a shellfish allergy. Today cleaned lightly with Chlorhexidin e, rinsed outer area beyond wound with sterile water then placed medihoney c olloid sheet in wound bed (trimmed to fit), covered with Adaptic and 4X4, then wrapped with Guerrero and paper tape. Neurologic: S-W 5.07 intact B/L [...] was easily removed with a dry 4X4. LLE distal to ti juventino is tentatively healed dressed with Adaptic and 4X4. Redressed with Medihoney colloi d sheet cut out to fit the bed of the wound. Direct ed that they not do the 5 minute soaks for now while we try to get this area dried up. ECZEMA LLE: Remains resolved with Derm intervent ion PLAN: 1. Exam and education 2. LLE Proximal wound: a. Controlling edema with daily compression B/L b. Slowly healing at the proximal edge c. Dressed today with Medihoney, first cleansed with Chlorhexidine wipe c. Continued encouragement of smoking cessation 3. LLE Distal to tibia: a. Former wound site b. Tentatively healed with dry flaky layer of s kin c. Encouraged lotion B/L LE w/exception of open wound area d. Covered with Adaptic and 4X4 for protection 4. Edema: a. Control as directed by PCP DERESSING INSTRUCTION: Continue same dressings n oted below PROXIMAL TO TIBIA WOUND + Wipe with dry 4X4, then Chlorhexidine gently w ipe, then saline + Mediney Colloid sheet cut down to size + Adaptic over Medihoney + 2-4X4's, covering proximal wound and distal ar ea of previous wound + 4 Guerrero + Dressings to be done QOD, do daily for the nex t few days to combat wetness + Advised to go back to QD dressing changes if d ressings become too wet. + Supplies provided RTC: 2 Weeks or as needed /meena/ Genesis Galan MSN [employer] Staff Nurse Practitioner Signed: 03/02/2021 12:12
--- OUTSIDE RECORDS SUMMARY | 2022-02-09 10:36 | XMS_ITS | Encounter Summary ---
:1950 Author Organization [facility] Address [address] [place] [address] Support Name Relationship Address Phone ZUHAIR FOSTER Unavailable [address] [place] [address] ZUHAIR FOSTER Unavailable [address] [place] [address] Insurance Providers: All historical and current Section [...] to Policy Number Liu CBA BLUE HIGH [facility] Jan 25, [id number] [phone] DO Stephanie FOSTER SPOUSE DEDUCTIBL [place] 2013 [id number] NA E [facility] PLAN EXPRESS PRESCRIPT WEI May 27, RXBWEID [id number] [phone] PEYTON FOSTER SPOUSE SCRIPTS ION [place] 2017 [id number] 557 NA ([id number]) (HDHP ) MEDICARE MEDICARE PART Jan 25, PART A [id number] CRISTIAN, AND PATIENT (WNR) (M) A 2013 VU70 2 REW Selected Encounter This section includes the information on record at [place] for the Encounter. Date/Time Encounter Type Encounter Description Reason Provider Source Feb 22, 2021 08:21 Outpatient Encounter COMMUNITY CARE AM CONSULT IHE Encounter Template Text not used by [...] 20 appointments. The data comes from all [place] treatment facilities. Appointment Date/Time Appointment Type Appointment Facili ty Name Mar 02, 2021 11:00 AM AMBULATORY - [...] smoking and tobacco-related health factors from the [place] facility where the Encounter took place.Current Smoking Status This section includes the most current smoking, or tobacco-related health factor, from the [place] facility where the Encounter took place. Date/Time Current Smoking Status Comment Facility Feb 06, 2019 11:00 PM CURRENT SMOKER SARAH PALUMBO R LAR[place] [facility] Tobacco Use History This section includes a history of the smoking, or tobacco- related health factors, that were collected on or before the date of the Encounter. The data comes from the [place] facility where the Encounter took place. Date/Time Smoking Status/Tobacco Use Comment [facility] Feb 06, 2019 05:51 PM CURRENT SMOKER SARAH CUMMINSE R [place] [facility] Encounter Notes: All associated encounter notes This section contains the clinical notes associated to the Encounter. Date/Time Encounter Note(s) Provider Source Feb 22, 2021 08:21 AM NONVA CONSULT: BEA MCLAUGHLIN LOCAL TITLE: COMMUNITY CARE CONSULT RESULT NOTE [facility] STANDARD TITLE: NONVA CONSULT DATE OF NOTE: FEB 22, 2021@08:21 ENTRY DATE: MAR 25, 2021@08:22:54 AUTHOR: BEA MCLAUGHLIN EXP COSIGNER: URGENCY: STATUS: COMPLETED [facility] - Scanned Document com care-optometry [facility] dated 02/22/21 /meena/ BEA MCLAUGHLIN Signed: 03/25/2021 08:22
--- OUTSIDE RECORDS SUMMARY | 2022-02-09 10:37 | XMS_ITS | Encounter Summary ---
:1950 Author Organization [facility] Address [address] [place] [address] Support Name Relationship Address Phone ZUHAIR FOSTER Unavailable [address] [place] [address] ZUHAIR FOSTER Unavailable [address] [place] [address] Insurance Providers: All historical and current Section [...] to Policy Number Liu CBA BLUE HIGH [facility] Jan 25, [id number] [phone] DO Stephanie FOSTER SPOUSE DEDUCTIBL [place] 2013 [id number] NA E [facility] PLAN EXPRESS PRESCRIPT WEI May 27, RXBWEID [id number] [phone] PEYTON FOSTER SPOUSE SCRIPTS ION [place] 2017 [id number] 557 NA ([id number]) (HDHP ) MEDICARE MEDICARE PART Jan 25, PART A [id number] CRISTIAN, AND PATIENT (WNR) (M) A 2013 VU70 2 REW Selected Encounter This section includes the information on record at [place] for the Encounter. Date/Time Encounter Type Encounter Description Reason Provider Source Aug 14, 2021 08:16 Outpatient Encounter PRIMARY CARE/MEDICINE AM IHE Encounter Template Text not used by [...] 20 appointments. The data comes from all [place] treatment facilities. Appointment Date/Time Appointment Type Appointment Facili ty Name Sep 08, 2021 10:30 AM AMBULATORY - [place]GERY [place] [facility] September 27, 2021 09:00 AM AMBULATORY - MEDICINE [facility] September 28, 2021 10:00 AM AMBULATORY - NONE [facility] October 18, 2021 09:30 AM AMBULATORY [place] [facility] Nov 09, 2021 11:00 AM AMBULATORY - [place]GERY [place] [facility] Dec 22, 2021 11:00 AM AMBULATORY - [place] [facility] Dec 27, 2021 11:30 AM AMBULATORY - MEDICINE [facility] Dec 27, 2021 11:31 AM AMBULATORY - NONE [place] [facility] Dec 27, 2021 12:00 PM AMBULATORY - MEDICINE [facility] Jan 18, 2022 11:00 AM AMBULATORY - REHAB [facility]IC[facility] Jan 22, 2022 09:30 AM AMBULATORY - MEDICINE [facility] Jan 22, 2022 09:31 AM AMBULATORY - N[place] [facility] Feb 12, 2022 10:30 AM AMBULATORY - SURGERY [place] [facility] Social History: Smoking Status (Most current) and Tobacco Use (All prior to encounter date) This section includes the most current, and the historical, smoking and tobacco-related health factors from the [place] facility where the Encounter took place.Current Smoking Status This section includes the most current smoking, or tobacco-related health factor, from the [place] facility where the Encounter took place. Date/Time Current Smoking Status Comment Facility Feb 06, 2019 11:00 PM CURRENT SMOKER SARAH [place] [facility] Tobacco Use History This section includes a history of the smoking, or tobacco- related health factors, that were collected on or before the date of the Encounter. The data comes from the [place] facility where the Encounter took place. Date/Time Smoking Status/Tobacco Use Comment [facility] Feb 06, 2019 05:51 PM CURRENT SMOKER SARAH [place] [facility] Encounter Notes: All associated encounter notes This section contains the clinical notes associated to the Encounter. Date/Time Encounter Note(s) Provider Source Aug 14, 2021 08:16 AM ACCOUNTING OF DISCLOSURES NOTE: LETICIA CRAIG [facility] LOCAL TITLE: STATE PRESCRIPTION DRUG MONITORING PROGRAM (SPDMP) STANDARD TITLE: ACCOUNTING OF DISCLOSURES NOTE DATE OF NOTE: AUG 14, 2021@08:16 ENTRY DATE: AUG 14, 2021@08:16:34 AUTHOR: NORM CRAIG EXP COSIGNER: URGENCY: STATUS: COMPLETED V1-STATE PRESCRIPTION DRUG MONITORING PROGRAM (S PDMP) The purpose of this query was a part of the medi cation reconciliation process for the: Renewal of a controlled substance prescription. The following State Prescription Drug Monitoring Program(s) were queried for this patient: [facility] (09/12/2017: [place] PDMP information may be placed in the patient medical records that pertains to [place] specific data ONLY, not from an interstate query) [facility] No prescription(s) for controlled substances wer e found to be filled outside the [facility]. /meena/ NORM CRAIG Signed: 08/14/2021 08:16
--- OUTSIDE RECORDS SUMMARY | 2022-02-09 10:37 | XMS_ITS | Encounter Summary ---
:1950 Author Organization [facility] Address [address] [place] [address] Support Name Relationship Address Phone ZUHAIR FOSTER Unavailable [address] [place] [address] ZUHAIR FOSTER Unavailable [address] [place] [address] Insurance Providers: All historical and current Section Date Range: From patient's date of to the date document was created.This section includes the names of all active insurance providers for the patient. Insurance Type of Plan Start of End of Group Member Insurance Policy P atient's Provider Coverage Name Policy Policy Number ID Provider's Lui's Relationship Coverage Coverage Telephone Name to Policy Number Liu CBA BLUE HIGH [facility] Jan 25, [id number] [phone] DO Stephanie FOSTER SPOUSE DEDUCTIBL [place] 2013 [id number] NA E [facility] PLAN EXPRESS PRESCRIPT WEI May 27, RXBWEID [id number] [phone] PEYTON FOSTER SPOUSE SCRIPTS ION [place] 2017 [id number] 557 NA ([id number]) (HDHP ) MEDICARE MEDICARE PART Jan 25, PART A [id number] CRISTIAN, AND PATIENT (WNR) (M) A 2013 [id number] 2 REW Selected Encounter This section includes the information on record at [place] for the Encounter. Date/Time Encounter Type Encounter Reason Provider Source Description Aug 14, 2021 06:41 Outpatient Encounter PRIMARY SILVIA [place]LE[place] AM CARE/MEDICINE [...] 20 appointments. The data comes from all [place] treatment facilities. Appointment Date/Time Appointment Type Appointment Facili ty Name Sep 08, 2021 10:30 AM AMBULATORY - [place] [facility] September 27, 2021 09:00 AM AMBULATORY - MEDICINE [facility] September 28, 2021 10:00 AM AMBULATORY - NONE [facility] October 18, 2021 09:30 AM AMBULATORY [place] NONE [place] [facility] Nov 09, 2021 11:00 AM AMBULATORY - SURGERY [place] [facility] Dec 22, 2021 11:00 AM AMBULATORY - NONE [place] [facility] Dec 27, 2021 11:30 AM AMBULATORY - MEDICINE [facility] Dec 27, 2021 11:31 AM AMBULATORY - NONE [place] [facility] Dec 27, 2021 12:00 PM AMBULATORY - MEDICINE [facility] Jan 18, 2022 11:00 AM AMBULATORY - REHAB [facility]ICINE [facility] Jan 22, 2022 09:30 AM AMBULATORY - MEDICINE [facility] Jan 22, 2022 09:31 AM AMBULATORY - NONE [place] [facility] Feb 12, 2022 10:30 AM AMBULATORY - SURGERY [place] [facility] Social History: Smoking Status (Most current) and Tobacco Use (All prior to encounter date) This section includes the most current, and the historical, smoking and tobacco-related health factors from the [place] facility where the Encounter took place.Current Smoking Status This section includes the most current smoking, or tobacco-related health factor, from the [place] facility where the Encounter took place. Date/Time Current Smoking Status Comment Facility Feb 06, 2019 11:00 PM CURRENT SMOKER SARAH Whitney T [facility] Tobacco Use History This section includes a history of the smoking, or tobacco- related health factors, that were collected on or before the date of the Encounter. The data comes from the [place] facility where the Encounter took place. Date/Time Smoking Status/Tobacco Use Comment [facility] Feb 06, 2019 05:51 PM CURRENT SMOKER SARAH [place] [facility] Encounter Notes: All associated encounter notes This section contains the clinical notes associated to the Encounter. Date/Time Encounter Note(s) Provider Source Aug 14, 2021 06:41 AM PRIMARY CARE SECURE MESSAGING: WANG CELESTIN [facility] LOCAL TITLE: PRIMARY CARE SECURE MESSAGING STANDARD TITLE: PRIMARY CARE SECURE MESSAGING DATE OF NOTE: AUG 14, 2021@06:41 ENTRY DATE: AUG 14, 2021@07:42 AUTHOR: WANG CELESTIN EXP COSIGNER: URGENCY: STATUS: COMPLETED ------Original Message Sent: 08/13/2021 06:53 PM ET From: ANASTASIA FOSTER To: Katarzyna ALLEN[facility] Subject: Medication:refills I need a new script for pregabalin as the old on e has run out. Also<, I think. I need labs before my September 28 offi ce visit. I have an appointment at [facility] on September 08 an could get the blood drawn then if someone could look this up and put the order in. I think I need, CBC, A1C, Lipid profile, Blood chemistry w/ magnesium ??? Thank you for your help. /meena/ WANG CELESTIN AMSA Signed: 08/14/2021 07:42 Receipt Acknowledged By: * AWAITING SIGNATURE * AXEL JORGENSEN * AWAITING SIGNATURE * NORM CRAIG * AWAITING SIGNATURE * SADI CÁRDENAS * AWAITING SIGNATURE * SHANELL ALLEN
--- OUTSIDE RECORDS SUMMARY | 2022-02-09 10:37 | XMS_ITS | Encounter Summary ---
:1950 Author Organization [facility] rs Address [address] [place] [address] Support Name Relationship Address Phone ZUHAIR FOSTER Unavailable [address] [place] [address] ZUHAIR FOSTER Unavailable [address] [place] [address] Insurance Providers: All historical and current Section [...] Liu CBA BLUE HIGH WEI Jan 25, [id number] [phone] DO Stephanie FOSTER SPOUSE DEDUCTIBL [place] 2013 [id number] NA E [facility] PLAN EXPRESS PRESCRIPT WEIDM May 27, RXBWEID [id number] [phone] PE[place]TON FOSTER SPOUSE SCRIPTS ION [place] 2017 [id number] NA ([id number]) ([facility] ) MEDICARE MEDICARE PART Jan 25, PART A [id number] CRISTIAN, AND PATIENT (WNR) (M) A 2013 VU70 2 REW Selected Encounter This section includes the information on record at [place] for the Encounter. Date/Time Encounter Type Encounter Reason Provider Source Description Sep 08, 2021 OFFICE O/P EST PODIATRY ICD-10-CM I87.2 GENESIS GALAN 10:30 AM SF 10-19 MIN Venous insufficiency (chronic) (peripheral) with Provider Comments: Venous insufficiency of leg (SCT 198006023) IHE Encounter Template Text not used by [facility] Assessments - Encounter Diagnoses This section includes the primary and secondary diagnoses documented for the Encounter. Date/Time Primary/Secondary Diagnosis Name Provider Source Diagnosis Sep 08, 2021 PRIMARY Venous insufficiency ANGELIAGENESIS IVER 11:12 AM (chronic) T [facility] (peripheral) Sep 08, 2021 SECONDARY Other specified ANGELIAGENESIS 11:12 AM peripheral vascular T [facility] diseases Sep 08, 2021 SECONDARY Type 2 diabetes ANGELIAGENESIS 11:12 AM mellitus without T [facility] complications Sep 08, 2021 SECONDARY Unspecified open ANGELIA,GENESIS RAE 11:12 AM wound, right lower [place] [facility] leg, subs encntr Plan of Treatment: Future Appointments (+ 6 months) and Future Tests (+/- 45 days) The Plan of Treatment section includes future care activities for the patient from all [place] treatmentfacilities. This section includes future appointments and future orders which are active, pending orscheduled.Future Appointments This section includes appointments that were scheduled to occur 6 months from the date of the Encounter, up to a maximum of 20 appointments. The data comes from all [place] treatment facilities. Appointment Date/Time Appointment Type Appointment Facili ty Name September 27, 2021 09:00 AM AMBULATORY - MEDICINE [facility] September 28, 2021 10:00 AM AMBULATORY - NONE [facility] October 18, 2021 09:30 AM [facility] [place] [facility]ONE [place] [facility] Nov 09, 2021 11:00 AM [place] [place] [facility] Dec 22, 2021 11:00 AM AMBULATORY - NONE [place] [facility] Dec 27, 2021 11:30 AM AMBULATORY - MEDICINE [facility] Dec 27, 2021 11:31 AM AMBULATORY - NONE [place] [place] [facility] Dec 27, 2021 12:00 PM AMBULATORY - MEDICINE [facility] Jan 18, 2022 11:00 AM AMBULATORY - REHAB [facility]IC[facility] Jan 22, 2022 09:30 AM AMBULATORY - MEDICINE [facility] Jan 22, 2022 09:31 AM AMBUL[facility]ORY - NONE [place] [facility] Feb 12, 2022 10:30 AM [facility] - [place]GERY [place] [facility] Feb 20, 2022 08:45 AM AMBULATORY - NONE [facility] Feb 20, 2022 09:00 AM AMBULATORY - REHAB MEDICINE [facility] Lab Results: +/- 30 days of the encounter This section includes the Chemistry and Hematology Lab Results on record with [place] for the patient. Radiology Reports and Pathology Reports are provided separately, in subsequent sections.Lab Results This section contains the Chemistry/Hematology Results that were resulted 30 days before or 30 daysafter the date of the Encounter. Date/Time Source Result Type Result - Unit Interpretation Reference Range Comment September 27, 2021 09:47 AM [facility] MAGNESIUM Specim en Type: PLASMA Comment: Tests performed on Digiscend (405) SN:[id number] Ordering Provid er: SHANELL ALLEN Report Released Date/Time: Aug 14, 2021 03:10 PM Reporting Lab: [facility] [address] [facility] [address] Performing Lab: [facility] [address] [facility] [address] MAGNESIUM 0.7 L 1.6-2.6 September 27, 2021 09:47 AM [facility] PHOSPHORUS Specim en Type: PLASMA Comment: Tests performed on Digiscend (405) SN:[id number] Ordering Provid er: SHANELL ALLEN Report Released Date/Time: Aug 14, 2021 03:10 PM Reporting Lab: [facility] [address] [facility] [place] [address] Performing Lab: [facility] [address] [facility] [place] [address] PHOSPHORUS 2.9 2.5-5.0 September 27, 2021 [facility] GLYCOHEMOGLOBIN (A1C Specime n Type: BLOOD 09:47 AM ONLY) Comment: Tests performed on Digiscend (405) SN:[id number] Ordering Provid er: SHANELL ALLEN Report Released Date/Time: Aug 14, 2021 03:10 PM Reporting Lab: [facility] [address] [facility] [address] Per[facility]: [facility] [address] [facility] [address] HEMOGLOBIN A1C 6.4 H 4.0-5.6 September 27, 2021 [facility] LIPOPROTEIN CHOLESTEROL Spec imen Type: PLASMA 09:47 AM FRACT. PANEL Comment: Tests performed on [place] Speech Pathology Teacher (405) SN:[id number] Ordering Provid er: SHANELL ALLEN Report Released Date/Time: Aug 14, 2021 03:10 PM Reporting Lab: [facility] [address] [facility] [address] Performing Lab: [facility] [address] [facility] [address] CHOLESTEROL 156 0-199 TRIGLYCERIDE 109 0-149 HDL CHOLESTEROL 40 >40 LDL CHOLESTEROL (CALC) 94 0-129 September 27, 2021 09:47 AM [facility] LIVER PROFILE Specim en Type: PLASMA Comment: Tests performed on Digiscend (405) SN:[id number] Ordering Provid er: SHANELL ALLEN Report Released Date/Time: Aug 14, 2021 03:10 PM Reporting Lab: [facility] [address] [facility] [address] Performing Lab: [facility] [address] [facility] [address] PROTEIN, TOTAL 7.7 6.0-8.5 ALBUMIN 3.3 3.2-5.0 BILIRUBIN, TOTAL 1.2 0.2-1.2 BILIRUBIN, DIRECT 0.5 0-0.5 ALKALINE PHOSPHATASE 118 40-150 ALT(SGPT) 25 7-52 AST(SGOT) 26 5-34 FIB-4 SCORE 1.46 <2.67 September 27, 2021 09:47 AM [facility] CBC NO DIFF Specim en Type: BLOOD No comment enter ed. Ordering Provid er: SHANELL ALLEN Report Released Date/Time: Aug 14, 2021 03:10 PM Reporting [facility] [address] [facility] [address] Performing Lab: [facility] [address] [facility] [address] WBC 12.0 H 4.5-11.0 RBC 5.00 4.23-5.66 HGB 14.1 12.8-17 HEMATOCRIT 44.6 39.2-50.4 MCV 89.2 82-99 MCH 28.2 26.2-32.6 MCHC 31.6 30.8-35.1 PLT 257 140-360 MPV 11.6 9.2-12.4 RDW 15.8 12.0-16.0 September 27, 2021 09:47 AM [facility] VITAMIN B-12 Specim en Type: SERUM Comment: Tests performed on [employer] Speech Pathology Teacher (405) SN:[id number] Ordering Provid er: SHANELL ALLEN Report Released Date/Time: Aug 14, 2021 03:10 PM Reporting Lab: [facility] [address] [facility] [address] Performing Lab: [facility] [address] [facility] [address] VITAMIN B-12 388 200-900 September 27, 2021 [facility] MICROALBUMIN/CREATININE RATIO S pecimen Type: URINE 09:47 AM [facility] PANEL Comment: Tests performed on [employer] Speech Pathology Teacher (405) SN:[id number] Ordering Provid er: SHANELL ALLEN Report Released Date/Time: Aug 14, 2021 03:10 PM Reporting Lab: [facility] [address] [facility] [address] Performing Lab: [facility] [address] [facility] [address] CREATININE (URINE,RANDOM) 101.7 MICROALBUMIN, QUANTITATIVE 4.2 0.0 -29.9 MICROALBUMIN/CREATININE RATIO 41.3 H 0.0-29.9 September 27, 2021 09:47 AM [facility] TSH Specim en Type: SERUM Comment: Tests performed on [place] (405) SN:[id number] Ordering Provid er: SHANELL ALLEN Report Released Date/Time: Aug 14, 2021 03:10 PM Reporting Lab: [facility] [address] [facility] [address] Performing Lab: [facility] [address] [facility] [address] TSH 1.27 0.35-5.00 September 27, 2021 09:47 [facility] VIT D 25-OH([facility]) Specimen Type: SERUM AM Comment: Tests performed on [employer] Speech Pathology Teacher (405) SN:[id number] Ordering Provid er: SHANELL ALLEN Report Released Date/Time: Aug 14, 2021 03:10 PM Reporting Lab: [facility] [address] [facility] [address] Performing Lab: [facility] [address] [facility] [address] VIT D 25-OH([facility]) 32.7 20-50 September 27, 2021 09:47 AM Bin [facility] CBC PROFILE Specim en Type: BLOOD No comment enter ed. Ordering Provid er: SHANELL ALLEN Report Released Date/Time: Aug 14, 2021 03:10 PM Reporting Lab: [facility] [address] [facility] [address] Performing Lab: [facility] [address] [facility] [address] WBC 12.0 H 4.5-11.0 RBC 5.00 4.23-5.66 HGB 14.1 12.8-17 HEMATOCRIT 44.6 39.2-50.4 MCV 89.2 82-99 MCH 28.2 26.2-32.6 MCHC 31.6 30.8-35.1 PLT 257 140-360 MPV 11.6 9.2-12.4 RDW 15.8 12.0-16.0 LYMPH % 18.2 14.0-42.3 MONO % 6.5 5.1-13.7 NEUT % 72.9 43.7-75.8 EOS % 1.0 0.4-6.8 BASO % 0.8 0.1-2.0 IG % 0.6 0.0-0.7 NUCLEATED RED CELLS 0.0 0.0-0.0 ABSOLUTE IG 0.1 H 0-0.06 ABSOLUTE BASOPHILS 0.1 0.01-0.13 ABSOLUTE EOS. 0.1 0.03-0.44 ABSOLUTE LYMPHOCYTES 2.2 1.0-3.2 ABSOLUTE MONOCYTES 0.8 0.3-1.1 ABSOLUTE GRANULOCYTES 8.8 H 2.2-7.6 ABSOLUTE NRBC 0.00 0-0 Social History: Smoking Status (Most current) and Tobacco Use (All prior to encounter date) This section includes the most current, and the historical, smoking and tobacco-related health factors from the [place] facility where the Encounter took place.Current Smoking Status This section includes the most current smoking, or tobacco-related health factor, from the [place] facility where the Encounter took place. Date/Time Current Smoking Status Comment Facility Feb 06, 2019 11:00 PM CURRENT SMOKER SARAH PERES [facility] Tobacco Use History This section includes a history of the smoking, or tobacco- related health factors, that were collected on or before the date of the Encounter. The data comes from the [place] facility where the Encounter took place. Date/Time Smoking Status/Tobacco Use Comment Julián loyd Feb 06, 2019 05:51 PM CURRENT SMOKER SARAH PERES [facility] Encounter Notes: All associated encounter notes This section contains the clinical notes associated to the Encounter. Date/Time Encounter Note(s) Provider Source Sep 08, 2021 10:44 AM PODIATRY E & M NOTE: GENESIS GALAN LOCAL TITLE: Podiatry/High Risk Foot [facility] STANDARD TITLE: PODIATRY E & M NOTE DATE OF NOTE: SEP 08, 2021@10:44 ENTRY DATE: SEP 08, 2021@10:44:48 AUTHOR: GENESIS GALAN EXP COSIGNER: URGENCY: STATUS: COMPLETED Mr. Foster is a 71 y/o DM male with PVD w ho is seen for ongoing wound care of non-healing ulcer LLE. Today Mr. Foster p resents with a wound that is healed and healthy looking. ---- MICROBIOLOGY ---- Reporting Lab: SARAH RAE 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 [id number]) I73.89 Peripheral vascular disease ([facility] 72590582 6) I87.2 Venous insufficiency of leg ([facility] 847024403 ) L08.9 Impetigo ([facility] 94136914) R60.9 Venous stasis edema of bilateral lower curry bs ([facility] [id number]) S81.801D Wound ([facility] 001983989) I10. Essential hypertension ([facility] 13379800) E11.9 Diabetes mellitus ([facility] 66098610) R69. Anemia ([facility] 502219271) E78.5 HLD - Hyperlipidemia ([facility] 74937898) K22.719 Pierre's esophagus ([facility] [id number]) R69. GERD - Gastro-esophageal reflux disease ([facility] [id number]) R69. Diverticulosis ([facility] 885877352) R69. OA - Osteoarthrosis ([facility] 659085302) I25.9 Chronic ischemic heart disease ([facility] [id number] 009) Active Outpatient Medications (excluding Supplie s): [...] 2020 Procedure: LOWER EXTREMITY ARTERIAL STUDY Registered Stencil Cutter Machine: VERONICA IBRAHIM Segmental Pressures (SEG) Ordering Provider: [...] DOPPLER WAVEFORMS: Dorsal Pedal Post Tibial Right Perkins-Biphasic Monophasic Left Monophasic INTERPRETATION: RIGHT: Mild lower [...] pressures. DERM: LLE proximal to tibia not measured today origina l size of 2.4CM long X 2.2CM wide. It is covered with pink healthy appearing bits of eschar, no SOI, No debridement done today. Melanie wound skin is intac t and healthy no SOI. Neurologic: S-W 5.07 intact B/L Orthopedic: No pain Mr. foster is a 71 year old DMII male who is seen in clinic today for ongoing care of wound to LLE. He and the wound a re doing well, it is finally healed and looking healthy w ith no SOI. He continues to dress it for protection. PLAN: 1. Exam and education: a. Smoking cessation talked about him trying to at least cut down- no budging him on this point; but I keep trying. b. He knows if there are any negative changes t o call us immediately or go to the ER. 2. LLE Proximal wound: a. Covered with DSD, 2X2, and 3M tape b. He can now shower with no dressing on, takin g care not to scrub and pat dry. 3. Smoking Cessation: a. He has supplies at home to help with cessati on. b. He knows he needs to stop c. We have previously talked about smoking inhi biting wound healing. DERESSING INSTRUCTION: PROXIMAL TO TIBIA WOUND + 2X2 & 3M Tape for protection only RTC: Two Months/or as needed /meena/ Genesis Galan MSN CUSTOMER FIELD REPRESENTATIVE Staff Nurse Practitioner Signed: 09/08/2021 11:12
--- OUTSIDE RECORDS SUMMARY | 2022-02-09 10:37 | XMS_ITS ---
:1950 Author Organization [facility] Address [address] [place] [id number] Support Name Relationship Address Phone ZUHAIR FOSTER Unavailable [address] [place] [address] ZUHAIR FOSTER Unavailable [address] [place] [address] Insurance Providers: All historical and current Section [...] Liu CBA BLUE HIGH WEI Jan 25, [id number] [phone] DO Stephanie FOSTER SPOUSE DEDUCTIBL [place] 2013 [id number] NA E [facility] PLAN EXPRESS PRESCRIPT WEIDM May 27, RXBWEID [id number] [phone] PEYTON FOSTER SPOUSE SCRIPTS ION [place] 2017 [id number] NA ([id number]) ([facility] ) MEDICARE MEDICARE PART Jan 25, PART A [id number] CRISTIAN, AND PATIENT (WNR) (M) A 2013 VU70 2 REW Selected Encounter This section includes the information on record at [place] for the Encounter. Date/Time Encounter Type Encounter Reason Provider Source Description Aug 04, 2021 OFFICE O/P EST PODIATRY ICD-10-CM I73.89 GENESIS GALAN 01:30 PM LOW 20-29 MIN Other specified peripheral vascular diseases with Provider Comments: Peripheral vascular disease (SCT [id number]) IHE Encounter Template Text not used by [facility] Assessments - Encounter Diagnoses This section includes the primary and secondary diagnoses documented for the Encounter. Date/Time Primary/Secondary Diagnosis Name Provider Source Diagnosis Aug 04, 2021 PRIMARY Other specified ANGELIAGENESIS 02:26 PM peripheral vascular T [facility] diseases Aug 04, 2021 SECONDARY Type 2 diabetes ANGELIA,GENESIS RAE 02:26 PM mellitus without [facility] complications Aug 04, 2021 SECONDARY Unspecified open ANGELIAGENESIS 02:26 PM wound, right lower JCT [facility] leg, subs encntr Aug 04, 2021 SECONDARY Venous insufficiency ANGELIA,GENESIS SMITH R IVER 02:26 PM (chronic) T [facility] (peripheral) Plan of Treatment: Future Appointments [...] AMBULATORY - [facility] [place] [facility] September 27, 2021 09:00 AM AMBULATORY - MEDICINE [facility] September 28, 2021 10:00 AM AMBULATORY - NONE [facility] October 18, 2021 09:30 AM AMBULATORY - NONE [place] [facility] Nov 09, 2021 11:00 AM AMBULATORY - SURGERY [place] [facility] Dec 22, 2021 11:00 AM AMBULATORY - NONE [place] [facility] Dec 27, 2021 11:30 AM AMBULATORY - MEDICINE [facility] Dec 27, 2021 11:31 AM AMBULATORY - NONE [place] [facility] Dec 27, 2021 12:00 PM AMBULATORY - MEDICINE [facility] Jan 18, 2022 11:00 AM AMBULATORY - REHAB [facility]IC[facility] Jan 22, 2022 09:30 AM AMBULATORY - MEDICINE [facility] Jan 22, 2022 09:31 AM AMBULATORY - NONE [place] [facility] Social History: Smoking Status (Most current) and Tobacco Use (All prior to encounter date) This section includes the most current, and the historical, smoking and tobacco-related health factors from the [place] facility where the Encounter took place.Current Smoking Status This section includes the most current smoking, or tobacco-related health factor, from the [place] facility where the Encounter took place. Date/Time Current Smoking Status Comment Facility Feb 06, 2019 11:00 PM CURRENT SMOKER SARAH Whitney [facility] Tobacco Use History This section includes a history of the smoking, or tobacco- related health factors, that were collected on or before the date of the Encounter. The data comes from the [place] facility where the Encounter took place. Date/Time Smoking Status/Tobacco Use Comment [facility] Feb 06, 2019 05:51 PM CURRENT SMOKER SARAH Whitney T [facility] Encounter Notes: All associated encounter notes This section contains the clinical notes associated to the Encounter. Date/Time Encounter Note(s) Provider Source Aug 04, 2021 01:22 PM PODIATRY E & M NOTE: GENESIS GALAN [facility] LOCAL TITLE: Podiatry/High Risk Foot [facility] STANDARD TITLE: PODIATRY E & M NOTE DATE OF NOTE: AUG 04, 2021@13:22 ENTRY DATE: AUG 04, 2021@13:22:21 AUTHOR: GENESIS GALAN EXP COSIGNER: URGENCY: STATUS: COMPLETED Mr. Foster is a 71 y/o DM male with PVD w ho is seen for ongoing wound care of non-healing ulcer LLE. Today Mr. Cristian flores resents with a wound that is crusted over with eschar, it is healthy looking and has no SOI. Per previous notes: THIS ULCER HAS BEEN [...] GRAFT 09/30/2020. 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 Essential hypertension ([facility] 23226897) E11.9 Diabetes mellitus ([facility] 00167982) R69. Anemia ([facility] 202079320) E78.5 HLD - Hyperlipidemia ([facility] 29363864) K22.719 Pierre's esophagus ([facility] 204718077) R69. GERD - Gastro-esophageal reflux disease ([facility] 100816209) R69. Diverticulosis ([facility] 359773174) R69. OA - Osteoarthrosis ([facility] 330080917) I25.9 Chronic ischemic heart disease ([facility] 555468 009) Active Outpatient Medications (excluding Supplie s): [...] 2020 Procedure: LOWER EXTREMITY ARTERIAL STUDY Registered Hydrology Teacher: VERONICA IBRAHIM Segmental Pressures (SEG) Ordering Provider: [...] DOPPLER WAVEFORMS: Dorsal Pedal Post Tibial Right [place]-Biphasic Monophasic Left Monophasic INTERPRETATION: RIGHT: Mild lower [...] wide. It is covered with pink healthy ap pearing eschar, no SOI, No debridement done today. Melanie wound skin is intact and health y no SOI. Neurologic: S-W 5.07 intact B/L Orthopedic: Continues [...] a re doing well, it is finally crusting over and looking healthy with no SOI. H e continues to dress with Melgisorb, 2X2, 4X4, and colleen. Will continue th is dressing, changing QD. He is going to [place] to visit family and will retur n on the 05 of September. PLAN: 1. Exam and education: a. Smoking cessation talked about him trying to at least cut down- no budging him on this point; but I keep trying. b. He knows if there are any negative changes t o call us immediately or go to the ER. 2. LLE Proximal wound: a. Covered with Melgisorb, 2X2, 4X4, Colleen and 3M tape c. Dressing needs to be changed every day 3. Smoking Cessation: a. He has supplies at home to help with cessati on. b. He knows he needs to stop c. We talked about smoking inhibiting wound fernie luz. BRANDO INSTRUCTION: PROXIMAL TO TIBIA WOUND + Melgisorb + 2X2 + 4X4 are a little course added a 2X2 over the t op of Melgisorb + 4 Colleen + Dressings to be done Q day. + Supplies provided today RTC: One Month or as needed /meena/ Genesis LOPEZ FACILITIES COORDINATOR Staff Nurse Practitioner Signed: 08/04/2021 14:27
--- OUTSIDE RECORDS SUMMARY | 2022-02-09 10:38 | XMS_ITS | Encounter Summary ---
:1950 Author Organization [facility] Address [address] [place] [id number] Support Name Relationship Address Phone ZUHAIR FOSTER Unavailable [address] [place] [address] ZUHAIR FOSTER Unavailable [address] [place] [address] Insurance Providers: All historical and current Section [...] to Policy Number Liu CBA [facility] Jan 25, [id number] [phone] DO Stephanie FOSTER SPOUSE DEDUCTIBL [place] 2013 [id number] NA E [facility] PLAN EXPRESS PRESCRIPT WEI May 27, RXBWEID [id number] [phone] PEYTON FOSTER SPOUSE SCRIPTS ION [place] 2017 [id number] NA ([id number]) (HD ) MEDICARE MEDICARE PART Jan 25, PART A [id number] CRISTIAN, AND PATIENT (WNR) (M) A 2013 [id number] [id number] Selected Encounter This section includes the information on record at [place] for the Encounter. Date/Time Encounter Type Encounter Description Reason Provider Source September 27, 2021 09:48 Outpatient Encounter PRIMARY CARE/MEDICINE AM [facility] Encounter [...] 20 appointments. The data comes from all [place] treatment facilities. Appointment Date/Time Appointment Type Appointment Facili ty Name September 28, 2021 10:00 AM AMBULATORY - NONE [facility] October 18, 2021 09:30 AM AMBULATORY - NONE [facility] [place] Nov 09, 2021 11:00 AM AMBUL[facility]ORY - [place] [facility] Dec 22, 2021 11:00 AM AMBULATORY - NONE [facility] Dec 27, 2021 11:30 AM AMBULATORY - MEDICINE [facility] Dec 27, 2021 11:31 AM AMBULATORY - NONE [facility] [place] Dec 27, 2021 12:00 PM AMBULATORY - MEDICINE [facility] Jan 18, 2022 11:00 AM AMBULATORY - REHAB MEDICINE [facility] Jan 22, 2022 09:30 AM AMBULATORY - MEDICINE [facility] Jan 22, 2022 09:31 AM AMBULATORY - NONE [facility] Feb 12, 2022 10:30 AM AMBUL[facility]ORY - SURGERY [place] [facility] [facility] Feb 20, 2022 08:45 AM AMBULATORY - NONE [facility] Feb 20, 2022 09:00 AM AMBULATORY - REHAB MEDICINE [facility] Mar 30, 2022 08:30 AM AMBULATORY - MEDICINE [facility] Lab Results: +/- 30 days of the encounter This section includes the Chemistry and Hematology Lab Results on record with [place] for the patient. Radiology Reports and Pathology Reports are provided separately, in subsequent sections.Lab Results This section contains the Chemistry/Hematology Results that were resulted 30 days before or 30 daysafter the date of the Encounter. Date/Time Source Result Type Result - Unit Interpretation Reference Range Comment September 27, 2021 09:47 AM [facility] MAGNESIUM Specim en Type: PLASMA Comment: Tests performed on LiveProfile 405 [id number] Ordering Provid er: SHANELL ALLEN Report Released Date/Time: Aug 14, 2021 03:10 PM Reporting Lab: [facility] [address] [facility] [place] [address] Performing Lab: [facility] [address] [facility] [address] [address] MAGNESIUM 0.7 L 1.6-2.6 September 27, 2021 09:47 AM [facility] PHOSPHORUS Specim en Type: PLASMA Comment: Tests performed on LiveProfile (405) SN:[id number] Ordering Provid er: SHANELL ALLEN Report Released Date/Time: Aug 14, 2021 03:10 PM Reporting Lab: [facility] [address] [facility] [address] [address] Performing Lab: [facility] [address] [address] PHOSPHORUS 2.9 2.5-5.0 September 27, 2021 [facility] GLYCOHEMOGLOBIN (A1C Specime n Type: BLOOD 09:47 AM ONLY) Comment: Tests performed on LiveProfile (405) SN:[id number] Ordering Provid er: SHANELL ALLEN Report Released Date/Time: Aug 14, 2021 03:10 PM Reporting Lab: [facility] [address] [address] Performing Lab: [facility] [address] [address] HEMOGLOBIN A1C 6.4 H 4.0-5.6 September 27, 2021 09:47 AM [facility] NO DIFF Specim en Type: BLOOD No comment enter ed. Ordering Provid er: SHANELL ALLEN Report Released Date/Time: Aug 14, 2021 03:10 PM Reporting Lab: [facility] [address] [address] Performing Lab: [facility] [address] [address] WBC 12.0 H 4.5-11.0 RBC 5.00 4.23-5.66 HGB 14.1 12.8-17 HEMATOCRIT 44.6 39.2-50.4 MCV 89.2 82-99 MCH 28.2 26.2-32.6 MCHC 31.6 30.8-35.1 PLT 257 140-360 MPV 11.6 9.2-12.4 RDW 15.8 12.0-16.0 September 27, 2021 09:47 AM [facility] LIVER PROFILE Specim en Type: PLASMA Comment: Tests performed on [employer] (405) SN:[id number] Ordering Provid er: SHANELL ALLEN Report Released Date/Time: Aug 14, 2021 03:10 PM Reporting Lab: [facility] [address] [address] Performing Lab: [facility] [address] [address] PROTEIN, TOTAL 7.7 6.0-8.5 ALBUMIN 3.3 3.2-5.0 BILIRUBIN, TOTAL 1.2 0.2-1.2 BILIRUBIN, DIRECT 0.5 0-0.5 ALKALINE PHOSPHATASE 118 40-150 ALT(SGPT) 25 7-52 AST(SGOT) 26 5-34 FIB-4 SCORE 1.46 <2.67 September 27, 2021 [facility] LIPOPROTEIN CHOLESTEROL Spec imen Type: PLASMA 09:47 AM FRACT. PANEL Comment: Tests performed on [employer] (405) SN:[id number] Ordering Provid er: SHANELL ALLEN Report Released Date/Time: Aug 14, 2021 03:10 PM Reporting Lab: [facility] [address] [address] Performing Lab: [facility] [address] [address] CHOLESTEROL 156 0-199 TRIGLYCERIDE 109 0-149 HDL CHOLESTEROL 40 >40 LDL CHOLESTEROL (CALC) 94 0-129 September 27, 2021 09:47 AM [facility] VITAMIN B-12 Specim en Type: SERUM Comment: Tests performed on [employer] (405) [id number] Ordering Provid er: SHANELL ALLEN Report Released Date/Time: Aug 14, 2021 03:10 PM Reporting Lab: [facility] [address] [address] Performing Lab: [facility] [address] [address] VITAMIN B-12 388 200-900 September 27, 2021 09:47 [facility] VIT D 25-OH(J) Specimen Type: SERUM AM Comment: Tests performed on [employer] (405) SN:[id number] Ordering Provid er: SHANELL ALLEN Report Released Date/Time: Aug 14, 2021 03:10 PM Reporting Lab: [facility] [address] [address] Performing Lab: [facility] [address] [address] VIT D 25-OH([facility]) 32.7 20-50 September 27, 2021 09:47 AM [facility] TSH Specim en Type: SERUM Comment: Tests performed on LiveProfile (405) [id number] Ordering Provid er: SHANELL ALLEN Report Released Date/Time: Aug 14, 2021 03:10 PM Reporting Lab: [facility] [address] [address] Performing Lab: [facility] [address] [address] TSH 1.27 0.35-5.00 September 27, 2021 [facility] MICROALBUMIN/CREATININE RATIO S pecimen Type: URINE 09:47 AM [facility] PANEL Comment: Tests performed on LiveProfile (405) SN:[id number] Ordering Provid er: SHANELL ALLEN Report Released Date/Time: Aug 14, 2021 03:10 PM Reporting Lab: [facility] [address] [address] Performing Lab: [facility] [address] [address] CREATININE (URINE,RANDOM) 101.7 MICROALBUMIN, QUANTITATIVE 4.2 0.0 -29.9 MICROALBUMIN/CREATININE RATIO 41.3 H 0.0-29.9 September 27, 2021 09:47 AM [facility] CBC PROFILE Specim en Type: BLOOD No comment enter ed. Ordering Provid er: SHANELL ALLEN Report Released Date/Time: Aug 14, 2021 03:10 PM Reporting Lab: [facility] [address] [address] Performing Lab: [facility] [address] [address] WBC 12.0 H 4.5-11.0 RBC 5.00 4.23-5.66 [...] smoking and tobacco-related health factors from the [place] facility where the Encounter took place.Current Smoking Status This section includes the most current smoking, or tobacco-related health factor, from the [place] facility where the Encounter took place. Date/Time Current Smoking Status Comment Facility Feb 06, 2019 11:00 PM CURRENT SMOKER SARAH Whitney [facility] Tobacco Use History This section includes a history of the smoking, or tobacco- related health factors, that were collected on or before the date of the Encounter. The data comes from the [place] facility where the Encounter took place. Date/Time Smoking Status/Tobacco Use Comment [facility] Feb 06, 2019 05:51 PM CURRENT SMOKER SARAH PALUMBO [place] [facility] Radiology Reports: +/- 30 days of the encounter Radiology Reports For cases when an order for radiology services may have been completed prior to the date of the Encounter, the report list includes the Radiology Reports that were completed up to 30 days before date of the Encounter. For cases when an order for radiology services may have been completed after the date of the Encounter, the report list also includes the Radiology Reports that were completed up to 30days after date of the Encounter. The data comes from all [place] treatment facilities. Date/Time Radiology Report Provider Source October 18, 2021 09:30 AM LDCT LUNG CANCER SCREENING: JON JOHNSON [facility] ANASTASIA FOSTER [id number] -[phone] M [facility] Exm Date: OCTOBER 18, 2021@09:30 Req Phys: SHANELL ALLEN Loc: LIT PACT F (R eq'g Loc) Img Loc: CT SCAN (OOS) Service: Unknown (Case [id number] COMPLETE) LDCT LUNG CANCER SCREENING ( CT Detailed) CPT:28866 Reason for Study: lung ancer screen Clinical History: No contrast allergy 71 yo male who continues to smoke tobacco > 20 yrs in need of f/u LDCT BUN: 20 (09/26/20 11:24) CREATI: 0.89 (09/26/20 11:24) eGFR - NONE FOUND Weight: 207.8 lb [94.26 kg] (09/27/2021 08:51) BODY MASS INDEX - SEPTEMBER 27, 2021@08:51 31.7 RECOMMENDATION: The USPSTF recommends annual sc reening for lung cancer with low-dose computed tomography (LDCT) in adults aged 50 to 80 years who have a 20 pack-year smoking his tory and currently smoke or have quit within the past 15 years. Sc reening should be discontinued once a person has not smoked for 1 5 years or develops a health problem that substantially li mits life expectancy or the ability or willingness to hav e curative lung surgery. Report Status: Verified Date Reported: OCTOBER 19, 2021 Date Verified: OCTOBER 19, 2021 Restaurant Host E-Sig:/ES/JUANA JOHNSON Report: Description: Low-dose Chest CT for lung cancer screening Indication: lung ancer screen. Technique: CT Chest was performed with 1 mm and 3 mm images without IV contrast. Examination dose: 134.5 mGy-cm Comparison: 03/17/2020 Findings: Nodules: New right lower lobe solid 5.1 mm pulm onary nodule. New left upper lobe solid 3.9 mm pulmonary nodule. Stable sub-4 mm left upper and left lower lobe pulmonary nodule s Other lung findings: Mild centrilobular emphysema. Airways: Scattered small mucus in the airways. Normal caliber. No obstructing lesion. Mediastinum: No lymphadenopathy. Cardiac: Severe calcifications of the coronary arteries. Scattered calcifications of the aortic annulus and aorta. Pleura: No effusion. Visualized upper abdomen: Stable size and appea liliana of a nonspecific tuyet hepatis lymph node measuring up to 1.7 x 2.5 cm. Additional stable smaller lymph nodes in th e upper abdomen. Stable thickening of both adrenal glands withou t a focal nodule. Remaining soft tissues in the upper abdomen are unremarkable. Bones: No acute bony abnormality. Healed old le ft rib fractures. Other findings: The known left thyroid hypodens e lesion is poorly visualized on today's noncontrast study. Impression: 1. Lung-RADS category 3, probably benign. Recom mend low-dose CT in 6 months per Lung-RADS 1.1. 2. Severe calcifications of the coronary arteri es. . Primary Diagnostic Code: LUNGRADS 3: PROBABLY B ENIGN NODULE Primary Interpreting Staff: JUANA JOHNSON, Radiologist (Restaurant Host) /KTL Encounter Notes: All associated encounter notes This section contains the clinical notes associated to the Encounter. Date/Time Encounter Note(s) Provider Source September 27, 2021 09:48 AM NURSING IMMUNIZATION NOTE: AXEL JORGENSEN [facility] LOCAL TITLE: [facility] COVID-19 VACCINE ADMINIS TRATION STANDARD TITLE: NURSING IMMUNIZATION NOTE DATE OF NOTE: SEPTEMBER 27, 2021@09:48 ENTRY DATE: SEPTEMBER 27, 2021@09:48:12 AUTHOR: AXEL JORGENSEN EXP COSIGNER: URGENCY: STATUS: COMPLETED Moderna COVID-19 Vaccine given previously Patient received a prior dose of the Moderna COV ID-19 Vaccine. Date: March 17, 2021 Series: Series 3 LOT#[id number] Location: Non [place] Facility // AXEL JORGENSEN GEOMAGNETICIAN Signed: 09/27/2021 09:49
--- OUTSIDE RECORDS SUMMARY | 2022-02-09 10:38 | XMS_ITS | Encounter Summary ---
:1950 Author Organization [facility] rs Address [address] [place] [id number] Support Name Relationship Address Phone ZUHAIR FOSTER Unavailable [address] [place] [address] ZUHAIR FOSTER Unavailable [address] [place] [address] Insurance Providers: All historical and current Section [...] Liu CBA BLUE HIGH WEIDM Jan 25, [id number] [phone] DO Stephanie FOSTER SPOUSE DEDUCTIBL [place] 2013 [id number] NA E [facility] PLAN EXPRESS PRESCRIPT WEIDM May 27, RXBWEID [id number] [phone] PEYTON FOSTER SPOUSE SCRIPTS ION [place] 2017 [id number] ([id number]) ([facility] ) MEDICARE MEDICARE PART Jan 25, PART A [id number] CRISTIAN, AND PATIENT (WNR) (M) A 2013 VU70 2 REW Selected Encounter This section includes the information on record at [place] for the Encounter. Date/Time Encounter Type Encounter Reason Provider Source Description September 27, 2021 OFFICE O/P EST PRIMARY ICD-10-CM TIFFANYTRACY 09:00 AM MOD 30-39 MIN CARE/MEDICINE L97.821 Non-prs L chr ulcer oth prt l low leg limited to brkdwn skin with Provider Comments: Non-Pressure Chronic Ulcer of other part of left lower Leg Limited to Breakdown of Skin IHE Encounter Template Text not used by [facility] Assessments - Encounter Diagnoses This section includes the primary and secondary diagnoses documented for the Encounter. Date/Time Primary/Secondary Diagnosis Name Provider Source Diagnosis September 27, 2021 PRIMARY Non-prs chr ulcer TRACY ALLEN SBURY 09:50 AM oth prt l low leg [facility] limited to brkdwn skin September 27, 2021 SECONDARY Chronic ischemic TRACY ALLEN BURRigo 09:50 AM heart disease, L [facility] unspecified September 27, 2021 SECONDARY Essential (primary) TRACY ALLEN [facility] 09:50 AM hypertension [facility] September 27, 2021 SECONDARY Hyperlipidemia, TRACY ALLEN [facility] 09:50 AM unspecified [facility] September 27, 2021 SECONDARY Type 2 diabetes TRACY ALLEN URY 09:50 AM mellitus without L [facility] complications Plan of Treatment: Future Appointments (+ 6 months) and Future Tests (+/- 45 days) The Plan of Treatment section includes future care activities for the patient from all [place] treatmentfacilities. This section includes future appointments and future orders which are active, pending orscheduled.Future Appointments This section includes appointments that were scheduled to occur 6 months from the date of the Encounter, up to a maximum of 20 appointments. The data comes from all [place] treatment facilities. Appointment Date/Time Appointment Type Appointment Facili ty Name September 28, 2021 10:00 AM AMBULATORY - NONE [facility] October 18, 2021 09:30 AM AMBULATORY - NONE [place] [place] Nov 09, 2021 11:00 AM [facility] [place] [facility] Dec 22, 2021 11:00 AM AMBULATORY - NONE [facility] Dec 27, 2021 11:30 AM AMBULATORY - MEDICINE [facility] Dec 27, 2021 11:31 AM AMBULATORY - NONE [facility] Dec 27, 2021 12:00 PM AMBULATORY - MEDICINE [facility] Jan 18, 2022 11:00 AM AMBULATORY - REHAB MEDICINE [facility] Jan 22, 2022 09:30 AM AMBULATORY - MEDICINE [facility] Jan 22, 2022 09:31 AM AMBULATORY - NONE [facility] Feb 12, 2022 10:30 AM AMBULATORY - SURGERY [place] [facility] Feb 20, 2022 08:45 AM AMBULATORY - NONE [facility] Feb 20, 2022 09:00 AM AMBULATORY - REHAB MEDICINE [facility] Mar 30, 2022 08:30 AM AMBULATORY - MEDICINE [facility] Lab Results: +/- 30 days of the encounter This section includes the Chemistry and Hematology Lab Results on record with [place] for the patient. Radiology Reports and Pathology Reports are provided separately, in subsequent sections.Lab Results This section contains the Chemistry/Hematology Results that were resulted 30 days before or 30 daysafter the date of the Encounter. Date/Time Source Result Type Result - Unit Interpretation Reference Range Comment September 27, 2021 09:47 AM [facility] PHOSPHORUS Specim en Type: PLASMA Comment: Tests performed on Wadsworth Masticator (405) SN:[id number] Ordering Provid er: SHANELL ALLEN Report Released Date/Time: Aug 14, 2021 03:10 PM Reporting Lab: [facility] [address] [facility] [address] Performing Lab: [facility] [address] [facility] [address] PHOSPHORUS 2.9 2.5-5.0 September 27, 2021 09:47 AM [facility] MAGNESIUM Specim en Type: PLASMA Comment: Tests performed on Wadsworth Masticator (405) SN:[id number] Ordering Provid er: SHANELL ALLEN Report Released Date/Time: Aug 14, 2021 03:10 PM Reporting Lab: [facility] [place] [facility] [address] [place] [facility] [place] [address] Performing Lab: [place] [facility] [address] [facility] [address] MAGNESIUM 0.7 L 1.6-2.6 September 27, 2021 09:47 AM [facility] CBC NO DIFF Specim en Type: BLOOD No comment enter ed. Ordering Provid er: SHANELL ALLEN Report Released Date/Time: Aug 14, 2021 03:10 PM Reporting Lab: [facility] [address] [place] [facility] [place] [address] Performing Lab: [facility] [address] [facility] [address] WBC 12.0 H 4.5-11.0 RBC 5.00 4.23-5.66 HGB 14.1 12.8-17 HEMATOCRIT 44.6 39.2-50.4 MCV 89.2 82-99 MCH 28.2 26.2-32.6 MCHC 31.6 30.8-35.1 PLT 257 140-360 MPV 11.6 9.2-12.4 RDW 15.8 12.0-16.0 September 27, 2021 [facility] GLYCOHEMOGLOBIN (A1C Specime n Type: BLOOD 09:47 AM ONLY) Comment: Tests performed on Wadsworth Wuiper (405) SN:[id number] Ordering Provid er: SHANELL ALLEN Report Released Date/Time: Aug 14, 2021 03:10 PM Reporting Lab: [facility] [address] [facility] [address] Performing Lab: [facility] [address] [facility] [address] HEMOGLOBIN A1C 6.4 H 4.0-5.6 September 27, 2021 09:47 AM [facility] LIVER PROFILE Specim en Type: PLASMA Comment: Tests performed on Wadsworth Wuiper (405) SN:[id number] Ordering Provid er: SHANELL ALLEN Report Released Date/Time: Aug 14, 2021 03:10 PM Reporting Lab: [facility] [address] [facility] [address] Performing Lab: [facility] [address] [facility] [address] PROTEIN, TOTAL 7.7 6.0-8.5 ALBUMIN 3.3 3.2-5.0 BILIRUBIN, TOTAL 1.2 0.2-1.2 BILIRUBIN, DIRECT 0.5 0-0.5 ALKALINE PHOSPHATASE 118 40-150 ALT(SGPT) 25 7-52 AST(SGOT) 26 5-34 FIB-4 SCORE 1.46 <2.67 September 27, 2021 [facility] LIPOPROTEIN CHOLESTEROL Spec imen Type: PLASMA 09:47 AM FRACT. PANEL Comment: Tests performed on Wadsworth Wuiper (405) SN:[id number] Ordering Provid er: SHANELL ALLEN Report Released Date/Time: Aug 14, 2021 03:10 PM Reporting Lab: [facility] [address] [facility] [address] Performing Lab: [facility] [address] [facility] [address] CHOLESTEROL 156 0-199 TRIGLYCERIDE 109 0-149 HDL CHOLESTEROL 40 >40 LDL CHOLESTEROL (CALC) 94 0-129 September 27, 2021 09:47 AM [facility] VITAMIN B-12 Specim en Type: SERUM Comment: Tests performed on Wadsworth Masticator (405) SN:[id number] Ordering Provid er: SHANELL ALLEN Report Released Date/Time: Aug 14, 2021 03:10 PM Reporting Lab: [facility] [address] [facility] [address] Performing Lab: [facility] [address] [facility] [address] VITAMIN B-12 388 200-900 September 27, 2021 09:47 [facility] VIT D 25-OH(WRJ) Specimen Type: SERUM AM Comment: Tests performed on Wadsworth Masticator (405) SN:[id number] Ordering Provid er: SHANELL ALLEN Report Released Date/Time: Aug 14, 2021 03:10 PM Reporting Lab: [facility] [address] [facility] [address] Performing Lab: [facility] [address] [facility] [address] VIT D 25-OH(J) 32.7 20-50 September 27, 2021 [facility] MICROALBUMIN/CREATININE RATIO S pecimen Type: URINE 09:47 AM [facility] PANEL Comment: Tests performed on Wadsworth Masticator (405) SN:[id number] Ordering Provid er: SHANELL ALLEN Report Released Date/Time: Aug 14, 2021 03:10 PM Reporting Lab: [facility] [address] [facility] [address] Performing Lab: [facility] [address] [facility] [address] CREATININE (URINE,RANDOM) 101.7 MICROALBUMIN, QUANTITATIVE 4.2 0.0 -29.9 MICROALBUMIN/CREATININE RATIO 41.3 H 0.0-29.9 September 27, 2021 09:47 AM [facility] CBC PROFILE Specim en Type: BLOOD No comment enter ed. Ordering Provid er: SHANELL ALLEN Report Released Date/Time: Aug 14, 2021 03:10 PM Reporting Lab: [facility] [address] [facility] [address] Performing Lab: [facility] [address] [facility] [address] WBC 12.0 H 4.5-11.0 RBC 5.00 4.23-5.66 [...] 8.8 H 2.2-7.6 ABSOLUTE NRBC 0.00 0-0 September 27, 2021 09:47 AM [facility] CB TSH Specim en Type: SERUM Comment: Tests performed on Gini & Jony (405) SN:[id number] Ordering Provid er: SHANELL ALLEN Report Released Date/Time: Aug 14, 2021 03:10 PM Reporting Lab: [facility] [address] [facility] [address] Performing Lab: [facility] [address] [facility] [address] TSH 1.27 0.35-5.00 Vital Signs: All taken on the encounter date This section contains inpatient and outpatient Vital Signs collected on the date of the Encounter. Date/Time Temperature Pulse Blood Respiratory SP02 Pain Height Weight Michael dy Source Pressure Rate Mass Index September 27, 96.4 F 88 119/73 93 % [address] 2021 08:51 /min mm[Hg] lb [facility] Social History: Smoking Status (Most current) and Tobacco Use (All prior to encounter date) This section includes the most current, and the historical, smoking and tobacco-related health factors from the [place] facility where the Encounter took place.Current Smoking Status This section includes the most current smoking, or tobacco-related health factor, from the [place] facility where the Encounter took place. Date/Time Current Smoking Status Comment Facility September 27, 2021 09:00 AM VA-TOBACCO USER EVERY DAY [facility] Tobacco Use History This section includes a history of the smoking, or tobacco- related health factors, that were collected on or before the date of the Encounter. The data comes from the [place] facility where the Encounter took place. 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 [facility] September 27, 2021 09:00 AM VA-TOBACCO USE MED NO [facility] September 27, 2021 09:00 AM VA-TOBACCO USE WI 30 MIN OF WAKEUP [facility] September 27, 2021 09:00 AM VA-TOBACCO USER EVERY DAY [facility] Dec 15, 2019 09:22 AM VA-TOBACCO USE 30 YEARS OR MORE [facility] Dec 15, 2019 09:22 AM VA-TOBACCO USE ADVICE [facility] Dec 15, 2019 09:22 AM 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 Jun 18, 2018 12:32 PM VA-TOBACCO USE [place] [address] [facility] Jun 18, 2018 12:32 PM VA-TOBACCO USER EVERY DAY [facility] Sep 19, 2017 03:[address] [facility] Sep 19, 2017 03:23 PM V1-PT NOT INTERESTED IN QUIT TOBACCO [facility] CB USE Radiology Reports: +/- 30 days of the [...] the Encounter. The data comes from all [place] treatment facilities. Date/Time Radiology Report Provider Source October 18, 2021 09:30 AM LDCT LUNG CANCER SCREENING: JON JOHNSON [facility] ANASTASIA FOSTER [id number] -1950 [facility] Exm Date: OCTOBER 18, 2021@09:30 Req Phys: SHANELL ALLEN Loc: LIT PACT F (R eq'g Loc) Img Loc: CT SCAN (OOS) Service: Unknown (Case [id number] COMPLETE) LDCT LUNG CANCER SCREENING ( CT Detailed) CPT:97781 Reason for Study: lung ancer screen Clinical [...] 19, 2021 Date Verified: OCTOBER 19, 2021 Skilled Laborer E-Sig:/ES/JUANA JOHNSON Report: Description: Low-dose Chest CT [...] NODULE Primary Interpreting Staff: JUANA JOHNSON, Radiologist (Skilled Laborer) /KTL Encounter Notes: All associated encounter notes This section contains the clinical notes associated to the Encounter. Date/Time Encounter Note(s) Provider Source Dec 13, 2021 01:58 PM NONVA MEDICATION MGT NOTE: [place] TORRES [facility] LOCAL TITLE: Prescription Slip for NonVA Pharma cy STANDARD TITLE: NONVA MEDICATION MGT NOTE DATE OF NOTE: DEC 13, 2021@13:58 ENTRY DATE: DEC 13, 2021@13:58:28 AUTHOR: [place] TORRES EXP COSIGNER: URGENCY: STATUS: COMPLETED Prescription Slip for NonVA Pharmacy Has JENNIFER THORNTON [facility] Outpatient [place] [id number] Patient: Date: DEC 13, 2021 ANASTASIA FOSTER [facility] [place], [place] [address] :Feb Medication: clopidogrel 75 mcg oral tab Quantity: 7 Sig: take one tab by mouth daily for heart/prev ent clot Refills: 0 Substitution Permitted Medication: nicotine 21mg/24hr patch Quantity: 7 Sig: apply one patch to skin daily for smoking cessation Refills: 0 Substitution Permitted Medication: nitroglycerin 0.4mg SL tab Quantity: 7 Sig: take one tab every 5min as needed for ches t pain. May repeat for 3 doses. Refills: 0 Substitution Permitted NPI # [id number] OC # Electronically signed by Everton Torres D.O. Dec 13, 2021 /es/ [place] TORRES D.O. 12/13/2021 ADDENDUM STATUS: COMPLETED Pls fax script roni/ voucher. alex /meena/ [place] TORRES D.O. Signed: 12/13/2021 14:07 Receipt Acknowledged By: 12/13/2021 14:54 /es/ AXEL JORGENSEN LPN 12/13/2021 ADDENDUM STATUS: COMPLETED Attempted to contact patient for a pharmacy of valentin cano, he returned call and stated that [facility] was working on these scripts at this time, went in to see if she could pick them up, if they are un able to pick themup they will call back to have them sent to [facility] ada /meena/ AXEL JORGENSEN SCIENTIFIC PHOTOGRAPHER Signed: 12/13/2021 14:41 12/13/2021 ADDENDUM STATUS: COMPLETED patient was able to fern picker all his medications from [email or web address] juana /es/ AXEL JORGENSEN SCIENTIFIC PHOTOGRAPHER Signed: 12/13/2021 14:56 Oct 30, 2021 03:36 PM LETTERS: SHANELL ALLEN [facility] LOCAL TITLE: Letter to Patient - [place]urt STANDARD TITLE: LETTERS DATE OF NOTE: OCT 30, 2021@15:36 ENTRY DATE: OCT 30, 2021@15:36:17 AUTHOR: SHANELL ALLEN EXP COSIGNER: URGENCY: STATUS: COMPLETED OCT 30, 2021 MR. ANASTASIA FOSTER [address] [place], [place] [address] Dear Mr. Foster, The results of your CT scan lungs perforemd on 2021 are as follows: Impression: 1. Lung-RADS category 3, pro bably benign. Recommend low-dose CT in 6 months per Lung-RADS 1.1. 2. Severe calcifications of the coronary arterie s. This is to reevaluate a lymph node which exceede d the guidelines; we check to make sure - 6 months. Please don't hesitate to call if you have any qu estions or concerns, . Sincerely, SHANELL ALLEN Physician [facility] [address] [place] [address] September 29, 2021 08:00 AM LETTERS: SHANELL ALLEN [facility] LOCAL TITLE: Letter to Patient [facility] STANDARD TITLE: LETTERS DATE OF NOTE: SEPTEMBER 29, 2021@08:00 ENTRY DATE: SEPTEMBER 29, 2021@08:00:41 AUTHOR: SHANELL ALLEN EXP COSIGNER: URGENCY: STATUS: COMPLETED SEPTEMBER 29, 2021 MR. ANASTASIA FOSTER [address] [place], [place] [address] Dear Mr. Foster, Attached are your lab test results from September 28. 1. Sugar (A1c) is down to 6.4% - excellent work! 2. Cholesterol is acceptable. 3. Triglycerides (fat) are good. 4. Liver function is good. 5. Vitamin levels are good. 6. Thyroid level is good. 7. Blood count is acceptable , though the white count is a little high. This can happen with dehydration when it is an isolated finding - drink more water. Please don't hesitate to call if you have any qu estions or concerns, . Sincerely, SHANELL ALLEN [facility] [address] [place] [address] September 27, 2021 09:15 AM PRIMARY CARE NOTE: SHANELL ALLEN [facility] LOCAL TITLE: Primary Care Clinic Note STANDARD TITLE: PRIMARY CARE NOTE DATE OF NOTE: SEPTEMBER 27, 2021@09:15 ENTRY DATE: SEPTEMBER 27, 2021@09:15:21 AUTHOR: SHANELL ALLEN EXP COSIGNER: URGENCY: STATUS: COMPLETED PATIENT: Anastasia Foster Age: 71 : 1950 Chief Complaint: annual assessment HPI: 71 yo male presents to clinic for annual assessment. he feels ok; left leg is healing and he states he has lost weight - 22 lbs over 18 months (intentional); however, he states he is having some periumbilical pain for the last few days, but (-) N/V/D. 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 Asteatotic eczema 2. Peripheral vascular disease 3. Venous insufficiency of leg 4. Impetigo 5. Venous stasis edema of bilateral lower limbs 6. Wound 7. Essential hypertension 8. Diabetes mellitus 9. Anemia 10. HLD - Hyperlipidemia 11. Pierre's esophagus 12. GERD - Gastro-esophageal reflux disease 13. Diverticulosis 14. OA - Osteoarthrosis 15. Chronic ischemic heart disease Active Outpatient Medications (excluding Supplie s): Active Outpatient Medications Status 1) ALBUTEROL 90MCG (CFC-F) 200D ORAL INHL INHALE 2 PUFFS ACTIVE BY MOUTH EVERY FOUR TO SIX HOURS NEEDED FOR BREATHING 2) ALOGLIPTIN 6.25MG TAB TAKE ONE TABLET BY MOUT H EVERY ACTIVE DAY FOR DIABETES 3) ASPIRIN 81MG EC TAB TAKE ONE TABLET BY MOUTH EVERY ACTIVE DAY TO PREVENT STROKE/HEART ATTACK OR FOR PAIN/SWELLING/INFLAMMATION 4) ATORVASTATIN CALCIUM 10MG TAB TAKE ONE TABLET BY ACTIVE MOUTH EVERY EVENING TO LOWER CHOLESTEROL 5) COLLAGENASE 250 UNT/GM TOP OINT APPLY SMALL A MOUNT ACTIVE TOPICALLY EVERY OTHER DAY LEFT LEG WOUND DIRECTED 6) LISINOPRIL 5MG TAB TAKE ONE TABLET BY MOUTH E VERY DAY ACTIVE TO CONTROL BLOOD PRESSURE 7) METFORMIN HCL 1000MG TAB TAKE ONE TABLET BY M OUTH ACTIVE TWICE DAILY WITH MEALS FOR DIABETES 8) METOLAZONE 2.5MG TAB TAKE ONE TABLET BY MOUTH EVERY ACTIVE MORNING 9) METOPROLOL SUCCINATE 50MG SA TAB TAKE ONE TAB LET BY ACTIVE MOUTH EVERY DAY FOR BLOOD PRESSURE/HEART 10) PANTOPRAZOLE NA 40MG EC TAB TAKE ONE TABLET BY MOUTH ACTIVE EVERY DAY FOR STOMACH ACID (TAKE HALF-HOUR BEFO RE A MEAL(S) 11) POTASSIUM CHLORIDE 10MEQ SA TAB TAKE ONE TAB LET BY ACTIVE MOUTH EVERY DAY TO SUPPLEMENT POTASSIUM 12) PREGABALIN 75MG ORAL CAP TAKE ONE [...] CAP/ TAB BY ACTIVE MOUTH EVERY DAY 15 Total Medications SHELLFISH Physical Exam Measurement DT BP PULSE WEIGHT POx LB(KG)[BMI] (L/MIN)(%) 09/27/2021 08:51 119/73 88 207.8(94.26)[32*] 93 Measurement DT PAIN 09/27/2021 08:51 0 GEN: no acute distress PSYCH: AAO x 3 NEURO: CNII through XII ofelia sly intact without focal deficit, motor strength 5/5 and equal. sensation intact, DTRs 2/4 and equal, no pronator drift HEENT: PERRL, EOMI, no nystagmus, TMs visualized and appear normal NECK: Supple, (-) tenderness, (-) carotid bruit, (-) lymphadenopathy LUNGS: breath sounds present and clear throughou t HEART: Regular rate and rhythm, (-) murmur, (-) gallop THORAX: (-) CVA tenderness ABDOMEN: Soft, obese, (-) te nderness, (-) distension, (-) guarding, (-) rebound, bowel sounds present and normal, vertical surgic al scar below umbilicus and small are aof scar tissue within umbilicus EXT: (-) edema, healing left lower ext, compress ion socks in place Assessment and Plan 1. nonhealing leg wound left lower ext a. has been followed by podiatry almost every o ther week b. healing well c. no longer requires dressing 2. DMT2 with peripheral neuropathy a. A1c = 7.4% (Oct 2020) 1. acceptable level 2. BG reported at 110 - 140 b. metformin 1000mg bid with meals c. saxagliptin 5mg daily d. pregabalin 75mg bid 3. HTN a. bp = 119/73 1. at target b. lisinopril 5mg daily 4. chronic ischemic heart disease a. denies any episodes of chest pain b. metoprolol succinate 50mg daily c. asa 81mg daily d. metolozone 2.5mg for lower ext edema 5. HLD a. ldl = 70 (September 2020) 1. at target b. atorvastatin 10mg qpm 6. tobacco use a. > 50 pk yrs b. ldct lungs c. no interest in quitting at this time d. advised pt to quit smoking or risk premature illness 7. ED a. add sildenafil 100mg prn f/u 6 months I spent more than 50% of thi s encounter counseling the pt on the medical health issues listed above. The treatment plans above have been agreed upon by myself and the pt through shared decision making. Tobacco Use Screening: The patient uses tobacco every day. The patient uses tobacco within 30 minutes of w aking up. The patient has been smoking or using tobacco f or thirty years or more. Patient was advised to quit smoking and/or usin g tobacco. Discussion with patient included: - Quitting smoking or tobacco use is one of the most important things you can do to protect and improve your h ealth and [place] has the resources to support you. - Set a quit date when you are ready to quit. - Get support from your family and friends. - Review any past quit attempts- What helped? W hat didn't? - On the day you plan to quit, get rid of all c igarettes and tobacco products from your home, car or work. - Using a combination of behavioral counseling or other support strategies and FDA-approved cessation medicatio ns is the most effective way to ensure success in quitting. Patient was offered Behavioral Counseling and o ther support strategies to assist with quitting. Discussion with patient i ncluded: - Behavioral counseling or other support richard brown greatly increases your chances of successfully quitting smoking or tobacco use by helping you develop a quit plan and providing support and other strategies to make behavioral changes to help you quit. - [place] has a number of behavioral counseling opti ons to help you with quitting, including: * Provide information about the facility smokin g or tobacco use treatment options or clinics * [place]'s national quitline, 9-596-KULA-VET, with counseling available Saturday-Saturday The patient was not interested in receiving add itional information about how to use the treatment options discussclaudia d. Patient was offered FDA-approved cessation medi cations. Discussion with patient included: - Medications for Nicotine replacement therapy such as the patch, gum or lozenge, and other medications lazcano ch as varenicline or bupropion, can play an important role in the initial weeks and months after you quit smoking or tobacco us e. - Medications help with cravings and withdrawal symptoms and they greatly increase your chances of successfully q uitting. The patient was not interested in a prescriptio n for tobacco cessation medications. Follow Up Colonoscopy: Colonoscopy is due based on information availab le to this reminder. Hemoglobin A1C: Order for HBA1C placed. Medication Reconciliation: Outpatient: Has the patient been taking medications as docu mented in the EMLR? YES: The patient has been taking medications as documented in the EMLR. Essential Medication List for Review used to co mplete this medication reconciliation. INCLUDED IN THIS LIST: Alphabetical list of act nahomy outpatient prescriptions dispensed from this VA (local) an d dispensed from another VA or [facility] facility (remote) as well as inpatien t orders (local, pending and active), local clinic medications, locally documented non-VA medications, and local prescriptions that have or been discontinued in the past 90 days. - All changes in medications, including all non -VA/Herbal/OTC medications were entered into CPRS. Changes: reviewed - If there were any medications the patient estefania uld no longer take, they were discontinued. - The patient/caregiver was instructed to updat e this list, discard old lists, and take this list to the next appointme nt, whether with a VA or non-VA provider. /meena/ SHANELL ALLEN Physician Signed: 09/27/2021 09:50 September 27, 2021 08:56 AM PRIMARY CARE ANNUAL EVALUATION NOTE: JASON OSORIO [facility] LOCAL TITLE: Preventive Health Annual Review STANDARD TITLE: PRIMARY CARE ANNUAL EVALUATION N OTE DATE OF NOTE: SEPTEMBER 27, 2021@08:56 ENTRY DATE: SEPTEMBER 27, 2021@08:56:09 AUTHOR: JASON OLVERA EXP COSIGNER: URGENCY: STATUS: COMPLETED Alcohol Use Screen (AUDIT-C): Alcohol Screen: SCREEN FOR ALCOHOL (AUDIT-C) An alcohol screening test (AUDIT-C) was negativ e (score=1). 1. How often did you have a drink containing al cohol in the past year? Monthly or less 2. How many drinks containing alcohol did you h ave on a typical day when you were drinking in the past year? One or two drinks 3. How often did you have six or more drinks on one occasion in the past year? Never Depression Screening: Perform PHQ-2 A PHQ-2 screen was performed. The score was 0 w hich is a negative screen for depression. Over the past two weeks, how often have you bee n bothered by the following problems? 1. Little interest or pleasure in doing things Not at all 2. Feeling down, depressed, or hopeless Not at all Suicide Screen: C-SSRS Screening [place] Suicide Severity Rating Scale (C-SSRS) screener 1. Over the past month, have you wished you wer e or wished you could go to sleep and not wake up? No 2. Over the past month, have you had any actual thoughts of killing yourself? No 3. Over the past month, have you been thinking about how you might do this? Response not required due to responses to other questions. 4. Over the past month, have you had these thou ghts and had some intention of acting on them? Response not required due to responses to other questions. 5. Over the past month, have you started to wor k out or worked out the details of how to kill yourself? Response not required due to responses to other questions. 6. If yes, at any time in the past month did yo u intend to carry out this plan? Response not required due to responses to other questions. 7. In your lifetime, have you ever done anythin g, started to do anything, or prepared to do anything to end you r life (for example, collected pills, obtained a gun, gave away valu crystal, went to the roof but didn't jump)? No 8. If YES, was this within the past 3 months? Response not required due to responses to other questions. /meena/ JASON OLVERA [facility] Signed: 09/27/2021 08:58
--- OUTSIDE RECORDS SUMMARY | 2022-02-09 10:39 | XMS_ITS | Encounter Summary ---
:1950 Author Organization [facility] Address [address] [place] [id number] Support Name Relationship Address Phone ZUHAIR FOSTER Unavailable [address] [place] [address] ZUHAIR FOSTER Unavailable [address] [place] [address] Insurance Providers: All historical and current Section [...] Liu CBA BLUE HIGH [place] Jan 25, [id number] [phone] DO Stephanie FOSTER SPOUSE DEDUCTIBL [place] 2013 [id number] NA E [facility] PLAN EXPRESS PRESCRIPT WEI May 27, RXBWEID [id number] [phone] PEY[place] FOSTER SPOUSE SCRIPTS ION [place] 2017 [id number] NA ([id number]) ([facility] ) MEDICARE MEDICARE PART Jan 25, PART A [id number] CRISTIAN, AND PATIENT (WNR) (M) A 2013 VU70 2 REW Selected Encounter This section includes the information on record at [place] for the Encounter. Date/Time Encounter Type Encounter Reason Provider Source Description September 28, 2021 ADM SARSCOV2 GENERAL INTERNAL ICD-10-CM Z23 DANITA JORGENSEN 10:00 AM 50MCG/0.25MLBST MEDICINE Encounter for H M immunization with Provider Comments: Encounter for Immunization IHE Encounter Template Text not used by VA Assessments - Encounter Diagnoses This section includes the primary and secondary diagnoses documented for the Encounter. Date/Time Primary/Secondary Diagnosis Name Provider Source Diagnosis September 28, 2021 PRIMARY Encounter for AXEL JORGENSEN Y 10:56 AM immunization M [facility] Plan of Treatment: Future Appointments (+ 6 months) and Future Tests (+/- 45 days) The Plan of Treatment section includes future care activities for the patient from all [place] treatmentfacilities. This section includes future appointments and future orders which are active, pending orscheduled.Future Appointments This section includes appointments that were scheduled to occur 6 months from the date of the Encounter, up to a maximum of 20 appointments. The data comes from all [place] treatment facilities. Appointment Date/Time Appointment Type Appointment Facili ty Name October 18, 2021 09:30 AM AM[place]ULATORY - NONE [place] [facility] Nov 09, 2021 11:00 AM AM[place]UL[place] [facility] Dec 22, 2021 11:00 AM AMBULATORY - NONE [facility] Dec 27, 2021 11:30 AM AMBULATORY - MEDICINE [facility] Dec 27, 2021 11:31 AM AMBULATORY - NONE [facility] Dec 27, 2021 12:00 PM AMBULATORY - MEDICINE [facility] Jan 18, 2022 11:00 AM AMBULATORY - REHAB MEDICINE [facility] Jan 22, 2022 09:30 AM AMBULATORY - MEDICINE [facility] Jan 22, 2022 09:31 AM AMBULATORY - NONE [facility] Feb 12, 2022 10:30 AM [place]ORY [place] [facility] Feb 20, 2022 08:45 AM AMBULATORY - NONE [facility] Feb 20, 2022 09:00 AM AMBULATORY - REHAB MEDICINE [facility] Mar 30, 2022 08:30 AM AMBULATORY - MEDICINE [facility] Lab Results: +/- 30 days of the [...] Range Comment September 27, 2021 09:47 AM [facility] PHOSPHORUS Specim en Type: PLASMA Comment: Tests performed on Gifi (405) [id number] Ordering Provid er: SHANELL ALLEN Report Released Date/Time: Aug 14, 2021 03:10 PM Reporting Lab: [facility] [address] [facility] [address] Performing Lab: [facility] [address] [facility] [address] PHOSPHORUS 2.9 2.5-5.0 September 27, 2021 09:47 AM [facility] MAGNESIUM Specim en Type: PLASMA Comment: Tests performed on Gifi (405) SN:[id number] Ordering Provid er: SHANELL ALLEN Report Released Date/Time: Aug 14, 2021 03:10 PM Reporting Lab: [facility] [address] [facility] [address] Performing Lab: [facility] [address] [facility] [address] MAGNESIUM 0.7 L 1.6-2.6 September 27, 2021 [facility] GLYCOHEMOGLOBIN (A1C Specime n Type: BLOOD 09:47 AM ONLY) Comment: Tests performed on Gifi (405) SN:[id number] Ordering Provid er: SHANELL ALLEN Report Released Date/Time: Aug 14, 2021 03:10 PM Reporting Lab: [facility] [address] [facility] [address] Performing Lab: [facility] [address] [facility] [address] HEMOGLOBIN A1C 6.4 H 4.0-5.6 September 27, 2021 [facility] LIPOPROTEIN CHOLESTEROL Spec imen Type: PLASMA 09:47 AM FRACT. PANEL Comment: Tests performed on Gifi (405) SN:[id number] Ordering Provid er: SHANELL ALLEN Report Released Date/Time: Aug 14, 2021 03:10 PM Reporting Lab: [facility] [address] [facility] [address] Performing Lab: [facility] [address] [facility] [address] CHOLESTEROL 156 0-199 TRIGLYCERIDE 109 0-149 HDL CHOLESTEROL 40 >40 LDL CHOLESTEROL (CALC) 94 0-129 September 27, 2021 09:47 AM [facility] LIVER PROFILE Specim en Type: PLASMA Comment: Tests performed on Gifi (405) SN:[id number] Ordering Provid er: SHANELL ALLEN Report Released Date/Time: Aug 14, 2021 03:10 PM Reporting Lab: [facility] [address] [facility] [address] Performing Lab: [facility] [address] [facility] [address] PROTEIN, TOTAL 7.7 6.0-8.5 ALBUMIN 3.3 3.2-5.0 BILIRUBIN, TOTAL 1.2 0.2-1.2 BILIRUBIN, DIRECT 0.5 0-0.5 ALKALINE PHOSPHATASE 118 40-150 ALT(SGPT) 25 7-52 AST(SGOT) 26 5-34 FIB-4 SCORE 1.46 <2.67 September 27, 2021 09:47 AM [facility] VITAMIN B-12 Specim en Type: SERUM Comment: Tests performed on [place] MoPub (405) SN:[id number] Ordering Provid er: SHANELL ALLEN Report Released Date/Time: Aug 14, 2021 03:10 PM Reporting Lab: [facility] [address] [facility] [address] Performing Lab: [facility] [address] [facility] [address] VITAMIN B-12 388 200-900 September 27, 2021 09:47 AM [facility] CBC NO DIFF Specim en Type: BLOOD No comment enter ed. Ordering Provid er: SHANELL ALLEN Report Released Date/Time: Aug 14, 2021 03:10 PM Reporting Lab: [facility] [address] [facility] [address] Performing Lab: [facility] [address] [facility] [address] WBC 12.0 H 4.5-11.0 RBC 5.00 4.23-5.66 HGB 14.1 12.8-17 HEMATOCRIT 44.6 39.2-50.4 MCV 89.2 82-99 MCH 28.2 26.2-32.6 MCHC 31.6 30.8-35.1 PLT 257 140-360 MPV 11.6 9.2-12.4 RDW 15.8 12.0-16.0 September 27, 2021 09:47 AM [facility] CBC PROFILE Specim en Type: BLOOD No comment enter ed. Ordering Provid er: SHANELL ALLEN Report Released Date/Time: Aug 14, 2021 03:10 PM Reporting Lab: [facility] [address] [facility] [address] Performing Lab: [facility] [address] [facility] [address] WBC 12.0 H 4.5-11.0 RBC 5.00 4.23-5.66 [...] ABSOLUTE NRBC 0.00 0-0 September 27, 2021 [facility] MICROALBUMIN/CREATININE RATIO S pecimen Type: URINE 09:47 AM CBOC PANEL Comment: Tests performed on Gifi (334) SN:[id number] Ordering Provid er: SHANELL ALLEN Report Released Date/Time: Aug 14, 2021 03:10 PM Reporting Lab: [facility] [address] [facility] [address] Performing Lab: [facility] [address] [facility] [address] CREATININE (URINE,RANDOM) 101.7 MICROALBUMIN, QUANTITATIVE 4.2 0.0 -29.9 MICROALBUMIN/CREATININE RATIO 41.3 H 0.0-29.9 September 27, 2021 09:47 [facility] VIT D 25-OH(WRJ) Specimen Type: SERUM AM Comment: Tests performed on [employer] MoPub (405) SN:[id number] Ordering Provid er: SHANELL ALLEN Report Released Date/Time: Aug 14, 2021 03:10 PM Reporting Lab: [facility] [address] [facility] [address] Performing Lab: [facility] [address] [facility] [address] VIT D 25-OH([facility]) 32.7 20-50 September 27, 2021 09:47 AM [facility] TSH Specim en Type: SERUM Comment: Tests performed on [employer] MoPub (405) SN:[id number] Ordering Provid er: SHANELL ALLEN Report Released Date/Time: Aug 14, 2021 03:10 PM Reporting Lab: [facility] [address] [facility] [address] Performing Lab: [facility] [address] [facility] [address] TSH 1.27 0.35-5.00 Immunizations: All administered on the encounter date This section contains immunizations associated to the Encounter. Immunization Series Date Issued Reaction Comments COVID-19 (MODERNA), MRNA, 4 September 28, 2021 MO D; [id number]; 01/06/2022 LNP-S, PF, 100 MCG/0.5ML DOSE OR 50 MCG/0.25ML DOSE Social History: Smoking Status (Most current) and [...] 2021 09:00 AM VA-TOBACCO USER EVERY DAY [facility] Tobacco Use History This section includes a history of the smoking, or tobacco- related health factors, that were collected on or before the date of the Encounter. The data comes from the [place] facility where the Encounter took place. Date/Time Smoking Status/Tobacco Use Comment Facil ity September 27, 2021 09:00 AM VA-TOBACCO USE ADVICE [facility] September 27, 2021 09:00 AM VA-TOBACCO USE MANAGER CATH LAB NO [facility] September 27, 2021 09:00 AM VA-TOBACCO USE MED NO [facility] September 27, 2021 09:00 AM VA-TOBACCO USE WI 30 MIN OF WAKEUP [facility] September 27, 2021 09:00 AM VA-TOBACCO USER EVERY DAY [facility] Dec 15, 2019 09:22 AM VA-TOBACCO USE 30 YEARS OR MORE [facility] Dec 15, 2019 09:22 AM VA-TOBACCO USE ADVICE [facility] Dec 15, 2019 09:22 AM VA-TOBACCO USE MANAGER CATH LAB NO [facility] Dec 15, 2019 09:22 AM VA-TOBACCO USE MED NO [facility] Dec 15, 2019 09:22 AM VA-TOBACCO USE WI 30 MIN OF WAKEUP [facility] Dec 15, 2019 09:22 AM VA-TOBACCO USER EVERY DAY [facility] Jun 18, 2018 12:32 PM VA-TOBACCO USE 30 YEARS OR MORE [facility] Jun 18, 2018 12:32 PM VA-TOBACCO USE ADVICE [facility] Jun 18, 2018 12:32 PM VA-TOBACCO USE MANAGER CATH LAB NO [facility] Jun 18, 2018 12:32 PM VA-TOBACCO USE MED NO [facility] Jun 18, 2018 12:32 PM VA-TOBACCO USE WI 30 MIN OF WAKEUP [facility] Jun 18, 2018 12:32 PM VA-TOBACCO USER EVERY DAY [facility] Sep 19, 2017 03:23 PM CURRENT SMOKER Bin [facility] SANAZ [facility] Sep 19, 2017 03:23 PM V1-PT NOT INTERESTED IN QUIT TOBACCO [facility] USE Radiology Reports: +/- 30 days of [...] AM LDCT LUNG CANCER SCREENING: JON JOHNSON T ANASTASIA FOSTER [id number] -1950 [facility] Exm Date: OCTOBER 18, 2021@09:30 Req Phys: SHANELL ALLEN Loc: LIT PACT F (R eq'g Loc) Img Loc: CT SCAN (OOS) Service: Unknown (Case [id number] COMPLETE) LDCT LUNG CANCER SCREENING ( CT Detailed) CPT:52930 Reason for Study: lung ancer screen Clinical [...] 19, 2021 Date Verified: OCTOBER 19, 2021 Bakery Helper E-Sig:/ES/JUANA JOHNSON Report: Description: Low-dose Chest CT [...] NODULE Primary Interpreting Staff: JUANA JOHNSON, Radiologist (Bakery Helper) /KTL Encounter Notes: All associated encounter notes This section contains the clinical notes associated to the Encounter. Date/Time Encounter Note(s) Provider Source September 28, 2021 10:56 AM NURSING IMMUNIZATION NOTE: AXEL JORGENSEN [facility] LOCAL TITLE: VAAES NSG COVID-19 VACCINE ADMINIS TRATION STANDARD TITLE: NURSING IMMUNIZATION NOTE DATE OF NOTE: SEPTEMBER 28, 2021@10:56 ENTRY DATE: SEPTEMBER 28, 2021@10:56:21 AUTHOR: AXEL JORGENSEN EXP COSIGNER: URGENCY: STATUS: COMPLETED The patient was given the vaccine information fa ct sheet for this vaccine which lists the benefits and side effect s of the vaccine and which reviews the risks of the vaccine. The fact sheet was reviewe d with the patient and they were given an opportunity to ask questions. The patient denied any prior severe reaction to this vaccine or its components or a severe allergic reaction such as anaphylaxis to any vaccine or to any injectab le therapy. The patient gave verbal consent to receive the vaccine. Booster Dose (half-dose): The patient received Moderna COVID-19 Vaccine 0 .25 ml IM. Series: Series 4 MVX (Manuf); Lot#; Exp Date: MOD; [id number]; 12/25 Administration Anatomic site: Left Deltoid Vaccine administered without complications. The patient was advised to remain in the facility for 15 minutes p ost vaccination. The patient was given a completed COVID-19 vaccination record card, a copy of the VA Side Effects and Adverse Events Reporting Fact Sheet and ins tructed on how to report any adverse reactions. /meena/ AXEL JORGENSEN LPN Signed: 09/28/2021 10:57
--- OUTSIDE RECORDS SUMMARY | 2022-02-09 10:39 | XMS_ITS | Encounter Summary ---
:1950 Author Organization [facility] Address [address] [place] [id number] Support Name Relationship Address Phone ZUHAIR FOSTER Unavailable [address] [place] [address] ZUHAIR FOSTER Unavailable [address] [place] [address] Insurance Providers: All historical and current Section [...] to Policy Number Liu CBA BLUE HIGH [facility] Jan 25, [id number] [phone] DO Stephanie FOSTER SPOUSE DEDUCTIBL [place] 2013 [id number] NA E [facility] PLAN EXPRESS PRESCRIPT WEI May 27, RXBWEID [id number] [phone] [place] FOSTER SPOUSE SCRIPTS ION [place] 2017 [id number] NA ([id number]) ([facility] ) MEDICARE MEDICARE PART Jan 25, PART A [id number] CRISTIAN, AND PATIENT (WNR) (M) A 2013 VU70 2 REW Selected Encounter This section includes the information on record at [place] for the Encounter. Date/Time Encounter Type Encounter Description Reason Provider Source Mar 17, 2021 12:00 Outpatient Encounter EVENT (HISTORICAL) AM IHE Encounter Template Text not used [...] 20 appointments. The data comes from all [place] treatment facilities. Appointment Date/Time Appointment Type Appointment Sonia alex Name Apr 13, 2021 02:00 PM AMBULATORY [...] Date Issued Reaction Comments COVID-19 (MODERNA), MRNA, LNP-S, PF, 100 3 Mar 17, 2021 MCG/0.5ML DOSE OR 50 MCG/0.25ML DOSE Social History: Smoking Status (Most current) and Tobacco Use (All prior to encounter date) This section includes the most current, and the historical, smoking and tobacco-related health factors from the [place] facility where the Encounter took place.Current Smoking Status This section includes the most current smoking, or tobacco-related health factor, from the [place] facility where the Encounter took place. Date/Time Current Smoking Status Comment Facility Feb 06, 2019 11:00 PM CURRENT SMOKER SARAH Whitney [facility] Tobacco Use History This section includes a history of the smoking, or tobacco- related health factors, that were collected on or before the date of the Encounter. The data comes from the [place] facility where the Encounter took place. Date/Time Smoking Status/Tobacco Use Comment [facility] Feb 06, 2019 05:51 PM CURRENT SMOKER SARAH Whitney [facility]
--- OUTSIDE RECORDS SUMMARY | 2022-02-09 10:39 | XMS_ITS | Encounter Summary ---
:1950 Author Organization [facility] rs Address [address] [place] [address] Support Name Relationship Address Phone ZUHAIR FOSTER Unavailable [address] [place] [address] ZUHAIR FOSTER Unavailable [address] [place] [address] Insurance Providers: All historical and current Section [...] Liu CBA [employer]UE [employer]IGH [facility] Jan 25, [id number] [phone] DO Stephanie FOSTER SPOUSE DEDUCTIBL [place] 2013 [id number] NA E [facility] PLAN EXPRESS PRESCRIPT WEIDM May 27, RXBWEID [id number] [phone] PEYTON FOSTER SPOUSE SCRIPTS ION [place] 2017 [id number] NA ([id number]) ([facility] ) MEDICARE MEDICARE PART Jan 25, PART A [id number] CRISTIAN, AND PATIENT (WNR) (M) A 2013 [id number] 2 REW Selected Encounter This section includes the information on record at [facility] for the Encounter. Date/Time Encounter Type Encounter Reason Provider Source Description Nov 09, 2021 OFFICE O/P EST PODIATRY ICD-10-CM E11.9 GENESIS GALAN 11:00 AM MOD 30-39 MIN Type 2 diabetes mellitus without complications with Provider Comments: Diabetes mellitus (SCT [id number]) IHE Encounter Template Text not used by [facility] Assessments - Encounter Diagnoses This section includes the primary and secondary diagnoses documented for the Encounter. Date/Time Primary/Secondary Diagnosis Name Provider Source Diagnosis Nov 09, 2021 PRIMARY Type 2 diabetes ANGELIA,GENESIS RAE 11:57 AM mellitus without T [facility] complications Nov 09, 2021 SECONDARY Edema, unspecified ANGELIA,GENESIS SMITH MARIA G ER 11:57 AM T [facility] Nov 09, 2021 SECONDARY Ingrowing nail ANGELIA,GENESIS RAE 11:57 AM T [facility] Nov 09, 2021 SECONDARY Nail dystrophy ANGELIA,GENESIS RAE 11:57 AM T [facility] Nov 09, 2021 SECONDARY Other specified ANGELIA,GENESIS RAE 11:57 AM peripheral vascular [facility] diseases Plan of Treatment: Future Appointments (+ 6 months) and Future Tests (+/- 45 days) The Plan of Treatment section includes future care activities for the patient from all [place] treatmentfacilities. This section includes future appointments and future orders which are active, pending orscheduled.Future Appointments This section includes appointments that were scheduled to occur 6 months from the date of the Encounter, up to a maximum of 20 appointments. The data comes from all [place] treatment facilities. Appointment Date/Time Appointment Type Appointment Facili ty Name Dec 22, 2021 11:00 AM [place] [facility] Dec 27, 2021 11:30 AM AM[facility]ULATORY - MEDICINE [facility] Dec 27, 2021 11:31 AM [place]ONE [place] [facility] Dec 27, 2021 12:00 PM AMBULATORY - MEDICINE [facility] Jan 18, 2022 11:00 AM AMBULATORY - REHAB [facility] Jan 22, 2022 09:30 AM AMBULATORY - MEDICINE [facility] Jan 22, 2022 09:31 AM [place]ONE [place] [facility] Feb 12, 2022 10:30 AM [place] - [place]GERY [place] [facility] Feb 20, 2022 08:45 AM AMBULATORY - NONE [facility] Feb 20, 2022 09:00 AM AMBULATORY - REHAB [facility] Mar 30, 2022 08:30 AM AMBULATORY - MEDICINE [facility] OC Active, Pending, and Scheduled Orders This section includes a listing of several types of active, pending, and scheduled orders, including clinic medications orders, diagnostic test orders, procedure orders and consult orders; where the start date of the order is 45 days before the date of the Encounter or 45 days after the date of the Encounter. The data comes from [facility] facilities. Test Date/Time Test Type Test Details Facility Name Dec 13, 2021 02:13 PM Consult Order [facility] Cons Senior Bookkeeper's Choice Social History: Smoking Status (Most current) and [...] took place. Date/Time Smoking Status/Tobacco Use Comment [facility] Feb 06, 2019 05:51 PM CURRENT SMOKER SARAH Whitney [facility] Radiology Reports: +/- 30 days of [...] the Encounter. The data comes from all [facility]. Date/Time Radiology Report Provider Source October 18, 2021 09:30 AM LDCT LUNG CANCER SCREENING: JON JOHNSON ANASTASIA WHALEY [id number] -1950 M [facility] Exm Date: OCTOBER 18, 2021@09:30 Req Phys: SHANELL ALLEN Loc: LIT PACT F (R eq'g Loc) Img Loc: CT SCAN (OOS) Service: Unknown (Case [id number] COMPLETE) LDCT LUNG CANCER SCREENING ( CT Detailed) CPT:59310 Reason for Study: lung ancer screen Clinical [...] 19, 2021 Date Verified: OCTOBER 19, 2021 Operations Intelligence E-Sig:/ES/JUANA JOHNSON Report: Description: Low-dose Chest CT [...] NODULE Primary Interpreting Staff: JUANA JOHNSON, Radiologist (Operations Intelligence) /KTL Encounter Notes: All associated encounter notes This section contains the clinical notes associated to the Encounter. Date/Time Encounter Note(s) Provider Source Nov 09, 2021 10:58 AM PODIATRY E & M NOTE: GENESIS GALAN [facility] LOCAL TITLE: Podiatry/High Risk Foot [facility] STANDARD TITLE: PODIATRY E & M NOTE DATE OF NOTE: NOV 09, 2021@10:58 ENTRY DATE: NOV 09, 2021@10:58:14 AUTHOR: GENESIS GALAN EXP COSIGNER: URGENCY: STATUS: COMPLETED Mr. Foster is a 71 y/o DM male with PVD w ho is seen for ongoing wound care of non-healing ulcer LLE. Today Mr. Foster p resents with a wound that remains healed and healthy l ooking. His only c/o today is that he would like to get his nails trimmed. He st ates that he finally bought some sports maza guards for weed whacking and being near his chinchilla [employer] s. 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 Essential hypertension ([facility] 07638750) E11.9 Diabetes mellitus ([facility] 09671145) R69. 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 GERD - Gastro-esophageal reflux disease ([place] T [id number]) R69. Diverticulosis ([facility] 819903385) R69. OA - Osteoarthrosis ([facility] 803365248) I25.9 Chronic ischemic heart disease ([facility] 246810 009) Active Outpatient Medications (excluding Supplie s): [...] (09/26/20) HGB: 14.3 (10/26/20) HCT: 43.3 (10/26/20) Latest Vitals: BP: 119/73 (09/27/2021 08:51) Pulse: 88 (09/27/2021 08:51) Temp: 96.4 F [35.8 C] (09/27/2021 08:51) Resp: 18 (04/14/2020 09:56) HT(in): 68 in [172.7 cm] (09/27/2021 08:51) WT(lbs.):207.8 lb [94.26 kg] (09/27/2021 08:51) PULSE OXIMETRY: 93% RA (09/27/2021 08:51) BODY MASS INDEX: 31.66 (09/27/2021 08:51) Allergies: SHELLFISH Social: , smoker; 1/2 - 1 PPD Shoe/Amb: [facility] issued Dwayne's in good condition/in dependent Vasc: Previous assessment: +ve doppler pulses, CFT slight decreased B/L but > relatively RIGHT, TEMP WNL, LES edema improvement. DATE: SEPTEMBER 28, 2020 Procedure: LOWER EXTREMITY ARTERIAL STUDY Registered Strip Cutter: VERONICA IBRAHIM Segmental Pressures (SEG) Ordering Provider: [...] DOPPLER WAVEFORMS: Dorsal Pedal Post Tibial Right Whitley-Biphasic Monophasic Left Monophasic INTERPRETATION: RIGHT: Mild lower [...] size of 2.4CM long X 2.2CM wide. The previous wound area continues to be co jm with pink healthy integument. No SOI. He has two small scabs on LL E that remain intact, no debriding done to them. No S OI. All lesser nails are trimmed without incidence. Both hallux nails on B/L bor ders are minimally ingrown. Right lateral border was the most offensive out of all of them, used Lido cold spray with good effect. No dressings needed this visit. Neurologic: S-W 5.07 intact B/L Orthopedic: Mild pain to B/L halluces for ingrow ns Mr. foster is a 71 year old DMII male who is seen in clinic today for ongoing care of wound to LLE . He and the wound are doing well, the wounds remain healed and looking healthy with no SOI. He does have two small areas of eschar on the LLE that remain intact and protective. PLAN: 1. Exam and education: a. Smoking cessation talked about him trying to at least cut down- no budging him on this point; but I keep trying. b. He knows if there are any negative changes t o call us immediately or go to the ER. 2. LLE Proximal wound: a. Healed nothing needs to be done with previou s wound sites. 3. Smoking Cessation: a. He has supplies at home to help with cessati on. b. He knows he needs to stop c. We have previously talked about smoking inhi biting wound healing. DERESSING INSTRUCTION: None needed RTC: Three Months/or as needed /meena/ Genesis Galan MSN [employer] Staff Nurse Practitioner Signed: 11/09/2021 11:57
--- OUTSIDE RECORDS SUMMARY | 2022-02-09 10:40 | XMS_ITS | Encounter Summary ---
:1950 Author Organization [facility] Address [address] [place] [address] Support Name Relationship Address Phone ZUHAIR FOSTER Unavailable [address] [place] [address] ZUHAIR FOSTER Unavailable [address] [place] [address] Insurance Providers: All historical and current Section [...] to Policy Number Liu CBA [facility] Jan 25, [id number] [phone] DO Stephanie FOSTER SPOUSE DEDUCTIBL [place] 2013 [id number] NA E [facility] PLAN EXPRESS PRESCRIPT WEI May 27, RXBWEID [id number] [phone] PEYTON FOSTER SPOUSE SCRIPTS ION [place] 2017 [id number] NA ([id number]) (HDHP ) MEDICARE MEDICARE PART Jan 25, PART A [id number] CRISTIAN, AND PATIENT (WNR) (M) A 2013 [id number] 2 REW Selected Encounter This section includes the information on record at [place] for the Encounter. Date/Time Encounter Type Encounter Description Reason Provider Source Dec 13, 2021 10:44 Outpatient Encounter PRIMARY CARE/MEDICINE AM IHE Encounter [...] 2021 11:00 AM [facility]ATORY [facility]ONE [facility] Dec 27, 2021 11:30 AM AM[facility]ULATORY - MEDICINE [facility] Dec 27, 2021 11:31 AM [facility] Dec 27, 2021 12:00 PM AMBULATORY - MEDICINE [facility] Jan 18, 2022 11:00 AM [facility]ULAT[facility] Jan 22, 2022 09:30 AM AMBULATORY - MEDICINE [facility] Jan 22, 2022 09:31 AM AMBULATORY - NONE [facility] Feb 12, 2022 10:30 AM [facility] Feb 20, 2022 08:45 AM [facility]ORY - NONE [facility] Feb 20, 2022 09:00 AM AMBULATORY - RE[facility]AB [facility] Mar 30, 2022 08:30 AM AMBULATORY - MEDICINE [facility] Active, Pending, and Scheduled Orders This section includes a listing of several types of active, pending, and scheduled orders, including clinic medications orders, diagnostic test orders, procedure orders and consult orders; where the start date of the order is 45 days before the date of the Encounter or 45 days after the date of the Encounter. The data comes from all [facility]. Test Date/Time Test Type Test Details Facility Name Dec 13, 2021 02:13 PM Consult Order [facility] Cons Crystal Grower's Choice Dec 25, 2021 12:02 PM Consult Order COMMUNITY [facility] DISEASE MANAGEMENT Cons Crystal Grower's Choice Social History: Smoking Status (Most current) and Tobacco Use (All prior to encounter date) This section includes the most current, and the historical, smoking and tobacco-related health factors from the [place] facility where the Encounter took place.Current Smoking Status This section includes the most current smoking, or tobacco-related health factor, from the [place] facility where the Encounter took place. Date/Time Current Smoking Status Comment Facility Feb 06, 2019 11:00 PM CURRENT SMOKER SARAH Whitney [facility] Tobacco Use History This section includes a history of the smoking, or tobacco- related health factors, that were collected on or before the date of the Encounter. The data comes from the [place] facility where the Encounter took place. Date/Time Smoking Status/Tobacco Use Comment Julián loyd Feb 06, 2019 05:51 PM CURRENT SMOKER SARAH Whitney [facility] Encounter Notes: All associated encounter notes This section contains the clinical notes associated to the Encounter. Date/Time Encounter Note(s) Provider Source Dec 13, 2021 10:44 AM PRIMARY CARE NURSING NOTE: AXEL JORGENSEN [facility] LOCAL TITLE: Amb Care Nursing Note STANDARD TITLE: PRIMARY CARE NURSING NOTE DATE OF NOTE: DEC 13, 2021@10:44 ENTRY DATE: DEC 13, 2021@10:44:12 AUTHOR: AXEL JORGENSEN EXP COSIGNER: URGENCY: STATUS: COMPLETED Amb Care Nursing Note Has ADDENDA received a call from Bethany VEGA [facility] cardiology uni t patient is being discharged and will need script s ordered. one will need to be filled as soon as tomorrow Patient was admitted with STEMI/Multiple stents Fax number is provided/awaiting fax to forward t o provider at [place] F/U is requested with Dr Schroeder and 7-10 days with PCP /meena/ AXEL JORGENSEN LPN Signed: 12/13/2021 10:46 Receipt Acknowledged By: * AWAITING SIGNATURE * [place] TORRES 12/13/2021 ADDENDUM STATUS: COMPLETED Fax is received, new medications are as follows Patient will need a short script for these medic ations as well as ordered through the [facility] Clopidogrel 75mg 1 tablet daily nicotine 21mg/24 patch nitroglycerin 0.4mg SL increased dose medications Atorvastatin 80mg daily Metformin 1000mg 2 times a day will forward to provider /meena/ AXEL JORGENSEN LPN Signed: 12/13/2021 13:18
--- OUTSIDE RECORDS SUMMARY | 2022-02-09 10:40 | XMS_ITS | Encounter Summary ---
:1950 Author Organization [facility] Address [address] [place] [id number] Support Name Relationship Address Phone ZUHAIR FOSTER Unavailable [address] [place] [address] ZUHAIR FOSTER Unavailable [address] [place] [address] Insurance Providers: All historical and current Section [...] to Policy Number Liu CBA BLUE [employer]IGH [facility] Jan 25, [id number] [phone] DO Stephanie FOSTER SPOUSE DEDUCTIBL [place] 2013 [id number] NA E [facility] PLAN EXPRESS PRESCRIPT WEI May 27, RXBWEID [id number] [phone] PEYTON FOSTER SPOUSE SCRIPTS ION [place] 2017 [id number] NA ([id number]) (HDHP ) MEDICARE MEDICARE PART Jan 25, PART A [id number] CRISTIAN, AND PATIENT (WNR) (M) A 2013 [id number] 2 REW Selected Encounter This section includes the information on record at [place] for the Encounter. Date/Time Encounter Type Encounter Description Reason Provider Source Dec 13, 2021 03:22 Outpatient Encounter COMMUNITY CARE PM CONSULT IHE Encounter Template Text not used [...] 20 appointments. The data comes from all [place] treatment facilities. Appointment Date/Time Appointment Type Appointment Facili ty Name Dec 22, 2021 11:00 AM [place]ORY - [place] [facility] Dec 27, 2021 11:30 AM AMBULATORY - MEDICINE [facility] Dec 27, 2021 11:31 AM [facility] Dec 27, 2021 12:00 PM AMBULATORY - MEDICINE [facility] Jan 18, 2022 11:00 AM AMBULATORY - REHAB [facility] Jan 22, 2022 09:30 AM AMBULATORY - MEDICINE [facility] Jan 22, 2022 09:31 AM [place] [facility] Feb 12, 2022 10:30 AM [place] [facility] Feb 20, 2022 08:45 AM [facility] Feb 20, 2022 09:00 AM AMBULATORY - RE[facility]AB [facility] Mar 30, 2022 08:30 AM AMBULATORY - MEDICINE [facility] Active, Pending, and Scheduled Orders This section includes a listing of several types of active, pending, and scheduled orders, including clinic medications orders, diagnostic test orders, procedure orders and consult orders; where the start date of the order is 45 days before the date of the Encounter or 45 days after the date of the Encounter. The data comes from all [facility]. Test Date/Time Test Type Test Details Facility Name Dec 13, 2021 02:13 PM Consult Order [facility] Cons Offset Duplicating Machine Operator's Choice Dec 25, 2021 12:02 PM Consult Order [facility] DISEASE MANAGEMENT Cons Offset Duplicating Machine Operator's Choice Social History: Smoking Status (Most current) and Tobacco Use (All prior to encounter date) This section includes the most current, and the historical, smoking and tobacco-related health factors from the [place] facility where the Encounter took place.Current Smoking Status This section includes the most current smoking, or tobacco-related health factor, from the [place] facility where the Encounter took place. Date/Time Current Smoking Status Comment Facility Feb 06, 2019 11:00 PM CURRENT SMOKER SARAH Whitney [facility] Tobacco Use History This section includes a history of the smoking, or tobacco- related health factors, that were collected on or before the date of the Encounter. The data comes from the [place] facility where the Encounter took place. Date/Time Smoking Status/Tobacco Use Comment Julián loyd Feb 06, 2019 05:51 PM CURRENT SMOKER SARAH PERES [facility] Encounter Notes: All associated encounter notes This section contains the clinical notes associated to the Encounter. Date/Time Encounter Note(s) Provider Source Dec 11, 2021 09:30 AM NONVA NOTE: YRIS SANCHEZ LOCAL TITLE: COMMUNITY CARE COORDINATION PLAN [facility] STANDARD TITLE: NONVA NOTE DATE OF NOTE: DEC 11, 2021@09:30 ENTRY DATE: DEC 13, 2021@15:23:21 AUTHOR: YRIS SANCHEZ EXP COSIGNER: URGENCY: STATUS: COMPLETED [place] self-presented to community emergency fa cility Emergency Notification Intake Date Presenting to the Facility: Nov [facility]ly [facility] Hospital Name: Hospital: [facility] Address: City: [place] State: [place] Zip Code: Phone : Chief complaint: HEART ATTACK Primary Diagnosis: Patient Admitted? Yes Route of Admission: ER Date/Time of Admission: Nov@09:30 Admitting Diagnosis: DE Community Care Provider: Confirm Level of Care: Telemetry Community Facility Point of Contact: Name: Patient Access Notification ID #[id number] EOC approved under 1703 by the National ER Notif ication Team [facility] ([employer]) Ref #: [id number] /meena/ YRIS OSMAN, RN OCC EMERGENCY PLATE WASHER Signed: 12/13/2021 15:26
--- OUTSIDE RECORDS SUMMARY | 2022-02-09 10:40 | XMS_ITS | Encounter Summary ---
:1950 Author Organization [facility] Address [address] [place] [address] Support Name Relationship Address Phone ZUHAIR FOSTER Unavailable [address] [place] [address] ZUHAIR FOSTER Unavailable [address] [place] [address] Insurance Providers: All historical and current Section [...] to Policy Number Liu CBA [facility] Jan 25, [id number] [phone] DO Stephanie FOSTER SPOUSE DEDUCTIBL [place] 2013 [id number] NA E [facility] PLAN EXPRESS PRESCRIPT WEI May 27, RXBWEID [id number] [phone] PEYTON FOSTER SPOUSE SCRIPTS ION [place] 2017 [id number] NA ([id number]) (HDHP ) MEDICARE MEDICARE PART Jan 25, PART A [id number] CRISTIAN, AND PATIENT (WNR) (M) A 2013 VU70 2 REW Selected Encounter This section includes the information on record at ID for the Encounter. Date/Time Encounter Type Encounter Description Reason Provider Source Dec 13, 2021 01:25 Outpatient Encounter PRIMARY CARE/MEDICINE PM IHE Encounter Template Text not used [...] 20 appointments. The data comes from all ID treatment facilities. Appointment Date/Time Appointment Type Appointment Facili ty Name Dec 22, 2021 11:00 AM [facility] Dec 27, 2021 11:30 AM AMBULATORY - MEDICINE [facility] Dec 27, 2021 11:31 AM [facility] Dec 27, 2021 12:00 PM AMBULATORY - MEDICINE [facility] Jan 18, 2022 11:00 AM AMBULATORY - REHAB MEDICINE [facility] Jan 22, 2022 09:30 AM AMBULATORY - MEDICINE [facility] Jan 22, 2022 09:31 AM [facility] Feb 12, 2022 10:30 AM [facility] Feb 20, 2022 08:45 AM AMBULATORY - NONE [facility] Feb 20, 2022 09:00 AM AMBULATORY - REHAB MEDICINE [facility] Mar 30, 2022 08:30 AM AMBULATORY - MEDICINE [facility] Active, Pending, and Scheduled Orders This section includes a listing of several types of active, pending, and scheduled orders, including clinic medications orders, diagnostic test orders, procedure orders and consult orders; where the start date of the order is 45 days before the date of the Encounter or 45 days after the date of the Encounter. The data comes from all [facility]. Test Date/Time Test Type Test Details Facility Name Dec 13, 2021 02:13 PM Consult Order [facility] Cons [employer] Service Technician's Choice Dec 25, 2021 12:02 PM Consult Order COMMUNITY [facility]-OPTOMETRY S [facility] DISEASE MANAGEMENT Cons [employer] Technician's Choice Social History: Smoking Status (Most current) and Tobacco Use (All prior to encounter date) This section includes the most current, and the historical, smoking and tobacco-related health factors from the ID facility where the Encounter took place.Current Smoking Status This section includes the most current smoking, or tobacco-related health factor, from the ID facility where the Encounter took place. Date/Time Current Smoking Status Comment Facility Feb 06, 2019 11:00 PM CURRENT SMOKER SARAH Whitney [facility] Tobacco Use History This section includes a history of the smoking, or tobacco- related health factors, that were collected on or before the date of the Encounter. The data comes from the ID facility where the Encounter took place. Date/Time Smoking Status/Tobacco Use Comment Facil ity Feb 06, 2019 05:51 PM CURRENT SMOKER SARAH Whitney [facility] Encounter Notes: All associated encounter notes This section contains the clinical notes associated to the Encounter. Date/Time Encounter Note(s) Provider Source Dec 13, 2021 01:25 PM NONVA NOTE: AXEL JORGENSEN [facility] LOCAL TITLE: NonVA Medical Records STANDARD TITLE: NONVA NOTE DATE OF NOTE: DEC 13, 2021@13:25 ENTRY DATE: DEC 13, 2021@13:26:02 AUTHOR: AXEL JORGENSEN EXP COSIGNER: URGENCY: STATUS: COMPLETED NonVA Medical Records Has ADDENDA EVENT PROCEDURE: Discharge summary DATE OF SERVICE: 12/13/21 TREATING FACILITY: [facility] cardiology with prescriptions forwarded to ID provider THE ATTACHED SCANNED DOCUMENT HAS BEEN REVIEWED AND AUTHORIZED BY DOCUMENT (S) SENT TO [employer] TO BE SCANNED. TO VIEW THIS DOCUMENT, OPEN Office CenterS TOOLS MENU AND THEN OPEN THE IMAGE DISPLAY VIEWER. /meena/ AXEL JORGENSEN LPN Signed: 12/13/2021 13:27 12/13/2021 ADDENDUM STATUS: COMPLETED # Inferior STEMI / Multivessel ASCVD a [facility] 12/11/21 with culprit p elizabeth RCA lesion MASON, residual LAD disease with plans for staged PCI [facility] 12/12/21 with atherectomy and stent insertion of mid LAD and MASON to prox LAD and ostial D2 TTE 12/11/21: preserved LVEF 57% without rWMAs, RV with mildly reduced function andwith hypokinetic mid to apical RV free wall. - DAPT (aspirin 81 mg daily + clopidogrel 75mg d aily) x12 months -Encourage smoking cessation -Encourage participation in cardiac rehab /es/ [place] P VO D.O. Signed: 12/13/2021 14:02 12/13/2021 ADDENDUM STATUS: COMPLETED F/U appt Cardiolgy Dr. Elda Cherry Cardio logy 01/09/22 /es/ [place] P VO D.O. Signed: 12/13/2021 14:10
--- OUTSIDE RECORDS SUMMARY | 2022-02-09 10:40 | XMS_ITS | Encounter Summary ---
:1950 Author Organization [facility] Address [address] [place] [address] Support Name Relationship Address Phone ZUHAIR FOSTER Unavailable [address] [place] [address] ZUHAIR FOSTER Unavailable [address] [place] [address] Insurance Providers: All historical and current Section [...] CBA [facility] Jan 25, [id number] [id number] [phone] DO Stephanie FOSTER SPOUSE DEDUCTIBL [place] 2013 [id number] NA E [facility] PLAN EXPRESS PRESCRIPT WEI May 27, RXBWEID [id number] [phone] PEYTON FOSTER SPOUSE SCRIPTS ION [place] 2017 [id number] 557 NA ([id number]) (HDHP ) MEDICARE MEDICARE PART Jan 25, PART A [id number] CRISTIAN, AND PATIENT (WNR) (M) A 2013 VU70 2 REW Selected Encounter This section includes the information on record at [place] for the Encounter. Date/Time Encounter Type Encounter Description Reason Provider Source Dec 13, 2021 03:12 Outpatient Encounter COMMUNITY CARE PM CONSULT IHE [...] 20 appointments. The data comes from all [place] treatment facilities. Appointment Date/Time Appointment Type Appointment Facili ty Name Dec 22, 2021 11:00 AM AM[place]ULATORY - N[place] [facility] Dec 27, 2021 11:30 AM AMBULATORY - MEDICINE [facility] Dec 27, 2021 11:31 AM [facility] Dec 27, 2021 12:00 PM AMBULATORY - MEDICINE [facility] Jan 18, 2022 11:00 AM AMBULATORY - REHAB [facility] Jan 22, 2022 09:30 AM AMBULATORY - MEDICINE [facility] Jan 22, 2022 09:31 AM [place]ORY - NONE [place] [facility] Feb 12, 2022 10:30 AM [facility] [place] [place] [facility] Feb 20, 2022 08:45 AM AM[facility]ULATORY - NONE [facility] Feb 20, 2022 09:00 AM AMBULATORY - REHAB [facility] Mar 30, 2022 08:30 AM AMBULATORY - MEDICINE [facility] OC Active, Pending, and Scheduled Orders This section includes a listing of several types of active, pending, and scheduled orders, including clinic medications orders, diagnostic test orders, procedure orders and consult orders; where the start date of the order is 45 days before the date of the Encounter or 45 days after the date of the Encounter. The data comes from all [facility]. Test Date/Time Test Type Test Details Facility Name Dec 13, 2021 02:13 PM Consult Order [facility] [employer] Engraver's Choice Dec 25, 2021 12:02 PM Consult Order COMMUNITY [facility]-OPTOMETRY S [facility] DISEASE MANAGEMENT Cons [employer] Engraver's Choice Social History: Smoking Status (Most current) and Tobacco Use (All prior to encounter date) This section includes the most current, and the historical, smoking and tobacco-related health factors from the [place] facility where the Encounter took place.Current Smoking Status This section includes the most current smoking, or tobacco-related health factor, from the [place] facility where the Encounter took place. Date/Time Current Smoking Status Comment Facility Feb 06, 2019 11:00 PM CURRENT SMOKER SARAH Whitney [facility] Tobacco Use History This section includes a history of the smoking, or tobacco- related health factors, that were collected on or before the date of the Encounter. The data comes from the [place] facility where the Encounter took place. Date/Time Smoking Status/Tobacco Use Comment Facil ity Feb 06, 2019 05:51 PM CURRENT SMOKER SARAH [facility] Encounter Notes: All associated encounter notes This section contains the clinical notes associated to the Encounter. Date/Time Encounter Note(s) Provider Source Dec 10, 2021 08:00 PM NONVA NOTE: YRIS SANCHEZ LOCAL TITLE: COMMUNITY CARE COORDINATION PLAN [facility] STANDARD TITLE: NONVA NOTE DATE OF NOTE: DEC 10, 2021@20:00 ENTRY DATE: DEC 13, 2021@15:13:51 AUTHOR: YRIS SANCHEZ EXP COSIGNER: URGENCY: STATUS: COMPLETED [place] self-presented to [facility] emergency fa cility Emergency Notification Intake Date Presenting to the Facility: Nov [facility] Name: Hospital: [facility] Address: City: [place] State: [place] Zip Code: Phone : Chief complaint: CP Primary Diagnosis: Patient Admitted? Yes, then was transferred to [facility] for higher level of cardiology care. [facility] Point of Contact: Name: BRIAN Yoo Notification ID #[id number] EOC approved under 1703 by the National ER Notif ication Team [employer] ([employer]) Ref #:[id number] /meena/ YRIS OSMAN RN OCC EMERGENCY PODIATRIC MEDICINE PROFESSOR Signed: 12/13/2021 15:19 Receipt Acknowledged By: * AWAITING SIGNATURE * AXEL JORGENSEN
--- OUTSIDE RECORDS SUMMARY | 2022-02-09 10:41 | XMS_ITS | Encounter Summary ---
:1950 Author Organization [facility] Address [address] [place] [address] Support Name Relationship Address Phone ZUHAIR FOSTER Unavailable [address] [place] [address] ZUHAIR FOSTER Unavailable [address] [place] [address] Insurance Providers: All historical and current Section [...] Liu CBA [facility] [place] Jan 25, [id number] [id number] [phone] DO Stephanie FOSTER SPOUSE DEDUCTIBL [place] [id number] NA E [facility] PLAN EXPRESS PRESCRIPT WEIDM May 27, RXBWEID [id number] [phone] PEYTON FOSTER SPOUSE SCRIPTS ION [place] 2017 [id number] NA ([phone]) ([facility] ) MEDICARE MEDICARE PART Jan 25, PART A [id number] CRISTIAN, AND PATIENT (WNR) (M) A 2013 VU70 2 REW Selected Encounter This section includes the information on record at [place] for the Encounter. Date/Time Encounter Type Encounter Reason Provider Source Description Dec 27, 2021 OFFICE O/P EST PRIMARY ICD-10-CM I25.119 VO,[place] P 11:31 AM LOW 20-29 MIN CARE/MEDICINE [facility] heart disease of inupiat cor art w unsp ang pctrs with Provider Comments: Atherosclerotic Heart Disease of [place] Coronary Artery with unspecified Angina Pectoris IHE Encounter Template Text not used by [facility] Assessments - Encounter Diagnoses This section includes the primary and secondary diagnoses documented for the Encounter. Date/Time Primary/Secondary Diagnosis Name Provider Source Diagnosis Jan 16, 2022 10:05 PRIMARY Ath[facility] heart VO,[place] P [place] [facility] AM disease of inupiat [facility] cor art w unsp ang pctrs Plan of Treatment: Future Appointments (+ 6 months) and Future Tests (+/- 45 days) The Plan of Treatment section includes future care activities for the patient from all [place] treatmentfacilities. This section includes future appointments and future orders which are active, pending orscheduled.Future Appointments This section includes appointments that were scheduled to occur 6 months from the date of the Encounter, up to a maximum of 20 appointments. The data comes from all [place] treatment facilities. Appointment Date/Time Appointment Type Appointment Facili ty Name Jan 18, 2022 11:00 AM AMBULATORY - REHAB MEDICINE [facility] Jan 22, 2022 09:30 AM AMBULATORY - MEDICINE [facility] Jan 22, 2022 09:31 AM AMBULATORY - NONE [facility] Feb 12, 2022 10:30 AM AMBULATORY - SURGERY [facility] Feb 20, 2022 08:45 AM AMBULATORY - NONE [facility] Feb 20, 2022 09:00 AM AMBULATORY - REHAB MEDICINE [facility] Mar 30, 2022 08:30 AM AMBULATORY - MEDICINE [facility] Active, Pending, and Scheduled Orders This section includes a listing of several types of active, pending, and scheduled orders, including clinic medications orders, diagnostic test orders, procedure orders and consult orders; where the start date of the order is 45 days before the date of the Encounter or 45 days after the date of the Encounter. The data comes from all [place] treatment facilities. Test Date/Time Test Type Test Details Facility Name Dec 13, 2021 02:13 PM Consult Order [facility] Cons [employer] Report Developer's Choice Dec 25, 2021 12:02 PM Consult Order [facility]-OPTOM[facility]RY S [facility] DIS[facility] MANAGEMENT Cons [employer] Report Developer's Choice Lab Results: +/- 30 days of the encounter This section includes the Chemistry and Hematology Lab Results on record with [place] for the patient. Radiology Reports and Pathology Reports are provided separately, in subsequent sections.Lab Results This section contains the Chemistry/Hematology Results that were resulted 30 days before or 30 daysafter the date of the Encounter. Date/Time Source Result Type Result - Unit Interpretation Reference Range Comment Jan 22, 2022 09:55 AM [place] [facility] MAGNESIUM Sp ecimen Type: PLASMA Comment: Tests performed on Blockboard (405) [id number] Ordering Provid er: [place] TORRES P Report Released Date/Time: Jan 22, 2022 09:48 AM Reporting Lab: [place] [facility] [address] [facility] [address] Performing Lab: [place] [facility] [address] [facility] [address] MAGNESIUM 0.7 L 1.6-2.6 Jan 22, 2022 09:55 AM [place] [facility] PHOSPHORUS Sp ecimen Type: PLASMA Comment: Tests performed on Blockboard (405) [id number] Ordering Provid er: [place] TORRES P Report Released Date/Time: Jan 22, 2022 09:48 AM Reporting Lab: [place] [facility] [address] [facility] [address] Performing Lab: [place] [facility] [address] [facility] [place] [address] PHOSPHORUS 3.2 2.5-5.0 Jan 22, 2022 09:55 AM [place] [facility] CALCIUM Sp ecimen Type: PLASMA Comment: Tests performed on Blockboard (405) [id number] Ordering Provid er: [place] TORRES P Report Released Date/Time: Jan 22, 2022 09:48 AM Reporting Lab: [place] [facility] [address] [facility] [place] [address] Performing Lab: [place] [facility] [address] [facility] [place] [address] CALCIUM 8.8 8.5-10.5 Jan 22, 2022 09:55 [place] P4 GLU,BUN,CREAT,LYTES,CA Sp ecimen Type: PLASMA AM [facility] Comment: Tests performed on Blockboard (405) [id number] Ordering Provid er: [place] TORRES P Report Released Date/Time: Jan 22, 2022 09:48 AM Reporting Lab: [place] [facility] [address] [facility] [place] [address] Performing Lab: [place] [facility] [address] [facility] [address] UREA NITROGEN 13 7-25 SODIUM 137 135-145 POTASSIUM 3.8 3.5-5.0 CHLORIDE 99 L 100-110 CARBON DIOXIDE 26 20-30 ANION GAP 12 4-16 GLUCOSE 121 H 65-100 CREATININE 0.89 0.5-1.5 CALCIUM 8.8 8.5-10.5 eGFR(CKD-EPI 2020) >90.0 >60 Social History: Smoking Status (Most current) and Tobacco Use (All prior to encounter date) This section includes the most current, and the historical, smoking and tobacco-related health factors from the [place] facility where the Encounter took place.Current Smoking Status This section includes the most current smoking, or tobacco-related health factor, from the [place] facility where the Encounter took place. Date/Time Current Smoking Status Comment Facility Feb 06, 2019 11:00 PM CURRENT SMOKER SARAH Whitney [facility] Tobacco Use History This section includes a history of the smoking, or tobacco- related health factors, that were collected on or before the date of the Encounter. The data comes from the [place] facility where the Encounter took place. Date/Time Smoking Status/Tobacco Use Comment [facility] Feb 06, 2019 05:51 PM CURRENT SMOKER SARAH Whitney [facility] Encounter Notes: All associated encounter notes This section contains the clinical notes associated to the Encounter. Date/Time Encounter Note(s) Provider Source Dec 27, 2021 08:33 AM PRIMARY CARE NOTE: [place] TORRES [facility] LOCAL TITLE: Primary Care Clinic Note STANDARD TITLE: PRIMARY CARE NOTE DATE OF NOTE: DEC 27, 2021@08:33 ENTRY DATE: DEC 27, 2021@08:33:24 AUTHOR: [place] TORRES EXP COSIGNER: URGENCY: STATUS: COMPLETED TELEHEALTH F/U NOTE LAST SEEN: 09/27/21 CRISTIANANASTASIA NEVAREZ is a 71 year old MALE here f or a Primary Care Follow-up visit for post-hospitalization for NSTEMI. S: See below as noted in a/p. ROS: denies any cardiac/pulm/GI//or co nstitutional symptoms of F/C except as noted in a/p. 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..] ATTACK OR FOR PAIN/SWELLING/INFLAMMATION 5) ATORVASTATIN CALCIUM 80MG TAB TAKE ONE TABLET BY ACTIVE MOUTH EVERY EVENING TO LOWER CHOLESTEROL 6) CLOPIDOGREL BISULFATE 75MG TAB TAKE ONE TABLE T BY ACTIVE MOUTH EVERY DAY TO PREVENT BLOOD CLOTS 7) LISINOPRIL 5MG TAB TAKE ONE TABLET BY MOUTH E VERY DAY ACTIVE TO CONTROL BLOOD PRESSURE 8) MAGNESIUM OXIDE 400MG TAB TAKE ONE TABLET BY MOUTH ACTIVE EVERY DAY 9) METFORMIN HCL 1000MG TAB TAKE ONE TABLET BY M OUTH ACTIVE TWICE DAILY WITH MEALS FOR DIABETES 10) METOLAZONE 2.5MG TAB TAKE ONE TABLET BY MOUT H EVERY ACTIVE MORNING 11) METOPROLOL SUCCINATE 50MG SA TAB TAKE ONE TA BLET BY ACTIVE MOUTH EVERY DAY FOR BLOOD PRESSURE/HEART 12) NICOTINE 14MG/24HR PATCH APPLY 1 PATCH TOPIC ALLY ACTIVE EVERY DAY TO STOP TOBACCO USE 13) NICOTINE 7MG/24HR PATCH APPLY 1 PATCH TOPICA LLY EVERY ACTIVE DAY TO STOP TOBACCO USE 14) NITROGLYCERIN 0.4MG SL TAB TAKE ONE TABLET U NDER THE ACTIVE TONGUE EVERY 5 MINUTES NEEDED FOR CHEST PAIN (ANGINA) MAY REPEAT FOR THREE DOSES (IF NO RELIEF,SEEK MEDICAL ATTENTION PROMPTLY)DO NOT TAKE SILDENAFIL WHILE ON THIS MEDICATION 15) PANTOPRAZOLE NA 40MG EC TAB TAKE ONE TABLET BY MOUTH ACTIVE EVERY DAY FOR STOMACH ACID (TAKE HALF-HOUR BEFO RE A MEAL(S) 16) POTASSIUM CHLORIDE 10MEQ SA TAB TAKE ONE TAB LET BY ACTIVE MOUTH EVERY DAY TO SUPPLEMENT POTASSIUM 17) PREGABALIN 75MG ORAL CAP TAKE ONE CAPSULE BY MOUTH ACTIVE TWICE A DAY TO PREVENT SEIZURES OR NEUROPATHIC PAIN 18) SILDENAFIL CITRATE 100MG TAB TAKE ONE TABLET BY MOUTH ACTIVE NEEDED FOR ERECTILE DYSFUNCTION , MAX USE ON CE IN 24 HOUR PERIOD Active Non-VA Medications Status 1) Non-VA FLUTICASONE PROP 50MCG 120D NASAL INHL 1 SPRAY ACTIVE INTO EACH NOSTRIL EVERY DAY 2) Non-VA MAGNESIUM OXIDE 420MG TAB 420MG BY RENETTA TH EVERY ACTIVE DAY 3) Non-VA MULTIVITAMIN/MINERALS CAP/TAB ONE CAP/ TAB BY ACTIVE MOUTH EVERY DAY 21 Total Medications ALLERGIES/ADR: SHELLFISH O: T 96.8 P 92 R 18 BP 129/80 Pain 0 POX 97% BMI 29.13 GEN: NAD NEURO: A&Ox3 RESP: speaking in full sentences Labs reviewed. A/P: # Inferior STEMI / Multivessel ASCVD: Pt w/ rece dnt STEMI. [facility] 12/11/21 showed culprit prox RCA lesion s/p MASON, residual LAD disease s/p staged PCI [facility] 12/12/21 with atherectomy and stent insertion of mid LAD and MASON to prox LAD and ostial D2. [facility] 12/11/21 showed preserved LVEF 57 % without WMAs, RV with mildly reduced function and with hypokinetic mid to api nicholas RV free wall. Today, pt reports no recurrence of chest pain. BP controlled. -con't DAPT (aspirin 81 mg daily + clopidogrel 7 5mg daily) x12 months -[facility] -enrolled [facility] cardiac rehab Disposition: f/u as scheduled in Jan w/ main PC P Pact F. Sooner prn. /meena/ [place] TORRES DBinO. Signed: 01/16/2022 10:05
--- OUTSIDE RECORDS SUMMARY | 2022-02-09 10:41 | XMS_ITS | Encounter Summary ---
:1950 Author Organization [facility] Address [address] [place] [id number] Support Name Relationship Address Phone ZUHAIR FOSTER Unavailable [address] [place] [address] ZUHAIR FOSTER Unavailable [address] [place] [address] Insurance Providers: All historical and current Section [...] to Policy Number Liu CBA [facility] Jan 25, [id number] [phone] DO Stephanie FOSTER SPOUSE DEDUCTIBL [place] 2013 [id number] NA [facility] PLAN EXPRESS PRESCRIPT WEI May 27, RXBWEID [id number] [phone] PEYTON FOSTER SPOUSE SCRIPTS ION [place] 2017 [id number] NA ([id number]) (HD ) MEDICARE MEDICARE PART Jan 25, PART A [id number] CRISTIAN, AND PATIENT (WNR) (M) A 2013 VU70 2 REW Selected Encounter This section includes the information on record at [place] for the Encounter. Date/Time Encounter Type Encounter Reason Provider Source Description Jan 08, 2022 08:40 Outpatient TELEPHONE TRIAGE SONJA FELIZ AM Encounter [place] [facility] Encounter Template Text not used by [...] 20 appointments. The data comes from all [place] treatment facilities. Appointment Date/Time Appointment Type Appointment Facili ty Name Jan 18, 2022 11:00 AM AMBULATORY - REHAB MEDICINE [facility] Jan 22, 2022 09:30 AM AMBULATORY - MEDICINE [facility] Jan 22, 2022 09:31 AM [facility]ONE [facility] Feb 12, 2022 10:30 AM [facility]ORY - [place] [facility] Feb 20, 2022 08:45 AM AMBULATORY [facility] NONE [facility] Feb 20, 2022 09:00 AM AMBULATORY - REHAB MEDICINE [facility] Mar 30, 2022 08:30 AM AMBULATORY - MEDICINE [facility] Active, Pending, and Scheduled Orders This section includes a listing of several types of active, pending, and scheduled orders, including clinic medications orders, diagnostic test orders, procedure orders and consult orders; where the start date of the order is 45 days before the date of the Encounter or 45 days after the date of the Encounter. The data comes from all [place] treatment [facility]. Test Date/Time Test Type Test Details Facility Name Dec 13, 2021 02:13 Consult Order COMMUNITY CARE-CARDIAC [facility] PM REHABILITATION Cons Beam Car[facility] P[facility] Dec 25, 2021 12:02 Consult Order COMMUNITY [facility]-OPTOMETRY [facility] PM DISEASE MANAGEMENT Cons [facility]am [facility] Feb 12, 2022 12:00 Laboratory - LIPOPROTEIN CHOLESTEROL [facility] AM Chemistry Order FRACT. PANEL LT GREEN(LI HEP) PLASMA Feb 19, 2022 12:00 Laboratory - CALCIUM [place](LI [place]) [place] [facility] Chemistry Order PLASMA [facility] Feb 19, 2022 12:00 Laboratory - P4 GLU,BUN,CREAT,LYTES,CA [place] AM Chemistry Order LT GREEN(LI HEP) PLASMA [facility] Feb 19, 2022 12:00 Laboratory - MAGNESIUM LT GREEN(LI [place] AM Chemistry Order HEP) [facility]ASMA SP [facility] Feb 19, 2022 12:00 Laboratory - PHOSPHORUS LT GREEN(LI [place] AM Chemistry Order HEP) PLASMA [facility] Lab Results: +/- 30 days of the encounter This section includes the Chemistry and Hematology Lab Results on record with [facility] for the patient. Radiology Reports and Pathology [...] ecimen Type: PLASMA Comment: Tests performed on [email or web address] (405) [id number] Ordering Provid er: [place] TORRES Report Released Date/Time: Jan 22, 2022 09:48 AM Reporting Lab: [place] [facility] [address] [facility] [address] Performing Lab: [place] [facility] [address] [place] [facility] [place] [place] [address] CALCIUM 8.8 8.5-10.5 Jan 22, 2022 09:55 AM [place] [facility] PHOSPHORUS Sp ecimen Type: PLASMA Comment: Tests performed on [email or web address] (405) [id number] Ordering Provid er: [place] TORRES Report Released Date/Time: Jan 22, 2022 09:48 AM Reporting Lab: [place] [facility] [address] [place] [facility] [place] [address] Performing Lab: [place] [facility] [address] [place] [facility] [place] [address] PHOSPHORUS 3.2 2.5-5.0 Jan 22, 2022 09:55 AM [place] [facility] MAGNESIUM Sp ecimen Type: PLASMA Comment: Tests performed on [email or web address] (405) [id number] Ordering Provid er: [place] TORRES Report Released Date/Time: Jan 22, 2022 09:48 AM Reporting Lab: [place] [facility] [address] [place] [facility] [place] [address] Performing Lab: [place] [facility] [address] [place] [facility] [place] [address] MAGNESIUM 0.7 L 1.6-2.6 Jan 22, 2022 09:55 [place] P4 GLU,BUN,CREAT,LYTES,CA Sp ecimen Type: PLASMA AM [facility] Comment: Tests performed on [email or web address] (405) [id number] Ordering Provid er: [place] TORRES Report Released Date/Time: Jan 22, 2022 09:48 AM Reporting Lab: SARAH PERES [facility] [address] [facility] [address] Performing Lab: [facility] [address] [facility] [address] UREA NITROGEN 13 7-25 SODIUM 137 135-145 [...] smoking and tobacco-related health factors from the [place] facility where the Encounter took place.Current Smoking Status This section includes the most current smoking, or tobacco-related health factor, from the [place] facility where the Encounter took place. Date/Time Current Smoking Status Comment Facility Feb 06, 2019 11:00 PM CURRENT SMOKER SARAH Whitney [facility] Tobacco Use History This section includes a history of the smoking, or tobacco- related health factors, that were collected on or before the date of the Encounter. The data comes from the [place] facility where the Encounter took place. Date/Time Smoking Status/Tobacco Use Comment [facility] Feb 06, 2019 05:51 PM CURRENT SMOKER SARAH PERES [facility] Encounter Notes: All associated encounter notes This section contains the clinical notes associated to the Encounter. Date/Time Encounter Note(s) Provider Source Jan 08, 2022 08:40 AM RN PROGRESS NOTE: RUEL FELIZ [facility] LOCAL TITLE: CCC: CLINICAL TRIAGE [facility] STANDARD TITLE: RN PROGRESS NOTE DATE OF NOTE: JAN 08, 2022@08:40:25 ENTRY DATE: JAN 08, 2022@08:40:25 AUTHOR: RUEL FELIZ EXP COSIGNER: URGENCY: STATUS: COMPLETED CCC: CLINICAL TRIAGE Has ADDENDA Patient Demographics Patient Name: ANASTASIA FOSTER Patient Primary [address]: [address] [place] [address]
[address] [place] [address] Patient Primary Phone: [phone] Patient : 1950 SSN: [id number] Patient Age: 71 Caller Relationship: Self Emergency Contactx: ZUHAIR FOSTER Emergency Contact Phonex: Triage Summary Nurse Summary: Patient called to report over a w eklutna of cold symptoms and now lightheadedness. He also feels shaky but his AM blood sugar was 115. He had [place] 6 weeks ago. He tested for COVID sometime near o nset of symptoms. He was encouraged to go to local ED . He has number for [facility] ED. He was again given the 72 hour disclaimer. Pain Score: 0 (No Pain) Conducted triage/discussed symptoms Utilized the Triage Tool: Yes Chief Complaint: Lightheadedness System WHEN: Now Nurse's Recommendation / WHEN: Now System WHERE: Emergency department Nurse's Recommendation / WHERE: ED [place] Patient Disposition Patient/Caregiver agrees to plan of care: Yes Summary of Actions Referred patient to emergency services Instructed to go to Emergency Department Clinical Contact Center Codes Clinic/Location: [facility] PHONE CCC RN TXCC Triage Complete Triage Note: Phone Triage 08 Jan 2022 12:35:38 +0000 [facility] Demographics 71 y/o Male Results CC: Lightheadedness Software suggested: Now Software suggested follow-up location: Emergenc y department Values and Measures Duration of CC: 1 Weeks Alerts 1) This is a HIGHER COMPLEXITY patient. Positive Responses HPI: weakness, with lightheadedness, duration l onger than 10 minutes PMH: heart attack PMH: heart disease VS: BP not taken Negative Responses Denies: HPI: abdominal pain Denies: HPI: arm or jaw pain with episode of li ghtheadedness Denies: HPI: chest pain Denies: HPI: diaphoresis with presyncope, durat ion longer than 10 minutes Denies: HPI: dyspnea, new or worsening Denies: HPI: lightheadedness and nausea, durati on longer than 10 minutes Denies: HPI: syncope Denies: HPI: vertigo Denies: PMH: angina /es/ RUEL LAI 1 [facility] RN Signed: 01/08/2022 08:40 Receipt Acknowledged By: 01/08/2022 16:08 /es/ JOAQUIN ROSS Registered Nurse * AWAITING SIGNATURE * AXEL JORGENSEN 01/08/2022 15:27 /es/ [place] TORRES D.O. 01/08/2022 ADDENDUM STATUS: COMPLETED RN received call from ER at [facility]. Pt. is admitted . /meena/ JOAQUIN ROSS Registered Nurse Signed: 01/08/2022 16:08
--- OUTSIDE RECORDS SUMMARY | 2022-02-09 10:41 | XMS_ITS | Encounter Summary ---
:1950 Author Organization [facility] Address [address] [place] [id number] Support Name Relationship Address Phone ZUHAIR FOSTER Unavailable [address] [place] [address] ZUHAIR FOSTER Unavailable [address] [place] [address] Insurance Providers: All historical and current Section [...] to Policy Number Liu CBA [facility] Jan 25, 51817 [id number] [phone] DO Stephanie FOTSER SPOUSE DEDUCTIBL [place] 2013 [id number] NA [facility] PLAN EXPRESS PRESCRIPT WEI May 27, RXBWEID [id number] [phone] PEYTON FOSTER SPOUSE SCRIPTS ION [place] 2017 [id number] 557 NA ([id number]) (HD ) MEDICARE MEDICARE PART Jan 25, PART A [id number] CRISTIAN, AND PATIENT (WNR) (M) A 2013 VU70 2 REW Selected Encounter This section includes the information on record at [place] for the Encounter. Date/Time Encounter Type Encounter Description Reason Provider Source Dec 25, 2021 09:56 Outpatient Encounter TELEPHONE TRIAGE AM IHE Encounter Template Text not used [...] 20 appointments. The data comes from all [place] treatment facilities. Appointment Date/Time Appointment Type Appointment Facili ty Name Dec 27, 2021 11:30 AM AMBULATORY - MEDICINE [facility] Dec 27, 2021 11:31 AM [facility]ONE [facility] Dec 27, 2021 12:00 PM AMBULATORY - MEDICINE [facility] Jan 18, 2022 11:00 AM AMBULATORY - [facility] MEDICINE [facility] Jan 22, 2022 09:30 AM AMBULATORY - MEDICINE [facility] Jan 22, 2022 09:31 AM [facility] NONE [facility] Feb 12, 2022 10:30 AM [facility] Feb 20, 2022 08:45 AM AMBULATORY - NONE [facility] Feb 20, 2022 09:00 AM AMBULATORY - REHAB MEDICINE [facility] Mar 30, 2022 [...] the Encounter. The data comes from all [place] treatment [facility]. Test Date/Time Test Type Test Details Facility Name Dec 13, 2021 02:13 PM Consult Order [facility] Cons Switch House Operator's Choice Dec 25, 2021 12:02 PM Consult Order [facility]-OPTOMETRY S [facility] DISEASE MANAGEMENT Cons [facility] Lab Results: +/- 30 days of the encounter This section includes the Chemistry and Hematology Lab Results on record with [place] for the patient. Radiology Reports and Pathology Reports are provided separately, in subsequent sections.Lab Results This section contains the Chemistry/Hematology Results that were resulted 30 days before or 30 daysafter the date of the Encounter. Date/Time Source Result Type Result - Unit Interpretation Reference Range Comment Jan 22, 2022 09:55 AM [place] [facility] MAGNESIUM Sp ecimen Type: PLASMA Comment: Tests performed on [employer]TWIP (405) [id number] Ordering Provid er: [place] TORRES P Report Released Date/Time: Jan 22, 2022 09:48 AM Reporting Lab: [place] [facility] [address] [facility] [address] Performing Lab: [place] [facility] [address] [facility] [address] MAGNESIUM 0.7 L 1.6-2.6 Jan 22, 2022 09:55 AM [place] [facility] PHOSPHORUS Sp ecimen Type: PLASMA Comment: Tests performed on XTWIP (405) [id number] Ordering Provid er: [place] TORRES P Report Released Date/Time: Jan 22, 2022 09:48 AM Reporting Lab: [place] [facility] [address] [facility] [address] Performing Lab: [place] [facility] [address] [facility] [address] PHOSPHORUS 3.2 2.5-5.0 Jan 22, 2022 09:55 AM [place] [facility] CALCIUM Sp ecimen Type: PLASMA Comment: Tests performed on XTWIP (405) [id number] Ordering Provid er: [place] TORRES P Report Released Date/Time: Jan 22, 2022 09:48 AM Reporting Lab: [place] [facility] [address] [facility] [address] Performing Lab: [place] [facility] [address] [facility] [address] CALCIUM 8.8 8.5-10.5 Jan 22, 2022 09:55 [place] P4 GLU,BUN,CREAT,LYTES,CA Sp ecimen Type: PLASMA AM [facility] Comment: Tests performed on XTWIP (405) [id number] Ordering Provid er: [place] TORRES P Report Released Date/Time: Jan 22, 2022 09:48 AM Reporting Lab: [place] [facility] [address] [facility] [address] Performing Lab: [place] [facility] [address] [facility] [address] UREA NITROGEN 13 7-25 SODIUM 137 135-145 [...] smoking and tobacco-related health factors from the [place] facility where the Encounter took place.Current Smoking Status This section includes the most current smoking, or tobacco-related health factor, from the [place] facility where the Encounter took place. Date/Time Current Smoking Status Comment Facility Feb 06, 2019 11:00 PM CURRENT SMOKER SARAH Whitney [facility] Tobacco Use History This section includes a history of the smoking, or tobacco- related health factors, that were collected on or before the date of the Encounter. The data comes from the [place] facility where the Encounter took place. Date/Time Smoking Status/Tobacco Use Comment [facility] Feb 06, 2019 05:51 PM CURRENT SMOKER SARAH Whitney [facility] Encounter Notes: All associated encounter notes This section contains the clinical notes associated to the Encounter. Date/Time Encounter Note(s) Provider Source Dec 25, 2021 09:57 AM PRIMARY CARE ADMINISTRATIVE NOTE: Lauri GRAHAM [facility] LOCAL TITLE: Administrative Note/Primary Care STANDARD TITLE: PRIMARY CARE ADMINISTRATIVE NOTE DATE OF NOTE: DEC 25, 2021@09:57 ENTRY DATE: DEC 25, 2021@09:57:05 AUTHOR: TIN GRAHAM EXP COSIGNER: URGENCY: STATUS: COMPLETED is requesting renewal of Community Care consult for: Routine Eye care Preferred facility for consult: Reason For Request: Justification for Non [place] Care: drive time Home [facility] Address: [address] [place] [address] DX: Routine Eye Exam /meena/ TIN GRAHAM AMSA Signed: 12/25/2021 09:57 Receipt Acknowledged By: 12/25/2021 10:06 /es/ AXEL JORGENSEN LPN * AWAITING SIGNATURE * [place] TORRES
--- OUTSIDE RECORDS SUMMARY | 2022-02-09 10:41 | XMS_ITS | Encounter Summary ---
:1950 Author Organization [facility] Address [address] [place] [address] Support Name Relationship Address Phone JACKELYN FOSTER Unavailable [address] [place] [address] JACKELYN FOSTER Unavailable [address] [place] [address] Insurance Providers: All historical and current Section [...] Liu CBA [facility]UE [place]IGH [place] Jan 25, [id number] [phone] DO Stephanie FOSTER SPOUSE DEDUCTIBL [place] 2013 [id number] NA E [facility] PLAN EXPRESS PRESCRIPT WEIDM May 27, RXBWEID [id number] [phone] PEYTON FOSTER SPOUSE SCRIPTS ION [place] 2017 [id number] NA ([id number]) ([facility] ) MEDICARE MEDICARE PART Jan 25, PART A [id number] CRISTIAN, AND PATIENT (WNR) (M) A 2013 [id number] REW Selected Encounter This section includes the information on record at [place] for the Encounter. Date/Time Encounter Type Encounter Reason Provider Source Description Dec 27, 2021 OFFICE CARDIOLOGY ICD-10-CM I25.9 KENNETH NOYOLA 12:00 PM CONSULTATION Chronic ischemic E M heart disease, unspecified with Provider Comments: Chronic ischemic heart disease (SCT [id number]) IHE Encounter Template Text not used by [facility] Assessments - Encounter Diagnoses This section includes the primary and secondary diagnoses documented for the Encounter. Date/Time Primary/Secondary Diagnosis Name Provider Source Diagnosis Dec 27, 2021 PRIMARY Chronic ischemic TENISHA NOYOLA [facility] 12:42 PM heart disease, M [facility] unspecified Dec 27, 2021 SECONDARY Essential (primary) TENISHA NOYOLA [facility] 12:42 PM hypertension M [facility] Dec 27, 2021 SECONDARY Hyperlipidemia, TENISHA NOYOLA URY 12:42 PM unspecified M [facility] Dec 27, 2021 SECONDARY Nicotine [facility] 12:42 PM dependence, M [facility] cigarettes, uncomplicated Dec 27, 2021 SECONDARY Other specified TENISHA NOYOLA URY 12:42 PM peripheral vascular M [facility] diseases Dec 27, 2021 SECONDARY Type 2 diabetes TENISHA NOYOLA URY 12:42 PM mellitus without M [facility] complications Dec 27, 2021 SECONDARY Venous TENISHA NOYOLA 12:42 PM insufficiency M [facility] (chronic) (peripheral) Plan of Treatment: Future Appointments (+ 6 months) and Future Tests (+/- 45 days) The Plan of Treatment section includes future care activities for the patient from all [place] treatmentfacilities. This section includes future appointments and [...] 11:00 AM AMBULATORY - REHAB MEDICINE [facility] Jan 22, 2022 09:30 AM AMBULATORY - MEDICINE [facility] OC Jan 22, 2022 09:31 AM [facility] Feb 12, 2022 10:30 AM [facility] Feb 20, 2022 08:45 AM AMBULATORY - NONE [facility] INIC Feb 20, 2022 09:00 AM AMBULATORY - REHAB MEDICINE [facility] CBOC Mar 30, 2022 08:30 AM AMBULATORY - MEDICINE [facility] OC Active, Pending, and Scheduled Orders This section includes a listing of several types of active, pending, and scheduled orders, including clinic medications orders, diagnostic test orders, procedure orders and consult orders; where the start date of the order is 45 days before the date of the Encounter or 45 days after the date of the Encounter. The data comes from all [place] treatment facilities. Test Date/Time Test Type Test Details Facility Name Dec 13, 2021 02:13 PM Consult Order [facility] CARE-CARDIAC [facility] Cons Conduit Cleaner's Choice Dec 25, 2021 12:02 PM Consult Order PENDING SALE TO [facility]-OPTOMETRY S [employer] [facility]NA[facility] Cons Conduit Cleaner's Choice Lab Results: +/- 30 days of the encounter This section includes the Chemistry and Hematology Lab Results on record with [place] for the patient. Radiology Reports and Pathology [...] ecimen Type: PLASMA Comment: Tests performed on [employer] (405) [id number] Ordering Provid er: EVERTON TORRES Report Released Date/Time: Jan 22, 2022 09:48 AM Reporting Lab: [facility] [address] [place] [facility] [place] [place] [address] Performing Lab: [facility] [address] [place] [facility] [place] [address] MAGNESIUM 0.7 L 1.6-2.6 Jan 22, 2022 09:55 AM [facility] PHOSPHORUS Sp ecimen Type: PLASMA Comment: Tests performed on [employer] (405) [id number] Ordering Provid er: EVERTON TORRES Report Released Date/Time: Jan 22, 2022 09:48 AM Reporting Lab: [facility] [address] [place] [facility] [place] [address] Performing Lab: [facility] [address] [place] [facility] [place] [address] PHOSPHORUS 3.2 2.5-5.0 Jan 22, 2022 09:55 AM [facility] CALCIUM Sp ecimen Type: PLASMA Comment: Tests performed on [employer] (405) [id number] Ordering Provid er: EVERTON TORRES Report Released Date/Time: Jan 22, 2022 09:48 AM Reporting Lab: [facility] [address] [place] [facility] [place] [address] Performing Lab: [facility] [address] [facility] [address] CALCIUM 8.8 8.5-10.5 Jan 22, 2022 09:55 [place] P4 GLU,BUN,CREAT,LYTES,CA Sp ecimen Type: PLASMA AM [facility] Comment: Tests performed on [employer] (405) [id number] Ordering Provid er: EVERTON TORRES Report Released Date/Time: Jan 22, 2022 09:48 AM Reporting Lab: [place] [facility] [facility] [address] [facility] [address] Performing Lab: [facility] [address] [facility] [address] UREA NITROGEN 13 7-25 SODIUM 137 135-145 POTASSIUM 3.8 3.5-5.0 CHLORIDE 99 L 100-110 CARBON DIOXIDE 26 20-30 ANION GAP 12 4-16 GLUCOSE 121 H 65-100 CREATININE 0.89 0.5-1.5 CALCIUM 8.8 8.5-10.5 eGFR(CKD-EPI 2020) >90.0 >60 Vital Signs: All taken on the encounter date This section contains inpatient and outpatient Vital Signs collected on the date of the Encounter. Date/Time Temperature Pulse Blood Respiratory SP02 Pain Height Weight Michael dy Source Pressure Rate Mass Index Dec 27, 96.8 F 92 129/80 97 % 0 68 in 191.2 29 2021 11:20 /min mm[Hg] lb [facility] AM [facility] Social History: Smoking Status (Most current) and [...] took place. Date/Time Current Smoking Status Comment [facility] September 27, 2021 09:00 AM VA-TOBACCO USER EVERY DAY [facility] Tobacco Use History This section includes a history of the smoking, or tobacco- related health factors, that were collected on or before the date of the Encounter. The data comes from the [place] facility where the Encounter took place. Date/Time Smoking Status/Tobacco Use Comment [facility] September 27, 2021 09:00 AM VA-TOBACCO USE ADVICE [facility] September 27, 2021 09:00 AM VA-TOBACCO USE ANGLEDOZER OPERATOR NO [facility] September 27, 2021 09:00 AM VA-TOBACCO USE MED NO [facility] September 27, 2021 09:00 AM VA-TOBACCO USE WI 30 MIN OF WAKEUP [facility] September 27, 2021 09:00 AM VA-TOBACCO USER EVERY DAY [facility] Dec 15, 2019 09:22 AM VA-TOBACCO USE 30 YEARS OR MORE [facility] Dec 15, 2019 09:22 AM VA-TOBACCO USE ADVICE [facility] Dec 15, 2019 09:22 AM VA-TOBACCO USE 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 [facility] Dec 15, 2019 09:22 AM VA-TOBACCO USE MED NO [facility] Dec 15, 2019 09:22 AM VA-TOBACCO USE WI 30 MIN OF WAKEUP [facility] Dec 15, 2019 09:22 AM VA-TOBACCO USER EVERY DAY [facility] Jun 18, 2018 12:32 PM VA-TOBACCO USE 30 YEARS OR MORE [facility] Jun 18, 2018 12:32 PM VA-TOBACCO USE ADVICE [facility] Jun 18, 2018 12:32 PM VA-TOBACCO USE 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 OPERATOR NO [facility] Jun 18, 2018 12:32 PM VA-TOBACCO USE MED NO [facility] Jun 18, 2018 12:32 PM VA-TOBACCO USE WI 30 MIN OF WAKEUP [facility] Jun 18, 2018 12:32 PM VA-TOBACCO USER EVERY DAY [facility] Sep 19, 2017 03:23 PM CURRENT SMOKER [facility] Sep 19, 2017 03:23 PM V1-PT NOT INTERESTED IN QUIT TOBACCO [facility] USE Encounter Notes: All associated encounter notes This section contains the clinical notes associated to the Encounter. Date/Time Encounter Note(s) Provider Source Dec 27, 2021 08:26 AM CARDIOLOGY CONSULT: TENISHA NOYOLA [facility] LOCAL TITLE: CONSULT: RESEARCH SCHOLAR Cardiology STANDARD TITLE: CARDIOLOGY CONSULT DATE OF NOTE: DEC 27, 2021@08:26 ENTRY DATE: DEC 27, 2021@08:26:34 AUTHOR: TENISHA NOYOLA EXP COSIGNER: URGENCY: STATUS: COMPLETED Reason for Consultation: Mr. Foster is a 71 y.o. referred to Cardiology following STEMI in November. HPI: Mr. Foster states he was out to dinner, he felt really tired, he put his hand on the table, his head dropped to the table, his CONTRERAS noticed that he wasn't getting better and called 911 - he was hypotensive. In 2009 he had an angiogram prior to surgery, he tells me they found a blockage (or a couple of them) but co uld not or didn't need to do anything at that time. Since his intervention in November he states that th ings have been going well. He lives in [place], [place]. He states he putters around the house, goes camping quite a bit, usually up in [place], [place] a camp up there. He describes SOB prettey easily particularly w ith walking or something strenous. This predates his WA in November; he states it may be a little bit better, he isn't sure. He starts car diac rehab Saturday and he was told 'they will have me walking 30 minutes without getting winded, I hav e my doubts but we'll see. Cardiac rehab at [facility]. He denies any exertional rob st pain or pressure. HE staets when he had his WA he had pain in his back between his shoulder blades - none of that since. He denies any orthopnea, PND, LE edema. Does hav e chronic LE edema but metolazone and comrpession manage this he tells me. He sleeps ~5 hours or so he tells me. He is a current smoker, but working on cutting b [employer], down to 4 cigarettes per day from 1 PPD with the patch. Past Medical History: #ASCVD -s/p Inferior STEMI November 2021 -12/12/21 atherectomy with PCI to mid LAD and DE S to prox LAD and ostial D2 -12/11/21 PCI to culprit prox RCA w/MASON -TTE 12/11/21 -LVEF 57%, without rwma, RV mildly reduced func tion, HK mid to apical RV free wall -DAPT x12 months #HTN #HLD -LDL September #Peripheral Vascular disease #Chronic Venous Insufficiency #DMII -A1c 6.4% September 2021 #Anemia #GERD #OA Allergies: SHELLFISH URTICARIA Medications: ASA 81 mg daily Clopidogrel 75 mg daily Atorvastatin 80 mg daily - this was increased po st STEMI Metoprolol SA 50 mg daily Lisinopril 5 mg daily Metolazone 2.5 mg daily - states he has been on this for ~1 year or so. Potassium Chloride 10 meq daily Pregabalin 75 mg BID Nitrostat PRN Alogliptin 6.25 mg daily Metformin 1000 mg BID Magnesium Oxide 400 mg daily Albuterol PRN Fluticasone Nasal [place] Sildenafil 100 mg PRN Nicotine 14 mg patch Nicotine 7 mg patch Social Hx to his Jackelyn, 49 years next year! 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 Was smoking 1 PPD typically. Objective Vitals: BP: 129/80 Gen'l: 71 yo male, A+OX4, NAD Lungs: CTA bilat, normal effort Cardiac: RRR, S1 S2 no m/r/g Abd:Soft Ext: No edema Lab Values NA: 132 (09/26/20 11:24) K: 4.4 (09/26/20 11:24) CL: 94 (09/26/20 11:24) CO2: 26 (09/26/20 11:24) BUN: 20 (09/26/20 11:24) CREATI: 0.89 (09/26/20 11:24) GLU: 128 (09/26/20 11:24) HGB A1C: 6.4 (09/27/21 09:47) AST: 26 (09/27/21 09:47) ALT: 25 (09/27/21 09:47) CHOL: 156 (09/27/21 09:47) HDL: 40 (09/27/21 09:47) LDL: 94 (09/27/21 09:47) TRI (09/27/21 09:47) TSH: 1.27 (09/27/21 09:47) HCT: 44.6 (09/27/21 09:47) HGB: 14.1 (09/27/21 09:47) Assessment 71 yo male with ASCVD s/p [facility] in November of this year with PCI to culprit vessel and then staged intervention the following day, preserved LV function. Seen today without any anginal sx. Cardiac ri sk factors of tobacco dependence, HTN, PAOD, HLD, DMII. He has significantly cut down o n cigarettes and plans on quitting and this was appplauded today. Atorvast atin was increased post STEMI and to that end we will recheck LDL when he has an appointment on 02/12 in [facility]; LDL goal is <70, if not at goal recommend initia tion of zetia 10 mg daily for further CRF modification. BP well controlled, DM II well controlled. Starting cardiac rehab shortly. Reviewed CRF modification and secondary prevention with ASCVD, indications for DAPT. Follow up in ~10 months, sooner as needed Plan #CAD s/p STEMI with PCI -DAPT for 12 months (November 2022) -Cardiac rehab -CRF Modification: -LDL goal <70, not at goal but now on higher in tensity statin. Will recheckd on 02/12 when he goes to [facility] for a n appointment -BP Goal <130/<70, at goal -Encouraged his efforts at smoking cessation an d applauded his progress and goals! -Starting cardiac rehab Saturday -DMII well controlled We will draw lipids on 02/12, will notify PCP he plans to have labs that day, in the event that you would like any others prior t o appoitment on 03/30. Greater than 50% of this session was dedicated t o counseling and coordination of care. Time spent with patient: 3 0 minutes. /meena/ TENISHA NOYOLA Cardiology Nurse Practitioner Signed: 12/27/2021 12:43
--- OUTSIDE RECORDS SUMMARY | 2022-02-09 10:41 | XMS_ITS | Encounter Summary ---
:1950 Author Organization [facility] Address [address] [place] [address] Support Name Relationship Address Phone ZUHAIR FOSTER Unavailable [address] [place] [address] ZUHAIR FOSTER Unavailable [address] [place] [address] Insurance Providers: All historical and current Section [...] BLUE HIGH [facility] Jan 25, 00141 [id number] [phone] DO Stephanie FOSTER SPOUSE DEDUCTIBL [place] 2013 [id number] NA E [facility] PLAN EXPRESS PRESCRIPT WEI May 27, RXBWEID [id number] [phone] PEYTON FOSTER SPOUSE SCRIPTS ION [place] 2017 [id number] [phone] NA ([id number]) (HDHP ) MEDICARE MEDICARE PART Jan 25, PART A [id number] CRISTIAN, AND PATIENT (WNR) (M) A 2013 [id number] 2 REW Selected Encounter This section includes the information on record at MD for the Encounter. Date/Time Encounter Type Encounter Description Reason Provider Source Dec 27, 2021 11:54 Outpatient Encounter PRIMARY CARE/MEDICINE AM IHE Encounter [...] - REHAB MEDICINE [facility]OC Jan 22, 2022 09:30 AM AMBULATORY - MEDICINE [facility] OC Jan 22, 2022 09:31 AM [facility] Feb 12, 2022 10:30 AM [facility] Feb 20, 2022 08:45 AM AMBULATORY - NONE [facility] Feb 20, 2022 09:00 AM AMBULATORY - REHAB MEDICINE [facility]OC Mar 30, 2022 08:30 AM AMBULATORY - MEDICINE [facility] OC Active, Pending, and Scheduled [...] The data comes from all MD treatment [facility]. Test Date/Time Test Type Test Details Facility Name Dec 13, 2021 02:13 PM Consult Order [facility]-CARDIAC [facility] Cons Director Of Residential Services's Choice Dec 25, 2021 12:02 PM Consult Order [facility]-OPTOMETRY [facility] DISEASE MANAGEMENT Cons Director Of Residential Services's Choice Lab Results: +/- 30 days of the encounter This section includes the Chemistry and Hematology Lab Results on record with MD for the patient. Radiology Reports and Pathology Reports are provided separately, in subsequent sections.Lab Results This section contains the Chemistry/Hematology Results that were resulted 30 days before or 30 daysafter the date of the Encounter. Date/Time Source Result Type Result - Unit Interpretation Reference Range Comment Jan 22, 2022 09:55 AM [facility] MAGNESIUM Sp ecimen Type: PLASMA Comment: Tests performed on [employer] (405) [id number] Ordering Provid er: EVERTON TORRES Report Released Date/Time: Jan 22, 2022 09:48 AM Reporting Lab: [facility] [address] [facility] [address] Performing Lab: [facility] [address] [facility] [address] MAGNESIUM 0.7 L 1.6-2.6 Jan 22, 2022 09:55 AM [facility] PHOSPHORUS Sp ecimen Type: PLASMA Comment: Tests performed on [employer] (405) SN:[id number] Ordering Provid er: EVERTON TORRES P Report Released Date/Time: Jan 22, 2022 09:48 AM Reporting Lab: [facility] [address] [facility] [address] Performing Lab: [facility] [address] [facility] [address] PHOSPHORUS 3.2 2.5-5.0 Jan 22, 2022 09:55 AM [facility] CALCIUM Sp ecimen Type: PLASMA Comment: Tests performed on [employer] (405) [id number] Ordering Provid er: EVERTON TORRES P Report Released Date/Time: Jan 22, 2022 09:48 AM Reporting Lab: [facility] [address] [facility] [address] Performing Lab: [facility] [address] [facility] [address] CALCIUM 8.8 8.5-10.5 Jan 22, 2022 09:55 [facility] P[facility] GLU,BUN,CREAT,LYTES,CA Sp ecimen Type: PLASMA AM VAOC Comment: Tests performed on [employer] (405) [id number] Ordering Provid er: MELISSAEVERTON P Report Released Date/Time: Jan 22, 2022 09:48 AM Reporting Lab: [facility] [address] [facility] [address] Performing Lab: [facility] [address] [facility] [address] UREA NITROGEN 13 7-25 SODIUM 137 135-145 POTASSIUM 3.8 3.5-5.0 CHLORIDE 99 L 100-110 CARBON DIOXIDE 26 20-30 ANION GAP 12 4-16 GLUCOSE 121 H 65-100 CREATININE 0.89 0.5-1.5 CALCIUM 8.8 8.5-10.5 eGFR(CKD-EPI 2020) >90.0 >60 Immunizations: All administered on the encounter date This section contains immunizations associated to the Encounter. Immunization Series Date Issued Reaction Comments PNEUMOCOCCAL CONJUGATE PCV20, POLYSACCHARIDE Dec 27 [id number] CONJUGATE, ADJUVANT, PF Social History: Smoking Status (Most current) and Tobacco Use (All prior to encounter date) This section includes the most current, and the historical, smoking and tobacco-related health factors from the MD facility where the Encounter took place.Current Smoking Status This section includes the most current smoking, or tobacco-related health factor, from the MD facility where the Encounter took place. Date/Time Current Smoking Status Comment Facility Feb 06, 2019 11:00 PM CURRENT SMOKER SARAH Whitney [facility] Tobacco Use History This section includes a history of the smoking, or tobacco- related health factors, that were collected on or before the date of the Encounter. The data comes from the MD facility where the Encounter took place. Date/Time Smoking Status/Tobacco Use Comment [facility] Feb 06, 2019 05:51 PM CURRENT SMOKER SARAH Whitney [facility] Encounter Notes: All associated encounter notes This section contains the clinical notes associated to the Encounter. Date/Time Encounter Note(s) Provider Source Dec 27, 2021 11:54 AM NURSING IMMUNIZATION NOTE: AXEL JORGENSEN [facility] LOCAL TITLE: IMMUNIZATION AND VACCINATION NOTE STANDARD TITLE: NURSING IMMUNIZATION NOTE DATE OF NOTE: DEC 27, 2021@11:54 ENTRY DATE: DEC 27, 2021@11:54:36 AUTHOR: AXEL JORGENSEN EXP COSIGNER: URGENCY: STATUS: COMPLETED *Immunizations No INFLUENZA Immunizations on file within 1Y. Immunization Series Date Facility Reaction Info COVID-19 (MODERNA), MRNA, LNP-S,* 1 07/07/2020 [facility] <C> COVID-19 (MODERNA), MRNA, LNP-S,* 2 08/04/2020 [facility] <C> COVID-19 (MODERNA), MRNA, LNP-S,* 3 03/17/2021 [facility]* COVID-19 (MODERNA), MRNA, LNP-S,* 4 09/28/2021 [facility] <C> <C> See the Detailed Immunizations Health Summa ry Component[DIM] for Comments No FLU,HI DOS Immunizations on file within 1Y. Recorded Pneumococcal Vaccinations Information: Reminder Term: MD-PNEUMOC PPSV23 IMMUNIZATION Immunization: PNEUMOCOCCAL POLYSACCHARIDE PPV23 04/14/2020@10:24:46 TD-ADULT given on TDAP given on 12/18/18 Date of last Zoster Vaccine unknown PCV20 The patient received pneumococcal conjugate vac cine PCV20 (Prevnar 20) 0.5ml IM today in Left Deltoid. Youth Counselor: Copytele Lot # and Expiration Date: [id number] 11/2022 Administered by protocol/policy Complications: None The Pneumococcal conjugate vaccine VIS was give n to the patient today. VIS version date Jun. /meena/ AXEL JORGENSEN LPN Signed: 12/27/2021 11:55
--- OUTSIDE RECORDS SUMMARY | 2022-02-09 10:42 | XMS_ITS | Encounter Summary ---
:1950 Author Organization [facility] Address [address] [place] [address] Support Name Relationship Address Phone ZUHAIR FOSTER Unavailable [address] [place] [address] ZUHAIR FOSTER Unavailable [address] [place] [address] Insurance Providers: All historical and current Section [...] to Policy Number Liu CBA BLUE HIGH [facility] Jan 25, [id number] [phone] DO Stephanie FOSTER SPOUSE DEDUCTIBL [place] 2013 [id number] NA E [facility] PLAN EXPRESS PRESCRIPT WEI May 27, RXBWEID [id number] [phone] EPYTON FOSTER SPOUSE SCRIPTS ION [place] 2017 [id number] NA ([id number]) (HDHP ) MEDICARE MEDICARE PART Jan 25, PART A [id number] CRISTIAN, AND PATIENT (WNR) (M) A 2013 [id number] 2 REW Selected Encounter This section includes the information on record at [place] for the Encounter. Date/Time Encounter Type Encounter Description Reason Provider Source Jan 08, 2022 08:41 Outpatient Encounter COMMUNITY CARE AM CONSULT IHE [...] 20 appointments. The data comes from all [place] treatment facilities. Appointment Date/Time Appointment Type Appointment Facili ty Name Jan 18, 2022 11:00 AM AMBULATORY - REHAB MEDICINE [facility] Jan 22, 2022 09:30 AM AMBULATORY - MEDICINE [facility] Jan 22, 2022 09:31 AM [facility] - NONE [place] [facility] Feb 12, 2022 10:30 AM AMBUL[place]ORY - [place] [facility] Feb 20, 2022 08:45 AM AMBULATORY - NONE [facility] Feb 20, 2022 09:00 AM AMBULATORY - REHAB MEDICINE [facility] Mar 30, 2022 08:30 AM [...] the Encounter. The data comes from all [place] treatment facilities. Test Date/Time Test Type Test Details Facility Name Dec 13, 2021 02:13 Consult Order COMMUNITY CARE-CARDIAC [facility] PM REHABILITATION Cons Histotechnician's Choice Dec 25, 2021 12:02 Consult Order COMMUNITY [facility]-OPTOMETRY [facility] PM DISEASE MANAGEMENT Cons Histotechnician's Choice Feb 12, 2022 12:00 Laboratory - LIPOPROTEIN CHOLESTEROL [facility] AM Chemistry Order FRACT. PANEL LT GREEN(LI HEP) [facility] Feb 19, 2022 12:00 Laboratory - CALCIUM LT GREEN(LI HEP) [place] AM Chemistry Order PLASMA SP [facility] Feb 19, 2022 12:00 Laboratory - P4 GLU,BUN,CREAT,LYTES,CA [place] AM Chemistry Order LT GREEN(LI HEP) PLASMA [facility] SP Feb 19, 2022 12:00 Laboratory - PHOSPHORUS LT GREEN(LI [place] AM Chemistry Order HEP) PLASMA SP [facility] Feb 19, 2022 12:00 Laboratory - MAGNESIUM LT GREEN(LI [place] AM Chemistry Order HEP) PLASMA SP [facility] Lab Results: +/- 30 days of the [...] ecimen Type: PLASMA Comment: Tests performed on [employer] (405) [id number] Ordering Provid er: EVERTON TORRES Report Released Date/Time: Jan 22, 2022 09:48 AM Reporting Lab: [place] [facility] [address] [facility] [address] Performing Lab: [place] [facility] [address] [facility] [address] MAGNESIUM 0.7 L 1.6-2.6 Jan 22, 2022 09:55 AM [place] [facility] PHOSPHORUS Sp ecimen Type: PLASMA Comment: Tests performed on [employer] (405) [id number] Ordering Provid er: EVERTON TORRES Report Released Date/Time: Jan 22, 2022 09:48 AM Reporting Lab: [place] [facility] [address] [place] [facility] [place] [address] Performing Lab: [place] [facility] [address] [place] [facility] [place] [address] PHOSPHORUS 3.2 2.5-5.0 Jan 22, 2022 09:55 AM [place] [facility] CALCIUM Sp ecimen Type: PLASMA Comment: Tests performed on [employer] (405) SN:[id number] Ordering Provid er: EVERTON TORRES Report Released Date/Time: Jan 22, 2022 09:48 AM Reporting Lab: [place] [facility] [address] [place] [facility] [place] [address] Performing Lab: [place] [facility] [address] [facility] [address] CALCIUM 8.8 8.5-10.5 Jan 22, 2022 09:55 [place] P4 GLU,BUN,CREAT,LYTES,CA Sp ecimen Type: PLASMA AM [facility] Comment: Tests performed on [employer] (405) [id number] Ordering Provid er: EVERTON TORRES Report Released Date/Time: Jan 22, 2022 09:48 AM Reporting Lab: [facility] [address] [facility] [address] Performing Lab: [facility] [address] [facility] [address] UREA NITROGEN 13 7-25 SODIUM 137 135-145 [...] smoking and tobacco-related health factors from the [place] facility where the Encounter took place.Current Smoking Status This section includes the most current smoking, or tobacco-related health factor, from the [place] facility where the Encounter took place. Date/Time Current Smoking Status Comment Facility Feb 06, 2019 11:00 PM CURRENT SMOKER SARAH Whitney [facility] Tobacco Use History This section includes a history of the smoking, or tobacco- related health factors, that were collected on or before the date of the Encounter. The data comes from the [place] facility where the Encounter took place. Date/Time Smoking Status/Tobacco Use Comment [facility] Feb 06, 2019 05:51 PM CURRENT SMOKER SARAH Whitney [facility] Encounter Notes: All associated encounter notes This section contains the clinical notes associated to the Encounter. Date/Time Encounter Note(s) Provider Source Jan 08, 2022 08:42 AM NONVA NOTE: IRMA OVALLE [facility] LOCAL TITLE: COMMUNITY CARE-KEMAL SELF PRESENTIN G CARE COORD PLAN [facility] STANDARD TITLE: NONVA NOTE DATE OF NOTE: JAN 08, 2022@08:42 ENTRY DATE: JAN 18, 2022@08:42:34 AUTHOR: IRMA OVALLE EXP COSIGNER: URGENCY: STATUS: COMPLETED COMMUNITY CARE-KEMAL SELF PRESENTING CARE CO ORD PLAN NOTE Has ADDENDA Emergency Notification Intake Date Presenting to the Facility: Dec Method of Contact: Notified from [employer] worklist Notification ID: [id number] [facility] Referral #:[id number] [facility] Hospital Name: Hospital: [facility] Address: City: [place] State: [place] Zip Code: [address] Phone : Community Facility Point of Contact: Name: Phone: Chief complaint: electrolyte imbalances Primary Diagnosis: Disposition Unknown at time of intake note entry Alerting PC team of hospital visit. Records have been requested. Please coordinate any follow-up needed. /meena/ IRMA OSMAN, RN EMERGENCY CHARGE HAND Signed: 01/18/2022 08:47 Receipt Acknowledged By: 01/19/2022 10:39 /es/ JOAQUIN ROSS Registered Nurse 01/19/2022 09:32 /es/ AXEL JORGENSEN LPN 01/22/2022 ADDENDUM STATUS: COMPLETED records are requested /meena/ AXEL JORGENSEN LPN Signed: 01/22/2022 08:48
--- OUTSIDE RECORDS SUMMARY | 2022-02-09 10:42 | XMS_ITS | Encounter Summary ---
:1950 Author Organization [facility] Address [address] [place] [address] Support Name Relationship Address Phone ZUHAIR FOSTER Unavailable [address] [place] [address] ZUHAIR FOSTER Unavailable [address] [place] [address] Insurance Providers: All historical and current Section [...] Liu CBA BLUE HIGH WEI Jan 25, [id number] [phone] DO Stephanie FOSTER SPOUSE DEDUCTIBL [place] 2013 [id number] NA E [facility] PLAN EXPRESS PRESCRIPT WEI May 27, RXBWEID [id number] [phone] PEYTON FOSTER SPOUSE SCRIPTS ION [place] 2017 [id number] NA ([id number]) ([facility] ) MEDICARE MEDICARE PART Jan 25, PART A [id number] CRISTIAN, AND PATIENT (WNR) (M) A 2013 VU70 2 REW Selected Encounter This section includes the information on record at [place] for the Encounter. Date/Time Encounter Type Encounter Reason Provider Source Description Jan 18, 2022 HEARING AID AUDIOLOGY ICD-10-CM H90.3 EITAN ARRIAZA 11:00 AM EXAM BOTH EARS Sensorineural R hearing loss, bilateral with Provider Comments: Sensorineural Hearing Loss, Bilateral IHE Encounter Template Text not used by [facility] Assessments - Encounter Diagnoses This section includes the primary and secondary diagnoses documented for the Encounter. Date/Time Primary/Secondary Diagnosis Name Provider Source Diagnosis Jan 18, 2022 PRIMARY Sensorineural EITAN ARRIAZA [facility] 11:02 AM hearing loss, R CBOC bilateral Plan of Treatment: Future Appointments (+ 6 months) and Future Tests (+/- 45 days) The Plan of Treatment section includes future care activities for the patient from all [place] treatmentfacilities. This section includes future appointments and future orders which are active, pending orscheduled.Future Appointments This section includes appointments that were scheduled to occur 6 months from the date of the Encounter, up to a maximum of 20 appointments. The data comes from all [place] treatment facilities. Appointment Date/Time Appointment Type Appointment Facili ty Name Jan 22, 2022 09:30 AM AMBULATORY - MEDICINE [facility] Jan 22, 2022 09:31 AM AMBULATORY - NONE [facility] Feb 12, 2022 10:30 AM AMBULATORY - SURGERY [facility] Feb 20, 2022 08:45 AM AMBULATORY - NONE [facility] Feb 20, 2022 09:00 AM AMBULATORY - REHAB MEDICINE [facility] Mar 30, 2022 08:30 AM AMBULATORY - MEDICINE [facility] OC Active, Pending, and Scheduled Orders This section includes a listing of several types of active, pending, and scheduled orders, including clinic medications orders, diagnostic test orders, procedure orders and consult orders; where the start date of the order is 45 days before the date of the Encounter or 45 days after the date of the Encounter. The data comes from all [place] treatment facilities. Test Date/Time Test Type Test Details Facility Name Dec 13, 2021 02:13 Consult Order COMMUNITY CARE-CARDIAC [facility] PM REHABILITATION Cons Sales Clerk's Choice Dec 25, 2021 12:02 Consult Order COMMUNITY [facility]-OPTOMETRY [facility] PM DISEASE MANAGEMENT Cons Sales Clerk's Choice Feb 12, 2022 12:00 Laboratory - LIPOPROTEIN CHOLESTEROL [facility] AM Chemistry Order FRACT. PANEL LT GREEN(LI HEP) PLAS[facility] SP Feb 19, 2022 12:00 Laboratory - CALCIUM LT GREEN(LI HEP) [place] AM Chemistry Order PLASMA SP [facility] Feb 19, 2022 12:00 Laboratory - MAGNESIUM LT GREEN(LI [place] AM Chemistry Order HEP) PLASMA SP [facility] Feb 19, 2022 12:00 Laboratory - P4 GLU,BUN,CREAT,LYTES,CA [place] AM Chemistry Order LT GREEN(LI HEP) [facility] SP Feb 19, 2022 12:00 Laboratory - PHOSPHORUS LT GREEN(LI [place] AM Chemistry Order HEP) PLASMA SP [facility] Lab Results: +/- 30 days of the [...] Comment Jan 22, 2022 09:55 AM [place] [facility] MAGNESIUM Sp ecimen Type: PLASMA Comment: Tests performed on [employer] (405) SN:[id number] Ordering Provid er: EVERTON TORRES P Report Released Date/Time: Jan 22, 2022 09:48 AM Reporting Lab: [place] [facility] [address] [facility] [address] Performing Lab: [facility] [address] [facility] [address] MAGNESIUM 0.7 L 1.6-2.6 Jan 22, 2022 09:55 AM [facility] PHOSPHORUS Sp ecimen Type: PLASMA Comment: Tests performed on [employer] (405) SN:[id number] Ordering Provid er: EVERTON TORRES P Report Released Date/Time: Jan 22, 2022 09:48 AM Reporting Lab: [place] [facility] [address] [facility] [address] Performing Lab: [place] [facility] [address] [facility] [address] PHOSPHORUS 3.2 2.5-5.0 Jan 22, 2022 09:55 AM [facility] CALCIUM Sp ecimen Type: PLASMA Comment: Tests performed on [employer] (405) SN:[id number] Ordering Provid er: EVERTON TORRES P Report Released Date/Time: Jan 22, 2022 09:48 AM Reporting Lab: [place] [facility] [address] [place] [facility] [place] [address] Performing Lab: [place] [facility] [address] [facility] [address] CALCIUM 8.8 8.5-10.5 Jan 22, 2022 09:55 [facility] P4 GLU,BUN,CREAT,LYTES,CA Sp ecimen Type: PLASMA AM [facility] Comment: Tests performed on [employer] (405) SN:[id number] Ordering Provid er: EVERTON TORRES Report Released Date/Time: Jan 22, 2022 09:48 AM Reporting Lab: [facility] [address] [facility] [address] Performing Lab: [facility] [address] [facility] [address] UREA NITROGEN 13 7-25 SODIUM 137 135-145 [...] smoking and tobacco-related health factors from the [place] facility where the Encounter took place.Current Smoking Status This section includes the most current smoking, or tobacco-related health factor, from the [place] facility where the Encounter took place. Date/Time Current Smoking Status Comment [facility] September 27, 2021 09:00 AM VA-TOBACCO USER EVERY DAY [facility] Tobacco Use History This section includes a history of the smoking, or tobacco- related health factors, that were collected on or before the date of the Encounter. The data comes from the [place] facility where the Encounter took place. Date/Time Smoking Status/Tobacco Use Comment [facility] September 27, 2021 09:00 AM VA-TOBACCO USE ADVICE [facility] September 27, 2021 09:00 AM VA-TOBACCO USE OPTHALMIC TECH NO [facility] September 27, 2021 09:00 AM VA-TOBACCO USE MED NO [facility] September 27, 2021 09:00 AM VA-TOBACCO USE WI 30 MIN OF WAKEUP [facility] September 27, 2021 09:00 AM VA-TOBACCO USER EVERY DAY [facility] Dec 15, 2019 09:22 AM VA-TOBACCO USE 30 YEARS OR MORE [facility] Dec 15, 2019 09:22 AM VA-TOBACCO USE ADVICE [facility] Dec 15, 2019 09:22 AM VA-TOBACCO USE OPTHALMIC TECH NO [facility] Dec 15, 2019 09:22 AM VA-TOBACCO USE MED NO [facility] Dec 15, 2019 09:22 AM VA-TOBACCO USE WI 30 MIN OF WAKEUP [facility] Dec 15, 2019 09:22 AM VA-TOBACCO USER EVERY DAY [facility] Jun 18, 2018 12:32 PM VA-TOBACCO USE 30 YEARS OR MORE [facility] Jun 18, 2018 12:32 PM VA-TOBACCO USE ADVICE [facility] Jun 18, 2018 12:32 PM VA-TOBACCO USE OPTHALMIC TECH NO [facility] Jun 18, 2018 12:32 PM VA-TOBACCO USE MED NO [facility] Jun 18, 2018 12:32 PM VA-TOBACCO USE WI 30 MIN OF WAKEUP [facility] Jun 18, 2018 12:32 PM VA-TOBACCO USER EVERY DAY [facility] Sep 19, 2017 03:23 PM CURRENT SMOKER [facility] Sep 19, 2017 03:23 PM V1-PT NOT INTERESTED IN QUIT TOBACCO [facility] USE Encounter Notes: All associated encounter notes This section contains the clinical notes associated to the Encounter. Date/Time Encounter Note(s) Provider Source Jan 18, 2022 11:01 AM AUDIOLOGY NOTE: EITAN ARRIAZA [facility] LOCAL TITLE: Audiology Note STANDARD TITLE: AUDIOLOGY NOTE DATE OF NOTE: JAN 18, 2022@11:01 ENTRY DATE: JAN 18, 2022@11:01:27 AUTHOR: EITAN ARRIAZA EXP COSIGNER: URGENCY: STATUS: COMPLETED AUDIOLOGIC EVALUATION: REFERRED BY: Self : Feb AGE: 71 Date: JAN 18, 2022 11:01 REASON FOR EVALUATION: The patient is being seen in clinic today for an audiological evaluation. Diagnostic testing is being performed today for purposes of evaluating reported hearing loss, L>R.. TINNITUS: Patient reports tinnitus described as buzzing sometiimes bilaterally. DIZZINESS/VERTIGO: Denied. FAMILY HISTORY OF HEARING LOSS: patient does not remember OTOLOGIC HISTORY: Patient denies any recent or chronic otitis medi a, otorrhea, otalgia or ear surgery. Head or otologic trauma/Skull fracture/TBI: Howard ed. He denied any significant changes to his medical health history. Please see below for full histor y. GENERAL MEDICAL HISTORY: Cancer: Denied. Diabetes: Yes. He is currently managing this con dition with medication and another [facility] provider. Hypertension: Yes. He is currently managing this condition with medication and another [facility] provider. Stroke: Denied. 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 Unremarkable. TYMPANOMETRY: DNT IPSILATERAL ACOUSTIC REFLEX 1kHz: DNT RELIABILITY: Good. SYMMETRY: Symmetrical DEGREE AND TYPE OF HEARING LOSS: RIGHT: normal sloping to profound rising to [place] SNHL LEFT: normal sloping to severe SNHL WORD DISCRIMINATION: NU-6 1/2 List RIGHT: 80% at 75dB HL, SRT: 10dB LEFT: 92% at 75dB HL, SRT: 10dB AUDIOGRAM Audiogram is available in this patient's electro suhas medical record. To view the actual audiogram , click the Tools menu, and choose Rehab Medicine then Audiogram Display EDUCATION: Patient was counseled on the test results, benef its and limitations of amplification, and strategies to improve communi cation. RECOMMENDATIONS: [place] is a candidate for binaural amplificatio n. The patient is currently eligible for hearing aids which were selected at this appointment. Bilateral EMIs were taken without incident. Hearing Aid Assessment: Discussed hearing aid options and styles . Patient is interested in rechargable HS in the ear. Patient is new to HAs, so he was not sure which style he would like more- advised of trial period. Patient note s he would like to hear his grandchildren better and his brother has an alarm at his house that he can not hear. Ordered: EVOLV AI ITC R pink/clear, iPhone PLAN: -Order -HAF -Hearing evaluation in 2-3 years or sooner if a sudden change is noted -f/u per request PROCEDURES COMPLETED: Otoscopy Comprehensive Exam [id number] Air Conduction Threshold Testing Bone Conduction Threshold Testing Speech Internal Corrosion Specialist Threshold Testing Word Recognition Testing Hearing Aid Assessment Binaural [id number] /meena/ EITAN ARRIAZA Signed: 01/18/2022 11:34
--- OUTSIDE RECORDS SUMMARY | 2022-02-09 10:43 | XMS_ITS | Encounter Summary ---
:1950 Author Organization [facility] Address [address] [place] [id number] Support Name Relationship Address Phone ZUHAIR FOSTER Unavailable [address] [place] [address] ZUHAIR FOSTER Unavailable [address] [place] [address] Insurance Providers: All historical and current Section [...] Liu CBA BLUE HIGH WEI Jan 25, 97719 [id number] [phone] DO Stephanie FOSTER SPOUSE DEDUCTIBL [place] 2013 [id number] NA E [facility] PLAN EXPRESS PRESCRIPT WEI May 27, RXBWEID [id number] [phone] PEYTON FOSTER SPOUSE SCRIPTS ION [place] 2017 [id number] NA ([id number]) (HD ) MEDICARE MEDICARE PART Jan 25, PART A [id number] CRISTIAN, AND PATIENT (WNR) (M) A 2013 VU70 2 REW Selected Encounter This section includes the information on record at NE for the Encounter. Date/Time Encounter Type Encounter Reason Provider Source Description Jan 22, 2022 OFFICE O/P EST PRIMARY ICD-10-CM R03.0 CAROLANN CÁRDENAS 10:49 AM MINIMAL PROB CARE/MEDICINE Elevated RA A blood-pressure reading, w/o diagnosis of htn with Provider Comments: Elevated B/P Reading w/o HTN Dx IHE Encounter Template Text not used by [facility] Assessments - Encounter Diagnoses This section includes the primary and secondary diagnoses documented for the Encounter. Date/Time Primary/Secondary Diagnosis Name Provider Source Diagnosis Jan 22, 2022 PRIMARY Elevated PETCAROLANN SHAIKH [facility] 10:52 AM blood-pressure RA A CBOC reading, w/o diagnosis of htn Jan 22, 2022 SECONDARY Essential CAROLANN CÁRDENAS [facility] 10:52 AM (primary) RA A CBOC hypertension Plan of Treatment: Future Appointments (+ 6 months) and Future Tests (+/- 45 days) The Plan of Treatment section includes future care activities for the patient from all [place] treatmentfacilities. This section includes future appointments and future orders which are active, pending orscheduled.Future Appointments This section includes appointments that were scheduled to occur 6 months from the date of the Encounter, up to a maximum of 20 appointments. The data comes from all [place] treatment facilities. Appointment Date/Time Appointment Type Appointment Facili ty Name Feb 12, 2022 10:30 AM [facility]UL[facility] Feb 20, 2022 08:45 AM AMBULATORY - NONE [facility] Feb 20, 2022 09:00 AM AMBULATORY - REHAB MEDICINE [facility] CB Mar 30, 2022 08:30 AM AMBULATORY [...] the Encounter. The data comes from all [place] treatment facilities. Test Date/Time Test Type Test Details Facility Name Dec 13, 2021 02:13 Consult Order COMMUNITY [facility]ARE-CARDIAC [facility] PM REHABILITATION Cons [employer] Carpenter's Choice Dec 25, 2021 12:02 Consult Order COMMUNITY CARE-OPTOMETRY [facility] PM DISEASE MANAGEMENT Cons [employer] Carpenter's Choice Feb 12, 2022 12:00 Laboratory - LIPOPROTEIN CHOLESTEROL [facility] AM Chemistry Order FRACT. PANEL LT GREEN(LI HEP) PLASMA SP Feb 19, 2022 12:00 Laboratory - CALCIUM LT GREEN(LI HEP) [place] AM Chemistry Order [facility] SP [facility] Feb 19, 2022 12:00 Laboratory - P4 GLU,BUN,CREAT,LYTES,CA [place] AM Chemistry Order LT GREEN(LI HEP) PLASMA [facility] SP Feb 19, 2022 12:00 Laboratory - MAGNESIUM LT GREEN(LI [place] AM Chemistry Order HEP) PLASMA SP [facility] Feb 19, 2022 12:00 Laboratory - PHOSPHORUS LT GREEN(YO [place] AM Chemistry Order HEP) [...] Type: PLASMA Comment: Tests performed on Wadsworth Attenex (405) SN:[id number] Ordering Provid er: VO,[place] P Report Released Date/Time: Jan 22, 2022 09:48 AM Reporting Lab: [place] [facility] [address] [place] [facility] [place] [address] Performing Lab: [place] [facility] [address] [place] [facility] [place] [address] PHOSPHORUS 3.2 2.5-5.0 Jan 22, 2022 09:55 AM [place] [facility] CALCIUM Sp ecimen Type: PLASMA Comment: Tests performed on Wadsworth Attenex (405) SN:[id number] Ordering Provid er: MELISSA,[place]ON P Report Released Date/Time: Jan 22, 2022 09:48 AM Reporting Lab: [place] [facility] [address] [place] [facility] [place] [address] Performing Lab: [place] [facility] [address] [place] [facility] [place] [address] CALCIUM 8.8 8.5-10.5 Jan 22, 2022 09:55 AM [place] [facility] MAGNESIUM Sp ecimen Type: PLASMA Comment: Tests performed on Wadsworth Automatic Edger (405) SN:[id number] Ordering Provid er: MELISSA,[place]ON P Report Released Date/Time: Jan 22, 2022 09:48 AM Reporting Lab: [place] [facility] [address] [facility] [address] Performing Lab: [place] [facility] [address] [facility] [address] MAGNESIUM 0.7 L 1.6-2.6 Jan 22, 2022 09:55 [facility] P4 GLU,BUN,CREAT,LYTES,CA Sp ecimen Type: PLASMA AM [facility] Comment: Tests performed on Plexxi (405) [id number] Ordering Provid er: [place] TORRES Report Released Date/Time: Jan 22, 2022 09:48 AM Reporting Lab: [facility] [address] [facility] [address] Performing Lab: [facility] [address] [facility] [address] UREA NITROGEN 13 7-25 SODIUM 137 135-145 [...] Michael dy Source Pressure Rate Mass Index Jan 22, 96.8 F 77 145/73 20 /min 94 % 0 68 in 192.2 29 2021 09:17 /min mm[Hg] lb JOHNSBU AM RY CBOC Social History: Smoking Status (Most current) and Tobacco Use (All prior to encounter date) This section includes the most current, and the historical, smoking and tobacco-related health factors from the NE facility where the Encounter took place.Current Smoking Status This section includes the most current smoking, or tobacco-related health factor, from the NE facility where the Encounter took place. Date/Time Current Smoking Status Comment [facility] September 27, 2021 09:00 AM NE-TOBACCO USER EVERY DAY [facility] Tobacco Use History This section includes a history of the smoking, or tobacco- related health factors, that were collected on or before the date of the Encounter. The data comes from the NE facility where the Encounter took place. Date/Time Smoking Status/Tobacco Use Comment Julián miller September 27, 2021 09:00 AM VA-TOBACCO USE ADVICE [facility] September 27, 2021 09:00 AM VA-TOBACCO USE DIRECTOR PERSONAL NO [facility] September 27, 2021 09:00 AM VA-TOBACCO USE MED NO [facility] September 27, 2021 09:00 AM VA-TOBACCO USE WI 30 MIN OF WAKEUP [facility] September 27, 2021 09:00 AM VA-TOBACCO USER EVERY DAY [facility] Dec 15, 2019 09:22 AM VA-TOBACCO USE 30 YEARS OR MORE [facility] Dec 15, 2019 09:22 AM VA-TOBACCO USE ADVICE [facility] Dec 15, 2019 09:22 AM VA-TOBACCO USE DIRECTOR PERSONAL NO [facility] Dec 15, 2019 09:22 AM VA-TOBACCO USE MED NO [facility] Dec 15, 2019 09:22 AM VA-TOBACCO USE WI 30 MIN OF WAKEUP [facility] Dec 15, 2019 09:22 AM VA-TOBACCO USER EVERY DAY [facility] Jun 18, 2018 12:32 PM VA-TOBACCO USE 30 YEARS OR MORE [facility] Jun 18, 2018 12:32 PM VA-TOBACCO USE ADVICE [facility] Jun 18, 2018 12:32 PM VA-TOBACCO USE DIRECTOR PERSONAL NO [facility] Jun 18, 2018 12:32 PM VA-TOBACCO USE MED NO [facility] Jun 18, 2018 12:32 PM VA-TOBACCO USE WI 30 MIN OF WAKEUP [facility] Jun 18, 2018 12:32 PM VA-TOBACCO USER EVERY DAY [facility] Sep 19, 2017 03:23 PM CURRENT SMOKER [facility] Sep 19, 2017 03:23 PM V1-PT NOT INTERESTED IN QUIT TOBACCO [facility] USE Encounter Notes: All associated encounter notes This section contains the clinical notes associated to the Encounter. Date/Time Encounter Note(s) Provider Source Jan 22, 2022 10:50 AM PRIMARY CARE OUTPATIENT NOTE: SANCHEZ [facility] LOCAL TITLE: Blood Pressure Note STANDARD TITLE: PRIMARY CARE OUTPATIENT NOTE DATE OF NOTE: JAN 22, 2022@10:50 ENTRY DATE: JAN 22, 2022@10:50:22 AUTHOR: SADI CÁRDENAS EXP COSIGNER: URGENCY: STATUS: COMPLETED This is a 71 year old MALE with known Allergies as noted: SHELLFISH Active Outpatient Medications (excluding Supplie s): Active [...] ONE TABLET BY MOUT H EVERY ACTIVE (S) DAY FOR DIABETES 4) ASPIRIN 81MG EC TAB TAKE ONE TABLET BY MOUTH EVERY ACTIVE (S) DAY TO PREVENT STROKE/HEART ATTACK OR FOR PAIN/SWELLING/INFLAMMATION 5) ATORVASTATIN CALCIUM 80MG TAB TAKE ONE TABLET BY ACTIVE MOUTH EVERY EVENING TO LOWER CHOLESTEROL 6) CLOPIDOGREL BISULFATE 75MG TAB TAKE ONE TABLE T BY ACTIVE MOUTH EVERY DAY TO PREVENT BLOOD CLOTS 7) LISINOPRIL 5MG TAB TAKE ONE TABLET BY MOUTH E VERY DAY ACTIVE (S) TO CONTROL BLOOD PRESSURE 8) MAGNESIUM OXIDE 400MG TAB TAKE ONE TABLET BY MOUTH ACTIVE EVERY DAY 9) METFORMIN HCL 1000MG TAB TAKE ONE TABLET BY M OUTH ACTIVE (S) TWICE DAILY WITH MEALS FOR DIABETES 10) METOLAZONE 2.5MG TAB TAKE ONE TABLET BY MOUT H EVERY ACTIVE (S) MORNING 11) METOPROLOL SUCCINATE 50MG SA TAB TAKE ONE TA BLET BY ACTIVE (S) MOUTH EVERY DAY FOR BLOOD PRESSURE/HEART 12) NICOTINE 14MG/24HR PATCH APPLY 1 PATCH TOPIC ALLY ACTIVE EVERY DAY TO STOP TOBACCO USE 13) NITROGLYCERIN 0.4MG SL TAB TAKE ONE TABLET U NDER THE ACTIVE TONGUE EVERY 5 MINUTES NEEDED FOR CHEST PAIN (ANGINA) MAY REPEAT FOR THREE DOSES (IF NO RELIEF,SEEK MEDICAL ATTENTION PROMPTLY)DO NOT TAKE SILDENAFIL WHILE ON THIS MEDICATION 14) PANTOPRAZOLE NA 40MG EC TAB TAKE ONE TABLET BY MOUTH ACTIVE (S) EVERY DAY FOR STOMACH ACID (TAKE HALF-HOUR BEFO RE A MEAL(S) 15) POTASSIUM CHLORIDE 10MEQ SA TAB TAKE ONE TAB LET BY ACTIVE (S) MOUTH EVERY DAY TO SUPPLEMENT POTASSIUM 16) PREGABALIN 75MG ORAL CAP TAKE ONE CAPSULE BY MOUTH ACTIVE (S) TWICE A DAY TO PREVENT SEIZURES OR NEUROPATHIC PAIN 17) SILDENAFIL CITRATE 100MG TAB TAKE ONE TABLET BY MOUTH ACTIVE (S) NEEDED FOR ERECTILE DYSFUNCTION , MAX USE ON CE IN 24 HOUR PERIOD Active Non-VA Medications Status 1) Non-VA FLUTICASONE PROP 50MCG 120D NASAL INHL 1 SPRAY ACTIVE INTO EACH NOSTRIL EVERY DAY 2) Non-VA MAGNESIUM OXIDE 420MG TAB 420MG BY RENETTA TH EVERY ACTIVE DAY 3) Non-VA MULTIVITAMIN/MINERALS CAP/TAB ONE CAP/ TAB BY ACTIVE MOUTH EVERY DAY 20 Total Medications Asteatotic eczema ([facility] [id number]) Peripheral vas cular disease ([facility] [id number]) Venous insufficiency of leg (SCT [id number] ([facility] [id number]) Venous stasis edema of bilateral lower lWound (S [place] [id number]) Essential hypertension ([facility] [id number]) Diabetes m ellitus ([facility] [id number]) Anemia ([facility] [id number]) HLD - Hyperlipidemia ([facility]CT [id number]) Pierre's esophagus ([facility] [id number]) GERD - Gastr o-esophageal reflux disease ([facility] [id number]) Diverticulosis ([facility] [id number]) OA - Osteoarthros is ([facility] 357587362) Chronic ischemic heart disease ([facility] 4138 CHIEF COMPLAINT: elevated BP PLAN/RECOMMENDATIONS: Repeat blood pressure: 122/72 /es/ SADI CÁRDENAS RN Signed: 01/22/2022 10:53
--- OUTSIDE RECORDS SUMMARY | 2022-02-09 10:43 | XMS_ITS | Encounter Summary ---
:1950 Author Organization [facility] Address [address] [place] [address] Support Name Relationship Address Phone ZUHAIR FOSTER Unavailable [address] [place] [address] ZUHAIR FOSTER Unavailable [address] [place] [address] Insurance Providers: All historical and current Section [...] BLUE HIGH [facility] Jan 25, [id number] [phone] DO Stephanie FOSTER SPOUSE DEDUCTIBL [place] 2013 [id number] NA E [facility] PLAN EXPRESS PRESCRIPT WEI May 27, RXBWEID [id number] [phone] PEYTON FOSTER SPOUSE SCRIPTS ION [place] 2017 [id number] NA ([id number]) ([facility] ) MEDICARE MEDICARE PART Jan 25, PART A [id number] CRISTIAN, AND PATIENT (WNR) (M) A 2013 VU70 2 REW Selected Encounter This section includes the information on record at [place] for the Encounter. Date/Time Encounter Type Encounter Description Reason Provider Source Jan 22, 2022 09:30 Outpatient Encounter PRIMARY CARE/MEDICINE AM IHE Encounter [...] 2022 08:45 AM AMBULATORY - NONE [facility] Feb 20, 2022 09:00 AM AMBULATORY - REHAB MEDICINE [facility] Mar 30, 2022 08:30 AM AMBULATORY - MEDICINE [facility] OC Active, Pending, and Scheduled [...] The data comes from all [place] treatment [facility]. Test Date/Time Test Type Test Details Facility Name Dec 13, 2021 02:13 Consult Order [facility] PM REHABILITATION Cons Vacuum Drier Operator's Choice Dec 25, 2021 12:02 Consult Order [facility]-OPTOMETRY [facility] PM DISEASE MANAGEMENT Cons Vacuum Drier Operator's Choice Feb 12, 2022 12:00 Laboratory - LIPOPROTEIN CHOLESTEROL [facility] AM Chemistry Order FRACT. PANEL LT GREEN(LI HEP) PLASMA SP Feb 19, 2022 12:00 Laboratory - CALCIUM LT GREEN(LI HEP) [place] AM Chemistry Order PLASMA SP [facility] Feb 19, 2022 12:00 Laboratory - P4 GLU,BUN,CREAT,LYTES,CA [place] AM Chemistry Order LT GREEN(LI HEP) PLASMA [facility] SP Feb 19, 2022 12:00 Laboratory - MAGNESIUM LT GREEN(LI [place] AM Chemistry Order HEP) PLASMA SP [facility] Feb 19, 2022 12:00 Laboratory - PHOSPHORUS LT GREEN(LI [place] AM Chemistry Order HEP) PLASMA SP [facility] Lab Results: +/- 30 days of [...] ecimen Type: PLASMA Comment: Tests performed on Coupad (405) SN:[id number] Ordering Provid er: [place] TORRES Report Released Date/Time: Jan 22, 2022 09:48 AM Reporting Lab: [place] [facility] [address] [facility] [address] Performing Lab: [place] [facility] [address] [facility] [address] CALCIUM 8.8 8.5-10.5 Jan 22, 2022 09:55 AM [place] [facility] PHOSPHORUS Sp ecimen Type: PLASMA Comment: Tests performed on Coupad (405) SN:[id number] Ordering Provid er: [place] TORRES Report Released Date/Time: Jan 22, 2022 09:48 AM Reporting Lab: [place] [facility] [address] [facility] [address] Performing Lab: [place] [facility] [address] [place] [facility] [place] [address] PHOSPHORUS 3.2 2.5-5.0 Jan 22, 2022 09:55 AM [place] [facility] MAGNESIUM Sp ecimen Type: PLASMA Comment: Tests performed on Coupad (405) SN:[id number] Ordering Provid er: [place]ERT[place] TORRES Report Released Date/Time: Jan 22, 2022 09:48 AM Reporting Lab: [place] [facility] [address] [facility] [address] Performing Lab: [place] [facility] [address] [facility] [address] MAGNESIUM 0.7 L 1.6-2.6 Jan 22, 2022 09:55 [place] P4 GLU,BUN,CREAT,LYTES,CA Sp ecimen Type: PLASMA AM [facility] Comment: Tests performed on Coupad (405) SN:[id number] Ordering Provid er: [place]ERT[place] TORRES Report Released Date/Time: Jan 22, 2022 09:48 AM Reporting Lab: [place] [facility] [address] [facility] [address] Performing Lab: [place] [facility] [address] [place] [facility] [place] [address] UREA NITROGEN 13 7-25 SODIUM 137 135-145 [...] 94 % 0 68 in 192.2 29 ST2021 09:17 /min mm[Hg] lb [facility]BU [facility] Social History: Smoking Status (Most current) and [...] 2021 09:00 AM VA-TOBACCO USER EVERY DAY [facility] Tobacco Use History This section includes a history of the smoking, or tobacco- related health factors, that were collected on or before the date of the Encounter. The data comes from the [place] facility where the Encounter took place. Date/Time Smoking Status/Tobacco Use Comment [facility] September 27, 2021 09:00 AM VA-TOBACCO USE ADVICE [facility] September 27, 2021 09:00 AM VA-TOBACCO USE ECHO TECH NO [facility] September 27, 2021 09:00 AM VA-TOBACCO USE MED NO [facility] September 27, 2021 09:00 AM VA-TOBACCO USE WI 30 MIN OF WAKEUP [facility] September 27, 2021 09:00 AM VA-TOBACCO USER EVERY DAY [facility] Dec 15, 2019 09:22 AM VA-TOBACCO USE 30 YEARS OR MORE [facility] Dec 15, 2019 09:22 AM VA-TOBACCO USE ADVICE [facility] Dec 15, 2019 09:22 AM VA-TOBACCO USE ECHO TECH NO [facility] Dec 15, 2019 09:22 AM VA-TOBACCO USE MED NO [facility] Dec 15, 2019 09:22 AM VA-TOBACCO USE WI 30 MIN OF WAKEUP [facility] Dec 15, 2019 09:22 AM VA-TOBACCO USER EVERY DAY [facility] Jun 18, 2018 12:32 PM VA-TOBACCO USE 30 YEARS OR MORE [facility] Jun 18, 2018 12:32 PM VA-TOBACCO USE ADVICE [facility] Jun 18, 2018 12:32 PM VA-TOBACCO USE ECHO TECH NO [facility] Jun 18, 2018 12:32 PM VA-TOBACCO USE MED NO [facility] Jun 18, 2018 12:32 PM VA-TOBACCO USE WI 30 MIN OF WAKEUP [facility] Jun 18, 2018 12:32 PM VA-TOBACCO USER EVERY DAY [facility] Sep 19, 2017 03:23 PM CURRENT SMOKER [facility] Sep 19, 2017 03:23 PM V1-PT NOT INTERESTED IN QUIT TOBACCO [facility] USE Encounter Notes: All associated encounter notes This section contains the clinical notes associated to the Encounter. Date/Time Encounter Note(s) Provider Source Jan 22, 2022 09:31 AM PRIMARY CARE ANNUAL EVALUATION NOTE: RAZA CHI [facility] LOCAL TITLE: Preventive Health Annual Review STANDARD TITLE: PRIMARY CARE ANNUAL EVALUATION N OTE DATE OF NOTE: JAN 22, 2022@09:31 ENTRY DATE: JAN 22, 2022@09:31:50 AUTHOR: RAZA ENGEL EXP COSIGNER: URGENCY: STATUS: COMPLETED Preventive Health Annual Review Has ADDENDA Advance Directive Screen: Patient does not have a completed advance direc tive on file at any facility, [facility] or outside. S/he is not interested in completing one at this time. The patient received education about Advance Di rectives and written notification of his/her rights. Homelessness/Food Insecurity Screen: In the past 2 months, have you been living in s table housing that you own, rent, or stay in as part of a household? Y es - Living in stable housing. Are you worried or concerned that in the next 2 months you may NOT have stable housing that you own, rent, or stay in a s part of a household? No - Not worried about housing near future [facility] reports the following: Within the past 12 months, you worried whether your food would run out before you got money to buy more. Never true Within the past 12 months, the food you bought just didn't last and you didn't have money to get more. Never true /es/ RAZA ENGEL Fingernail Sculptor Signed: 01/22/2022 09:32 01/22/2022 ADDENDUM STATUS: COMPLETED Lungs clear- does have a cough- has has for a while- got cold from grandchildren ands cough is lingering- no other symtoms. /es/ SADI CÁRDENAS RN Signed: 01/22/2022 10:55
--- OUTSIDE RECORDS SUMMARY | 2022-02-09 10:43 | XMS_ITS | Encounter Summary ---
:1950 Author Organization [facility] Address [address] [place] [id number] Support Name Relationship Address Phone ZUHAIR FOSTER Unavailable [address] [place] [address] ZUHAIR FOSTER Unavailable [address] [place] [address] Insurance Providers: All historical and current Section [...] [facility] Jan 25, 95240 [id number] [phone] DO Stephanie FOSTER SPOUSE DEDUCTIBL [place] 2013 [id number] NA [facility] PLAN EXPRESS PRESCRIPT WEI May 27, RXBWEID [id number] [phone] PEYTON FOSTER SPOUSE SCRIPTS ION [place] 2017 [id number] NA ([id number]) (HDHP ) MEDICARE MEDICARE PART Jan 25, PART A [id number] CRISTIAN, AND PATIENT (WNR) (M) A 2013 VU70 2 REW Selected Encounter This section includes the information on record at [place] for the Encounter. Date/Time Encounter Type Encounter Description Reason Provider Source Jan 23, 2022 11:28 Outpatient Encounter PRIMARY CARE/MEDICINE AM IHE Encounter [...] 20 appointments. The data comes from all [place] treatment facilities. Appointment Date/Time Appointment Type Appointment Facili ty Name Feb 12, 2022 10:30 AM AMBULATORY - SURGERY [place] [facility] Feb 20, 2022 08:45 AM AMBULATORY - NONE [facility] Feb 20, 2022 09:00 AM AMBULATORY - REHAB MEDICINE [facility] Mar 30, 2022 08:30 AM AMBULATORY - MEDICINE [facility] Active, Pending, and [...] the Encounter. The data comes from all [place] treatment [facility]. Test Date/Time Test Type Test Details Facility Name Dec 13, 2021 02:13 Consult Order [facility]-CARDIAC [facility] PM REHABILITATION Cons Aircraft Manager's Choice Dec 25, 2021 12:02 Consult Order [facility] PM DISEASE MANAGEMENT Cons Aircraft Manager[facility] Choice Feb 12, 2022 12:00 Laboratory - LIPOPROTEIN CHOLESTEROL [facility] AM Chemistry Order FRACT. PANEL LT GREEN(LI HEP) PLASMA Feb 19, 2022 12:00 Laboratory - P4 GLU,BUN,CREAT,LYTES,CA [place] AM Chemistry Order LT GREEN(LI HEP) PLASMA [facility] Feb 19, 2022 12:00 Laboratory - CALCIUM LT GRE[place](LI HEP) [place] Chemistry Order PLASMA SP [facility] Feb 19, 2022 12:00 Laboratory - MAGNESIUM [place](LI [place] AM Chemistry Order HEP) [facility] Feb 19, 2022 12:00 Laboratory - PHOSPHORUS LT GREEN(LI [place] AM Chemistry Order HEP) PLASMA SP [facility] Lab Results: +/- 30 days [...] ecimen Type: PLASMA Comment: Tests performed on iClinical (405) [id number] Ordering Provid er: EVERTON TORRES Report Released Date/Time: Jan 22, 2022 09:48 AM Reporting Lab: [place] [facility] [address] [facility] [address] Performing Lab: [place] [facility] [address] [facility] [address] PHOSPHORUS 3.2 2.5-5.0 Jan 22, 2022 09:55 AM [place] [facility] CALCIUM Sp ecimen Type: PLASMA Comment: Tests performed on iClinical (405) SN:[id number] Ordering Provid er: EVERTON TORRES Report Released Date/Time: Jan 22, 2022 09:48 AM Reporting Lab: [place] [facility] [address] [facility] [address] Performing Lab: [place] [facility] [address] [facility] [place] [address] CALCIUM 8.8 8.5-10.5 Jan 22, 2022 09:55 AM [place] [facility] MAGNESIUM Sp ecimen Type: PLASMA Comment: Tests performed on iClinical (405) SN:[id number] Ordering Provid er: EVERTON TORRES Report Released Date/Time: Jan 22, 2022 09:48 AM Reporting Lab: [place] [facility] [address] [facility] [address] Performing Lab: [place] [facility] [address] [facility] [place] [address] MAGNESIUM 0.7 L 1.6-2.6 Jan 22, 2022 09:55 [place] P4 GLU,BUN,CREAT,LYTES,CA Sp ecimen Type: PLASMA AM [facility] Comment: Tests performed on iClinical (405) [id number] Ordering Provid er: EVERTON TORRES Report Released Date/Time: Jan 22, 2022 09:48 AM Reporting Lab: [place] [facility] [address] [facility] [address] Performing Lab: [place] [facility] [address] [facility] [address] UREA NITROGEN 13 7-25 SODIUM 137 135-145 [...] smoking and tobacco-related health factors from the [place] facility where the Encounter took place.Current Smoking Status This section includes the most current smoking, or tobacco-related health factor, from the [place] facility where the Encounter took place. Date/Time Current Smoking Status Comment [facility] Feb 06, 2019 11:00 PM CURRENT SMOKER SARAH Whitney [facility] Tobacco Use History This section includes a history of the smoking, or tobacco- related health factors, that were collected on or before the date of the Encounter. The data comes from the [place] facility where the Encounter took place. Date/Time Smoking Status/Tobacco Use Comment [facility] Feb 06, 2019 05:51 PM CURRENT SMOKER SARAH [facility] Encounter Notes: All associated encounter notes This section contains the clinical notes associated to the Encounter. Date/Time Encounter Note(s) Provider Source Jan 23, 2022 11:28 AM NONVA NOTE: AXEL JORGENSEN [facility] LOCAL TITLE: NonVA Medical Records STANDARD TITLE: NONVA NOTE DATE OF NOTE: JAN 23, 2022@11:28 ENTRY DATE: JAN 23, 2022@11:28:41 AUTHOR: AXEL JORGENSEN EXP COSIGNER: URGENCY: STATUS: COMPLETED EVENT PROCEDURE: Emergency room DATE OF SERVICE: 01/08/2022 TREATING FACILITY: [facility] Presented with 1 week of URI symptoms complaints of Nausea adn feeling unsteady H/O cardiac stenting x 5 6 weeks ago at [facility] Noted wheezing/yellow sputum and alot of nasal d ischarge over the last week' Labs WBC 11.2 Calcium 7.0 Potassium 3.0 chloride 90 EKG Sinus rhtythm incomplete RBBB and left anterior fascicular blo ck low voltage poor QRS progression Superventricular Bigeminy CT scan negative THE ATTACHED SCANNED DOCUMENT HAS BEEN REVIEWED AND AUTHORIZED BY DOCUMENT (S) SENT TO [facility] TO BE SCANNED. TO VIEW THIS DOCUMENT, OPEN CPRS TOOLS MENU AND THEN OPEN THE IMAGE DISPLAY VIEWER. /meena/ AXEL JORGENSEN LPN Signed: 01/23/2022 11:35 Receipt Acknowledged By: * AWAITING SIGNATURE * EVERTON TORRES
--- OUTSIDE RECORDS SUMMARY | 2022-02-09 10:43 | XMS_ITS ---
:1950 Author Organization Department [facility] Address [address] [place] [address] Support Name Relationship Address Phone ZUHAIR FOSTER Unavailable [address] [place] [address] ZUHAIR FOSTER Unavailable [address] [place] [address] Insurance Providers: All historical and current Section [...] [facility] [employer] [facility] [facility] Jan 25, 38992 [id number] [phone] DO Stephanie FOTSER SPOUSE DEDUCTIBL [place] [id number] NA E [facility] PLAN EXPRESS PRESCRIPT WEIDM May 27, RXBWEID [id number] [phone] PEYTON FOSTER SPOUSE SCRIPTS ION [place] 2017 [id number] NA ([id number]) ([facility] ) MEDICARE MEDICARE PART Jan 25, PART A [id number] CRISTIAN, AND PATIENT (WNR) (M) A 2013 VU70 2 REW Selected Encounter This section includes the information on record at [facility] for the Encounter. Date/Time Encounter Type Encounter Reason Provider Source Description Jan 22, 2022 OFFICE O/P EST PRIMARY ICD-10-CM E87.8 VO,[place] P 09:31 AM MOD 30-39 MIN CARE/MEDICINE Oth disorders of electrolyte and fluid balance, NEC with Provider Comments: Other Disorders of Electrolyte and Fluid Balance, not elsewhere classified IHE Encounter Template Text not used by [facility] Assessments - Encounter Diagnoses This section includes the primary and secondary diagnoses documented for the Encounter. Date/Time Primary/Secondary Diagnosis Name Provider Source Diagnosis Jan 22, 2022 12:10 PRIMARY Oth disorders of VO,[place] RAE PM electrolyte and T [facility] fluid balance, NEC Jan 22, 2022 12:10 SECONDARY Acute upper VO,[place] SMITH MARIA G ER PM respiratory T [facility] infection, unspecified Jan 22, 2022 12:10 SECONDARY Chronic ischemic VO,[place] RAE PM heart disease, T [facility] unspecified Plan of Treatment: Future Appointments (+ 6 [...] 12, 2022 10:30 AM AMBULATORY - [place] [facility] Feb 20, 2022 08:45 AM AMBULATORY - NONE [facility] Feb 20, 2022 09:00 AM AMBULATORY - [facility] Mar 30, 2022 08:30 AM AMBULATORY - MEDICINE [facility] Active, Pending, and Scheduled Orders [...] 13, 2021 02:13 Consult Order [facility]ITY CARE-CARDIAC [facility] PM REHABILITATION Cons Billing Services Manager's Choice Dec 25, 2021 12:02 Consult Order [facility] CARE-OPTOMETRY [facility] PM DISEASE MANAGEMENT Cons Billing Services Manager's Choice Feb 12, 2022 12:00 Laboratory - LIPOPROTEIN CHOLESTEROL [facility] AM Chemistry Order FRACT. PANEL LT GREEN(LI HEP) PLASMA SP Feb 19, 2022 12:00 Laboratory - P4 GLU,BUN,CREAT,LYTES,CA [place] AM Chemistry Order LT GREEN(LI HEP) [facility]ASMA [facility] SP Feb 19, 2022 12:00 Laboratory - CALCIUM LT GREEN(LI HEP) [place] AM Chemistry Order PLASMA SP [facility] Feb 19, 2022 12:00 Laboratory - PHOSPHORUS LT GREEN(LI [place] AM Chemistry Order HEP) PLASMA SP [facility] Feb 19, 2022 12:00 Laboratory - MAGNESIUM [place](LI [place] AM Chemistry Order HEP) PLASMA SP [facility] Lab Results: +/- 30 days of the [...] ecimen Type: PLASMA Comment: Tests performed on [employer] (405) [id number] Ordering Provid er: [place] TORRES Report Released Date/Time: Jan 22, 2022 09:48 AM Reporting Lab: [place] [facility] [address] [place] [facility] [place] [address] Performing Lab: [place] [facility] [address] [place] [facility] [place] [address] MAGNESIUM 0.7 L 1.6-2.6 Jan 22, 2022 09:55 AM [place] [facility] PHOSPHORUS Sp ecimen Type: PLASMA Comment: Tests performed on [employer] (405) SN:[id number] Ordering Provid er: EVERTON TORRES Report Released Date/Time: Jan 22, 2022 09:48 AM Reporting Lab: [place] [facility] [address] [place] [facility] [place] [address] Performing Lab: [place] [facility] [address] [place] [facility] [place] [address] PHOSPHORUS 3.2 2.5-5.0 Jan 22, 2022 09:55 AM [place] [facility] CALCIUM Sp ecimen Type: PLASMA Comment: Tests performed on [employer] (405) SN:[id number] Ordering Provid er: EVERTON TORRES Report Released Date/Time: Jan 22, 2022 09:48 AM Reporting Lab: [place] [facility] [address] [facility] [address] Per[facility] Lab: [facility] [address] [facility] [address] CALCIUM 8.8 8.5-10.5 Jan 22, 2022 09:55 [facility] P4 GLU,BUN,CREAT,LYTES,CA Sp ecimen Type: PLASMA AM [facility] Comment: Tests performed on [employer] (405) SN:[id number] Ordering Provid er: EVERTON TORRES Report Released Date/Time: Jan 22, 2022 09:48 AM Reporting Lab: [facility] [address] [facility] [address] Performing Lab: [facility] [address] [facility] [address] UREA NITROGEN 13 7-25 SODIUM 137 135-145 [...] Source Pressure Rate Mass Index Jan 22, 122/72 SARAH 2021 10:50 mm[Hg] [facility] Social History: Smoking Status (Most current) [...] took place. Date/Time Current Smoking Status Comment [facility] Feb 06, 2019 11:00 PM CURRENT SMOKER SARAH Whitney [facility] Tobacco Use History This section includes a history of the smoking, or tobacco- related health factors, that were collected on or before the date of the Encounter. The data comes from the [place] facility where the Encounter took place. Date/Time Smoking Status/Tobacco Use Comment [facility] Feb 06, 2019 05:51 PM CURRENT SMOKER SARAH Whitney [facility] Encounter Notes: All associated encounter notes This section contains the clinical notes associated to the Encounter. Date/Time Encounter Note(s) Provider Source Jan 22, 2022 08:39 AM PRIMARY CARE NOTE: EVERTON TORRES [facility] LOCAL TITLE: Primary Care Clinic Note STANDARD TITLE: PRIMARY CARE NOTE DATE OF NOTE: JAN 22, 2022@08:39 ENTRY DATE: JAN 22, 2022@08:39:42 AUTHOR: EVERTON TORRES EXP COSIGNER: URGENCY: STATUS: COMPLETED Primary Care Clinic Note Has ADDENDA TELEHEALTH F/U NOTE LAST SEEN: 12/27/21 ANASTASIA FOSTER is a 71 year old MALE here f or a Primary Care Follow-up visit for post-hospitalization for electrolytes abnormalities in setting of recent NSTEMI (12/11/21) and recent Rhino viral URI (01/08/22). Discharge summary note was not available for review at time of thi s visit. S: See below as noted in a/p. ROS: denies any cardiac/pulm/GI//or co nstitutional symptoms of F/C except as noted in a/p. PROBLEM LIST: Asteatotic eczema ([facility] [id number]) Peripheral vas cular disease ([facility] [id number]) Venous insufficiency of leg (SCT [id number] ([facility] [id number]) Venous stasis edema of bilateral lower lWound (S CT 981708357) Essential hypertension (SCT 35950057) Diabetes m ellitus ([facility] [id number]) Anemia (SCT 892501690) HLD - Hyperlipidemia ([facility] [id number]) Pierre's esophagus ([facility] [id number]) GERD - Gastr o-esophageal reflux disease (SCT 409494477) Diverticulosis (SCT 156189114) OA - Osteoarthros is ([facility] 921576349) Chronic ischemic heart disease (SCT 2812 Active Outpatient Medications (excluding Supplie s): Active [...] ACTIVE MOUTH EVERY DAY 20 Total Medications ALLERGIES/ADR: SHELLFISH O: T 96.8 P 72 R 20 BP 122/72 Pain 0 POx 94% BMI 29.29 GEN: NAD, well appearing and at baseline health NEURO: A&Ox3 RESP: speaking in full sentences LE: no edema A/P: # Electrolyes Abnormalities: Pt is a 71 year old MALE here for a Primary Care Follow-up visit for post-hospitalization for ken ctrolytes abnormalities in setting of recent NSTEMI (12/11/21) and recent Rh inoviral URI (01/08/22). Discharge summary note was not available for rev iew at time of this visit. Pt reports he didn't feel well the morning of 01/08/22 while getting ready for his rehab, and was evaluatd at [facility] for which he was found with low electrolytes. He reports they pumped electrolytes into me and ke ep me overnight. He was dischared on potassium chloride 10mgEQ bid, magn esium 1000mg bid, and calcium 1000 mg bid x 30 days. He reports he was tested for viral uri at time of admission and was found posi tive for rhinovirus. He had slight GI upset/diarrhea which is now resolved. He also had mild congesti on and cough which are improving. Pt was speaking i n full sentences with 02 94% and normal respiratory effect. Pt is afebrile. Pt ashish -recheck mg/ca/K -check kidney function -consider lowering supplements KCL, Mg, and Calc ium to daily - pending lab results. # Rhinovirus URI: improving, no cough, afebrile, resp status at baseline -monitor # Inferior STEMI / Multivessel ASCVD: Pt w/ rece dnt STEMI. LHC 12/11/21 showed culprit prox RCA lesion s/p MASON, residual LAD disease s/p staged PCI [facility] 12/12/21 with atherectomy and stent insertion of mid LAD and MASON to prox LAD and ostial D2. TTE 12/11/21 showed preserved LVEF 57 % without WMAs, RV with mildly reduced function and with hypokineti c mid to apical RV free wall. Pt remains chest pain free and BP controlled. -con't DAPT (aspirin 81 mg daily + clopidogrel 7 5mg daily) x12 months -con't atorvastatin 80mg, lisinopril 5 mg, and m etoprolol SA 50mg daily -enrolled in [facility] cardiac rehab Disposition: f/u as scheduled, sooner prn. /meena/ EVERTON TORRES D.OBin Signed: 01/22/2022 12:10 01/23/2022 ADDENDUM STATUS: COMPLETED Results: Collection time: Jan 22, 2022@09:55 Test Name Result Units Range --------- ------ ----- ----- GLUCOSE 121 H mg/dL 65 - 100 UREA NITROGEN 13 mg/dL 7 - 25 CREATININE 0.89 mg/dl 0.5 - 1.5 eGFR(CKD-EPI 2020) >90.0 mL/min Ref: >=60 SODIUM 137 mmol/L 135 - 145 POTASSIUM 3.8 mmol/L 3.5 - 5.0 CHLORIDE 99 L mmol/L 100 - 110 CARBON DIOXIDE 26 mmol/L 20 - 30 ANION GAP 12 mmol/L 4 - 16 CALCIUM 8.8 mg/dL 8.5 - 10.5 PHOSPHORUS 3.2 mg/dL 2.5 - 5.0 MAGNESIUM 0.7 L mg/dL 1.6 - 2.6 Nursing, pls relay the following to pt: 1. Electrolyte remains low and low-normal. 2. Continue supplements as is. [facility]/ 1 refill as janel. 3. Will recheck electrolytes in 4 weeks. Lab rtc submitted. Pls schedule. 4. Pt has f/u on 03/30/22 with main PCP Pact F. /meena/ EVERTON TORRES D.OBin Signed: 01/23/2022 08:04 Receipt Acknowledged By: 01/23/2022 14:00 /meena/ SADI CÁRDENAS RN 01/23/2022 09:28 /es/ WANG SLAUGHTER 01/25/2022 12:44 /es/ JOAQUIN ROSS Registered Nurse 01/23/2022 ADDENDUM STATUS: COMPLETED contacted vet- discussed the following Nursing, pls relay the following to pt: 1. Electrolyte remains low and low-normal. 2. Continue supplements as is. Supplements order ed from [place] for 60-day w/ 1 refill as janel. 3. Will recheck electrolytes in 4 weeks. Lab rtc submitted. Pls schedule. 4. Pt has f/u on 03/30/22 with main PCP Pact F. ve is aware- will present to lab . Has no questions/concerns at this time /meena/ SADI CÁRDENAS RN Signed: 01/23/2022 14:01 01/26/2022 ADDENDUM STATUS: COMPLETED PET CT STANDARD SCAN SKULL BASE JARRET THIGH Proc Ord: PET CT STANDARD SKULL BASE TO MID-THIG H Exm Date: MAR 22, 2020@10:15 Req Phys: SHANELL ALLEN Conclusion: Increased uptake with increased soft tissue in the right piriform sinus suggest direct examination. There is mini mal increased uptake in the reported 2 cm peripancreatic lymp h node with an SUVmax of 2.8 which is nonspecific. There is no associated increased uptake with other lymph nodes. Covering provider reviewed valentin vanegas, [facility] ED note 01/08/22, and prior imaging from [facility]. CT A/P/C done at [facility] which was negative. Noted weight loss 192.2 lb from 207.8 (09/27/21) and pt had prior PET CT 03/22/22. Unkno wn reason for abnormal hypocalcemia as well has hypokalemia and hypomag nesium. Monitor weight may consider nephrology referral and further malignancy workup at the next f/u visit with main PCP Pact F in March. /meena/ [place]ERT[place] TORRES D.O. Signed: 01/26/2022 18:17
--- OUTSIDE RECORDS SUMMARY | 2022-02-09 10:44 | XMS_ITS | Encounter Summary ---
:1950 Author Organization [facility] Address [address] [place] [address] 150[address] Support Name Relationship Address Phone ZUHAIR FOSTER Unavailable [address] [place] [address] ZUHAIR FOSTER Unavailable [address] [place] [address] Insurance Providers: All historical and current Section [...] Liu CBA BLUE HIGH WEI Jan 25, 12512 [id number] [phone] DO Stephanie FOSTER SPOUSE DEDUCTIBL [place] 2013 [id number] NA E [facility] PLAN EXPRESS PRESCRIPT WEI May 27, RXBWEID [id number] [phone] PEYTON FOSTER SPOUSE SCRIPTS ION [place] 2017 [id number] NA ([id number]) ([facility] ) MEDICARE MEDICARE PART Jan 25, PART A [id number] CRISTIAN, AND PATIENT (WNR) (M) A 2013 [id number] REW Selected Encounter This section includes the information on record at [place] for the Encounter. Date/Time Encounter Type Encounter Reason Provider Source Description Dec 27, 2021 TELEHEALTH PRIMARY ICD-10-CM I25.119 [place] TORRES 11:30 AM FACILITY FEE CARE/MEDICINE [facility] heart disease of [place] cor art w unsp ang pctrs with Provider Comments: Atherosclerotic Heart Disease of [place] Coronary Artery with unspecified Angina Pectoris IHE Encounter Template Text not used by [facility] Assessments - Encounter Diagnoses This section includes the primary and secondary diagnoses documented for the Encounter. Date/Time Primary/Secondary Diagnosis Name Provider Source Diagnosis Jan 30, 2022 PRIMARY Athscl heart FARRAH HARRINGTON 12:51 PM disease of [place] CBOC cor art w unsp ang pctrs Jan 30, 2022 SECONDARY Oth disorders of FARRAH HARRINGTON RY 12:51 PM electrolyte and CBOC fluid balance, NEC Plan of Treatment: Future Appointments (+ 6 months) and Future Tests (+/- 45 days) The Plan of Treatment section includes future care activities for the patient from all [place] treatmentfacilities. This section includes future appointments and future orders which are active, pending orscheduled.Future Appointments This section includes appointments that were scheduled to occur 6 months from the date of the Encounter, up to a maximum of 20 appointments. The data comes from all [place] treatment facilities. Appointment Date/Time Appointment Type Appointment Facili ty Name Jan 18, 2022 11:00 AM AMBULATORY - REHAB MEDICINE [facility] Jan 22, 2022 09:30 AM AMBULATORY - MEDICINE [facility] OC Jan 22, 2022 09:31 [facility] Feb 12, 2022 10:30 AM [facility] Feb 20, 2022 08:45 AM AMBULATORY - NONE [facility] Feb 20, 2022 09:00 AM AMBULATORY - REHAB MEDICINE [facility] Mar 30, 2022 08:30 AM AMBULATORY - MEDICINE [facility] Active, Pending, and Scheduled Orders This section includes a listing of several types of active, pending, and scheduled orders, including clinic medications orders, diagnostic test orders, procedure orders and consult orders; where the start date of the order is 45 days before the date of the Encounter or 45 days after the date of the Encounter. The data comes from all [place] treatment facilities. Test Date/Time Test Type Test Details Facility Name Dec 13, 2021 02:13 PM Consult Order COMMUNITY CARE-CARDIAC [facility] REHABILITATION Cons Plate Straightener's Choice Dec 25, 2021 12:02 PM Consult Order [facility]-OPTOMETRY S [facility] DISEASE MANAGEMENT Cons Plate Straightener's Choice Lab Results: +/- 30 days of the encounter This section includes the Chemistry and Hematology Lab Results on record with [place] for the patient. Radiology Reports and Pathology [...] ecimen Type: PLASMA Comment: Tests performed on Orbotix (405) [id number] Ordering Provid er: [place]ERTON TORRES Report Released Date/Time: Jan 22, 2022 09:48 AM Reporting Lab: [facility] [address] [facility] [address] Performing Lab: [facility] [address] [facility] [address] MAGNESIUM 0.7 L 1.6-2.6 Jan 22, 2022 09:55 AM [facility] PHOSPHORUS Sp ecimen Type: PLASMA Comment: Tests performed on Orbotix (405) [id number] Ordering Provid er: [place] TORRES P Report Released Date/Time: Jan 22, 2022 09:48 AM Reporting Lab: [facility] [address] [facility] [address] Performing Lab: [facility] [address] [facility] [address] PHOSPHORUS 3.2 2.5-5.0 Jan 22, 2022 09:55 AM [facility] CALCIUM Sp ecimen Type: PLASMA Comment: Tests performed on Orbotix (405) [id number] Ordering Provid er: [place] TORRES Report Released Date/Time: Jan 22, 2022 09:48 AM Reporting Lab: [facility] [address] [facility] [address] Performing Lab: [facility] [address] [facility] [address] CALCIUM 8.8 8.5-10.5 Jan 22, 2022 09:55 [place] P4 GLU,BUN,CREAT,LYTES,CA Sp ecimen Type: PLASMA AM [facility] Comment: Tests performed on Orbotix (405) [id number] Ordering Provid er: [place] TORRES P Report Released Date/Time: Jan 22, 2022 09:48 AM Reporting Lab: [facility] [address] [facility] [address] Performing Lab: [facility] [address] [facility] [address] UREA NITROGEN 13 7-25 SODIUM [phone] [...] smoking and tobacco-related health factors from the [place] facility where the Encounter took place.Current Smoking Status This section includes the most current smoking, or tobacco-related health factor, from the [place] facility where the Encounter took place. Date/Time Current Smoking Status Comment Facility September 27, 2021 09:00 AM VA-TOBACCO USER EVERY DAY [facility] Tobacco Use History This section includes a history of the smoking, or tobacco- related health factors, that were collected on or before the date of the Encounter. The data comes from the [place] facility where the Encounter took place. Date/Time Smoking Status/Tobacco Use Comment [facility] September 27, 2021 09:00 AM VA-TOBACCO USE ADVICE [facility] September 27, 2021 09:00 AM VA-TOBACCO USE CNA NO [facility] September 27, 2021 09:00 AM VA-TOBACCO USE MED NO [facility] September 27, 2021 09:00 AM VA-TOBACCO USE [place] [address] [facility] September 27, 2021 09:00 AM VA-TOBACCO USER EVERY DAY [facility] Dec 15, 2019 09:22 AM VA-TOBACCO USE [address] [facility] Dec 15, 2019 09:22 AM VA-TOBACCO USE ADVICE [facility] Dec 15, 2019 09:22 AM VA-TOBACCO USE CNA NO [facility] Dec 15, 2019 09:22 AM VA-TOBACCO USE MED NO [facility] Dec 15, 2019 09:22 AM VA-TOBACCO USE WI 30 MIN OF WAKEUP [facility] CB Dec 15, 2019 09:22 AM VA-TOBACCO USER EVERY DAY [facility] Jun 18, 2018 12:32 PM VA-TOBACCO USE [address] [facility] Jun 18, 2018 12:32 PM VA-TOBACCO USE ADVICE [facility] Jun 18, 2018 12:32 PM VA-TOBACCO USE CNA NO [facility] Jun 18, 2018 12:32 PM VA-TOBACCO USE MED NO [facility] Jun 18, 2018 12:32 PM VA-TOBACCO USE [place] [address] [facility] Jun 18, 2018 12:32 PM VA-TOBACCO USER EVERY DAY [facility] Sep 19, 2017 03:23 PM CURRENT [facility] Sep 19, 2017 03:23 PM V1-PT NOT INTERESTED IN QUIT TOBACCO [facility] CB USE
--- OUTSIDE RECORDS SUMMARY | 2022-02-09 10:44 | XMS_ITS | Encounter Summary ---
:1950 Author Organization [facility] [place] [address] Care Team Providers Name Role Phone None Primary Care Provider Unavailable Encounter Details Date Type Department Care Team Description 01/22/2022 Telephone Cardiology at [facility] [place] [address] Social History Tobacco Use Types Packs/Day Years Used Date Current Every Day Smoker Cigarettes 1 Alcohol Use Standard Drinks/Week Comments Not Asked 0 (1 standard drink = 0.6 oz pure alcoho l) Sex Assigned at Date Recorded Not on file documented as of this encounter Miscellaneous Notes Telephone Encounter - Dwayne Cardenas - 01/22/2022 9:51 AM EDT Called Roberto to complete 30 day follow-up for SAFE STEMI trial. No answer, so I left a VM asking for a return call. documented in this encounter Plan of Treatment Not on filedocumented as of this encounter Visit Diagnoses Not on filedocumented in this encounter Care Teams Project Controls Scheduler Relationship Specialty Start Date End Date None PCP - General 11/24/21 None documented as of this encounter
--- OUTSIDE RECORDS SUMMARY | 2022-02-09 10:44 | XMS_ITS | Encounter Summary ---
:1950 [place] [address] Care Team Providers Name Role Phone None Primary Care Provider Unavailable Encounter Details Date Type Department Care Team Description 01/23/2022 Notes Only Cardiology at [facility] [place] [address] Social History Tobacco Use Types Packs/Day Years Used Date Current Every Day Smoker Cigarettes 1 Alcohol Use Standard Drinks/Week Comments Not Asked 0 (1 standard drink = 0.6 oz pure alcoho l) Sex Assigned at Date Recorded Not on file documented as of this encounter Progress Notes Dwayne Cardenas - 01/23/2022 10:24 AM EDT Safe STEMI for Seniors A prospective, Multi-center, Unblinded, Randomized trial in Primary PCI Subjects 65 or Older to Assess Safety and Efficacy of Radial Access, Medtronic Resolute Hardy Family of Stents, Terumo Hemostasis Device and Complete versus Infarct Related Vessel Revascularization Cadet Deck Rj Stafford M.D. Pager # [phone] Design: Multicenter, randomized, open-label, unblinded, active and historical-controlled trial in which approximately 875 seniors undergoing urgent PCI from approximately 70 centers will be enrolled. All consented subjects will undergo attempted radial arterial access. For MASON (Drug Eluting Stent) eligible patients without randomization exclusion criteria and with multi-vessel disease will be randomized by site in a ratio of 1:1 to KALPESH-only revascularization or iFR-guided complete revascularization. After randomization, subjects with stable KATIE-3 flow established in the KALPESH using the protocol specified treatment will proceed with the randomized procedure. Subjectsin whom KALPESH reperfusion with KATIE-3 flow is not achieved will be treated according to clinical best practice standard of care independent of randomized procedure assignment and will not be considered protocol violations. These patients will be followed identically to all study patients. Vital Signs: There were no vitals taken for this visit. Current Medications: Scheduled Meds: Current Outpatient Medications: ??? metFORMIN (Glucophage) 1,000 mg Tablet, Take 1 tablet by mouth 2 times daily (with meals)., Disp: 60 tablet, Rfl: 12 ??? atorvastatin (Lipitor) 80 mg Tablet, Take 1 tablet by mouth daily., Disp: 30 tablet, Rfl: 3 ??? nicotine (Nicoderm CQ) 21 mg/24 hr Patch 24 hr, Change 1 patch on the skin daily., Disp: 28 patch, Rfl: 0 ??? nitroGLYcerin (Nitrostat) 0.4 mg Tablet, Sublingual, Place 1 tablet under the tongue every 5 minutes as needed for Chest pain., Disp: 25 tablet, Rfl: PRN ??? clopidogreL (Plavix) 75 mg Tablet, Take 1 tablet by mouth daily., Disp: 15 tablet, Rfl: 0 ??? aspirin EC 81 mg Tablet, Delayed Release (E.C.), Take 81 mg by mouth daily., Disp: , Rfl: ??? albuteroL 90 mcg/actuation HFA Aerosol Inhaler, Inhale 2 puffs into the lungs every 4 hours as needed for Wheezing. Use with spacer, Disp: , Rfl: ??? alogliptin (Nesina) 6.25 mg Tablet, Take 6.25 mg by mouth daily., Disp: , Rfl: ??? magnesium oxide (Mag-Ox) 400 mg (241.3 mg magnesium) Tablet, Take 400 mg by mouth daily., Disp: , Rfl: ??? metOLazone (Zaroxolyn) 2.5 mg Tablet, Take 2.5 mg by mouth daily., Disp: , Rfl: ??? metoprolol succinate XL (Toprol-XL) 50 mg Tablet Sustained Release 24 hr, Take 50 mg by mouth daily., Disp: , Rfl: ??? multivitamin Capsule, Take 1 capsule by mouth daily., Disp: , Rfl: ??? pantoprazole EC (Protonix) 40 mg Tablet, Delayed Release (E.C.), Take 40 mg by mouth daily., Disp: , Rfl: ??? potassium chloride ER (K-Dur/Klor-Con) 10 mEq Tablet Sustained Release, Take 10 mEq by mouth daily., Disp: , Rfl: ??? sildenafiL (VIAGRA) 100 mg Tablet, Take 100 mg by mouth as needed for Erectile Dysfunction., Disp: , Rfl: ??? pregabalin (Lyrica) 75 mg Capsule, Take 75 mg by mouth 2 times daily., Disp: , Rfl: ??? lisinopril (PRINIVIL;ZESTRIL) 5 mg tablet, , Disp: , Rfl: Visit Interval: [ X] Day 30 Assessment & Plan: I spoke with Roberto today to complete the 30 day follow-up for the SAFE STEMI trial. Roberto was discharged on 12/13, and since that time he has been well. He did have to spend 1 night in the hospital on01/08 for dehydration. He was admitted and given IV fluids and discharged the following morning. He has had no cardiac related issues. He is currently participating in cardiac rehab. Next follow up for Roberto will be in about 1 year. documented in this encounter Plan of Treatment Not on filedocumented as of this encounter Visit Diagnoses Not on filedocumented in this encounter Care Teams Process Technician Relationship Specialty Start Date End Date None PCP - General 11/24/21 None documented as of this encounter
--- OUTSIDE RECORDS SUMMARY | 2022-02-09 10:44 | XMS_ITS | Encounter Summary ---
:1950 Author Organization [facility] Address [address] [place] [address] Support Name Relationship Address Phone ZUHAIR FOSTER Unavailable [address] [place] [address] ZUHAIR FOSTER Unavailable [address] [place] [address] Insurance Providers: All historical and current Section [...] Liu CBA BLUE HIGH WEI Jan 25, 57047 [id number] [phone] DO Stephanie FOSTER SPOUSE DEDUCTIBL [place] 2013 [id number] NA E [facility] PLAN EXPRESS PRESCRIPT WEIDM May 27, RXBWEID [id number] [phone] PEYTON FOSTER SPOUSE SCRIPTS ION [place] 2017 [id number] [phone] NA ([phone]) ([facility] ) MEDICARE MEDICARE PART Jan 25, PART A [id number] CRISTIAN, AND PATIENT (WNR) (M) A 2013 [id number] 2 REW Selected Encounter This section includes the information on record at [place] for the Encounter. Date/Time Encounter Type Encounter Reason Provider Source Description Jan 23, 2022 MTMS BY PHARM CLINICAL ICD-10-CM E83.42 FELISA LAWRENCE 05:14 PM PHARMACY TECHNICIAN INFUSION 15 MIN PHARMACY Hypomagnesemia with Provider Comments: Hypomagnesemia IHE Encounter Template Text not used by [facility] Assessments - Encounter Diagnoses This section includes the primary and secondary diagnoses documented for the Encounter. Date/Time Primary/Secondary Diagnosis Name Provider Source Diagnosis Jan 23, 2022 05:22 PRIMARY Hypomagnesemia FELISA LAWRENCE SARAH KUO PM [place] [facility] Plan of Treatment: Future Appointments (+ 6 months) and Future Tests (+/- 45 days) The Plan of Treatment section includes future care activities for the patient from all [place] treatmentfacilities. This section includes future appointments and future orders which are active, pending orscheduled.Future Appointments This section includes appointments that were scheduled to occur 6 months from the date of the Encounter, up to a maximum of 20 appointments. The data comes from all [place] treatment facilities. Appointment Date/Time Appointment Type Appointment Facili ty Name Feb 12, 2022 10:30 AM AMBULATORY - SURGERY [place] [facility] Feb 20, 2022 08:45 AM AMBULATORY - NONE [facility] Feb 20, 2022 09:00 AM AMBULATORY [facility] Mar 30, 2022 08:30 AM AMBULATORY - MEDICINE [facility] Active, Pending, and Scheduled Orders This section includes a listing of several types of active, pending, and scheduled orders, including clinic medications orders, diagnostic test orders, procedure orders and consult orders; where the start date of the order is 45 days before the date of the Encounter or 45 days after the date of the Encounter. The data comes from all [place] treatment [facility]. Test Date/Time Test Type Test Details Facility Name Dec 13, 2021 02:13 Consult Order COMMUNITY CARE-CARDIAC [facility] PM REHABILITATION Cons Repairer [employer]ge[employer] Choice Dec 25, 2021 12:02 Consult Order COMMUNITY [facility]-OPTOMETRY [facility] PM DISEASE MANAGEMENT Cons Repairer [employer] Feb 12, 2022 12:00 Laboratory - LIPOPROTEIN CHOLESTEROL [facility] AM Chemistry Order FRACT. PANEL LT GREEN(LI HEP) PLASMA Feb 19, 2022 12:00 Laboratory - CALCIUM LT GREEN(LI [place]P) [place] AM Chemistry Order PLASMA [facility] Feb 19, 2022 12:00 Laboratory - P4 GLU,BUN,CREAT,LYTES,CA [place] AM Chemistry Order LT GREEN(LI HEP) PLASMA [facility] Feb 19, 2022 12:00 Laboratory - MAGNESIUM LT GREEN(LI [place] AM Chemistry Order HEP) PLASMA [facility] Feb 19, 2022 12:00 Laboratory - PHOSPHORUS [...] ecimen Type: PLASMA Comment: Tests performed on EnCoate (405) [id number] Ordering Provid er: VO,[place]ERTON P Report Released Date/Time: Jan 22, 2022 09:48 AM Reporting Lab: [facility] [address] [facility] [address] Performing Lab: [facility] [address] [facility] [address] PHOSPHORUS 3.2 2.5-5.0 Jan 22, 2022 09:55 AM [facility] [place] [facility] [facility] MAGNESIUM Sp ecimen Type: PLASMA Comment: Tests performed on EnCoate (405) [id number] Ordering Provid er: MELISSAEVERTON P Report Released Date/Time: Jan 22, 2022 09:48 AM Reporting Lab: [facility] [address] [facility] [address] Performing Lab: [facility] [address] [place] [facility] [place] [address] MAGNESIUM 0.7 L 1.6-2.6 Jan 22, 2022 09:55 AM [facility] [place] [facility] [facility] CALCIUM Sp ecimen Type: PLASMA Comment: Tests performed on EnCoate (405) [id number] Ordering Provid er: MELISSAEVERTON P Report Released Date/Time: Jan 22, 2022 09:48 AM Reporting Lab: [facility] [address] [facility] [address] Performing Lab: [facility] [address] [facility] [address] CALCIUM 8.8 8.5-10.5 Jan 22, 2022 09:55 [place] P4 GLU,BUN,CREAT,LYTES,CA Sp ecimen Type: PLASMA [facility] Comment: Tests performed on EnCoate 405 [id number] Ordering Provid er: [place] TORRES Report Released Date/Time: Jan 22, 2022 09:48 AM Reporting Lab: [facility] [address] [facility] [address] Performing Lab: [facility] [address] [facility] [address] UREA NITROGEN 13 7-25 SODIUM [phone] [...] smoking and tobacco-related health factors from the [place] facility where the Encounter took place.Current Smoking Status This section includes the most current smoking, or tobacco-related health factor, from the [place] facility where the Encounter took place. Date/Time Current Smoking Status Comment Facility Feb 06, 2019 11:00 PM CURRENT SMOKER SARAH Whitney [facility] Tobacco Use History This section includes a history of the smoking, or tobacco- related health factors, that were collected on or before the date of the Encounter. The data comes from the [place] facility where the Encounter took place. Date/Time Smoking Status/Tobacco Use Comment [facility] Feb 06, 2019 05:51 PM CURRENT SMOKER SARAH PERES [facility] Encounter Notes: All associated encounter notes This section contains the clinical notes associated to the Encounter. Date/Time Encounter Note(s) Provider Source Jan 23, 2022 05:15 PM PHARMACY MEDICATION MGT CONSULT: Astrid LAWRENCE SARAH [facility] LOCAL TITLE: CONSULT - Non-Formulary Drug [facility] STANDARD TITLE: PHARMACY MEDICATION MGT CONSULT DATE OF NOTE: JAN 23, 2022@17:15 ENTRY DATE: JAN 23, 2022@17:15:42 AUTHOR: FELISA LAWRENCE COSIGNER: URGENCY: STATUS: COMPLETED The medical record has been reviewed with regard to this restricted drug request. Medication requested: MAGNESIUM GLUCONATE 500MG TAB Medication indication: Hypomagnesemia Medical history relevant to this request: 71 y/o w/ PMH of hypomagnesemia s/p NSTE ME in 11/2021. He had a recent hospitalization on 01/08/22 requiring IV repletio n of magnesium. Has been on formulary magnesium oxide previously w/o returning to normal levels. Magnesium Gluconate has better absorpt ion and less incidence of diarrhea compared to other formulations. Magnesium level was 0.7mg/dL on . The request is approved - A documented therapeutic failure of the prefer red formulary alternative(s) exists /meena/ FELISA LAWRENCE, PHARMD CLINICAL PHARMACIST Signed: 01/23/2022 17:22
--- OUTSIDE RECORDS SUMMARY | 2022-02-09 10:44 | XMS_ITS | Encounter Summary ---
:1950 Author Organization [facility] Address [address] [place] [id number] Support Name Relationship Address Phone ZUHAIR FOSTER Unavailable [address] [place] [address] ZUHAIR FOSTER Unavailable [address] [place] [address] Insurance Providers: All historical and current Section [...] CBA [facility] Jan 25, 07742 [id number] [phone] DO Stephanie FOSTER SPOUSE DEDUCTIBL [place] 2013 [id number] NA E [facility] PLAN EXPRESS PRESCRIPT WEI May 27, RXBWEID [id number] [phone] PEYTON FOSTER SPOUSE SCRIPTS ION [place] 2017 [id number] NA ([id number]) (HDHP ) MEDICARE MEDICARE PART Jan 25, PART A [id number] CRISTIAN, AND PATIENT (WNR) (M) A 2013 [id number] 2 REW Selected Encounter This section includes the information on record at [place] for the Encounter. Date/Time Encounter Type Encounter Description Reason Provider Source Feb 05, 2022 01:22 Outpatient Encounter PRIMARY CARE/MEDICINE PM [facility] Encounter [...] 2022 09:00 AM AMBULATORY - REHAB MEDICINE [facility] Mar 30, 2022 08:30 AM AMBULATORY - MEDICINE [facility] Active, Pending, and Scheduled [...] The data comes from all [place] treatment [facility]. Test Date/Time Test Type Test Details Facility Name Dec 25, 2021 12:02 PM Consult Order [facility] CB CARE-OPTOMETRY DISEASE MANAGEMENT Cons Floatlight Loading Supervisor's Choice Feb 12, 2022 12:00 AM Laboratory - Chemistry LIPOPROTEIN [facility] Order CHOLESTEROL FRACT. PANEL LT GREEN(LI HEP) PLASMA Feb 19, 2022 12:00 AM Laboratory - Chemistry [place] Order GLU,BUN,CREAT,LYTES,CA [facility] LT GREEN(LI HEP) PLASMA SP Feb 19, 2022 12:00 AM Laboratory - Chemistry CALCIUM LT GREEN(LI [place] Order HEP) PLASMA SP [facility] Feb 19, 2022 12:00 AM Laboratory - Chemistry MAGNESIUM LT GREEN( LI [place] Order HEP) PLASMA SP [facility] Feb 19, 2022 12:00 AM Laboratory - Chemistry PHOSPHORUS LT GREEN (LI [place] Order HEP) [facility] Results: +/- 30 days of the [...] Type: PLASMA Comment: Tests performed on [employer] Tester (405) SN:[id number] Ordering Provid er: EVERTON TORRES Report Released Date/Time: Jan 22, 2022 09:48 AM Reporting Lab: [place] [facility] [address] [facility] [address] Performing Lab: [place] [facility] [address] [facility] [address] MAGNESIUM 0.7 L 1.6-2.6 Jan 22, 2022 09:55 AM [place] [facility] PHOSPHORUS Sp ecimen Type: PLASMA Comment: Tests performed on [employer] (405) SN:[id number] Ordering Provid er: EVERTON TORRES Report Released Date/Time: Jan 22, 2022 09:48 AM Reporting Lab: [place] [facility] [address] [facility] [address] Performing Lab: [place] [facility] [address] [facility] [address] PHOSPHORUS 3.2 2.5-5.0 Jan 22, 2022 09:55 AM [place] [facility] CALCIUM Sp ecimen Type: PLASMA Comment: Tests performed on [employer] (405) SN:[id number] Ordering Provid er: EVERTON TORRES Report Released Date/Time: Jan 22, 2022 09:48 AM Reporting Lab: [place] [facility] [address] [facility] [address] Performing Lab: [place] [facility] [address] [facility] [address] CALCIUM 8.8 8.5-10.5 Jan 22, 2022 09:55 [place] GLU,BUN,CREAT,LYTES,CA Sp ecimen Type: PLASMA AM [facility] Comment: Tests performed on [employer] (405) SN:[id number] Ordering Provid er: EVERTON TORRES Report Released Date/Time: Jan 22, 2022 09:48 AM Reporting Lab: [place] [facility] [address] [facility] [address] Performing Lab: [place] [facility] [address] [facility] [address] UREA NITROGEN 13 7-25 SODIUM 137 135-145 [...] 11:00 PM CURRENT SMOKER [place]AH [place] [facility] Tobacco Use History This section includes a history of the smoking, or tobacco- related health factors, that were collected on or before the date of the Encounter. The data comes from the [place] facility where the Encounter took place. Date/Time Smoking Status/Tobacco Use Comment [facility] Feb 06, 2019 05:51 PM CURRENT SMOKER SARAH [place] [facility] Encounter Notes: All associated encounter notes This section contains the clinical notes associated to the Encounter. Date/Time Encounter Note(s) Provider Source Feb 05, 2022 01:22 PM NONVA NOTE: AXEL JORGENSEN [facility] LOCAL TITLE: NonVA Medical Records STANDARD TITLE: NONVA NOTE DATE OF NOTE: FEB 05, 2022@13:22 ENTRY DATE: FEB 05, 2022@13:23:14 AUTHOR: AXEL JORGENSEN EXP COSIGNER: URGENCY: STATUS: COMPLETED EVENT PROCEDURE: Admission/Observation H&P DATE OF SERVICE: 01/08/2022 TREATING FACILITY: [facility] THE ATTACHED SCANNED DOCUMENT HAS BEEN REVIEWED AND AUTHORIZED BY DOCUMENT (S) SENT TO [facility] TO BE SCANNED. TO VIEW THIS DOCUMENT, OPEN CPRS TOOLS MENU AND THEN OPEN THE IMAGE DISPLAY VIEWER. /meena/ AXEL JORGENSEN LPN Signed: 02/05/2022 13:24
--- OUTSIDE RECORDS SUMMARY | 2022-02-09 10:44 | XMS_ITS | Clinical Summary ---
:1950 Author Organization [facility] [place] [address] Care Team Providers Name Role Phone None Primary Care Provider Unavailable Allergies Active Allergy Reactions Severity Noted Date Comments Shellfish Containing Products Hives 12/11/2021 Medications Medication Sig Dispensed Refills Start Date End Date Status lisinopril 0 05/02/2009 Active (PRINIVIL;ZESTRIL) 5 mg tablet aspirin EC 81 mg Take 81 mg by 0 Active Tablet, Delayed Release mouth daily. (E.C.) albuteroL 90 Inhale 2 puffs 0 Ac tive mcg/actuation HFA into the lungs Aerosol Inhaler every 4 hours as needed for Wheezing. Use with spacer alogliptin (Nesina) Take 6.25 mg by 0 Active 6.25 mg Tablet mouth daily. magnesium oxide Take 400 mg by 0 Active (Mag-Ox) 400 mg (241.3 mouth daily. mg magnesium) Tablet metOLazone (Zaroxolyn) Take 2.5 mg by 0 Active 2.5 mg Tablet mouth daily. metoprolol succinate XL Take 50 mg by 0 Active (Toprol-XL) 50 mg mouth daily. Tablet Sustained Release 24 hr multivitamin Capsule Take 1 capsule by 0 Active mouth daily. pantoprazole EC Take 40 mg by 0 Active (Protonix) 40 mg mouth daily. Tablet, Delayed Release (E.C.) potassium chloride ER Take 10 mEq by 0 Active (K-Dur/Klor-Con) 10 mEq mouth daily. Tablet Sustained Release sildenafiL (VIAGRA) 100 Take 100 mg by 0 Active mg Tablet mouth as needed for Erectile Dysfunction. pregabalin (Lyrica) 75 Take 75 mg by 0 Active mg Capsule mouth 2 times daily. metFORMIN (Glucophage) Take 1 tablet by 60 tablet 12 12/14/2021 Active 1,000 mg Tablet mouth 2 times daily (with meals). atorvastatin (Lipitor) Take 1 tablet by 30 tablet 3 12/13/2021 Active 80 mg Tablet mouth daily. nicotine (Nicoderm CQ) Change 1 patch on 28 patch 0 2 Active 21 mg/24 hr Patch 24 hr the skin daily. nitroGLYcerin Place 1 tablet 25 tablet 12/13/2021 Active (Nitrostat) 0.4 mg under the tongue Tablet, Sublingual every 5 minutes as needed for Chest pain. clopidogreL (Plavix) 75 Take 1 tablet by 15 tablet 0 2 Active mg Tablet mouth daily. Active Problems Problem Noted Date STEMI involving right coronary artery 12/11/2021 ASCVD (arteriosclerotic cardiovascular disease) 2021 Hypertension, essential, benign 12/11/2021 Other hyperlipidemia 12/11/2021 Type 2 diabetes mellitus with circulatory disorder, wi thout long-term 12/11/2021 current use of insulin Cigarette smoker 12/11/2021 Encounters Date Type Specialty Care Team Description 01/23/2022 Notes Only Cardiology Dwayne Cardenas 01/22/2022 Telephone Cardiology Dwayne Cardenas 01/12/2022 Telephone Cardiology Dwayne Cardenas 01/10/2022 Telephone Cardiology Dwayne Cardenas 12/12/2021 Surgery Cardiology Nate Gonzales CARDIAC CATH ETERIZATION MD Damian 12/12/2021 Notes Only Cardiology Dwayne Cardenas 12/11/2021 Hospital Cardiology Encounter 12/11/2021 - Hospital Cardiology Nate Gonzales ST elevation myocardial infarction involving right coronary artery; 12/13/2021 Encounter SMD ASCVD (arteriosclerotic cardiovascular d isease) Alessandro Sullivan MD Ahmad, Shawn M, MD 12/11/2021 Surgery Cardiology Nate Gonzales CARDIAC CATH ETERIZATION MD Damian 12/11/2021 Notes Only Cardiology Dwayne Cardenas 12/11/2021 Notes Only Cardiology Dwayne Cardenas 12/11/2021 Notes Only Cardiology Ari Pritchett MD 12/11/2021 Telephone Cardiology Ari Pritchett MD 12/11/2021 External Results Central Scheduling from Last 3 Months Social History Tobacco Use Types Packs/Day Years Used Date Current Every Day Smoker Cigarettes 1 Alcohol Use Standard Drinks/Week Comments Not Asked 0 (1 standard drink = 0.6 oz pure alcoho l) Sex Assigned at Date Recorded Not on file Last Filed Vital Signs Vital Sign Reading Time Taken Comments Blood Pressure 135/69 12/13/2021 12:06 PM EDT Pulse 70 12/13/2021 12:06 PM EDT Temperature 36.5 ??C (97.7 ??F) 12/13/2021 7:47 AM EDT Respiratory Rate 22 12/13/2021 12:06 PM EDT Oxygen Saturation 99% 12/13/2021 12:06 PM EDT Inhaled Oxygen Concentration - - Weight 88.2 kg (194 lb 7.1 oz) 12/13/2021 5:44 AM EDT Height 173 cm (5' 8.11) 12/11/2021 9:00 AM EDT Body Mass Index 29.47 12/11/2021 9:00 AM EDT Plan of Treatment Health Maintenance Due Date Last Done Comments Covid-19 Vaccine (#1) 1954 Pneumoccocal Vaccine: 65+ (1 - PCV) 1955 DM Opthalmology Exam 1959 DM Urine Microalbumin yearly 1959 Hepatitis C Screening 1967 Tdap adult 02/25/1968 Tetanus vaccine 02/25/1968 Colonoscopy 1994 Zoster vaccine (1 of 2) 1999 Advance Directive 02/25/2004 AAA Screen 2014 Influenza (Flu) vaccine (1 of 1 - 01/25/2022 Influenza standard series) DM Hemoglobin A1c 6 month 06/13/2022 12/11/2021 DM Creatinine yearly 12/13/2022 12/13/2021, 12/12/2021, 12/11/2021 Procedures Procedure Name Priority Date/Time Associated Diagnosis Comme nts SCAN DOC: TELEMETRY 12/13/2021 2:02 STRIPS PM EDT SCAN DOC: TELEMETRY 12/13/2021 1:18 STRIPS PM EDT SCAN DOC: TELEMETRY 12/13/2021 1:16 STRIPS PM EDT POCT GLUCOSE Routine 12/13/2021 11:47 Results for this AM EDT procedure are i n the results section. POCT GLUCOSE Routine 12/13/2021 7:16 Results for this AM EDT procedure are i n the results section. SCAN DOC: TELEMETRY 12/13/2021 5:54 STRIPS AM EDT DIFFERENTIAL, AUTOMATED Routine 12/13/2021 4:26 R esults for this AM EDT procedure are i n the results section. HEMOGRAM Routine 12/13/2021 4:26 Results for this AM EDT procedure are i n the results section. HC CBC,PLT & AUTO DIFF Routine 12/13/2021 4:26 AM EDT HC VENIPUNCTURE Routine 12/13/2021 4:26 Results f or this AM EDT procedure are i n the results section. SCAN DOC: TELEMETRY 12/13/2021 2:11 STRIPS AM EDT EKG 12-LEAD Routine 12/12/2021 11:24 ST elevation Results for this PM EDT myocardial infarction proced ure are in involving right the results coronary artery section. POCT GLUCOSE Routine 12/12/2021 9:13 Results for this PM EDT procedure are i n the results section. SCAN DOC: TELEMETRY 12/12/2021 7:12 STRIPS PM EDT POCT GLUCOSE Routine 12/12/2021 4:11 Results for this PM EDT procedure are i n the results section. EKG 12-LEAD Routine 12/12/2021 3:40 ASCVD Results for this PM EDT (arteriosclerotic procedure are in cardiovascular the results disease) section. CARDIAC CATHETERIZATION Routine 12/12/2021 3:20 R esults for this PM EDT procedure are i n the results section. SCAN DOC: TELEMETRY 12/12/2021 11:31 STRIPS AM EDT POCT GLUCOSE Routine 12/12/2021 10:57 Results for this AM EDT procedure are i n the results section. POCT GLUCOSE Routine 12/12/2021 7:03 Results for this AM EDT procedure are i n the results section. SCAN DOC: TELEMETRY 12/12/2021 6:32 STRIPS AM EDT DIFFERENTIAL, AUTOMATED Routine 12/12/2021 4:15 R esults for this AM EDT procedure are i n the results section. HEMOGRAM Routine 12/12/2021 4:15 Results for this AM EDT procedure are i n the results section. LIPID PANEL (REFLEX Routine 12/12/2021 4:15 Resul ts for this DIRECT LDL) AM EDT procedure are i n the results section. HC CBC,PLT & AUTO DIFF Routine 12/12/2021 4:15 AM EDT HC VENIPUNCTURE Routine 12/12/2021 4:15 Results f or this AM EDT procedure are i n the results section. SCAN DOC: TELEMETRY 12/11/2021 5:13 STRIPS PM EDT POCT GLUCOSE Routine 12/11/2021 5:08 Results for this PM EDT procedure are i n the results section. ECHOCARDIOGRAM COMPLETE Routine 12/11/2021 4:51 ST elevation R esults for this W CONTRAST PM EDT myocardial infarction proced ure are in involving right the results coronary artery section. DIFFERENTIAL, AUTOMATED Routine 12/11/2021 2:46 R esults for this PM EDT procedure are i n the results section. HEMOGRAM Routine 12/11/2021 2:46 Results for this PM EDT procedure are i n the results section. HC MAGNESIUM, SERUM Routine 12/11/2021 2:46 Resul ts for this PM EDT procedure are i n the results section. HC PROBNP Routine 12/11/2021 2:46 Results for this PM EDT procedure are i n the results section. BMP W/FASTING GLUCOSE Routine 12/11/2021 2:46 Res ults for this PM EDT procedure are i n the results section. HC CBC,PLT & AUTO DIFF Routine 12/11/2021 2:46 PM EDT HC TROPONIN T Routine 12/11/2021 2:46 Results for this PM EDT procedure are i n the results section. HC HEMOGLOBIN A1C Routine 12/11/2021 2:46 Results for this PM EDT procedure are i n the results section. HC THYROID STIMULATING Routine 12/11/2021 2:46 Re sults for this HORMONE, SERUM PM EDT procedure are in the results section. POCT GLUCOSE Routine 12/11/2021 2:21 Results for this PM EDT procedure are i n the results section. EKG 12-LEAD Routine 12/11/2021 10:46 ST elevation Results for this AM EDT myocardial infarction proced ure are in involving right the results coronary artery section. CARDIAC CATHETERIZATION Routine 12/11/2021 10:45 Results for this AM EDT procedure are i n the results section. POCT GLUCOSE Routine 12/11/2021 10:19 Results for this AM EDT procedure are i n the results section. ECG SCAN Routine 12/11/2021 Results for thi s procedure are i n the results section. from Last 3 Months Results SCAN DOC: TELEMETRY STRIPS (12/13/2021 2:02 PM EDT)Only the most recent of9 resultswithin the time period is included. Narrative This result has an attachment that is no t available. Unknown MEDIA MGR SCAN EXT ORDR/RSLT POCT Glucose (12/13/2021 11:47 AM EDT)Only the most recent of9 resultswithin the time period is included. athologist Signature POC Glucose 103 65 - 199 [facility]dL [facility] Comment: Supplemental ranges: <140 mg/dL before meals <180 mg/dL all other times of the day Specimen Anatomical Collection Method Collection Time Receive d Time (Source) Location / / Volume Laterality Blood 12/13/2021 11:47 12/13/2021 AM EDT 11:47 AM EDT Alessandro Sullivan MD POINT OF CARE TEST ORDERABLE S Performing Organization Address City/State/[place] [address] (ABNORMAL) BMP w/fasting Glucose (12/13/2021 4:26 AM EDT)Only the most recent of 3 resultswithin the time period is included. athologist Signature Glucose 85 65 - 99 [facility] mg/dL [facility] Comment: ?Fasting* Glucose Interpretive C riteria Normal ?65-99 mg/dL Impaired Fasting glucose ?100-125 mg/dL Consistent with Diabetes Mellitus ? >or= 126 mg/dL *Fasting is defined as no caloric intake for at least 8 hours In the absence of unequivocal hypergly cemia a plasma glucose value of >or= 126 mg/dL should be repeated on a subseq uent day. Diagnosis and Classification of Diabetes Mellitus, Position Statement from the [place] [employer]. ??Diabete s Care, Volume 33, Supplement 1, May 2009 BUN 11 10 - 20 mg/dL [facility] Creatinine 0.79 (L) 0.80 - 1.50 mg/dL [facility] Sodium 136 135 - 145 mmol/L [facility] Potassium 3.7 3.5 - 5.0 mmol/L [facility] Comment: Please note: ??Patients with WBC >100,00 0 may have falsely elevated Potassium levels. ??For accurate Potassium quantif ication in these patients send serum separator tube (gold top) for subsequent determinations. ??Contact the Clinical Chemistry Laboratory if there are any qu estions. Chloride 100 98 - 107 mmol/L [facility] CO2 26 22 - 31 mmol/L [facility] Anion Gap 10 5 - 15 mmol/L [facility] Calcium 7.9 (L) 8.5 - 10.5 mg/dL [facility] Estimated GFR 94 >=60 mL/min/1.73 m?? [facility] Comment: This patient's estimated GFR was calcula shannon using the 2020 CKD-EPI equation. The estimated GFR can vary from the rober ured GFR by up to 30% in the absence of rapidly changing kidney function. Assess ment of the estimated GFR is not appropriate when creatinine concentratio ns are rapidly changing. For clinical situations in which a more precise estim ate of GFR is necessary, consider alternative methods of GFR estimation lazcano ch as a 24-hour urine creatinine clearance. Assignment of CKD stage 1-5 for patients with an eGFR near the transition point between stages may be based on clinical assessment of muscle mass and symptoms in addition to eGFR. Specimen Anatomical Collection Method Collection Time Receive d Time (Source) Location / / Volume Laterality Blood 12/13/2021 4:26 AM 4:42 EDT AM EDT Resulting Agency Comment Spec In Lab Alessandro Sullivan MD CHEMISTRY ORDERABLES Performing Organization Address City/State/[place] [address] (ABNORMAL) Hemogram (12/13/2021 4:26 AM EDT)Only the most recent of3 results within the time period is included. Analysis Performed At [facility] logist Time Signature WBC 11.0 (H) 4.0 - 9.5 [facility] x10(3)/[facility] LABORATORY RBC 4.01 (L) 4.58 - [facility] 5.54 [facility] x10(6)/[facility] LABORATORY Hemoglobin 11.6 (L) 13.7 - [facility] 16.5 g/dL [facility] Hematocrit 34.8 (L) 40.5 - [facility] 48.5 % [facility] MCV 86.8 82.9 - [facility] 93.1 [facility] LABORATORY MCH 28.9 27.5 - [facility] 32.1 pg [facility] MCHC 33.3 32.0 - [facility] 35.7 g/dL [facility] Platelets 180 145 - 357 [facility] x10(3)/[facility] LABORATORY RDWSD 49.8 (H) 36.0 - [facility] 45.0 [facility] LABORATORY RDWCV 15.8 (H) 11.4 - [facility] 13.8 % [facility] MPV 10.9 7.6 - 12.9 [facility] LABORATORY nRBC % Auto 0.0 % [facility] nRBC Abs Auto 0.000 0.000 - [facility] 0.000 [facility] x10(3)/[facility] LABORATORY Specimen Anatomical Collection Method Collection Time Receive d Time (Source) Location / / Volume Laterality Blood 12/13/2021 4:26 AM 4:42 EDT AM EDT Resulting Agency Comment Spec In Lab Niecy VEGA HEMATOLOGY ORDERABLES Performing Organization Address City/State/[place] [address] (ABNORMAL) Differential, Automated (12/13/2021 4:26 AM EDT)Only the most recent of3 resultswithin the time period is included. [facility] gist Method Time Signature Neutrophils % 73.2 % [facility] Neutr Abs (ANC) 8.04 (H) 1.70 - [facility] 6.10 [facility] x10(3)/[facility] LABORATORY Lymphocytes % 17.3 % [facility] Lymphocytes Abs 1.9 0.9 - 3.2 [facility] x10(3)/[facility] LABORATORY Monocytes % 7.3 % [facility] Monocyte Abs 0.8 0.3 - 0.9 [facility] x10(3)/[facility] LABORATORY Eosinophils % 1.3 % [facility] Eosinophils Abs 0.1 0.0 - 0.4 [facility] x10(3)/[facility] LABORATORY Basophils % 0.5 % [facility] Basophils Abs 0.0 0.0 - 0.1 [facility] x10(3)/[facility] LABORATORY Immature Gran % 0.40 % [facility] Comment: Immature granulocytes(IG's)percentage an d absolute count will include metamyelocytes, myelocytes, and promyelo cytes. Blood smears from CBCs yielding IG's will be scanned manually for concor dance. If this scan disagrees with the automated IG or if promyelocytes are not ed, a manual differential will be performed. Lindsay Gran Abs 0.04 0.00 - 0.04 x10(3)/[facility] Y [facility]ORATORY Specimen Anatomical Collection Method Collection Time Receive d Time (Source) Location / / Volume Laterality Blood 12/13/2021 4:26 AM 2 4:42 EDT AM EDT Resulting Agency Comment Spec In Lab Niecy [facility] HEMATOLOGY ORDERABLES Performing Organization Address City/State/[place] [address] EKG 12 Lead (12/12/2021 11:24 PM EDT)Only the most recent of3 resultswithin the time period is included. Component Value Ref Range Test Analysis Performed Pathologis t Method Time At Signature Ventricular rate 71 BPM MUSE SYSTEM Atrial Rate 71 BPM MUSE SYSTEM P-R Interval 272 ms MUSE SYSTEM QRS Duration 108 ms MUSE SYSTEM Q-T Interval 430 ms MUSE SYSTEM QTC Calculated 467 ms MUSE SYSTEM (Bezet) Calculated P [place] -17 degrees MUSE SYSTEM Calculated R [place] -78 degrees MUSE SYSTEM Calculated T [place] -66 degrees MUSE SYSTEM INTERPRETATION Sinus rhythm with sinus arrhythmia with 1st degree A-V block MUSE SYSTEM Low voltage QRS Right bundle branch block Left anterior fascicular block Bifascicular block Possible Lateral infarct , age undetermined T wave abnormality, consider inferior ischemia Abnormal ECG When compared with ECG of 12-DEC-2021 15:40, Borderline criteria for Lateral infarct are now Present Nonspecific T wave abnormality now evident in Lateral leads I personally reviewed the tracing and edited the fellows int erpretation Confirmed by fellow MD Jennie, Jasmyn ([id number]) on 12/13/2021 12: 04:22 PM Confirmed by MD Kiran, Liborio ([id number]) on 12/13/2021 1:19:52 PM Specimen Anatomical Collection Method Collection Time Receive d Time (Source) Location / / Volume Laterality 12/12/2021 11:24 12/13/2021 1:19 PM EDT PM EDT Alessandro Sullivan MD ECG ORDERABLES Performing Organization Address City/State/ZIP Code Phon e Number MUSE SYSTEM CARDIAC CATHETERIZATION (12/12/2021 3:20 PM EDT)Only the most recent of2 results within the time period is included. Anatomical Region Laterality Modality Other Specimen (Source) Anatomical Location Collection Method / Collectio n Time Received Time / Laterality Volume Narrative 12/12/2021 5:19 PM EDT ?[facility] ? Cardiac Cathete rization/Intervention Report ? Patient Name: Anastasia Foster. ? Procedure Date: 12/12/2021 ? A #: [id number] ? Primary Physician: Nate Gonzales ? Case #: [id number] ? File Name: [id number] ? Catheterization Order Number: [id number] ? [facility] ? Final Report [place], [place] ? Patient Name: ? Anastasia J. Ino e ?ID#: ?[id number] ? : ?1950 ? Procedure Date: ? December 12, 2021 ?Case #: ? [id number] ? Room: ? 2 ? Case Physician: ? Nate Gilliland n, M.D. ? Start: ?11:48 ?Fellow: ? Larry Schneider , Abbey.Lilian. ?Admission: ??12/11/2021 ? Referring Physician: ??Macie Sang, HOSP[facility] COOK ? Procedures: ?* Coronary Angiography ?* Coronary Ultrasound ?* Coronary Atherectomy ?* Coronary Stent Insertion ?* Coronary Lithotripsy ? History ?Anastasia Foster is a 71 year ol d man. He has hypertension. The patient's ?smoking status is Current with Current - Every Day frequency, using ?cigarettes. Cigarette use is He ashley (>=10/day). He has ?hypercholesterolemia. The patie nt has diabetes managed by diet and oral ?medication. He is status post a recent ST elevation myocardial ?infarction. The patient also rodriguez s a history of peripheral vascular ?disease. Prior to the initiatio n of this procedure, the patient was ?designated as ASA Class III. [facility] clinical frailty scale is 3: ?Managing Well. ? Diagnostic Tests: ?Electrocardiography: ? EKG was assessed by ECG. EKG was Abnormal. EKG showed other ? abnormality. ?Medications Prior to Procedure: ? Angiotensin Converting E nzyme Inhibitor, Aspirin, Beta Jeremy, ? Non-Statin and Statin. ? Indications for Diagnostic Cath: ?The priority of the diagnostic procedure was Urgent. The indication for ?the labor gang supervisor visit is ACS less than or equal to 24 hrs. Chest pain ?symptom assessment was: Typical Angina. ? Technique: ?A 7 SLFr sheath was inserted in the right radial artery utilizing the ?Seldinger technique. The left c oronary artery was injected utilizing a ?7Fr EBU 4.0 catheter. Coronary atherectomy and coronary stent insertion ?were performed and the equipmen t utilized will be described in the ?intervention summary section. 1 0,000 units of heparin were administered. ?A total of 450cc of Iso-Julio wer e opened, 300cc of Iso-Julio were ?administered and 150cc of Iso-V ue were wasted. Radiation: Fluoro time was ?61.3 minutes, dose area product was 279,529 mGYcm2 and air kerma was ?3,496 mGY. See the case log for additional details. ?The patient received the follow ing medications prior to and during the ?procedure: ? Unfractionated Heparin a nd Clopidogrel. ? Hemodynamics: ?Left Heart Pressures ? Resting: ? Syst D iast ? EDP ?a ?v ? m ?Ao 99 ?54 ?72 ? Coronary Angiography: ?Dominance: Right ?Left Main ? There was mild diffuse ( <=25% stenosis) disease of the entire vessel ? segment of the left main artery. ?Left Anterior Descending ? There was a 60% stenosis of the ostial segment of the left anterior ? descending artery (LAD). ??The proximal segment of the LAD had 85% ? stenosis. ??There also w as an 85% stenosis of the mid segment of the ? LAD. ? There was an 85% stenosi s of the ostial segment of the second ? diagonal branch (Diagona l 2) of the LAD. ?Left Circumflex ? There was mild diffuse ( <=25% stenosis) disease of the entire vessel ? segment of the left circ umflex artery (LCX). ?Right Coronary Artery ? This vessel was not inje cted. ? See prior study for deta ils surrounding RCA anatomy. ? Intravascular Imaging/Physiology: ?Intravascular Ultrasound was pe rformed in the mid LAD using a 7 Fr EBU ?4.0 guiding catheter and a 3.1 Fr Refinity 42 MHz catheter using auto 1 ?mm/sec pullback. ??Imaging was successful. ??Image quality was excellent. ?The mid LAD showed severe diffu se atherosclerotic plaque with scattered ?four quadrant calcification. ?Post Intervention: The stent wa s well expanded and apposed. ? Indication for Intervention: ?Coronary intervention was indic ated for treatment of a critical lesion ?post a myocardial infarction. T he priority for the procedure was Urgent. ?The NCDR indication for the pro cedure was Other PCI Indication. LVEF ?within one week was 57%. Syntax Score was Intermediate. Staged PCI was ?performed for multivessel disea se. ?Complete revascularization ? Intervention Summary: ?Left Anterior Descending Artery ? Proximal 85% ? Stent insertion was performed on the 85% stenosis in the ? proximal segmen t of the LAD. This was a de alexei lesion. ? According to th e ACC/AHA classification system, this lesion ? was a type C hi gh risk lesion. Primary prevention of ? restenosis was the indication for stent insertion. This was ? the culprit les ion. A guidewire was placed across this lesion. ? Vessel flow pre intervention was KATIE 3. Lesion length was ? 48mm. This lesi on was severely calcified. This lesion was ? contiguous with LAD-ostial. ? Stent insertion was accomplished through a 7 Fr. EBU 4.0 ? guide. ??A kana ounted 3.00 x 38 mm [place] Griggs (MASON) was ? deployed with a maximum inflation pressure of 15 atmospheres. ? Following stent deployment, the lesion was dilated using a ? 3.50mm NC EUPHO RA 20 MM balloon with a maximum inflation ? pressure of 24 atmospheres. ? Another stent i nsertion was accomplished through a 7 Fr. EBU ? 4.0 guide. ??A premounted 3.50 x 12 mm [place] Griggs (MASON) was ? deployed with a maximum inflation pressure of 18 atmospheres. ? The final outco me was defined as successful. There was no ? residual stenos is following this intervention. The final KATIE ? flow was 3. ? &&&. ? Mid 85% ? Atherectomy and stent insertion were performed on the 85% ? stenosis in the mid segment of the LAD. This was a de alexei ? lesion. This le celeste was designated a type C high risk lesion ? based on ACC/AH A classification system. Management of a large ? dissection was the indication for stent insertion. This was ? the culprit les ion. A guidewire was placed across this lesion. ? Vessel flow pre intervention was KATIE 3. Lesion length was ? 18mm. This lesi on was severely calcified. The lesion involves ? a bifurcation w ith the D2. This bifurcation lesion was treated ? with a two sten t, culotte technique and a final kissing ? balloon post-di lation. ? Atherectomy was accomplished through a 7 Fr EBU 4. guide. The ? rotational athe rectomy procedure was performed with a 1.50 mm ? Rotoblator ming and five passes. A total of 1 ming were used. ? Stent insertion was accomplished through a 7 Fr. EBU 4.0 ? guide. ??The kyle alonso was predilated with a 2.75mm NC EUPHORA 20 ? MM balloon with a maximum inflation pressure of 22 ? atmospheres. ?? A premounted 3.00 x 18 mm Dimas Griggs (MASON) ? was deployed wi th a maximum inflation pressure of 12 ? atmospheres. ?? Following stent deployment, the lesion was ? dilated using a 3.25mm NC EUPHORA 08 MM balloon with a maximum ? inflation press ure of 12 atmospheres. ? The final outco me was defined as successful. A coronary ? arteriolar vaso dilator was administered as part of the ? intervention on this lesion. There was no residual stenosis ? following this intervention. The final KATIE flow was 3. Events ? included large dissection. ?Second Diagonal Branch of the L AD ? Ostial 85% ? Stent insertion was performed on the 85% stenosis in the ? ostial segment of the Diagonal 2. This was a de alexei lesion. ? According to th e ACC/AHA classification system, this lesion ? was a type C hi gh risk lesion. Primary prevention of ? restenosis was the indication for stent insertion. This was ? the culprit les ion. A guidewire was placed across this lesion. ? Vessel flow pre intervention was KATIE 3. Lesion length was ? 12mm. ? Stent insertion was accomplished through a 7 Fr. EBU 4.0 ? guide. ??The kyle alonso was predilated with a 2.50mm NC EUPHORA 12 ? MM balloon with a maximum inflation pressure of 12 ? atmospheres. ?? A premounted 3.00 x 18 mm Dimas Griggs (MASON) ? was deployed wi th a maximum inflation pressure of 16 ? atmospheres. ?? Following stent deployment, the lesion was ? dilated using a 2.50mm EUPHORA 15 MM balloon with a maximum ? inflation press ure of 12 atmospheres. ? The final outco me was defined as successful. The residual ? stenosis follow ing this intervention was 10%. The final KATIE ? flow was 3. ? Vascular Access: ?Vascular Access Management: ? Manual Compression of th e right radial artery access site was ? performed. Mechanical Co mpression of the right radial artery access ? site was performed. ? Dual Antiplatelet (DAPT) Recommendations : ?Drug eluting stent (MASON) insert ed. 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 ?Recommended anti-platelet/anti- thrombotic regimen: ?Start aspirin 81 mg daily now a nd continue for indefinitely. ?Start clopidogrel 75 mg daily n ow and continue for 12 months then stop. ?These recommendations are made at the time of the intervention. Patient ?and provider preferences or a c hanging clinical situation may require ?modification of this regimen. C onsult [facility] [place] Interventional Cardiology for ?questions. ?The 1 year bleeding risk as nicholas culated by the PRECISE DAPT score is Low ?risk. ?This patient has a high DAPT sc ore and may benefit from prolonged (12- 30 ?months) dual antiplatelet thera py if the patient has completed 12 months ?of DAPT without having a major bleeding or ischemic event and the patient ?is NOT on chronic anticoagulati on. This should be used for guidance in ?the overall conversation about prolonged dual antiplatelet therapy and ?not as a recommendation for or against any medical treatment. Consult ?http://tools.acc.org/DAPTriskap p/#!/content/calculator/ or [facility] [place] ?Interventional Cardiology for q uestions ? Conclusions: ?* Obstructive disease of the LA D ?* Nonobstructive disease of the LM and LCX ?* Successful atherectomy and st ent insertion of the mid LAD lesion ?* Successful stent insertion of the ostial D2 lesion ?* Successful stent insertion of the proximal LAD lesion ?* See Dual Antiplatelet (DAPT) Recommendations above ? Complications/Events: ?The patient had no complication s during these procedures. ? Comments: ?Challenging case of a 73 y/o ma n presenting for complete ?revascularization following SHAB[place] KS with plan to intervene on the severely ?calcified LAD/D2. NC balloons a nd scoring balloons were unable to fully ?expand the distal lesion even w hen taken to high pressure. IVUS ?demonstrated concentric Ca++. A shockwave balloon was unable to fully ?advance through the mid lesion. After further attempts at high pressure ?balloon inflations were unsucce ssful at expanding, our workhorse wire was ?exchanged for a rotablator wire . We performed 5 passes at 170k rpm with ?appropriate decelerations on in itial runs. Foloowing this two overlapping ?stents were placed in the mid L AD and we proceeded to pursue a culotte ?technique with the D2. A final stent was placed using IVUS guidance to ?stent from the ostium of the LA D to the prior stents. Final IVUS images ?demonstrated adequate expansion and apposition of the LAD with images ?meeting ULTIMATE criteria. Ther e was evidence of mild underexpansion of ?the ostial D2. Final angiograph ic result was excellent. ?The attending physician was presen t for the entire procedure. ?Dr. Nate Gonzales M.D. was pre sent during the moderate sedation ?intraservice time as documented by the sedation nurse. ??Case time = 03:22. ?Dr. Nate Gonzales M.D. perform ed the coronary angiography, stent ?insertion-coronary, IVUS # coronar y, atherectomy-coronary and ?lithotripsy-coronary. ? Nate S Christian, M.D. ? Electronically Signed by: Nate Gutierreze in, M.D. ? Report Finalized: 12/12/2021 ??17:12 ? Nate Gonzales MD CARDIAC CATH ORDERABLES Lipid Panel (Reflex Direct LDL) (12/12/2021 4:15 AM EDT) athologist Signature Chol, Total 130 mg/dL [facility] Comment: Lower Risk: <200 mg/dL Average Risk: 200-239 mg/dL Higher Risk: >hw=773 mg/dL Triglycerides 116 mg/dL [facility] Comment: Average Risk/Lower Risk: <150 mg/dL Borderline High Risk: 150-199 mg/dL High Risk: 200-499 mg/dL Very High Risk: >hr=439 mg/dL HDL 42 mg/dL [facility] Comment: Males: ?? Higher Risk: <40 mg/dL Females: ?? Higher Risk: <50 mg/dL LDL Cholesterol 65 mg/dL [facility] Comment: Lowest Risk: <100 mg/dL Lower Risk: 100-129 mg/dL Borderline High Risk: 130-159 mg/dL High Risk: 160-189 mg/dL Very High Risk: >tn=806 mg/dL Chol/HDL Ratio 3.1 ratio [facility] Lipid Interpretation See Note [facility] Comment: Lipid management should be guided by a p atient? s ASCVD risk, goals and preferences. ACC/AHA Guidelines recommend high intens ity statin if clinical ASCVD or LDL greater than or equal to 190 mg/dL. http://tinyurl.com/HDL-KDP-Gjsgomftp Adults aged 40-75 with LDL 70-189 mg/dL should have their 10 year ASCVD risk estimated with the ACC/AHA ASCVD risk es timator http://tools.acc.org/RRDVI-Vier-Hdkjxffe r/ Statin should be discussed if risk great er than or equal to 7.5% in non-diabetics. With diabetes, moderate i ntensity statin is recommended if risk less than 7.5%, high intensity if risk g reater than or equal to 7.5%. Annual lipid monitoring on statins is no t necessary. Evaluate secondary causes of Triglycerid es greater than 500 mg/dL or LDL greater than 190 mg/dL: See table 6 of A CC/AHA Guideline. Lifestyle modification is a critical com ponent of ASCVD risk reduction. Specimen Anatomical Collection Method Collection Time Receive d Time (Source) Location / / Volume Laterality Blood 12/12/2021 4:15 AM 4:26 EDT AM EDT Resulting Agency Comment Spec In Lab Alessandro Sullivan MD CHEMISTRY ORDERABLES Performing Organization Address City/State/ZIP Code Phon e Number [place] [id number] ECHOCARDIOGRAM COMPLETE W CONTRAST (12/11/2021 4:51 PM EDT) Anatomical Region Laterality Modality Cardiac Other Specimen (Source) Anatomical Collection Method Collection Time Re ceived Time Location / / Volume Laterality 12/11/2021 3:43 PM EDT Narrative 12/11/2021 5:17 PM EDT ? Echocardiogram Report Name: ANASTASIA FOSTER ? Study Date: 12/11/2021 03:43 PMBP: 126/70 mmHg ? Patient Location: [facility]^C441^A : 1950 ? Height: 68 in ? Account: [id number] Age: 71 yrs ? Weight: 198 lb Gender: Male ?BSA: 2.0 m2 Ordering Physician: ALESSANDRO SULLIVAN Referring Physician: ALESSANDRO SULLIVAN Performed By: Lacy Shepard RDCS Reason For Study: STEMI Interpreting Fellow: Primo Diaz. Exam Location: [facility]. Interpretation Summary 1. The left ventricle is normal in size and wall thickness. The left ventricular ejection fraction is 57%. There are no r egional wall motion abnormalities in the visualized segments. The basal inferior segment can not be visualized despite using ultrasound enhancing agent. 2. The right ventricle is normal in size with mildly reduced function. The mid to apical right ventricular free wall is hy pokinetic. The pulmonary artery systolic pressure could not be estimated. 3. Both atria are normal in size. 4. The aortic valve is poorly visualized but appears mildly thickened. There is mild aortic valve stenosis. There is no aortic valve regurgitation. 5. The aortic root is mildly dilated to 4.0 cm. 6. There is no prior study for compariso n. Procedure Complete-64763. Image enhancement Optiso n was used for left ventricular opacification. Suboptimal quality. There is normal sinus rhythm. Left Ventricle There is no ventricular septal defect. L eft ventricle is of normal size. Wall thickness is normal. Left ventricular sy stolic function is normal. The left ventricular ejection fraction is 57% by Hurtado's biplane. There are no segmental wall motion abnormalities. Right Ventricle The right ventricle is of normal size. R ight ventricular systolic function is mildly decreased. Left Atrium The left atrium is normal. There is no e vidence for a patent foramen ovale. Right Atrium The right atrium is normal. Aortic Valve The aortic valve is probably trileaflet. The aortic valve is mildly thickened. There is mild aortic stenosis. The peak instantaneous gradient across the aortic valve is 18 mmHg. The mean gradient acro ss the aortic valve is 9 mmHg. The aortic valve area calculated using the continui ty equation is 1.7 cm2. The dimensionless index is 0.53. The stroke volume index i s 38 mL/m2. There is no aortic regurgitation. Mitral Valve The mitral valve is structurally normal. Mild calcification of the posterior mitral annulus. There is no mitral steno sis. There is trace mitral regurgitation. Tricuspid Valve The tricuspid valve is structurally norm al. There is trace tricuspid regurgitation. Pulmonic Valve The pulmonic valve is not well visualize d. Great Arteries The aortic root at the level of the sinu ses of Valsalva is mildly dilated. The diameter at the level of the sinuses of Valsalva is 4.0 cm. Ascending aorta is normal in size. Venous Inferior vena cava is normal in size. In ferior vena cava collapse greater than 50% with respiration. Pericardium/Pleural The pericardium appears normal. Hemodynamics Pulmonary artery hypertension could not be assessed due to inadequate tricuspid regurgitation jet. Left ventricular brooks tolic function is indeterminate. Left ventricular filling pressure is increase d. Ejection Fraction ?2D Measurem ents ? Volumes LV Biplane EF: 57.4 % ? IVSd: 1.1 cm ? LA Volume Index: ?L VIDd: 4.6 cm ?L VIDs: 2.4 cm ?25.6 ml/m2 ?L VPWd: 1.1 cm ?RA A4Cs_phl: 15.5 cm2 ?L V mass(C)d: 174.3 grams ? EDV Biplane: 139.0 ml ? EDV Biplane Index: 68.2 ?L V mass(C)dI: 85.4 grams/m2 ?ESV Biplane: 59.2 ml ?A o root diam: 4.0 cm ? ESV Biplane Index: 29.0 ?A o root diam index: 2.0 ?SV(LVOT): 77.7 ml ?a sc Aorta Diam: 3.6 cm ? LV Stroke Volume: 75.0 ml ?L VOT diam: 2.0 cm ? SI(LVOT): 38.1 ml/m2 Doppler Ao V2 VTI: 45.2 cm Ao valve max: 17.6 mmHg Ao valve mean: 9.3 mmHg MV E max peyman: 126.0 cm/sec MV A max peyman: 134.0 cm/sec MV E/A: 0.94 MV dec time: 0.20 sec Lat Peak E' Peyman: 8.9 cm/sec E/ e' (lat): 14.1 Med Peak E' Peyman: 6.9 cm/sec E/e' (med): 18.4 E/e' Average: 16.3 KATIA(I,D): 1.7 cm2 Dimensionless index Aov: 0.53 MV mean P.5 mmHg I ?WMSI = 1.00 ? % Normal = 1 00 ?Segments ??Size X - Cannot ?? 1 - Normal ?? 2 - ? 3 - Akinetic 4 - ?1-2 ? small Interpret ? Hypoki netic ?Dyskinetic ?? 3-5 ? moderate 5 - ? 6-14 ?large Aneurysmal ?15-16 ?? diffuse Procedure Note Dorita Avitia MD - 12/11/2021F ormatting of this note might be different from the original. Echocardiogram Report Name: CRISTIAN ANASTASIA J Study Date: 2021 03:43 PMBP: 126/70 mmHg Patient Location: [facility] 441^A : 1950 Height: 68 in Account: [id number] Age: 71 yrs Weight: 198 lb Gender: Male BSA: 2.0 m2 Ordering Physician: ALESSANDRO SULLIVAN Referring Physician: ALESSANDRO SULLIVAN Performed By: Lacy Shepard RDCS Reason For Study: STEMI Interpreting Fellow: Primo Diaz. Exam Location: [facility]. Interpretation Summary 1. The left ventricle is normal in size and wall thickness. The left ventricular ejection fraction is 57%. There are no r egional wall motion abnormalities in the visualized segments. The basal inferior segment can not be visualized despite using ultrasound enhancing agent. 2. The right ventricle is normal in size with mildly reduced function. The mid to apical right ventricular free wall is hy pokinetic. The pulmonary artery systolic pressure could not be estimated. 3. Both atria are normal in size. 4. The aortic valve is poorly visualized but appears mildly thickened. There is mild aortic valve stenosis. There is no aortic valve regurgitation. 5. The aortic root is mildly dilated to 4.0 cm. 6. There is no prior study for compariso n. Procedure Complete-60557. Image enhancement Optiso n was used for left ventricular opacification. Suboptimal quality. There is normal sinus rhythm. Left Ventricle There is no ventricular septal defect. L eft ventricle is of normal size. Wall thickness is normal. Left ventricular sy stolic function is normal. The left ventricular ejection fraction is 57% by Hurtado's biplane. There are no segmental wall motion abnormalities. Right Ventricle The right ventricle is of normal size. R ight ventricular systolic function is mildly decreased. Left Atrium The left atrium is normal. There is no e vidence for a patent foramen ovale. Right Atrium The right atrium is normal. Aortic Valve The aortic valve is probably trileaflet. The aortic valve is mildly thickened. There is mild aortic stenosis. The peak instantaneous gradient across the aortic valve is 18 mmHg. The mean gradient acro ss the aortic valve is 9 mmHg. The aortic valve area calculated using the continui ty equation is 1.7 cm2. The dimensionless index is 0.53. The stroke volume index i s 38 mL/m2. There is no aortic regurgitation. Mitral Valve The mitral valve is structurally normal. Mild calcification of the posterior mitral annulus. There is no mitral steno sis. There is trace mitral regurgitation. Tricuspid Valve The tricuspid valve is structurally norm al. There is trace tricuspid regurgitation. Pulmonic Valve The pulmonic valve is not well visualize d. Great Arteries The aortic root at the level of the sinu ses of Valsalva is mildly dilated. The diameter at the level of the sinuses of Valsalva is 4.0 cm. Ascending aorta is normal in size. Venous Inferior vena cava is normal in size. In ferior vena cava collapse greater than 50% with respiration. Pericardium/Pleural The pericardium appears normal. Hemodynamics Pulmonary artery hypertension could not be assessed due to inadequate tricuspid regurgitation jet. Left ventricular brooks tolic function is indeterminate. Left ventricular filling pressure is increase d. Ejection Fraction 2D Measurements Volume s LV Biplane EF: 57.4 % IVSd: 1.1 cm LA Vo lume Index: LVIDd: 4.6 cm LVIDs: 2.4 cm 25.6 ml/m2 LVPWd: 1.1 cm RA A4Cs_phl: 15.5 cm2 LV mass(C)d: 174.3 grams EDV Biplane: 1 39.0 ml EDV Biplane Index: 68.2 LV mass(C)dI: 85.4 grams/m2 ESV Biplane : 59.2 ml Ao root diam: 4.0 cm ESV Biplane Index: 29.0 Ao root diam index: 2.0 SV(LVOT): 77.7 ml asc Aorta Diam: 3.6 cm LV Stroke Volume : 75.0 ml LVOT diam: 2.0 cm SI(LVOT): 38.1 ml/m2 Doppler Ao V2 VTI: 45.2 cm Ao valve max: 17.6 mmHg Ao valve mean: 9.3 mmHg MV E max peyman: 126.0 cm/sec MV A max peyman: 134.0 cm/sec MV E/A: 0.94 MV dec time: 0.20 sec Lat Peak E' Peyman: 8.9 cm/sec E/ e' (lat): 14.1 Med Peak E' Peyman: 6.9 cm/sec E/e' (med): 18.4 E/e' Average: 16.3 KATIA(I,D): 1.7 cm2 Dimensionless index Aov: 0.53 MV mean P.5 mmHg I WMSI = 1.00 % Normal = 100 Segments Size X - Cannot 1 - Normal 2 - 3 - Akinetic 4 - 1-2 small Interpret Hypokinetic Dyskinetic 3-5 mod erate 5 - 6-14 large Aneurysmal 15-16 diffuse Alessandro Sullivan MD ECHO ORDERABLES TSH Kimball (12/11/2021 2:46 PM EDT) athologist Signature TSH 0.67 0.27 - 4.20 [facility] m[facility]/mL [facility] Comment: Reference Interval (mcIU/mL): Females: ??First Trimester: 0.23-3.88 ??Second Trimester: 0.22-3.90 ??Third Trimester: 0.44-4.66 Specimen Anatomical Collection Method Collection Time Receive d Time (Source) Location / / Volume Laterality Blood 12/11/2021 2:46 PM 2 2:58 EDT PM EDT Resulting Agency Comment Spec In Lab Alessandro Sullivan MD CHEMISTRY ORDERABLES Performing Organization Address City/State/[place] [address] (ABNORMAL) Troponin (12/11/2021 2:46 PM EDT) athologist Signature Troponin-T 0.32 (H) 0.00 - MARIO SANDOVAL 0.00 ng/mL [facility] Comment: The 99th percentile for Troponin T is le ss than 0.01 ng/mL, any detectable cTnT concentration using this assay should be considered elevated. According to the third universal definit ion of myocardial infarction the following criteria with a clinical prese ntation consistent with acute myocardial ischemia meets the diagnosis for a myocardial infarction ([place]). Detection of a rise and/or fall of cTnT, with at least one value greater than the 99th percentile (> or = 0.01) and wi th at least one of the following ?? Symptoms of ischemia ?? New or presumed new significant ST-se gment-T wave (ST-T) changes or new left bundle branch block (LBBB) ?? Development of pathologic Q waves in the ECG ?? Imaging evidence of new loss of viabl e myocardium or new regional wall motion abnormality ?? Identification of an intracoronary th rombus by angiography or autopsy Samples for cTnT testing should be obtai melyssa serially upon first assessment and again 3 to 6 hours later. If the clinica l suspicion is high and previous samples have been negative an additional sample may be indicated. Reference: Third [place] Definition of Myocardial Infarction. Journal of the [place] [employer] 2012;60:1581-98 Specimen Anatomical Collection Method Collection Time Receive d Time (Source) Location / / Volume Laterality Blood 12/11/2021 2:46 PM 2 2:58 EDT PM EDT Resulting Agency Comment Spec In Lab Alessandro Sullivan MD CHEMISTRY ORDERABLES Performing Organization Address [facility] [place] [address] (ABNORMAL) pro-Brain Natriuretic Peptide (12/11/2021 2:46 PM EDT) P athologist Signature ProBNP 1,648 (H) <=124 [facility] KASSANDRA pg/mL [facility] Specimen Anatomical Collection Method Collection Time Receive d Time (Source) Location / / Volume Laterality Blood 12/11/2021 2:46 PM 2 2:58 EDT PM EDT Resulting Agency Comment Spec In Lab Alessandro Sullivan MD CHEMISTRY ORDERABLES Performing Organization Address [facility] [place] [address] Magnesium (12/11/2021 2:46 PM EDT) P athologist Signature Magnesium 0.86 0.69 - 1.07 [facility] KASSANDRA mmol/L [facility] Specimen Anatomical Collection Method Collection Time Receive d Time (Source) Location / / Volume Laterality Blood 12/11/2021 2:46 PM 2 2:58 EDT PM EDT Resulting Agency Comment Spec In Lab Alessandro Sullivan MD CHEMISTRY ORDERABLES Performing Organization Address City/State/ZIP Code Phon e Number [place] [id number] (ABNORMAL) Hemoglobin A1c (12/11/2021 2:46 PM EDT) Analysis Performed At [facility] Time Signature Hemoglobin A1C 5.9 (H) 4.3 - 5.6 [facility] Comment: Reference Range: 4.3 - 5.6% 5.7 - 6.4% - Increased Risk of Developin g Diabetes Mellitus >= 6.5% - Consistent with diagnosis of D iabetes Mellitus In the absence of hyperglycemia (i.e. pl asma glucose > 200 mg/dL) or classic symptoms of hyperglycemia a repeat measu rement of HbA1c should be performed on a separate sample to confirm the diagnos is. Diagnosis and Classification of Diabetes Mellitus, Diabetes Care 2013; 36: Suppl. 1, S67-17 Est Avg Gluc See note mg/dL [facility] Comment: Estimated Average Glucose not appropriat e for patients over 70 years of age. eAG equivalents for HbA1c percentages: HbA1c(%) ?eAG(mg/dL) 6.0 ?126 6.5 ?140 7.0 ?154 7.5 ?169 8.0 ?183 8.5 ?197 9.0 ?212 9.5 ?226 10.0 ? 240 Limitations: The eAG calculation has not been validated on women, individuals below 18 years old and above 70 years old, and individuals with hemoglobinopathies. Additional resources are available on ADA website. Mook PERDOMO, Kana J, Shankar R, et al. ??Tr anslating the A1C assay into estimated average glucose values. ??Diabetes Care 2008:31(8):1955-2371. Specimen Anatomical Collection Method Collection Time Receive d Time (Source) Location / / Volume Laterality Blood 12/11/2021 2:46 PM 2 2:58 EDT PM EDT Resulting Agency Comment Spec In Lab Alessandro Sullivan MD CHEMISTRY ORDERABLES Performing Organization Address City/State/[place] [address] Scan Doc: ECG (12/11/2021) Narrative This result has an attachment that is no t available. Historical Provider MEDIA MGR SCAN EXT ORDR/RSLT from Last 3 Months Insurance Payer Benefit Plan / Subscriber ID Effective Dates Phone Addre ss Type Group VACCN OPTUM [place] OPTUM [id number] 2021-Presen [phone] [address] [facility] [address] [place] [address] MEDICARE MEDICARE PART A [id number] 2020-Prese [phone] [place] [id number] Advance Directives Latest Code Status on File Code Status Date Activated Date Inactivated Comments Attempt Cardiopulmonary Resuscitation - 12/11/2021 11:35 AM 2021 4:07 PM Inpatient Code Status decision made by: Patient Attempt Cardiopulmonary Resuscitation - 12/11/2021 9:39 AM 022 11:35 AM Inpatient Code Status decision made by: Patient Care Teams Financial Services Sales Representative Relationship Specialty Start Date End Date None PCP - General 11/24/21 None
--- OUTSIDE RECORDS SUMMARY | 2022-02-09 10:44 | XMS_ITS | Encounter Summary ---
:1950 [place] [address] Care Team Providers Name Role Phone None Primary Care Provider Unavailable Encounter Details Date Type Department Care Team Description 01/10/2022 Telephone Cardiology at [facility] [place] [facility] [place] [phone] Social History Tobacco Use Types Packs/Day Years Used Date Current Every Day Smoker Cigarettes 1 Alcohol Use Standard Drinks/Week Comments Not Asked 0 (1 standard drink = 0.6 oz pure alcoho l) Sex Assigned at Date Recorded Not on file documented as of this encounter Miscellaneous Notes Telephone Encounter - Dwayne Cardenas - 01/10/2022 2:01 PM EDT Called to complete the 30 day follow-up for the SAFE STEMI trial. There was no answer, so I left a VM asking for a return call. documented in this encounter Plan of Treatment Not on filedocumented as of this encounter Visit Diagnoses Not on filedocumented in this encounter Care Teams Executive Pilot Relationship Specialty Start Date End Date None PCP - General 11/24/21 None documented as of this encounter
--- OUTSIDE RECORDS SUMMARY | 2022-02-09 10:45 | XMS_ITS | Encounter Summary ---
:1950 [place] [address] Care Team Providers Name Role Phone None Primary Care Provider Unavailable Reason for Visit Auth/Cert Specialty Diagnoses / Procedures Referred By Contact Refer red To Contact Diagnoses STEMI involving right coronary artery STEMI Kamran Martinez MD [facility] Procedures CARDIAC CATHETERIZATION emerg i [facility] [place] [address] Referral ID Status Reason Start Date Expiration Date Visits Requ ested Visits Authorized [id number] 1 1 Encounter Details Date Type Department Care Team Description 12/12/2021 Surgery Midlevel Provider Nate Ortiz , CARDIAC CATHETERIZATION [facility] [place] [address] CARDIOLOGY [phone] [place], [place] [address] (Wo rk) Social History Tobacco Use Types Packs/Day Years Used Date Current Every Day Smoker Cigarettes 1 Alcohol Use Standard Drinks/Week Comments Not Asked 0 (1 standard drink = 0.6 oz pure alcoho l) Sex Assigned at Date Recorded Not on file documented as of this encounter Last Filed Vital Signs Vital Sign Reading Time Taken Comments Blood Pressure 121/68 12/12/2021 3:30 PM EDT Pulse 58 12/12/2021 3:30 PM EDT Temperature 36.7 ??C (98.1 ??F) 12/12/2021 11:20 AM EDT Respiratory Rate 18 12/12/2021 3:30 PM EDT Oxygen Saturation 94% 12/12/2021 3:30 PM EDT Inhaled Oxygen Concentration - - Weight 87.6 kg (193 lb 1.6 oz) 12/12/2021 5:47 AM EDT Height 173 cm (5' 8.11) 12/11/2021 9:00 AM EDT Body Mass Index 29.47 12/11/2021 9:00 AM EDT documented in this encounter Discharge Summaries Rodney Sullivan MD - 12/13/2021 10:58 AM EDT Discharge Summary Patient Name: Anastasia Foster Patient Age: 71 y.o. Language: Bahraini Race: White Ethnicity: Unknown or Unavailable Admit date: 12/11/2021 Discharge date and time: 12/13/2021 10:58 AM Attending Physician: Rodney Sullivan MD Discharge Physician: Rodney Sullivan MD Follow-up Recommendations for Providers: Anastasia Foster is a 71 y.o. male who was admitted for STEMI management. # Inferior STEMI / Multivessel ASCVD ?? C 12/11/21 with culprit prox RCA lesion MASON, residual LAD disease with plans for staged PCI ?? LHC 12/12/21 with atherectomy and stent insertion of mid LAD and MASON to prox LAD and ostial D2 ?? TTE 12/11/21: preserved LVEF 57% without rWMAs, RV with mildly reduced function and with hypokinetic mid to apical RV free wall. ?? DAPT (aspirin 81mg daily + clopidogrel 75mg daily) x12 months ?? Encourage smoking cessation ?? Encourage participation in cardiac rehab Inpatient Provider Contact Information: MD Niecy Pérez PA-C Cardiovascular Medicine [phone] Discharge Diagnoses (Hospital Problems) and Secondary Diagnoses (Chronic Problems): Active Hospital Problems Diagnosis ??? STEMI involving right coronary artery ??? ASCVD (arteriosclerotic cardiovascular disease) ??? Hypertension, essential, benign ??? Other hyperlipidemia ??? Type 2 diabetes mellitus with circulatory disorder, without long-term current use of insulin ??? Cigarette smoker Resolved Hospital Problems No resolved problems to display. There are no active non-hospital problems to display for this patient. Operations/Major Procedures: [facility] 12/11/21 Hemodynamics: Left Heart Pressures Resting: Syst Diast EDP a v m Ao 106 49 72 LV 113 20 Coronary Angiography: Dominance: Right Left Main There was mild diffuse (<=25% stenosis) disease of the entire vessel segment of the left main artery. Left Anterior Descending There was a 75% stenosis of the mid 1 segment of the left anterior descending artery (LAD). The mid 2 segment of the LAD had a calcified 95% stenosis. There was mild diffuse (<=25% stenosis) disease of the entire vessel segment of the first diagonal branch (Diagonal 1) of the LAD. The Diagonal 1 was moderate in size. There was an 80% single discrete stenosis of the ostial segment of the second diagonal branch (Diagonal 2) of the LAD. Left Circumflex There was mild diffuse (<=25% stenosis) disease of the entire vessel segment of the left circumflex artery (LCX). There was a 55% diffuse stenosis of the proximal segment of the second obtuse marginal branch (OM2) of the LCX. Right Coronary Artery There was a 95% stenosis of the proximal segment of the right coronary artery (RCA). The distal segment of the RCA had a diffuse 30% stenosis. Intravascular Imaging/Physiology: Intravascular Ultrasound was performed in the proximal RCA using a 6 Fr AL 1 guiding catheter and a 3.1 Fr Refinity 42 MHz catheter using auto 1 mm/sec pullback. Imaging was successful. Image quality was good. The proximal RCA showed moderate diffuse atherosclerotic plaque with scattered three quadrant calcification. Measurements were performed after pre-dilation. Post Intervention: The stent was well expanded and apposed. The post intervention MLD was 9.1 mm. Indication for Intervention: Coronary intervention was indicated for primary therapy for an acute myocardial infarction. The priority for the procedure was Emergent. The [facility] indication for the procedure was STEMI-Immediate PCI for Acute STEMI. STEMI onset was 12/11/2021. Intervention Summary: Right Coronary Artery Proximal 95% Stent insertion was performed on the 95% stenosis in the proximal segment of the RCA. This was a de alexei lesion. According to the ACC/AHA classification system, this lesion was a type C high risk lesion. Primary prevention of restenosis was the indication for stent insertion. This was the culprit lesion. A guidewire was placed across this lesion. Vessel flow pre intervention was KATIE 3. Lesion length was 15mm. This lesion was severely calcified. Stent insertion was accomplished through a 6 Fr. AL 1 guide. The lesion was predilated with a 3.50mm NC EUPHORA 12 MM balloon with a maximum inflation pressure of 20 atmospheres. A premounted 4.50 x18 mm Gifford [place] (MASON) was deployed with a maximum inflation pressure of 14 atmospheres. The final outcome was defined as successful. There was no residual stenosis following this intervention. The final KATIE flow was 3. Vascular Access: Vascular Access Management: Mechanical Compression of the right radial artery access site was performed. Dual Antiplatelet (DAPT) Recommendations: Drug eluting stent (MASON) inserted. P2Y12 Loading dose administered prior to arrival in the label machine operator. Recommended anti-platelet/anti-thrombotic regimen: Continue aspirin 81 mg daily for indefinitely. Continue clopidogrel 75 mg daily for 12 months then stop. These recommendations are made at the time of the intervention. Patient and provider preferences or a changing clinical situation may require modification of this regimen. Consult [facility] Interventional Cardiology for questions. The 1 year bleeding risk as calculated by the PRECISE DAPT score is Low risk. This patient has a high DAPT score and may benefit from prolonged (12-30 months) dual antiplatelet therapy if the patient has completed 12 months of DAPT without having a major bleeding or ischemic event and the patient is NOT on chronic anticoagulation. This should be used for guidance in the overall conversation about prolonged dual antiplatelet therapy and not as a recommendation for or against any medical treatment. Consult http://tools.acc.org/DAPTriskapp/#!/content/calculator/ or [facility] Interventional Cardiology for questions Conclusions: * Three vessel coronary artery disease (LAD, LCX and RCA) * Elevated left ventricular end diastolic pressure * Successful stent insertion of the proximal RCA lesion * See Dual Antiplatelet (DAPT) Recommendations above * Enrolled in Safe STEMI, randomized to complete revascularization. [facility] 12/12/2021 Coronary Angiography: Dominance: Right Left Main There was mild diffuse (<=25% stenosis) disease of the entire vessel segment of the left main artery. Left Anterior Descending There was a 60% stenosis of the ostial segment of the left anterior descending artery (LAD). The proximal segment of the LAD had 85% stenosis. There also was an 85% stenosis of the mid segment of the LAD. There was an 85% stenosis of the ostial segment of the second diagonal branch (Diagonal 2) of the LAD. Left Circumflex There was mild diffuse (<=25% stenosis) disease of the entire vessel segment of the left circumflex artery (LCX). Right Coronary Artery This vessel was not injected. See prior study for details surrounding RCA anatomy. Intravascular Imaging/Physiology: Intravascular Ultrasound was performed in the mid LAD using a 7 Fr EBU 4.0 guiding catheter and a 3.1 Fr Refinity 42 MHz catheter using auto 1 mm/sec pullback. Imaging was successful. Image quality was excellent. The mid LAD showed severe diffuse atherosclerotic plaque with scattered four quadrant calcification. Post Intervention: The stent was well expanded and apposed. Indication for Intervention: Coronary intervention was indicated for treatment of a critical lesion post a myocardial infarction. The priority for the procedure was Urgent. The NCDR indication for the procedure was Other PCI Indication. LVEF within one week was 57%. Syntax Score was Intermediate. Staged PCI was performed for multivessel disease. Complete revascularization Intervention Summary: Left Anterior Descending Artery Proximal 85% Stent insertion was performed on the 85% stenosis in the proximal segment of the LAD. This was a de alexei lesion. According to the ACC/AHA classification system, this lesion was a type C high risk lesion. Primary prevention of restenosis was the indication for stent insertion. This was the culprit lesion. A guidewire was placed across this lesion. Vessel flow pre intervention was KATIE 3. Lesion length was 48mm. This lesion was severely calcified. This lesion was contiguous with LAD-ostial. Stent insertion was accomplished through a 7 Fr. EBU 4.0 guide. A premounted 3.00 x 38 mm Gifford [place] (MASON) was deployed with a maximum inflation pressure of 15 atmospheres. Following stent deployment, the lesion was dilated using a 3.50mm NC EUPHORA 20 MM balloon with a maximum inflation pressure of 24 atmospheres. Another stent insertion was accomplished through a 7 Fr. EBU 4.0 guide. A premounted 3.50 x 12 mm Gifford [place] (MASON) was deployed with a maximum inflation pressure of 18 atmospheres. The final outcome was defined as successful. There was no residual stenosis following this intervention. The final KATIE flow was 3. &&&. Mid 85% Atherectomy and stent insertion were performed on the 85% stenosis in the mid segment of the LAD. This was a de alexei lesion. This lesion was designated a type C high risk lesion based on ACC/AHA classification system. Management of a large dissection was the indication for stent insertion. This was the culprit lesion. A guidewire was placed across this lesion. Vessel flow pre intervention was KATIE 3. Lesion length was 18mm. This lesion was severely calcified. The lesion involves a bifurcation with the D2. This bifurcation lesion was treated with a two stent, culotte technique and a final kissing balloon post-dilation. Atherectomy was accomplished through a 7 Fr EBU 4. guide. The rotational atherectomy procedure was performed with a 1.50 mm Rotoblator ming and five passes. A total of 1 ming were used. Stent insertion was accomplished through a 7 Fr. EBU 4.0 guide. The lesion was predilated with a 2.75mm NC EUPHORA 20 MM balloon with a maximum inflation pressure of 22 atmospheres. A premounted 3.00 x 18 mm Gifford [place] (MASON) was deployed with a maximum inflation pressure of 12 atmospheres. Following stent deployment, the lesion was dilated using a 3.25mm NC EUPHORA 08 MM balloon with a maximum inflation pressure of 12 atmospheres. The final outcome was defined as successful. A coronary arteriolar vasodilator was administered as part of the intervention on this lesion. There was no residual stenosis following this intervention. The final KATIE flow was 3. Events included large dissection. Second Diagonal Branch of the LAD Ostial 85% Stent insertion was performed on the 85% stenosis in the ostial segment of the Diagonal 2. This was a de alexei lesion. According to the ACC/AHA classification system, this lesion was a type C high risk lesion. Primary prevention of restenosis was the indication for stent insertion. This was the culprit lesion. A guidewire was placed across this lesion. Vessel flow pre intervention was KATIE 3. Lesion length was 12mm. Stent insertion was accomplished through a 7 Fr. EBU 4.0 guide. The lesion was predilated with a 2.50mm NC EUPHORA 12 MM balloon with a maximum inflation pressure of 12 atmospheres. A premounted 3.00 x 18 mm Gifford [place] (MASON) was deployed with a maximum inflation pressure of 16 atmospheres. Following stent deployment, the lesion was dilated using a 2.50mm EUPHORA 15 MM balloon with a maximum inflation pressure of 12 atmospheres. The final outcome was defined as successful. The residual stenosis following this intervention was 10%. The final KATIE flow was 3. Vascular Access: Vascular Access Management: Manual Compression of the right radial artery access site was performed. Mechanical Compression of the right radial artery access site was performed. Dual Antiplatelet (DAPT) Recommendations: Drug eluting stent (MASON) inserted. Patient was on chronic DAPT on arrival to the label machine operator. Recommended anti-platelet/anti-thrombotic regimen: Start aspirin 81 mg daily now and continue for indefinitely. Start clopidogrel 75 mg daily now and continue for 12 months then stop. These recommendations are made at the time of the intervention. Patient and provider preferences or a changing clinical situation may require modification of this regimen. Consult [facility] Interventional Cardiology for questions. The 1 year bleeding risk as calculated by the PRECISE DAPT score is Low risk. This patient has a high DAPT score and may benefit from prolonged (12-30 months) dual antiplatelet therapy if the patient has completed 12 months of DAPT without having a major bleeding or ischemic event and the patient is NOT on chronic anticoagulation. This should be used for guidance in the overall conversation about prolonged dual antiplatelet therapy and not as a recommendation for or against any medical treatment. Consult http://tools.acc.org/DAPTriskapp/#!/content/calculator/ or [facility] Interventional Cardiology for questions Conclusions: * Obstructive disease of the LAD * Nonobstructive disease of the LM and LCX * Successful atherectomy and stent insertion of the mid LAD lesion * Successful stent insertion of the ostial D2 lesion * Successful stent insertion of the proximal LAD lesion * See Dual Antiplatelet (DAPT) Recommendations above Other Studies: TTE 12/11/21 Interpretation Summary 1. The left ventricle is normal in size and wall thickness. The left ventricular ejection fraction is 57%. There are no regional wall motion abnormalities in the visualized segments. The basal inferior segment can not be visualized despite using ultrasound enhancing agent. 2. The right ventricle is normal in size with mildly reduced function. The mid to apical right ventricular free wall is hypokinetic. The pulmonary artery systolic pressure could not be estimated. 3. Both atria are normal in size. 4. The aortic valve is poorly visualized but appears mildly thickened. There is mild aortic valve stenosis. There is no aortic valve regurgitation. 5. The aortic root is mildly dilated to 4.0 cm. 6. There is no prior study for comparison. ?? OSH Studies: CTA chest without and with contrast 12/10/21 No aortic dissection or aneurysm. CAD noted. No PE. Aortic valve disease. No mesenteric, renal or iliac occlusive disease. 1.6cm nodule in left thyroid lobe. Correlate with thyroid ultrasound. ?? CXR 12/10/21 Mild increase interstitial lung markings, cannot exclude mild interstitial edema or CHF. Minimal pleural effusions are suggested. No acute lung infiltrates or focal consolidations. Degenerative thoracic spine disease. History of Presentation: Per H&P 12/11/21 Anastasia Foster is a 71 y.o. male with a history of ASCVD (coronary angiogram ~2008 with nonobstructive disease), HTN, HLD, T2DM, tobacco use disorder (current, 1 ppd), PVD, and GERD, who is transferred to [facility] for missed STEMI and syncope. ?? He presented to [facility] following a syncopal event. Syncope occurred at a restaurant.He noted he was speaking with his brother in law and then lowered his head down and arms went limp. LOC for about 3-4 minutes. Does not recall event but once he regained consciousness he felt fine. Prior to the event he did have discomfort between his shoulder blades. Denies lightheadedness, dizziness, SOB, chest pain or other neurologic symptoms prior to event. In hindsight he recalls this discomfort between his shoulder blades occurring over the last 3-4 days intermittently. Discomfort would come on with activity and rest, though would improve with laying down to rest. No other recent illness or symptoms. ?? ER evaluation at OSH revealed stable vital signs with HR 50-60s, BP 108/68, O2 >90% on RA. Initial EKG demonstrated??sinus rhythm with trifascicular block, poor R wave progression. EKG series demonstrates onset of ST elevation in inferior leads with high lateral lead ST depression, starting at 8:15pm 12/10/21 evening and evolution of likely inferior STEMI. CXR significant for effusion. CT with dissection protocol is negative. Labs:??Troponin 81, 65, 845 (ULN 76). ProBNP 791. WBC 16.5, Hb 12.7, Fes627. Na 138, K 3.2, Cr 1.13, Mag 0.9, UA negative. COVID negative. Started on heparin drip and loaded with ASA 325mg and Plavix 600mg. 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 ?? On arrival he was symptom free. [facility] revealed obstructive disease of RCA and LAD with proximal RCA culprit lesion stented. He was seen in recovery unit without chest pain or complaints. He is agreeable for admission and planned staged PCI to left system. ?? Notes he previously followed with Dr. Schroeder in [place] in [phone] however has not followed for years. Has diagnosis of nonobstructive ASCVD. Per patient, underwent angiogram in 2008 that had a 60% lesion that was not intervened on. Hospital Course: # Inferior STEMI, s/p [facility] 12/11/21 with MASON to prox RCA and staged PCI to LAD (prox and mid) and ostial D2 # Multivessel ASCVD Anastasia Foster is a 71 y.o. male with a history of ASCVD (coronary angiogram ~2008 with nonobstructive disease), HTN, HLD, T2DM, tobacco use disorder (current, 1 ppd), PVD, and GERD, who is transferredto [facility] for missed STEMI and syncope. Presented to [facility] following syncopal episode with upper back discomfort. Found to have positive troponin (peak 845). ProBNP ~800. EKG with inferior SHABNAM and lateral STD consistent with STEMI. Loaded with aspirin 325mg and clopidogrel 600mg and started on IV heparin gtt. CTA chest negative for PE or aortic aneurysm or dissection. Transferred emergently for cath alert. [facility] 12/11/21 revealed LAD and RCA disease with proximal RCA culprit lesion; MASON to proximal RCA. Plan for staged PCI to left system this admission. TTE showed preserved LVEF 57% without LV WMAs, RV with mildly reduced function and with mid to apical RV free wall hypokinesis. Returned to label machine operator 12/12/21 for planned stage PCI with atherectomy of mid LAD with stent insertion as well as MASON to proximalLAD and ostial D2. Continue DAPT (aspirin 81mg daily and clopidogrel 75mg daily) for 12 months. Continued on increased home atorvastatin from 10mg to 80mg daily. Continued on home metoprolol succinate 50mg daily and lisinopril 5mg daily. Seen by cardiac rehab prior to discharge with recommendations for outpatient participation. Right radial access site without complications at time of discharge. ?? # Syncope Unclear etiology, likely vasovagal in setting of inferior STEMI versus arrhythmia. Telemetry did notreveal significant arrhyhtmia. ?? # Hypertension BP trend 12 hours prior to discharge were BP: (103-133)/(66-86) . Continued on metoprolol succinate 50mg daily and lisinopril 5mg daily. ?? # Hyperlipidemia Lipid panel 12/12/21: TC 130, HDL 42, TG 116, LDL 65. Continue increased home atorvastatin from 10mg to 80mg daily. ?? # Type 2 diabetes mellitus # Diabetic neuropathy A1c 12/11/21 5.9%. Home metformin and alogliptin held on admission. Covered with SSI and meal associated insulin. Resume home regimen at discharge. Continued on home pregabalin. ?? # Tobacco use disorder Current smoker, 1 ppd. Encouraged cessation. NRT PRN. ?? # Incidental finding on CT scan, thyroid nodule CT prior to transfer showed 1.6cm nodule in left thyroid lobe. Correlate with thyroid ultrasound as outpatient. ?? # GERD Continue PPI. Functional and Cognitive Status: Alert and oriented x 3, ambulatory-independent Important Studies and Lab Data: Labs: Lab Results Component Value Date WBC 11.0 (H) 12/13/2021 HGB 11.6 (L) 12/13/2021 HCT 34.8 (L) 12/13/2021 PLATELET 180 12/13/2021 No results for input(s): INR in the last 168 hours. Lab Results Component Value Date NA 136 12/13/2021 K 3.7 12/13/2021 CL 100 12/13/2021 CO2 26 12/13/2021 BUN 11 12/13/2021 CREATININE 0.79 (L) 12/13/2021 Recent Labs 12/11/21 1446 TSH 0.67 Recent Labs 12/11/21 1446 HA1C 5.9* Recent Labs 12/11/21 1446 TROPONINT 0.32* Pending Studies and Lab Data: None Discharge Conditions/Prognosis: Stable Discharge to: Home Updated Allergies/ADRs: Allergies Allergen Reactions ??? Shellfish Containing Products Hives Immunizations Given this Hospitalization: There is no immunization history on file for this patient. Discharge Medications: Your Medications New Medications Dose Details clopidogreL 75 mg Tab Commonly known as: Plavix Take 1 tablet by mouth daily. Start taking on: December 14, 2021 75 mg Quantity: 90 tablet Refills: 3 nicotine 21 mg/24 hr Pt24 Commonly known as: Nicoderm CQ Change 1 patch on the skin daily. Start taking on: December 14, 2021 1 patch Quantity: 28 patch Refills: 0 nitroGLYcerin 0.4 mg Subl Commonly known as: Nitrostat Place 1 tablet under the tongue every 5 minutes as needed for Chest pain. 0.4 mg Quantity: 25 tablet Refills: PRN Continued medications with new dosing Dose Details atorvastatin 80 mg Tab Commonly known as: Lipitor Take 1 tablet by mouth daily. What changed: ?? medication strength ?? how much to take 80 mg Quantity: 30 tablet Refills: 3 metFORMIN 1,000 mg Tab Commonly known as: Glucophage Take 1 tablet by mouth 2 times daily (with meals). Start taking on: December 14, 2021 What changed: how much to take 1,000 mg Quantity: 60 tablet Refills: 12 Continued medications, unchanged Dose Details albuteroL 90 mcg/actuation Hfaa Inhale 2 puffs into the lungs every 4 hours as needed for Wheezing. Use with spacer 2 puff Refills: 0 alogliptin 6.25 mg Tab Commonly known as: Nesina Take 6.25 mg by mouth daily. 6.25 mg Refills: 0 aspirin EC 81 mg Tbec Take 81 mg by mouth daily. 81 mg Refills: 0 lisinopriL 5 mg Tab Commonly known as: Zestril Refills: 0 magnesium oxide 400 mg (241.3 mg magnesium) Tab Commonly known as: Mag-Ox Take 400 mg by mouth daily. 400 mg Refills: 0 metOLazone 2.5 mg Tab Commonly known as: Zaroxolyn Take 2.5 mg by mouth daily. 2.5 mg Refills: 0 metoprolol succinate XL 50 mg Tablet sr Commonly known as: Toprol-XL Take 50 mg by mouth daily. 50 mg Refills: 0 multivitamin Cap Take 1 capsule by mouth daily. 1 capsule Refills: 0 pantoprazole EC 40 mg Tbec Commonly known as: Protonix Take 40 mg by mouth daily. 40 mg Refills: 0 potassium chloride ER 10 mEq Tbsr Commonly known as: K-Dur/Klor-Con Take 10 mEq by mouth daily. 10 mEq Refills: 0 pregabalin 75 mg Cap Commonly known as: Lyrica Take 75 mg by mouth 2 times daily. 75 mg Refills: 0 sildenafiL 100 mg Tab Commonly known as: VIAGRA Take 100 mg by mouth as needed for Erectile Dysfunction. 100 mg Refills: 0 STOPPED Medications atenoloL 25 mg Tab Commonly known as: Tenormin Bactrim DS 800-160 mg Tab Generic drug: sulfamethoxazole-trimethoprim DS naproxen 500 mg Tab Commonly known as: NAPROSYN Norvasc 10 mg Tab Generic drug: amLODIPine omeprazole 20 mg Tbec simvastatin 40 mg Tab Commonly known as: Zocor Smoking Status at Discharge: Social History Tobacco Use Smoking Status Current Every Day Smoker ??? Packs/day: 1.00 ??? Types: Cigarettes Smokeless Tobacco Not on file Instructions Given to Patient at Discharge: Patient Instructions You were hospitalized for treatment of your heart attack. A heart attack (myocardial infarction, or NV) occurs when one or more of the coronary arteries, which supply the heart with oxygen-rich blood, is blocked. A blockage usually occurs when plaque inside the artery breaks open and a blood clot forms in the artery. In order to treat this, you underwent a cardiac catheterization at which time a stent was placed to right coronary artery. You also had evidence of blockages in your other vessels, for this you went back to the label machine operator and received stents to the left anterior descending artery. In order to protect your stent from blood clots forming, you will need to remain on two antiplateletmedications called aspirin and Plavix for a minimum of 12 months. After this time, your cardiologistwill determine if you need to continue on both blood thinners, or if either can be stopped. You willlikely be on aspirin life-long. You were also continued on a beta casie called metoprolol which will help reduce workload on your heart, as well as a statin called atorvastatin which will help reduce your cholesterol as well as help to reduce inflammation in your heart arteries. You were provided with a supply of sublingual nitroglycerin. Keep it with you at all times. If you have angina symptoms, such as chest pain or pressure, sit down and rest. Take the first dose of nitroglycerin and let it melt under your tongue. If symptoms go away, do not take any additional. If your symptoms get worse or are not getting better within 5 minutes, take a second nitro tab and call 911 right away. Stay on the phone. The emergency hotbed lever operator will tell you what to do. Nitroglycerin is an emergency use medication. If you are taking this more than once in a week please alert your provider. Nitroglycerin in the original bottle is good for 1 year once the bottle is opened or until the date on the bottle is not used. If the bottom of the bottle is obscured by powder, or the label falls of discard the nitroglycerin and get a new bottle. You may resume light activity such as walking after your discharge. Do not do any strenuous activityfor the first week after your catheterization, including no lifting anything over 10 lbs. This is tohelp protect your cardiac cath access site and to continue to let it heal properly. You may shower, but do not submerge your cardiac cath access site in water for 1 week (no tubs, hot tubs, lakes, or pools). You may resume driving 48 hours after your catheterization if you were driving prior to your hospitalization. Call your doctor if: Chest pain, dyspnea, pain or swelling in legs occurs, or for weight gain of 2 pounds overnight or 5 pounds in 5 days. If you have non-emergent questions, prior to your follow-up visit call: Saturday-Saturday between the hours of 8AM-5PM please call the Cardiology Clinic [phone] to speak with a nurse. All other hours please call the Hospital Players Assistant [phone] and ask to speak to the cable installer repairer helper on-call. Return to work: One week Driving: No driving for 48 hours after cath Follow up Appointments: Doctor Where Phone # Date Time PCP Dr. Emeka Cherry [place] [phone] You will be contacted with your appointment date and time. Food Services Coordinator Dr. Elda Cherry [facility] [phone] January 09, 2022 2:15 PM Home oxygen therapy: N/A Arrangements for VNA/home care: N/A General Instructions None Future Appointments and Orders Future Orders Complete By Expires Referral to Cardiac Rehab [[id number] Custom] As directed Process Instructions: If no progress note charted, please enter Clinical details in comments. Scheduling Instructions: Questions: My question or request is: STEMI. [facility] at [facility]. Discharge References/Attachments None Discussed with MD Niecy Pérze PA-C Pager #[phone] 12/13/2021 documented in this encounter Discharge Instructions Patient InstructionsMichavoNiecy nunez PA - 12/13/2021 10:33 AM EDT You were hospitalized for treatment of your heart attack. A heart attack (myocardial infarction, or NV) occurs when one or more of the coronary arteries, which supply the heart with oxygen-rich blood, is blocked. A blockage usually occurs when plaque inside the artery breaks open and a blood clot forms in the artery. In order to treat this, you underwent a cardiac catheterization at which time a stent was placed to right coronary artery. You also had evidence of blockages in your other vessels, for this you went back to the label machine operator and received stents to the left anterior descending artery. In order to protect your stent from blood clots forming, you will need to remain on two antiplateletmedications called aspirin and Plavix for a minimum of 12 months. After this time, your cardiologistwill determine if you need to continue on both blood thinners, or if either can be stopped. You willlikely be on aspirin life-long. You were also continued on a beta casie called metoprolol which will help reduce workload on your heart, as well as a statin called atorvastatin which will help reduce your cholesterol as well as help to reduce inflammation in your heart arteries. You were provided with a supply of sublingual nitroglycerin. Keep it with you at all times. If you have angina symptoms, such as chest pain or pressure, sit down and rest. Take the first dose of nitroglycerin and let it melt under your tongue. If symptoms go away, do not take any additional. If your symptoms get worse or are not getting better within 5 minutes, take a second nitro tab and call 911 right away. Stay on the phone. The emergency hotbed lever operator will tell you what to do. Nitroglycerin is an emergency use medication. If you are taking this more than once in a week please alert your provider. Nitroglycerin in the original bottle is good for 1 year once the bottle is opened or until the date on the bottle is not used. If the bottom of the bottle is obscured by powder, or the label falls of discard the nitroglycerin and get a new bottle. You may resume light activity such as walking after your discharge. Do not do any strenuous activityfor the first week after your catheterization, including no lifting anything over 10 lbs. This is tohelp protect your cardiac cath access site and to continue to let it heal properly. You may shower, but do not submerge your cardiac cath access site in water for 1 week (no tubs, hot tubs, lakes, or pools). You may resume driving 48 hours after your catheterization if you were driving prior to your hospitalization. Call your doctor if: Chest pain, dyspnea, pain or swelling in legs occurs, or for weight gain of 2 pounds overnight or 5 pounds in 5 days. If you have non-emergent questions, prior to your follow-up visit call: Saturday-Saturday between the hours of 8AM-5PM please call the Cardiology Clinic [phone] to speak with a nurse. All other hours please call the Hospital Players Assistant [phone] and ask to speak to the cable installer repairer helper on-call. Return to work: One week Driving: No driving for 48 hours after cath Follow up Appointments: Doctor Where Phone # Date Time PCP Dr. Emeka Cherry [place] [phone] You will be contacted with your appointment date and time. Food Services Coordinator Dr. Elda [facility] [phone] January 09, 2022 2:15 PM Home oxygen therapy: N/A Arrangements for VNA/home care: N/A AttachmentsThe following attachments cannot be sent through Care Everywhere.PCI (Percutaneous Coronary Intervention): Post-op ([place])Smoking: Anti-Smoking Medication: Deciding About ([place])documented in this encounter Medications at Time of Discharge Medication Sig Dispensed Refills Start Date End Date metFORMIN (Glucophage) Take 1 tablet by 60 tablet 12 022 1,000 mg Tablet mouth 2 times daily (with meals). atorvastatin (Lipitor) 80 Take 1 tablet by 30 tablet 3 11/25 mg Tablet mouth daily. nicotine (Nicoderm CQ) 21 Change 1 patch on the 28 patch 0 12/14/2021 mg/24 hr Patch 24 hr skin daily. nitroGLYcerin (Nitrostat) Place 1 tablet under 25 tablet 12/13/2021 0.4 mg Tablet, Sublingual the tongue every 5 minutes as needed for Chest pain. clopidogreL (Plavix) 75 mg Take 1 tablet by 15 tablet 0 Tablet mouth daily. aspirin EC 81 mg Tablet, Take 81 mg by mouth 0 Delayed Release (E.C.) daily. albuteroL 90 mcg/actuation Inhale 2 puffs into 0 HFA Aerosol Inhaler the lungs every 4 hours as needed for Wheezing. Use with spacer alogliptin (Nesina) 6.25 Take 6.25 mg by mouth 0 mg Tablet daily. magnesium oxide (Mag-Ox) Take 400 mg by mouth 0 400 mg (241.3 mg daily. magnesium) Tablet metOLazone (Zaroxolyn) 2.5 Take 2.5 mg by mouth 0 mg Tablet daily. metoprolol succinate XL Take 50 mg by mouth 0 (Toprol-XL) 50 mg Tablet daily. Sustained Release 24 hr multivitamin Capsule Take 1 capsule by 0 mouth daily. pantoprazole EC (Protonix) Take 40 mg by mouth 0 40 mg Tablet, Delayed daily. Release (E.C.) potassium chloride ER Take 10 mEq by mouth 0 (K-Dur/Klor-Con) 10 mEq daily. Tablet Sustained Release sildenafiL (VIAGRA) 100 mg Take 100 mg by mouth 0 Tablet as needed for Erectile Dysfunction. pregabalin (Lyrica) 75 mg Take 75 mg by mouth 2 0 Capsule times daily. lisinopril 0 05/02/2009 (PRINIVIL;ZESTRIL) 5 mg tablet documented as of this encounter Progress Notes Marlee Pennington RN - 12/13/2021 2:07 PM EDT Pt discharged to home. AVS reviewed w/ pt and questions answered. IVs and tele removed. Belongings sent home w/ pt. Rodney Sullivan MD - 12/13/2021 7:22 AM EDT Inpatient Cardiology Progress Note Patient Name: Anastasia Foster Service: CRYPTOGRAPHIC VULNERABILITY ANALYST / PA Responsible Attending: Rodney Sullivan MD Reason for continued hospitalization: STEMI, MVD- s/p PCI RCA and staged PCI to LAD Cardiac rehab consultation Discharge home today Active Problems: Active Hospital Problems Diagnosis ??? STEMI involving right coronary artery ??? ASCVD (arteriosclerotic cardiovascular disease) ??? Hypertension, essential, benign ??? Other hyperlipidemia ??? Type 2 diabetes mellitus with circulatory disorder, without long-term current use of insulin ??? Cigarette smoker Resolved Hospital Problems No resolved problems to display. Interval History: No acute events overnight. No recurrence of chest pain. No access site complications. Ambulated without difficulty. Ready for discharge today. Will speak with cardiac rehab prior. Review of Systems: Review of Systems Constitutional: Negative for fatigue and fever. HENT: Negative. Eyes: Negative for visual disturbance. Respiratory: Negative for cough and shortness of breath. Cardiovascular: Negative for chest pain, palpitations and leg swelling. Gastrointestinal: Negative for abdominal pain, nausea and vomiting. Genitourinary: Negative for difficulty urinating. Musculoskeletal: Negative for gait problem. Skin: Negative for rash. Neurological: Negative for dizziness, syncope, facial asymmetry, weakness, light-headedness and headaches. Psychiatric/Behavioral: Negative for confusion. Telemetry: HR: 55-90s, SB/SR with 1st AVB with frequent bursts of AT Meds: Scheduled Meds: ??? aspirin EC 81 mg Oral Daily ??? atorvastatin 80 mg Oral QPM ??? magnesium oxide 400 mg Oral Daily ??? metoproloL tartrate 12.5 mg Oral Q6H NARENDRA ??? pantoprazole EC 40 mg Oral Daily ??? pregabalin 75 mg Oral BID ??? clopidogreL 75 mg Oral Daily ??? heparin (porcine) 5,000 Units Subcutaneous Q8H NARENDRA ??? nicotine 1 patch Transdermal Daily And ??? Patch Verification 1 patch Transdermal BID And ??? nicotine 1 patch Transdermal Daily ??? insulin lispro 1-4 Units Subcutaneous TID AC ??? insulin lispro 0-8 Units Subcutaneous TID WC Continuous Infusions: ??? sodium chloride 0.45% PRN Meds:atropine, nitroGLYcerin, acetaminophen, glucose 40% oral geL OR dextrose 10% OR glucagon Physical Exam: Vital Signs: Last value Range last 12 hrs Temperature Temp: 36.7 ??C (98.1 ??F) Temp: -- Heart Rate Heart Rate: 96 Heart Rate: [65-96] Blood Pressure BP: 133/66 BP: (103-133)/(52-86) Respiratory Rate Resp: 18 Resp: [17-19] SpO2 SpO2: 99 % SpO2: [98 %-99 %] Physical Exam Constitutional: General: He is not in acute distress. HENT: Head: Normocephalic and atraumatic. Nose: Nose normal. No congestion. Mouth/Throat: Pharynx: Oropharynx is clear. Eyes: Conjunctiva/sclera: Conjunctivae normal. Cardiovascular: Rate and Rhythm: Normal rate and regular rhythm. Pulses: Normal pulses. Heart sounds: Normal heart sounds. No murmur heard. Pulmonary: Effort: Pulmonary effort is normal. No respiratory distress. Breath sounds: Normal breath sounds. Abdominal: Palpations: Abdomen is soft. Musculoskeletal: Cervical back: Normal range of motion and neck supple. Right lower leg: No edema. Left lower leg: No edema. Skin: General: Skin is warm and dry. Comments: Right radial access site clean, dry, intact without hematoma or bleeding Neurological: General: No focal deficit present. Mental Status: He is alert and oriented to person, place, and time. Psychiatric: Mood and Affect: Mood normal. Lab Comments: Recent Labs 12/13/2142512/12/21 0415 12/11/21 1446 WBC 11.0* 10.8* 11.2* HGB 11.6* 12.4* 12.1* HCT 34.8* 37.8* 36.0* PLATELET 180 212 223 No results for input(s): INR in the last 168 hours. Recent Labs 12/13/2142512/12/21 0415 12/11/21 1446 NA 136 137 134* K 3.7 4.0 3.4* CL 100 99 96* CO2 26 27 28 BUN 11 13 13 CREATININE 0.79* 0.85 0.77* No results for input(s): AST, ALT, ALKPHOS, BILITOT, BILIDIR in the last 168 hours. Recent Labs 12/13/21 04212/12/21 0415 12/11/21 1446 CALCIUM 7.9* 8.3* 7.9* MAGNESIUM -- -- 0.86 Recent Labs 12/11/21 1446 TROPONINT 0.32* Pertinent Radiographic/Diagnostic Results: [facility] 12/12/21 Conclusions: * Obstructive disease of the LAD * Nonobstructive disease of the LM and LCX * Successful atherectomy and stent insertion of the mid LAD lesion * Successful stent insertion of the ostial D2 lesion * Successful stent insertion of the proximal LAD lesion * See Dual Antiplatelet (DAPT) Recommendations above TTE 12/11/21 Interpretation Summary 1. The left ventricle is normal in size and wall thickness. The left ventricular ejection fraction is 57%. There are no regional wall motion abnormalities in the visualized segments. The basal inferior segment can not be visualized despite using ultrasound enhancing agent. 2. The right ventricle is normal in size with mildly reduced function. The mid to apical right ventricular free wall is hypokinetic. The pulmonary artery systolic pressure could not be estimated. 3. Both atria are normal in size. 4. The aortic valve is poorly visualized but appears mildly thickened. There is mild aortic valve stenosis. There is no aortic valve regurgitation. 5. The aortic root is mildly dilated to 4.0 cm. 6. There is no prior study for comparison. [facility] 12/11/21 Conclusions: * Three vessel coronary artery disease (LAD, LCX and RCA) * Elevated left ventricular end diastolic pressure * Successful stent insertion of the proximal RCA lesion * See Dual Antiplatelet (DAPT) Recommendations above * Enrolled in Safe STEMI, randomized to complete revascularization. Assessment: Anastasia Foster is a 71 y.o. male with a history of ASCVD (coronary angiogram ~2008 with nonobstructive disease), HTN, HLD, T2DM, tobacco use disorder (current, 1 ppd), PVD, and GERD, who [facility] for missed STEMI and syncope. Presented to [facility] following syncopal episode with upper back discomfort. Found to have positive troponin (peak 845). ProBNP ~800. EKG with inferior SHABNAM and lateral STD consistent with STEMI. Loaded with ASA and Plavix and started on IV heparin gtt. CTA chest negative for PE or aortic aneurysm or dissection. Transferred emergently for cath alert. [facility] 12/11/21 revealed 3VD with proximal RCA culprit lesion; MASON to proximal RCA. Plan for staged PCI to left system this admission. TTE showed preserved LVEF 57% without rWMAs, RV with mildly reduced function and with hypokinetic mid to apical RV free wall. Underwent staged PCI to LAD system 12/12 with atherectomy of mid LAD with stent insertion as well as MASON to proximal LAD and ostial D2. Initiated and optimized GDMT for ASCVD. Cardiac rehab consult today then discharge home following. Unclear etiology of syncope, however most likely vasovagal given inferior STEMI versus arrhythmia. No concerning arrhythmias on telemetry monitoring. Plan: # Inferior STEMI, s/p C 12/11/21 with MASON to prox RCA and staged PCI to LAD (prox and mid) and ostial D2 # Multivessel ASCVD Telemetry Troponin peak at OSH 845 TTE as above S/p ASA 324mg load at OSH, continue ASA 81mg daily S/p Plavix 600mg load at OSH, continue Plavix 75mg daily Stop IV heparin post RCA revascularization Increase home atorvastatin from 10mg to 80mg daily Continue metoprolol tartrate 12.5mg q6h (home 50mg) with holding parameters S/p C 12/11/21 and 12/12/21 as above Cardiac rehab consult prior to discharge ?? # Syncope Unclear etiology, most likely vasovagal in setting of inferior STEMI versus arrhythmia Telemetry monitoring ?? # Hypertension BP: (103-133)/(52-86) - trend over the last 12 hours Continue metoprolol tartrate 12.5mg q6h (home 50mg) Resume home lisinopril 5mg daily ?? # Hyperlipidemia Lipid panel 12/12/21: TC 130, HDL 42, TG 116, LDL 65 Increase home atorvastatin from 10mg to 80mg daily ?? # Type 2 diabetes mellitus # Diabetic neuropathy A1c 5.9% Hold home metformin and alogliptin SSI and meal associated insulin coverage Continue home pregabalin ?? # Tobacco use disorder Current smoker, 1 ppd Encouraged cessation NRT PRN ?? # Incidental finding on CT scan, thyroid nodule CT prior to transfer showed 1.6cm nodule in left thyroid lobe. Correlate with thyroid ultrasound as outpatient ?? # GERD Continue PPI Code Status: FULL DVT Prophylaxis: heparin subq Discussed with MD Niecy Pérez PA-C Pager #[phone] 12/13/2021 Cardiology Attending Note I interviewed and examined the patient during comprehensive bedside rounds. I concur with the summary of interval events, active hospital-focused problem list and plan of care as described in the note below. I personally reviewed the medications, laboratory results, treatment decisions and updated thepatient. Rodney Sullivan MD, FACP, FACC Section of Cardiovascular Medicine [facility] [employer] Vocational Educatorvenereal disease investigator [facility] [employer] [facility] This patient meets or has met medical criteria to require an inpatient level of care, i.e. a minimumof two midnights in the hospital with multiple complex problems. Rodney Sullivan MD - 12/12/2021 8:00 AM EDT Inpatient Cardiology Progress Note Patient Name: Anastasia Foster Service: CRYPTOGRAPHIC VULNERABILITY ANALYST / PA Responsible Attending: Rodney Sullivan MD Reason for continued hospitalization: STEMI, MVD- s/p PCI RCA, plan for staged PCI to LAD Ongoing medication adjustments and optimization Active Problems: Active Hospital Problems Diagnosis ??? STEMI involving right coronary artery ??? ASCVD (arteriosclerotic cardiovascular disease) ??? Hypertension, essential, benign ??? Other hyperlipidemia ??? Type 2 diabetes mellitus with circulatory disorder, without long-term current use of insulin ??? Cigarette smoker Resolved Hospital Problems No resolved problems to display. Interval History: No acute events overnight. No recurrence of chest pain. No access site complications. Ambulated to the bathroom without difficulties. Timing of staged PCI TBD. Review of Systems: Review of Systems Constitutional: Negative for fatigue and fever. HENT: Negative. Eyes: Negative for visual disturbance. Respiratory: Negative for cough and shortness of breath. Cardiovascular: Negative for chest pain, palpitations and leg swelling. Gastrointestinal: Negative for abdominal pain, nausea and vomiting. Genitourinary: Negative for difficulty urinating. Musculoskeletal: Negative for gait problem. Skin: Negative for rash. Neurological: Negative for dizziness, syncope, facial asymmetry, weakness, light-headedness and headaches. Psychiatric/Behavioral: Negative for confusion. Telemetry: HR: 55-90s, SB/SR with 1st AVB Meds: Scheduled Meds: ??? aspirin EC 81 mg Oral Daily ??? atorvastatin 80 mg Oral QPM ??? magnesium oxide 400 mg Oral Daily ??? metoproloL tartrate 12.5 mg Oral Q6H NARENDRA ??? pantoprazole EC 40 mg Oral Daily ??? pregabalin 75 mg Oral BID ??? clopidogreL 75 mg Oral Daily ??? heparin (porcine) 5,000 Units Subcutaneous Q8H NARENDRA ??? nicotine 1 patch Transdermal Daily And ??? Patch Verification 1 patch Transdermal BID And ??? nicotine 1 patch Transdermal Daily ??? insulin lispro 1-4 Units Subcutaneous TID AC ??? insulin lispro 0-8 Units Subcutaneous TID WC Continuous Infusions: PRN Meds:atropine, nitroGLYcerin, acetaminophen, glucose 40% oral geL OR dextrose 10% OR glucagon Physical Exam: Vital Signs: Last value Range last 12 hrs Temperature Temp: 36.6 ??C (97.9 ??F) Temp: [36.6 ??C (97.9 ??F)] Heart Rate Heart Rate: 59 Heart Rate: [53-68] Blood Pressure BP: 107/65 BP: (105-111)/(64-78) Respiratory Rate Resp: 20 Resp: [20] SpO2 SpO2: 94 % SpO2: [94 %-97 %] Physical Exam Constitutional: General: He is not in acute distress. HENT: Head: Normocephalic and atraumatic. Nose: Nose normal. No congestion. Mouth/Throat: Pharynx: Oropharynx is clear. Eyes: Conjunctiva/sclera: Conjunctivae normal. Cardiovascular: Rate and Rhythm: Normal rate and regular rhythm. Pulses: Normal pulses. Heart sounds: Normal heart sounds. No murmur heard. Pulmonary: Effort: Pulmonary effort is normal. No respiratory distress. Breath sounds: Normal breath sounds. Abdominal: Palpations: Abdomen is soft. Musculoskeletal: Cervical back: Normal range of motion and neck supple. Right lower leg: No edema. Left lower leg: No edema. Skin: General: Skin is warm and dry. Comments: Right radial access site clean, dry, intact without hematoma or bleeding Neurological: General: No focal deficit present. Mental Status: He is alert and oriented to person, place, and time. Psychiatric: Mood and Affect: Mood normal. Lab Comments: Recent Labs 12/12/21 0415 12/11/21 1446 WBC 10.8* 11.2* HGB 12.4* 12.1* HCT 37.8* 36.0* PLATELET 212 223 No results for input(s): INR in the last 168 hours. Recent Labs 12/12/21 0415 12/11/21 1446 NA 137 134* K 4.0 3.4* CL 99 96* CO2 27 28 BUN 13 13 CREATININE 0.85 0.77* No results for input(s): AST, ALT, ALKPHOS, BILITOT, BILIDIR in the last 168 hours. Recent Labs 12/12/21 0415 12/11/21 1446 CALCIUM 8.3* 7.9* MAGNESIUM -- 0.86 Recent Labs 12/11/21 1446 TROPONINT 0.32* Pertinent Radiographic/Diagnostic Results: TTE 12/11/21 Interpretation Summary 1. The left ventricle is normal in size and wall thickness. The left ventricular ejection fraction is 57%. There are no regional wall motion abnormalities in the visualized segments. The basal inferior segment can not be visualized despite using ultrasound enhancing agent. 2. The right ventricle is normal in size with mildly reduced function. The mid to apical right ventricular free wall is hypokinetic. The pulmonary artery systolic pressure could not be estimated. 3. Both atria are normal in size. 4. The aortic valve is poorly visualized but appears mildly thickened. There is mild aortic valve stenosis. There is no aortic valve regurgitation. 5. The aortic root is mildly dilated to 4.0 cm. 6. There is no prior study for comparison. [facility] 12/11/21 Conclusions: * Three vessel coronary artery disease (LAD, LCX and RCA) * Elevated left ventricular end diastolic pressure * Successful stent insertion of the proximal RCA lesion * See Dual Antiplatelet (DAPT) Recommendations above * Enrolled in Safe STEMI, randomized to complete revascularization. Assessment: Anastasia Foster is a 71 y.o. male with a history of ASCVD (coronary angiogram ~2008 with nonobstructive disease), HTN, HLD, T2DM, tobacco use disorder (current, 1 ppd), PVD, and GERD, who istransferred to [facility] for missed STEMI and syncope. Presented to [facility] following syncopal episode with upper back discomfort. Found to have positive troponin (peak 845). ProBNP ~800. EKG with inferior SHABNAM and lateral STD consistent with STEMI. Loaded with ASA and Plavix and started on IV heparin gtt. CTA chest negative for PE or aortic aneurysm or dissection. Transferred emergently for cath alert. [facility] 12/11/21 revealed 3VD with proximal RCA culprit lesion; MASON to proximal RCA. Plan for staged PCI to left system this admission. TTE showed preserved LVEF 57% without rWMAs, RV with mildly reduced function and with hypokinetic mid to apical RV free wall. Initiate and optimize GDMT for ASCVD. Plan for staged PCI to LAD today, 12/12. Unclear etiology of syncope, however most likely vasovagal given inferior STEMI versus arrhythmia. Ongoing telemetry monitoring. Plan: # Inferior STEMI, s/p [facility] 12/11/21 with MASON to prox RCA and planned staged PCI to left system # Multivessel ASCVD Telemetry Troponin peak at OSH 845 TTE as above S/p ASA 324mg load at OSH, continue ASA 81mg daily S/p Plavix 600mg load at OSH, continue Plavix 75mg daily Stop IV heparin post RCA revascularization Increase home atorvastatin from 10mg to 80mg daily Continue metoprolol tartrate 12.5mg q6h (home 50mg) with holding parameters S/p [facility] 12/11/21 with MASON to prox RCA, plan for staged PCI to left system this admission NPO for LAD revascularization 12/[address] Gonzales Cardiac rehab consult prior to discharge ?? # Syncope Unclear etiology, most likely vasovagal in setting of inferior STEMI versus arrhythmia Telemetry monitoring ?? # Hypertension BP: (105-139)/(64-78) - trend over the last 12 hours Continue metoprolol tartrate 12.5mg q6h (home 50mg) Hold home lisinopril ?? # Hyperlipidemia Lipid panel 12/12/21: TC 130, HDL 42, TG 116, LDL 65 Increase home atorvastatin from 10mg to 80mg daily ?? # Type 2 diabetes mellitus # Diabetic neuropathy A1c 5.9% Hold home metformin and alogliptin SSI and meal associated insulin coverage Continue home pregabalin ?? # Tobacco use disorder Current smoker, 1 ppd Encouraged cessation NRT PRN ?? # Incidental finding on CT scan, thyroid nodule CT prior to transfer showed 1.6cm nodule in left thyroid lobe. Correlate with thyroid ultrasound as outpatient ?? # GERD Continue PPI Code Status: FULL DVT Prophylaxis: heparin subq Discussed with MD Niecy Pérez PA-C Pager #[phone] 12/12/2021 Cardiology Attending Note I interviewed and examined the patient during comprehensive bedside rounds. I concur with the summary of interval events, active hospital-focused problem list and plan of care as described in the note below. I personally reviewed the medications, laboratory results, treatment decisions and updated thepatient. # STEMI, inferior # ASCVD, multivessel - pain free and comfortable this AM - LVEF: 57% on TTE yesterday - s/p PCI to proximal RCA; residual obstructive disease in the mid LAD - plan for PCI to LAD/OM today - continue DAPT, BB, ANOOP-I, and statin - awaiting TTE results ?? # Diabetes mellitus # Tobacco use # Hypertension # Hyperlipidemia Rodney Sullivan MD, FACP, FACC Section of Cardiovascular Medicine [facility] [employer] Voc[employer] Educatorvenereal disease investigator [facility] This patient meets or has met medical criteria to require an inpatient level of care, i.e. a minimumof two midnights in the hospital with multiple complex problems. documented in this encounter H&P Notes Rodney Sullivan MD - 12/11/2021 10:06 AM EDT Cardiology Admission H&P Patient Name: Anastasia Foster Date of : 1950 Age: 71 y.o. Hospital Admit Date: 12/11/2021 Inpatient Attending: Nate Gonzales MD;Rodney Sullivan* PCP: Unknown Presenting Diagnosis/Chief Complaint: syncope, STEMI Active Problem List: Active Hospital Problems Diagnosis ??? STEMI involving right coronary artery ??? ASCVD (arteriosclerotic cardiovascular disease) ??? Hypertension, essential, benign ??? Other hyperlipidemia ??? Type 2 diabetes mellitus with circulatory disorder, without long-term current use of insulin ??? Cigarette smoker Resolved Hospital Problems No resolved problems to display. History of Present Illness: Anastasia Foster is a 71 y.o. male with a history of ASCVD (coronary angiogram ~2008 with nonobstructive disease), HTN, HLD, T2DM, tobacco use disorder (current, 1 ppd), PVD, and GERD, who is [facility] for missed STEMI and syncope. He presented to [facility] following a syncopal event. Syncope occurred at a restaurant.He noted he was speaking with his brother in law and then lowered his head down and arms went limp. LOC for about 3-4 minutes. Does not recall event but once he regained consciousness he felt fine. Prior to the event he did have discomfort between his shoulder blades. Denies lightheadedness, dizziness, SOB, chest pain or other neurologic symptoms prior to event. In hindsight he recalls this discomfort between his shoulder blades occurring over the last 3-4 days intermittently. Discomfort would come on with activity and rest, though would improve with laying down to rest. No other recent illness or symptoms. ER evaluation at OSH revealed stable vital signs with HR 50-60s, BP 108/68, O2 >90% on RA. Initial EKG demonstrated sinus rhythm with trifascicular block, poor R wave progression. EKG series demonstrates onset of ST elevation in inferior leads with high lateral lead ST depression, starting at 8:15pm 12/10/21 evening and evolution of likely inferior STEMI. CXR significant for effusion. CT with dissection protocol is negative. Labs: Troponin 81, 65, 845 (ULN 76). ProBNP 791. WBC 16.5, Hb 12.7, Plt 306. Na 138, K 3.2, Cr 1.13, Mag 0.9, UA negative. COVID negative. Started on heparin drip and loaded with ASA 325mg and Plavix 600mg. 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 On arrival he was symptom free. LHC revealed obstructive disease of RCA and LAD with proximal RCA culprit lesion stented. He was seen in recovery unit without chest pain or complaints. He is agreeable for admission and planned staged PCI to left system. Notes he previously followed with Dr. Schroeder in [place] in [phone] however has not followed for years. Has diagnosis of nonobstructive ASCVD. Per patient, underwent angiogram in 2008 that had a 60% lesion that was not intervened on. Past Medical History: Past Medical History: Diagnosis Date ??? ASCVD (arteriosclerotic cardiovascular disease) ??? GERD (gastroesophageal reflux disease) ??? HLD (hyperlipidemia) ??? HTN (hypertension), benign ??? Smoker ??? T2DM (type 2 diabetes mellitus) Surgical History/Problems: No past surgical history on file. Prior abdominal surgery. Significant Family History: No family history on file. Social History: Social History Socioeconomic History ??? Marital status: Unknown Spouse name: Not on file ??? Number of children: Not on file ??? Years of education: Not on file ??? Highest education level: Not on file Occupational History ??? Not on file Tobacco Use ??? Smoking status: Current Every Day Smoker Packs/day: 1.00 Types: Cigarettes ??? Smokeless tobacco: Not on file Substance and Sexual Activity ??? Alcohol use: Not on file ??? Drug use: Not on file ??? Sexual activity: Not on file Other Topics Concern ??? Not on file Social History Narrative ??? Not on file Social Determinants of Health Financial Resource Strain: Not on file Food Insecurity: Not on file Transportation Needs: Not on file Physical Activity: Not on file Housing Stability: Not on file REVIEW OF SYSTEMS: Review of Systems Constitutional: Negative for chills, diaphoresis, fatigue and fever. HENT: Negative for congestion and sore throat. Eyes: Negative for visual disturbance. Respiratory: Negative for cough and shortness of breath. Cardiovascular: Negative for chest pain, palpitations and leg swelling. Discomfort between shoulder blades, now resolved Gastrointestinal: Negative for abdominal pain, diarrhea, nausea and vomiting. Genitourinary: Negative for difficulty urinating. Musculoskeletal: Negative for gait problem. Skin: Scars to bilateral lower legs Neurological: Positive for syncope (prior to arrival to OSH). Negative for dizziness, facial asymmetry, speech difficulty, weakness, light-headedness and headaches. Psychiatric/Behavioral: Negative for confusion. Medications: Medications Prior to Admission Medication Sig Dispense Refill Last Dose ??? aspirin EC 81 mg Tablet, Delayed Release (E.C.) Take 81 mg by mouth daily. ??? albuteroL 90 mcg/actuation HFA Aerosol Inhaler Inhale 2 puffs into the lungs every 4 hours as needed for Wheezing. Use with spacer ??? alogliptin (Nesina) 6.25 mg Tablet Take 6.25 mg by mouth daily. ??? atorvastatin (Lipitor) 10 mg Tablet Take 10 mg by mouth daily. ??? magnesium oxide (Mag-Ox) 400 mg (241.3 mg magnesium) Tablet Take 400 mg by mouth daily. ??? metOLazone (Zaroxolyn) 2.5 mg Tablet Take 2.5 mg by mouth daily. ??? metoprolol succinate XL (Toprol-XL) 50 mg Tablet Sustained Release 24 hr Take 50 mg by mouth daily. ??? multivitamin Capsule Take 1 capsule by mouth daily. ??? pantoprazole EC (Protonix) 40 mg Tablet, Delayed Release (E.C.) Take 40 mg by mouth daily. ??? potassium chloride ER (K-Dur/Klor-Con) 10 mEq Tablet Sustained Release Take 10 mEq by mouth daily. ??? sildenafiL (VIAGRA) 100 mg Tablet Take 100 mg by mouth as needed for Erectile Dysfunction. ??? pregabalin (Lyrica) 75 mg Capsule Take 75 mg by mouth 2 times daily. ??? metFORMIN (Glucophage) 1,000 mg Tablet Take by mouth 2 times daily (with meals). ??? lisinopril (PRINIVIL;ZESTRIL) 5 mg tablet ??? [DISCONTINUED] amlodipine (NORVASC) 10 mg tablet ??? [DISCONTINUED] simvastatin (ZOCOR) 40 mg tablet ??? [DISCONTINUED] sulfamethoxazole-trimethoprim (BACTRIM DS) 800-160 mg per tablet ??? [DISCONTINUED] Omeprazole 20 mg TbEC ??? [DISCONTINUED] naproxen (NAPROSYN) 500 mg tablet ??? [DISCONTINUED] atenolol (TENORMIN) 25 mg tablet 25 MG = 1 Tablet(s), PO, Once daily Allergies: Allergies Allergen Reactions ??? Shellfish Containing Products Hives PHYSICAL EXAM: Last set of vital signs: BP 120/69 Pulse 60 Resp 18 Ht 173 cm (5' 8.11) Wt 90.3 kg (199 lb 1.2 oz) SpO2 96% BMI 30.17 kg/m?? Physical Exam Constitutional: General: He is not in acute distress. Appearance: He is obese. HENT: Head: Normocephalic and atraumatic. Nose: Nose normal. Mouth/Throat: Pharynx: Oropharynx is clear. Eyes: Conjunctiva/sclera: Conjunctivae normal. Cardiovascular: Rate and Rhythm: Regular rhythm. Bradycardia present. Pulses: Normal pulses. Heart sounds: Normal heart sounds. Pulmonary: Effort: Pulmonary effort is normal. Breath sounds: Wheezing present. Comments: Auscultation of anterior chest Abdominal: General: Bowel sounds are normal. Palpations: Abdomen is soft. Musculoskeletal: Cervical back: Normal range of motion and neck supple. Right lower leg: No edema. Left lower leg: No edema. Skin: General: Skin is warm and dry. Neurological: General: No focal deficit present. Mental Status: He is alert and oriented to person, place, and time. Psychiatric: Mood and Affect: Mood normal. Diagnostics: C 12/11/21 Report pending, PCI to proximal RCA TTE 12/11/21 Ordered OSH Studies: CTA chest without and with contrast 12/10/21 No aortic dissection or aneurysm. CAD noted. No PE. Aortic valve disease. No mesenteric, renal or iliac occlusive disease. 1.6cm nodule in left thyroid lobe. Correlate with thyroid ultrasound. CXR 12/10/21 Mild increase interstitial lung markings, cannot exclude mild interstitial edema or CHF. Minimal pleural effusions are suggested. No acute lung infiltrates or focal consolidations. Degenerative thoracic spine disease. LABS: Recent Results (from the past 24 hour(s)) POCT Glucose Result Value Ref Range POC Glucose 111 65 - 199 mg/dL Assessment: Anastasia Foster is a 71 y.o. male with a history of ASCVD (coronary angiogram ~2008 with nonobstructive disease), HTN, HLD, T2DM, tobacco use disorder (current, 1 ppd), PVD, and GERD, who istransferred to [facility] for missed STEMI and syncope. Presented to [facility] following syncopal episode with upper back discomfort. Found to have positive troponin (peak 845). ProBNP ~800. EKG with inferior SHABNAM and lateral STD consistent with STEMI. Loaded with ASA and Plavix and started on IV heparin gtt. CTA chest negative for PE or aortic aneurysm or dissection. Transferred emergently for cath alert. [facility] 12/11/21 revealed LAD and RCA disease with proximal RCA culprit lesion; MASON to proximal RCA. Plan for sta ged PCI to left system this admission. Unclear etiology of syncope, ? vasovagal given inferior STEMIversus arrhythmia. Ongoing telemetry monitoring. Obtain TTE. Initiate and optimize GDMT for ASCVD. Plan: # Missed STEMI, s/p [facility] 12/11/21 with MASON to prox RCA and planned staged PCI to left system # ASCVD Telemetry Troponin peak at OSH 845 TTE ordered S/p ASA 324mg load at OSH, continue ASA 81mg daily S/p Plavix 600mg load at OSH, continue Plavix 75mg daily Stop IV heparin post RCA revascularization Increase home atorvastatin from 10mg to 80mg daily Continue metoprolol tartrate 12.5mg q6h (home 50mg) with holding parameters S/p [facility] 12/11/21 with MASON to prox RCA, plan for staged PCI to left system this admission Cardiac rehab consult prior to discharge # Syncope Unclear etiology, ? vasovagal in setting of inferior STEMI versus arrhythmia Telemetry monitoring # Hypertension BP: (104-145)/(64-81) over the last 12 hours Continue metoprolol tartrate 12.5mg q6h (home 50mg) Continue home lisinopril 5mg daily # Hyperlipidemia Lipid panel ordered Increase home atorvastatin from 10mg to 80mg daily # Type 2 diabetes mellitus # Diabetic neuropathy A1c ordered Hold home metformin and alogliptin SSI and meal associated insulin coverage Continue home pregabalin # Tobacco use disorder Current smoker, 1 ppd Encouraged cessation NRT PRN # Incidental finding on CT scan, thyroid nodule CT prior to transfer showed 1.6cm nodule in left thyroid lobe. Correlate with thyroid ultrasound as outpatient # GERD Continue PPI Code Status: FULL DVT Prophylaxis: heparin subq Discussed with Rodney Mariee PA-C Pager #[phone] 12/11/2021 Cardiology Attending Note I interviewed and examined the patient during comprehensive bedside rounds. I concur with the summary of interval events, active hospital-focused problem list and plan of care as described in the note below. I personally reviewed the medications, laboratory results, treatment decisions and updated thepatient. # STEMI, inferior # ASCVD, multivessel - s/p PCI to proximal RCA; residual obstructive disease in the mid LAD - pain free and comfortable when I met him; benign appearing radial access site - continue DAPT, BB, ANOPO-I, and statin - anticipate staged PCI to LAD this admission - awaiting TTE results # Diabetes mellitus # Tobacco use # Hypertension # Hyperlipidemia Rodney Sullivan MD, FACP, FACC Section of Cardiovascular Medicine [facility] [employer] Vocational Educatorvenereal disease investigator [facility] This patient meets or has met medical criteria to require an inpatient level of care, i.e. a minimumof two midnights in the hospital with multiple complex problems. documented in this encounter Miscellaneous Notes Consult Note - Avis Ritter RN - 12/13/2021 10:15 AM EDT Anastasia Foster was seen today by Cardiac Rehabilitation for: STEMI, s/p staged PCI Activity evaluation - Patient just ambulated around the nursing unit prior to my visit. He reports it went well with just mild WOLF by the end which he says resolved very quickly. Much better than before I came in!. Educational packet regarding CAD, cardiac risk factors, and managing angina given to the patient. Reviewed managing angina /use of sl nitroglycerin. Mediterranean diet guidelines briefly reviewed. Given parameters for home exercise. Patient states he has not been able to do much for exercise recently due to WOLF with minimal activity. However, he used to walk at least 1 mile daily and he enjoys swimming in his son's pool. Participation in an outpatient cardiac rehabilitation program at [facility] was discussed. Patient agrees to a referral to this program. The referral will be sent at discharge and the patient should be contacted by the Program within 1- 2 weeks from discharge. Care Management - Trace Gibson RN - 12/12/2021 9:33 AM EDT OFFICE OF CARE MANAGEMENT PROGRESS NOTE LOS: Hospital Day 1 day Chart reviewed, care reviewed with primary team and at interdisciplinary rounds. Patient continues to meet inpatient level of care related to: Reason for Hospitalization per H&P or ID: 71 y.o.??male??with a history of??ASCVD (coronary angiogram ~2008 with nonobstructive disease), HTN, HLD, T2DM, tobacco use disorder??(current, 1 ppd), PVD, and GERD,??who is transferred to [facility] for missed STEMI and syncope.??Presented to [facility] following syncopal episode with upper back discomfort. Found to have positive troponin (peak 845). ProBNP ~800. EKG with inferior SHABNAM and lateral STD consistent with STEMI. Loaded with ASA and Plavix and started on IV heparin gtt. CTA chest negative for PE or aortic aneurysm or dissection. Transferred emergently for cath alert. 24 hour events per team: No acute events overnight. No recurrence of chest pain. No access site complications. Ambulated without difficulties. Timing of staged PCI TBD. Decision Maker: Self Functional status prior to admission: Independent, Patient Drives Self Home Environment: Others in the home: spouse. Current Living Arrangements: home/apartment/condo. Accessibility Concerns: Pt lives in a single level home with 2 steps to enter.. Current Functional Ability: Independent DME used at home: none DME Needed at Discharge: Patient is insured through: Primary Insurance: MEDICARE Payor: MEDICARE / Plan: MEDICARE PART A ONLY / Product Type: *No Product type* / Secondary Insurance: N/A Last Physical Therapy Recommendation: with Last Occupational Therapy Recommendation: with Plan for discharge is: Home w/o Services Outpatient Agency/Support Group Needs: None Agency Referrals: Current referrals placed to: none Transportation: family or friend will provide Barriers to discharge: Denies needs/concerns at this time Items to Consider for Discharge: Pt states that the [facility] is primary (100% disabled) and not Medicare. CM Interventions: CM given updates by MD in the am on medical status and any dispo /concerns updateson the patient. CM is notified that besides the 24 hour events the patient anticipated d/c is late Wednesday 12/13 with no needs. CM will continue to monitor progress, follow for continuity of care and assist with discharge planning while patient is inpatient status on current unit. Anticipated Date of Discharge: 12/17/2021 Trace Gibson RN Case Clerical Warehouse Worker of Care Management Pager: [phone] Initial Assessments - Teagan Neil RN - 12/11/2021 6:28 PM EDTSummary: CM Initial Assessment Office of Care Management Initial Assessment Teagan Neil RN reviewed record and discussed patient with Care Team. Source of Information: Team, bedside nurse, medical record, and Patient, Spouse (Pt's , Jackelyn, is at the bedside.) Introduced self/reviewed role; services accepted. Reason for Hospitalization: Per H&P: 71 y.o. male with a history of ASCVD (coronary angiogram ~2008 with nonobstructive disease), HTN, HLD, T2DM, tobacco use disorder (current, 1 ppd), PVD, and GERD, who is transferred to [facility] for missed STEMI and syncope. Presented to [facility] following syncopal episode with upper back discomfort. Found to have positive troponin (peak 845). ProBNP ~800. EKG with inferior SHABNAM and lateral STD consistent with STEMI. Loaded with ASA and Plavix and started on IV heparin gtt. CTA chest negative for PE or aortic aneurysm or dissection. Transferred emergently for cath alert. Covid Vaccination Status: 1st, 2nd & booster (Moderna x 4) Last COVID test: Past medical History: Past Medical History: Diagnosis Date ??? ASCVD (arteriosclerotic cardiovascular disease) ??? GERD (gastroesophageal reflux disease) ??? HLD (hyperlipidemia) ??? HTN (hypertension), benign ??? Smoker ??? T2DM (type 2 diabetes mellitus) Hospitalizations Within the Past 30 Days: no previous admission in last 30 days Current Decision-Making Capacity: Self If AD's have not been completed the following surrogate, Jackelyn Foster, , would be surrogate decision maker per [place] surrogate decision making law. (Only good for 90 days) Any patient receiving care in [place] must abide by [place] law. The hierarchy for surrogate decision making is: (a) Patient???s spouse, or civil union partner or common law spouse unless there is a divorce proceeding, separation agreement, or restraining order limiting that person???s relationship with the patient. (b) Any adult son or daughter of the patient. (c) Either parent of the patient. (d) Any adult brother or sister of the patient. (e) Any adult grandchild of the patient. (f) Any grandparent of the patient. (g) Any adult aunt, uncle, niece, or nephew of the patient. (h) A close friend of the patient. (i) The agent with financial power of city attorney or a conservator appointed in accordance with [place] 464-A. (j) The guardian of the patient???s estate. Advance Care Planning: Attempt Cardiopulmonary Resuscitation - Inpatient <no information> -Advanced Directive: No, need to discuss (Pt as given an AD and encourged to complete the form.) Current Coping/Education/Information Needs: Pt is understanding about the plan of care. Current Functional Ability: Independent Functional Status Prior to Admission: Independent, Patient Drives Self Prior ADLs & IADLs: Independent with all ADLs & IADLs Home Environment: Others in the home: spouse. Current Living Arrangements: home/apartment/condo. Accessibility Concerns:Pt lives in a single level home with 2 steps to enter.. Resource / Environmental Concerns: Resource/Environmental Concerns: none Current DME: none Home Address confirmed as: [address] [place] [id number] Social & Family Supports: All names listed below confirmed with patient as current and correct Extended Emergency Contact Information Primary Emergency Contact: Jackelyn Foster [facility] Relation: Spouse Current Care Provided by: self Provides Primary Care For: no one Caregiver if needed: spouse Quality of Family relationships: involved, supportive Community Resources being provided currently: none Behavioral Health History: Pt denies Substance Use/Abuse listed: Social History Tobacco Use Smoking Status Current Every Day Smoker ??? Packs/day: 1.00 ??? Types: Cigarettes Smokeless Tobacco Not on file 0 No problems reported 1-2 Low level 3-5 Moderate level 6-8 Substantial level 9- 10 Severe level 0 to 7 points: Low risk 8 to 15 points: Medium risk 16 to 19 points: High risk 20 to 40 points: Addiction likely Other Pertinent/Service Specific Information: Pt states that the VA should be the primary insurance. Health/Prescription Coverage: Primary Insurance: MEDICARE Payor: MEDICARE / Plan: MEDICARE PART A ONLY / Product Type: *No Product type* / Secondary Insurance: N/A Secondary Insurance? (Only Medicare A&B): Yes (Medicare A) ; Prescription Coverage: Yes (Through the VA.) Preferred Pharmacy: No Pharmacies Listed Status: Patient is a : Yes Are you enrolled in the VA for your healthcare?: Yes ([place], 100% Service connected disability.) Are you here under your VA benefit?: Yes Primary Care Provider: Dr. Addy Hendrickson at the [facility]. Patient/Caregiver Goals of Treatment: Pt anticipates on returning home upon discharge. Potential Needs for Transition of Care: none Agency Referrals: Not Applicable Transportation: no concerns Transportation Anticipated: family or friend will provide (Pt's will transport home.) Concerns to be Addressed: denies needs/concerns at this time Assessment: Patient is admitted to Cardiology service for STEMI. Plan: Patient with no apparent RNCM/SW needs at this time. No housing, transportation, insurance, resources concerns identified at this time. Supports in place to achieve a safe post-hospital transition. No identified barriers to accessing necessary care and/or follow-up after discharge. A member of the Care Management team will continue to monitor progress, follow for continuity of care and assist with transition of care planning. Teagan Neil RN, BSN rotary filter operator Office of Care Management Pager: [phone] Plan of Care - Niecy Mariee PA - 12/11/2021 3:14 PM EDT Post Cardiac Cath Note S: Patient reports no chest pain or shortness of breath. Patient reports no back pain or right wristpain. O: Right radial access site is clean, dry, intact without hematoma or bleeding. TR band has been removed. CMS intact. Last value Range last 12 hrs Temperature Temp: 36.7 ??C (98.1 ??F) Temp: [36.7 ??C (98.1 ??F)] Heart Rate Heart Rate: 62 Heart Rate: [53-75] Blood Pressure BP: 126/70 BP: (104-145)/(59-81) Respiratory Rate Resp: 21 Resp: [11-25] SpO2 SpO2: 97 % SpO2: [93 %-100 %] A/P. Post cardiac cath without complications. 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 POCT GLUCOSE Routine 12/13/2021 7:16 Results for this AM EDT procedure are i n the results section. HC VENIPUNCTURE Routine 12/13/2021 4:26 Results f or this AM EDT procedure are i n the results section. HEMOGRAM Routine 12/13/2021 4:26 Results for this AM EDT procedure are i n the results section. DIFFERENTIAL, AUTOMATED Routine 12/13/2021 4:26 R esults for this AM EDT procedure are i n the results section. HC CBC,PLT & AUTO DIFF Routine 12/13/2021 4:26 AM EDT EKG 12-LEAD Routine 12/12/2021 11:24 ST elevation Results for this PM EDT myocardial infarction proced ure are in involving right the results coronary artery section. POCT GLUCOSE Routine 12/12/2021 9:13 Results for this PM EDT procedure are i n the results section. POCT GLUCOSE Routine 12/12/2021 4:11 Results for this PM EDT procedure are i n the results section. EKG 12-LEAD Routine 12/12/2021 3:40 ASCVD Results for this PM EDT (arteriosclerotic procedure are in cardiovascular the results disease) section. CARDIAC CATHETERIZATION Routine 12/12/2021 3:20 R esults for this PM EDT procedure are i n the results section. POCT GLUCOSE Routine 12/12/2021 10:57 Results for this AM EDT procedure are i n the results section. POCT GLUCOSE Routine 12/12/2021 7:03 Results for this AM EDT procedure are i n the results section. HC VENIPUNCTURE Routine 12/12/2021 4:15 Results f or this AM EDT procedure are i n the results section. HEMOGRAM Routine 12/12/2021 4:15 Results for this AM EDT procedure are i n the results section. DIFFERENTIAL, AUTOMATED Routine 12/12/2021 4:15 R esults for this AM EDT procedure are i n the results section. HC CBC,PLT & AUTO DIFF Routine 12/12/2021 4:15 AM EDT LIPID PANEL (REFLEX Routine 12/12/2021 4:15 Resul ts for this DIRECT LDL) AM EDT procedure are i n the results section. POCT GLUCOSE Routine 12/11/2021 5:08 Results for this PM EDT procedure are i n the results section. ECHOCARDIOGRAM COMPLETE Routine 12/11/2021 4:51 ST elevation R esults for this W CONTRAST PM EDT myocardial infarction proced ure are in involving right the results coronary artery section. HC THYROID STIMULATING Routine 12/11/2021 2:46 Re sults for this HORMONE, SERUM PM EDT procedure are in the results section. BMP W/FASTING GLUCOSE Routine 12/11/2021 2:46 Res ults for this PM EDT procedure are i n the results section. HEMOGRAM Routine 12/11/2021 2:46 Results for this PM EDT procedure are i n the results section. DIFFERENTIAL, AUTOMATED Routine 12/11/2021 2:46 R [...] procedure are i n the results section. documented in this encounter Results POCT Glucose (12/13/2021 11:47 AM EDT) athologist Signature POC Glucose 103 65 - [address] [facility] mg/dL [facility] Comment: Supplemental ranges: <140 mg/dL before meals <180 mg/dL all other times of the day Specimen Anatomical Collection Method Collection Time Receive d Time (Source) Location / / Volume Laterality Blood 12/13/2021 11:47 12/13/2021 AM EDT 11:47 AM EDT Rodney Sullivan MD POINT OF CARE TEST ORDERABLE S Performing Organization Address City/State/[place] [address] POCT Glucose (12/13/2021 7:16 AM EDT) athologist Signature POC Glucose 106 65 - [address] [facility] mg/dL [facility] Comment: Supplemental ranges: <140 mg/dL before meals <180 mg/dL all other times of the day Specimen Anatomical Collection Method Collection Time Receive d Time (Source) Location / / Volume Laterality Blood 12/13/2021 7:16 AM 7:16 EDT AM EDT Rodney Sullivan MD POINT OF CARE TEST ORDERABLE S Performing Organization Address City/State/[place] [address] (ABNORMAL) Differential, Automated (12/13/2021 4:26 AM EDT) [facility] gist Method Time Signature Neutrophils % 73.2 % [facility] Neutr Abs (ANC) 8.04 (H) 1.70 - [facility] 6.10 [facility] x10(3)/[facility] LABORATORY Lymphocytes % 17.3 % [facility] Lymphocytes Abs 1.9 0.9 - [address] [facility] x10(3)/[facility] LABORATORY Monocytes % 7.3 % [facility] Monocyte Abs 0.8 0.3 - 0.9 [facility] x10(3)/[facility] LABORATORY Eosinophils % 1.3 % [facility] Eosinophils Abs 0.1 0.0 - 0.4 [facility] x10(3)/[facility] LABORATORY Basophils % 0.5 % [facility] Basophils Abs 0.0 0.0 - 0.1 [facility] x10(3)/[facility] LABORATORY Immature Gran % 0.40 % [facility] Comment: Immature granulocytes(IG's)percentage an d absolute count will include metamyelocytes, myelocytes, and promyelo cytes. Blood smears from CBCs yielding IG's will be scanned manually for concor dance. If this scan disagrees with the automated IG or if promyelocytes are not ed, a manual differential will be performed. Lindsay Gran Abs 0.04 0.00 - 0.04 x10(3)/[facility] Specimen Anatomical Collection Method Collection Time Receive d Time (Source) Location / / Volume Laterality Blood 12/13/2021 4:26 AM 2 4:42 EDT AM EDT Resulting Agency Comment Spec In Lab Niecy VEGA HEMATOLOGY ORDERABLES Performing Organization Address City/State/[place] [address] (ABNORMAL) Hemogram (12/13/2021 4:26 AM EDT) Analysis Performed At Patho logist Time Signature WBC 11.0 (H) 4.0 - 9.5 [facility] x10(3)/[facility] LABORATORY RBC 4.01 (L) 4.58 - [facility] 5.54 [facility] x10(6)/[facility] LABORATORY Hemoglobin 11.6 (L) 13.7 - [facility] 16.[facility] g/dL [facility] Hematocrit 34.8 (L) 40.5 - [facility] [place] 48.5 % [facility] MCV 86.8 82.9 - [facility] 93.1 [facility] LABORATORY MCH 28.9 27.5 - [facility] [place] 32.1 pg [facility] MCHC 33.3 32.0 - [facility] 35.7 g/dL [facility] Platelets 180 145 - 357 [facility] x10(3)/[facility] LABORATORY RDWSD 49.8 (H) 36.0 - [facility] 45.0 [facility] LABORATORY RDWCV 15.8 (H) 11.4 - [facility] [place] 13.8 % [facility] MPV 10.9 7.6 - 12.9 [facility] LABORATORY nRBC % Auto 0.0 % [facility] nRBC Abs Auto 0.000 0.000 - [facility] [place] 0.000 [facility] x10(3)/[facility] LABORATORY Specimen Anatomical Collection Method Collection Time Receive d Time (Source) Location / / Volume Laterality Blood 12/13/2021 4:26 AM 2 4:42 EDT AM EDT Resulting Agency Comment Spec In Lab Niecy VEGA HEMATOLOGY ORDERABLES Performing Organization Address City/State/[place] [address] (ABNORMAL) BMP w/fasting Glucose (12/13/2021 4:26 AM EDT) P athologist Signature Glucose 85 65 - [address] [facility] Fasting mg/dL [facility] Comment: ?Fasting* Glucose Interpretive C riteria Normal ?65-99 mg/dL Impaired Fasting glucose ?100-125 mg/dL Consistent with Diabetes Mellitus ? >or= 126 mg/dL *Fasting is defined as no caloric intake for at least 8 hours In the absence of unequivocal hypergly cemia a plasma glucose value of >or= 126 mg/dL should be repeated on a subseq u day. Diagnosis and Classification of Diabetes Mellitus, Position Statement from the [place] [employer]. ??Diabete s Care, Volume 33, Supplement 1, May 2009 BUN 11 10 - 20 mg/dL [facility] Creatinine 0.79 (L) 0.80 - 1.50 mg/dL [facility] Sodium 136 135 - 145 mmol/L [facility] Potassium 3.7 3.5 - 5.0 mmol/L [facility] Comment: Please note: ??Patients with WBC >100,00 0 may have falsely elevated Potassium levels. ??For accurate Potassium quantif ication in these patients send serum separator tube (gold top) for subsequent determinations. ??Contact the Clinical Chemistry Laboratory if there are any qu estions. Chloride 100 98 - 107 mmol/L [facility] CO2 26 22 - 31 mmol/L [facility] Anion Gap 10 5 - 15 mmol/L [facility] Calcium 7.9 (L) 8.5 - 10.5 mg/dL [facility] Estimated GFR 94 >=60 mL/min/1.73 m?? [facility] Comment: This patient's estimated GFR was [...] EDT Resulting Agency Comment Spec In Lab Rodney Sullivan MD CHEMISTRY ORDERABLES Performing Organization Address City/State/[place] [address] EKG 12 Lead (12/12/2021 11:24 PM EDT) Component Value Ref Range Test Analysis Performed Pathologis t Method Time At Signature Ventricular rate 71 BPM MUSE SYSTEM Atrial Rate 71 BPM MUSE SYSTEM P-R Interval 272 ms MUSE SYSTEM QRS Duration 108 ms MUSE SYSTEM Q-T Interval 430 ms MUSE SYSTEM QTC Calculated 467 ms MUSE SYSTEM (Bezet) Calculated P Clayton -17 degrees MUSE SYSTEM Calculated R Clayton -78 degrees MUSE SYSTEM Calculated T Clayton -66 degrees MUSE SYSTEM INTERPRETATION Sinus rhythm [...] erpretation Confirmed by fellow MD Jennie, Jasmyn ([id number]) on 12/13/2021 12: 04:22 PM Confirmed by MD Kiran, Liborio ([id number]) on 12/13/2021 1:19:52 PM Specimen Anatomical Collection Method Collection Time Receive d Time (Source) Location / / Volume Laterality 12/12/2021 11:24 12/13/2021 1:19 PM EDT PM EDT Rodney Sullivan MD ECG ORDERABLES Performing Organization Address City/State/ZIP Code Phon e Number MUSE SYSTEM POCT Glucose (12/12/2021 9:13 PM EDT) athologist Signature POC Glucose 105 65 - 199 [facility]dL [facility] Comment: Supplemental ranges: <140 mg/dL before meals <180 mg/dL all other times of the day Specimen Anatomical Collection Method Collection Time Receive d Time (Source) Location / / Volume Laterality Blood 12/12/2021 9:13 PM 2 9:13 EDT PM EDT Rodney Sullivan MD POINT OF CARE TEST ORDERABLE S Performing Organization Address City/[facility]/[place] [address] POCT Glucose (12/12/2021 4:11 PM EDT) athologist Signature POC Glucose 106 65 - 199 [facility] [place] mg/dL [facility] Comment: Supplemental ranges: <140 mg/dL before meals <180 mg/dL all other times of the day Specimen Anatomical Collection Method Collection Time Receive d Time (Source) Location / / Volume Laterality Blood 12/12/2021 4:11 PM 2 4:11 EDT PM EDT Rodney Sullivan MD POINT OF CARE TEST ORDERABLE S Performing Organization Address City/[facility]/ZIP [facility] [place] [address] EKG 12 Lead (12/12/2021 3:40 PM EDT) Component Value Ref Range Test Analysis Performed Pathologis t Method Time At Signature Ventricular rate 63 BPM MUSE SYSTEM Atrial Rate 63 BPM MUSE SYSTEM P-R Interval 264 ms MUSE SYSTEM QRS Duration 110 ms MUSE SYSTEM Q-T Interval 464 ms MUSE SYSTEM QTC Calculated 474 ms MUSE SYSTEM (Bezet) Calculated P Clayton -28 degrees MUSE SYSTEM Calculated R Clayton -77 degrees MUSE SYSTEM Calculated T Clayton -60 degrees MUSE SYSTEM INTERPRETATION Sinus rhythm with 1st degree A-V block MUSE SYSTEM Incomplete right bundle branch block Left anterior fascicular block T wave abnormality, consider inferior ischemia Abnormal ECG When compared with ECG of 11-DEC-2021 10:46, Non-specific change in ST segment in Anterior leads T wave inversion now evident in Inferior leads Nonspecific T wave abnormality no longer evident in Lateral leads Confirmed by MD Kiran, Liborio ([id number]) on 12/13/2021 12:53:4 2 PM Specimen Anatomical Collection Method Collection Time Receive d Time (Source) Location / / Volume Laterality 12/12/2021 3:40 PM 2 EDT 12:53 PM EDT Nate Gonzales MD ECG ORDERABLES Performing Organization Address City/State/ZIP Code Phon e Number MUSE SYSTEM CARDIAC CATHETERIZATION (12/12/2021 3:20 PM EDT) Anatomical Region Laterality Modality Other Specimen (Source) Anatomical Location Collection Method / Collectio n Time Received Time / Laterality Volume Narrative 12/12/2021 5:19 PM EDT ?[facility] ? Cardiac Cathete rization/Intervention Report ? Patient Name: Anastasia Foster. ? Procedure Date: 12/12/2021 ? A #: [id number] ? Primary Physician: Nate Gonzales ? Case #: [id number] ? File Name: [id number] ? Catheterization Order Number: [id number] ? [facility] ? Final Report [place], [place] ? Patient Name: ? Anastasia J. Ino e ?ID#: ?[id number] ? : ?1950 ? Procedure Date: ? December 12, 2021 ?Case #: ? [id number] ? Room: ? 2 ? Case Physician: ? Nate madison, M.D. ? Start: ?11:48 ?Fellow: ? Larry Schneider D.O. ?Admission: ??12/11/2021 ? Referring Physician: ??Macie Sang, CAMERA MACHINIST ? Procedures: ?* Coronary Angiography ?* Coronary [...] patient was ?designated as ASA Class III. e [facility] clinical frailty scale is 3: ?Managing Well. ? Diagnostic Tests: ?Electrocardiography: ? EKG was assessed by ECG. EKG was Abnormal. EKG showed other ? abnormality. ?Medications Prior to Procedure: ? Angiotensin Converting E nzyme Inhibitor, Aspirin, Beta Casie, ? Non-Statin and Statin. ? Indications for Diagnostic Cath: ?The priority of the diagnostic procedure was Urgent. The indication for ?the label machine operator visit is ACS less than or equal [...] ??A kana ounted 3.00 x 38 mm Gifford [place] (MASON) was ? deployed with a maximum inflation pressure of 15 atmospheres. ? Following stent deployment, the lesion was dilated using a ? 3.50mm NC EUPHO RA 20 MM balloon with a maximum inflation ? pressure of 24 atmospheres. ? Another stent i nsertion was accomplished through a 7 Fr. EBU ? 4.0 guide. ??A premounted 3.50 x 12 mm Gifford [place] (MASON) was ? deployed with a maximum [...] ?? A premounted 3.00 x 18 mm Gifford [place] (MASON) ? was deployed wi th a [...] 7 Fr. EBU 4.0 ? guide. ??The le celeste was predilated with a 2.50mm NC EUPHORA 12 ? MM balloon with a maximum inflation pressure of 12 ? atmospheres. ?? A premounted 3.00 x 18 mm Dimas [place] (MASON) ? was deployed wi a maximum inflation pressure of 16 ? [...] on chronic DAPT on arrival to the label machine operator. ?Recommended anti-platelet/anti- thrombotic regimen: ?Start aspirin 81 mg daily now a nd continue for indefinitely. ?Start clopidogrel 75 mg daily n ow and continue for 12 months then stop. ?These recommendations are made at the time of the intervention. Patient ?and provider preferences or a c hanging clinical situation may require ?modification of this regimen. C [facility] Interventional Cardiology for ?questions. ?The 1 year [...] any medical treatment. Consult ?http://tools.acc.org/DAPTriskap p/#!/content/calculator/ or [facility] ?Interventional Cardiology for q uestions ? Conclusions: [...] n presenting for complete ?revascularization following SHABNAM NV with plan to intervene on the severely [...] coronar y, atherectomy-coronary and ?lithotripsy-coronary. ? Nate Gonzales M.D. ? Electronically Signed by: Nate kline M.D. ? Report Finalized: 12/12/2021 ??17:12 ? Nate Gonzales MD CARDIAC CATH ORDERABLES POCT Glucose (12/12/2021 10:57 AM EDT) athologist Signature POC Glucose 125 65 - 199 [facility] mg/dL [facility] Comment: Supplemental ranges: <140 mg/dL before meals <180 mg/dL all other times of the day Specimen Anatomical Collection Method Collection Time Receive d Time (Source) Location / / Volume Laterality Blood 12/12/2021 10:57 12/12/2021 AM EDT 10:57 AM EDT Rodney Sullivan MD POINT OF CARE TEST ORDERABLE S Performing Organization Address City/State/ZIP Code Phon e Number [address] POCT Glucose (12/12/2021 7:03 AM EDT) athologist Signature POC Glucose 100 65 - 199 [facility] Comment: Supplemental ranges: <140 mg/dL before meals <180 mg/dL all other times of the day Specimen Anatomical Collection Method Collection Time Receive d Time (Source) Location / / Volume Laterality Blood 12/12/2021 7:03 AM 7:03 EDT AM EDT Rodney Sullivan MD POINT OF CARE TEST ORDERABLE S Performing Organization Address City/State/ZIP Code Phon e Number [address] (ABNORMAL) Differential, Automated (12/12/2021 4:15 AM EDT) [facility] gist Method Time Signature Neutrophils % 71.1 % [facility] Neutr Abs (ANC) 7.65 (H) 1.70 - [facility] 6.10 [facility] x10(3)/[facility] L LABORATORY Lymphocytes % 18.8 % [facility]ORY Lymphocytes Abs 2.0 0.9 - 3.2 [facility] x10(3)/[facility] LABORATORY Monocytes % 7.6 % [facility] Monocyte Abs 0.8 0.3 - 0.9 [facility] x10(3)/[facility] LABORATORY Eosinophils % 1.3 % [facility] Eosinophils Abs 0.1 0.0 - 0.4 [facility] x10(3)/[facility] LABORATORY Basophils % 0.7 % [facility] Basophils Abs 0.1 0.0 - 0.1 [facility] x10(3)/[facility] LABORATORY Immature Gran % 0.50 % [facility] Comment: Immature granulocytes(IG's)percentage an d absolute count will include metamyelocytes, myelocytes, and promyelo cytes. Blood smears from CBCs yielding IG's will be scanned manually for concor dance. If this scan disagrees with the automated IG or if promyelocytes are not ed, a manual differential will be performed. Lindsay Gran Abs 0.05 (H) 0.00 - 0.04 x10(3)/[facility] LABORATORY Specimen Anatomical Collection Method Collection Time Receive d Time (Source) Location / / Volume Laterality Blood 12/12/2021 4:15 AM 4:26 EDT AM EDT Resulting Agency Comment Spec In Lab Niecy VEGA HEMATOLOGY ORDERABLES Performing Organization Address City/State/[place] [address] (ABNORMAL) Hemogram (12/12/2021 4:15 AM EDT) Analysis Performed At Patho logist Time Signature WBC 10.8 (H) 4.0 - 9.5 [facility] x10(3)/[facility] LABORATORY RBC 4.35 (L) 4.58 - [facility] [place] 5.54 [facility] x10(6)/[facility] LABORATORY Hemoglobin 12.4 (L) 13.7 - [facility] 16.[facility] g/dL [facility] Hematocrit 37.8 (L) 40.5 - [facility] 48.5 % [facility] MCV 86.9 82.9 - [facility] 93.1 fL [facility] MCH 28.5 27.5 - [facility] 32.1 pg [facility] MCHC 32.8 32.0 - [facility] 35.7 g/dL [facility] Platelets 212 145 - 357 [facility] x10(3)/[facility] LABORATORY RDWSD 49.8 (H) 36.0 - [facility].0 [facility] LABORATORY RDWCV 15.8 (H) 11.4 - [facility] 13.8 % [facility] MPV 10.2 7.6 - 12.9 [facility] LABORATORY nRBC % Auto 0.0 % [facility] LABORATORY nRBC Abs Auto 0.000 0.000 - [facility] 0.000 [facility] x10(3)/[facility] LABORATORY Specimen Anatomical Collection Method Collection Time Receive d Time (Source) Location / / Volume Laterality Blood 12/12/2021 4:15 AM 4:26 EDT AM EDT Resulting Agency Comment Spec In Lab Niecy VEGA HEMATOLOGY ORDERABLES Performing Organization Address City/State/[place] [address] (ABNORMAL) BMP w/fasting Glucose (12/12/2021 4:15 AM EDT) athologist Signature Glucose 88 65 - 99 [facility] Fasting mg/dL [facility] Comment: ?Fasting* Glucose Interpretive C [...] of Diabetes Mellitus, Position Statement from the [place] [employer]. ??Diabete s Care, Volume 33, Supplement 1, May 2009 BUN 13 10 - 20 mg/dL [facility] Creatinine 0.85 0.80 - 1.50 mg/dL [facility] Sodium 137 135 - 145 mmol/L [facility] Potassium 4.0 3.5 - 5.0 mmol/L [facility] Comment: Please note: ??Patients with WBC >100,00 0 may have falsely elevated Potassium levels. ??For accurate Potassium quantif ication in these patients send serum separator tube (gold top) for subsequent determinations. ??Contact the Clinical Chemistry Laboratory if there are any qu estions. Chloride 99 98 - 107 mmol/L [facility] CO2 27 22 - 31 mmol/L [facility] Anion Gap 11 5 - 15 mmol/L [facility] Calcium 8.3 (L) 8.5 - 10.5 mg/dL [facility] Estimated GFR 92 >=60 mL/min/1.73 m?? [facility] Comment: This patient's estimated GFR was [...] / Volume Laterality Blood 12/12/2021 4:15 AM 2 4:26 EDT AM EDT Resulting Agency Comment Spec In Lab Rodney Sullivan MD CHEMISTRY ORDERABLES Performing Organization Address City/State/[place] [address] Lipid Panel (Reflex Direct LDL) (12/12/2021 4:15 AM EDT) P athologist Signature Chol, Total 130 mg/dL [facility] Comment: Lower Risk: <200 mg/dL Average Risk: 200-239 mg/dL Higher Risk: >gu=097 mg/dL Triglycerides 116 mg/dL [facility] Comment: Average Risk/Lower Risk: <150 mg/dL Borderline High Risk: 150-199 mg/dL High Risk: 200-499 mg/dL Very High Risk: >ok=621 mg/dL HDL 42 mg/dL [facility] Comment: Males: ?? Higher Risk: <40 mg/dL Females: ?? Higher Risk: <50 mg/dL LDL Cholesterol 65 mg/dL [facility] Comment: Lowest Risk: <100 mg/dL Lower Risk: 100-129 mg/dL Borderline High Risk: 130-159 mg/dL High Risk: 160-189 mg/dL Very High Risk: >im=185 mg/dL Chol/HDL Ratio 3.1 ratio [facility] Lipid Interpretation See Note [facility] Comment: Lipid management should be guided by a p atient? s ASCVD risk, goals and preferences. ACC/AHA Guidelines recommend high intens ity statin if clinical ASCVD or LDL greater than or equal to 190 mg/dL. http://[employer]/ABI-DKN-Mmcbdkvvc Adults aged 40-75 with LDL 70-189 mg/dL should have their 10 year ASCVD risk estimated with the ACC/AHA ASCVD risk es timator http://tools.acc.org/GEBQR-Mvsc-Ullnvdhe r/ Statin should be discussed if risk [...] EDT Resulting Agency Comment Spec In Lab Rodney Sullivan MD CHEMISTRY ORDERABLES Performing Organization Address City/State/[place] [address] POCT Glucose (12/11/2021 5:08 PM EDT) P athologist Signature POC Glucose 171 65 - 199 IFEOMA SANDOVAL mg/dL [facility] Comment: Supplemental ranges: <140 mg/dL before meals <180 mg/dL all other times of the day Specimen Anatomical Collection Method Collection Time Receive d Time (Source) Location / / Volume Laterality Blood 12/11/2021 5:08 PM 5:08 EDT PM EDT Rodney Sullivan MD POINT OF CARE TEST ORDERABLE S Performing Organization Address City/State/ZIP Code Phon e Number [facility] [place] [address] ECHOCARDIOGRAM COMPLETE W CONTRAST (12/11/2021 4:51 PM EDT) Anatomical Region Laterality Modality Cardiac Other Specimen (Source) Anatomical Collection Method Collection Time Re ceived Time Location / / Volume Laterality 12/11/2021 3:43 PM EDT Narrative 12/11/2021 5:17 PM EDT ? Echocardiogram Report Name: ANASTASIA FOSTER ? Study Date: 12/11/2021 03:43 PMBP: 126/70 mmHg ? [facility]^A : 1950 ? Height: 68 in ? Account: [id number] Age: 71 yrs ? Weight: 198 lb Gender: Male ?BSA: 2.0 m2 Ordering Physician: RODNEY SULLIVAN Referring Physician: RODNEY SULLIVAN Performed By: Lacy Shepard RDCS Reason For Study: STEMI Interpreting Fellow: Primo Diaz. Exam Location: [facility]. Interpretation Summary 1. The left ventricle is [...] no prior study for compariso n. Procedure Complete-42856. Image enhancement Optiso n was used for [...] valve mean: 9.3 mmHg MV E max ralf: 126.0 cm/sec MV A max ralf: 134.0 cm/sec MV E/A: 0.94 MV dec time: 0.20 sec Lat Peak E' Ralf: 8.9 cm/sec E/ e' (lat): 14.1 Med Peak E' Ralf: 6.9 cm/sec E/e' (med): 18.4 E/e' Average: [...] different from the original. Echocardiogram Report Name: ANASTASIA FOSTER Study Date: 2021 03:43 PMBP: 126/70 mmHg Patient Location: [facility] 441^A : 1950 Height: 68 in Account: [id number] Age: 71 yrs Weight: 198 lb Gender: Male BSA: 2.0 m2 Ordering Physician: RODNEY SULLIVAN Referring Physician: RODNEY SULLIVAN Performed By: Lacy Shepard RDCS Reason For Study: STEMI Interpreting Fellow: Primo Diaz. Exam Location: [facility]. Interpretation Summary 1. The left ventricle is [...] no prior study for compariso n. Procedure Complete-[id number]. Image enhancement Optiso n was used for [...] valve mean: 9.3 mmHg MV E max ralf: 126.0 cm/sec MV A max ralf: 134.0 cm/sec MV E/A: 0.94 MV dec time: 0.20 sec Lat Peak E' Ralf: 8.9 cm/sec E/ e' (lat): 14.1 Med Peak E' Ralf: 6.9 cm/sec E/e' (med): 18.4 E/e' Average: 16.3 KATIA(I,D): 1.7 cm2 Dimensionless index Aov: 0.53 MV mean P.5 mmHg I WMSI = 1.00 % Normal = 100 Segments Size X - Cannot 1 - Normal 2 - 3 - Akinetic 4 - 1-2 small Interpret Hypokinetic Dyskinetic 3-5 mod erate 5 - 6-14 large Aneurysmal 15-16 diffuse Rodney Sullivan MD ECHO ORDERABLES (ABNORMAL) Differential, Automated (12/11/2021 2:46 PM EDT) [facility] Method Time Signature Neutrophils % 69.8 % [facility] Neutr Abs (ANC) 7.84 (H) 1.70 - [facility] 6.10 [facility] x10(3)/[facility] LABORATORY Lymphocytes % 22.2 % [facility] Lymphocytes Abs 2.5 0.9 - [address].2 [facility] x10(3)/[facility] LABORATORY Monocytes % 6.2 % [facility] Monocyte Abs 0.7 0.3 - 0.9 [facility] x10(3)/[facility] LABORATORY Eosinophils % 0.7 % [facility] Eosinophils Abs 0.1 0.0 - 0.4 [facility] x10(3)/[facility] LABORATORY Basophils % 0.7 % [facility] Basophils Abs 0.1 0.0 - 0.1 [facility] x10(3)/[facility] LABORATORY Immature Gran % 0.40 % [facility] Comment: Immature granulocytes(IG's)percentage an d absolute count will include metamyelocytes, myelocytes, and promyelo cytes. Blood smears from CBCs yielding IG's will be scanned manually for concor dance. If this scan disagrees with the automated IG or if promyelocytes are not ed, a manual differential will be performed. Lindsay Gran Abs 0.04 0.00 - 0.04 x10(3)/[facility] Specimen Anatomical Collection Method Collection Time Receive d Time (Source) Location / / Volume Laterality Blood 12/11/2021 2:46 PM 2 2:58 EDT PM EDT Resulting Agency Comment Spec In Lab Niecy Colón Kodi VEGA HEMATOLOGY ORDERABLES Performing Organization Address City/State/[place] [address] [facility] [address] (ABNORMAL) Hemogram (12/11/2021 2:46 PM EDT) Analysis Performed At Patho logist Time Signature WBC 11.2 (H) 4.0 - 9.5 IFEOMA [place] x10(3)/[facility] LABORATORY RBC 4.24 (L) 4.58 - IFEOMA [place] 5.54 [facility] x10(6)/[facility] LABORATORY Hemoglobin 12.1 (L) 13.7 - IFE[facility] [place]ASS[place]DR[place] 16.5 g/dL [facility] Hematocrit 36.0 (L) 40.5 - IFEOMA [place]DRA 48.5 % [facility] MCV 84.9 82.9 - [facility] 93.1 [facility] MCH 28.5 27.5 - IFEOMA [place]ASSANDRA 32.1 pg [facility] MCHC 33.6 32.0 - IFEOMA [place] 35.7 g/dL [facility] Platelets 223 145 - 357 [facility] LABORATORY RDWSD 48.9 (H) 36.0 - IFEOMA [place]ASS[place]DR[place] 45.0 [facility] LABORATORY RDWCV 15.9 (H) 11.4 - IFE[facility] [place]DR[place] 13.8 % [facility] MPV 10.3 7.6 - 12.9 [facility] LABORATORY nRBC % Auto 0.0 % [facility] nRBC Abs Auto 0.000 0.000 - IFEOMA [place]ASSANDRA 0.000 [facility] x10(3)/[facility] LABORATORY Specimen Anatomical Collection Method Collection Time Receive d Time (Source) Location / / Volume Laterality Blood 12/11/2021 2:46 PM 2 2:58 EDT PM EDT Resulting Agency Comment Spec In Lab Niecy Colón Kodi VEGA HEMATOLOGY ORDERABLES Performing Organization Address City/State/[place] [address] Magnesium (12/11/2021 2:46 PM EDT) athologist Signature Magnesium 0.86 0.69 - 1.07 IFEOMA [place]AL mmol/L [facility] Specimen Anatomical Collection Method Collection Time Receive d Time (Source) Location / / Volume Laterality Blood 12/11/2021 2:46 PM 2 2:58 EDT PM EDT Resulting Agency Comment Spec In Lab Rodney Sullivan MD CHEMISTRY ORDERABLES Performing Organization Address City/[facility]/ZIP Code Phon e Number [address] (ABNORMAL) pro-Brain Natriuretic Peptide (12/11/2021 2:46 PM EDT) athologist Signature ProBNP 1,648 (H) <=124 [facility] [place] pg/mL [facility] Specimen Anatomical Collection Method Collection Time Receive d Time (Source) Location / / Volume Laterality Blood 12/11/2021 2:46 PM 2 2:58 EDT PM EDT Resulting Agency Comment Spec In Lab Rodney Sullivan MD CHEMISTRY ORDERABLES Performing Organization Address City/[facility]/[place] [address] (ABNORMAL) BMP w/fasting Glucose (12/11/2021 2:46 PM EDT) athologist Signature Glucose 107 (H) 65 - 99 [facility] Fasting mg/dL [facility] Comment: ?Fasting* Glucose Interpretive C riteria Normal ?65-99 mg/dL Impaired Fasting glucose ?100-125 mg/dL Consistent with Diabetes Mellitus ? >or= 126 mg/dL *Fasting is defined as no caloric intake for at least 8 hours In the absence of unequivocal hypergly cemia a plasma glucose value of >or= 126 mg/dL should be repeated on a subseq u day. Diagnosis and Classification of Diabetes Mellitus, Position Statement from the [place] [employer]. ??Diabete s Care, Volume 33, Supplement 1, May 2009 BUN 13 10 - 20 mg/dL [facility] Creatinine 0.77 (L) 0.80 - 1.50 mg/dL [facility] Sodium 134 (L) 135 - 145 mmol/L [facility] Potassium 3.4 (L) 3.5 - 5.0 mmol/L [facility] Comment: Please note: ??Patients with WBC >100,00 0 may have falsely elevated Potassium levels. ??For accurate Potassium quantif ication in these patients send serum separator tube (gold top) for subsequent determinations. ??Contact the Clinical Chemistry Laboratory if there are any qu estions. Chloride 96 (L) 98 - 107 mmol/L [facility] CO2 28 22 - 31 mmol/L [facility] Anion Gap 10 5 - 15 mmol/L [facility] Calcium 7.9 (L) 8.5 - 10.5 mg/dL [facility] Estimated GFR 95 >=60 mL/min/1.73 m?? [facility] Comment: This patient's estimated GFR was [...] EDT Resulting Agency Comment Spec In Lab Rodney Sullivan MD CHEMISTRY ORDERABLES Performing Organization Address City/State/[place] [address] (ABNORMAL) Troponin (12/11/2021 2:46 PM EDT) P athologist Signature Troponin-T 0.32 (H) 0.00 - IFEOMA SANDOVAL 0.00 ng/mL [facility] Comment: The 99th percentile for Troponin T is le ss than 0.01 ng/mL, any detectable cTnT concentration using this assay should be considered elevated. According to the third universal definit ion of myocardial infarction the following criteria with a clinical prese ntation consistent with acute myocardial ischemia meets the diagnosis for a myocardial infarction (NV). Detection of a rise and/or fall of [...] additional sample may be indicated. Reference: Third Capron Definition of Myocardial Infarction. Journal of the [place] College [employer] 2012;60:1581-98 Specimen Anatomical Collection Method Collection Time Receive d Time (Source) Location / / Volume Laterality Blood 12/11/2021 2:46 PM 2 2:58 EDT PM EDT Resulting Agency Comment Spec In Lab Rodney Sullivan MD CHEMISTRY ORDERABLES Performing Organization Address City/State/[place] [address] (ABNORMAL) Hemoglobin A1c (12/11/2021 2:46 PM EDT) Analysis Performed At Patho logist Time Signature Hemoglobin A1C 5.9 (H) 4.3 - 5.6 [facility] % [facility] Comment: Reference Range: 4.3 - [...] Mellitus, Diabetes Care 2013; 36: Suppl. 1, S67-61 Est Avg Gluc See note mg/dL [facility] Comment: Estimated Average Glucose not [...] into estimated average glucose values. ??Diabetes Care 2008:31(8):9630-4178. Specimen Anatomical Collection Method Collection Time Receive d Time (Source) Location / / Volume Laterality Blood 12/11/2021 2:46 PM 2 2:58 EDT PM EDT Resulting Agency Comment Spec In Lab Rodney Sullivan MD CHEMISTRY ORDERABLES Performing Organization Address City/State/[place] [address] TSH [place] (12/11/2021 2:46 PM EDT) athologist Signature TSH 0.67 0.27 - 4.20 [facility] [place] mcIU/mL [facility] Comment: Reference Interval (mcIU/mL): Females: ??First Trimester: 0.23-3.88 ??Second Trimester: 0.22-3.90 ??Third Trimester: 0.44-4.66 Specimen Anatomical Collection Method Collection Time Receive d Time (Source) Location / / Volume Laterality Blood 12/11/2021 2:46 PM 2 2:58 EDT PM EDT Resulting Agency Comment Spec In Lab Rodney Sullivan MD CHEMISTRY ORDERABLES Performing Organization Address City/State/ZIP Code Phon e Number [address] POCT Glucose (12/11/2021 2:21 PM EDT) athologist [facility] POC Glucose 107 65 - 199 [facility] [place] mg/dL [facility] Comment: Supplemental ranges: <140 mg/dL before meals <180 mg/dL all other times of the day Specimen Anatomical Collection Method Collection Time Receive d Time (Source) Location / / Volume Laterality Blood 12/11/2021 2:21 PM 2 2:21 EDT PM EDT Rodney Sullivan MD POINT OF CARE TEST ORDERABLE S Performing Organization Address City/State/[place] [address] EKG 12 Lead (12/11/2021 10:46 AM EDT) Component Value Ref Range Test Analysis Performed Pathologis t Method Time At Signature Ventricular rate 66 BPM MUSE SYSTEM Atrial Rate 66 BPM MUSE SYSTEM P-R Interval 254 ms MUSE SYSTEM QRS Duration 110 ms MUSE SYSTEM Q-T Interval 456 ms MUSE SYSTEM QTC Calculated 478 ms MUSE SYSTEM (Bezet) Calculated P Clayton 89 degrees MUSE SYSTEM Calculated R Clayton -71 degrees MUSE SYSTEM Calculated T Clayton 19 degrees MUSE SYSTEM INTERPRETATION Sinus rhythm with 1st degree A-V block MUSE SYSTEM Pulmonary disease pattern Right bundle branch block Left anterior fascicular block Bifascicular block Abnormal ECG No previous ECGs available I personally reviewed the tracing and edited the fellows int erpretation Confirmed by fellow MD Abner, Tai ([id number]) on 022 2:31:21 PM Confirmed by MD Brayan, Nate ([id number]) on 12/11/2021 3:11:49 PM Specimen Anatomical Collection Method Collection Time Receive d Time (Source) Location / / Volume Laterality 12/11/2021 10:46 12/11/2021 3:11 AM EDT PM EDT Nate Gonzales MD ECG ORDERABLES Performing Organization Address City/State/ZIP Code Phon e Number MUSE SYSTEM CARDIAC CATHETERIZATION (12/11/2021 10:45 AM EDT) Anatomical Region Laterality Modality Other Specimen (Source) Anatomical Location Collection Method / Collectio n Time Received Time / Laterality Volume Narrative 12/11/2021 12:44 PM EDT ?[facility] ? Cardiac Cathete rization/Intervention Report ? Patient Name: Anastasia Foster. ? Procedure Date: 12/11/2021 ? A #: [id number] ? Primary Physician: Christian, Nate S ? Case #: [id number] ? File Name: [id number] ? Catheterization Order Number: [id number] ? [facility] ? Final Report [place], [place] ? Patient Name: ? Anastasia J. Ino e ?ID#: ?[id number] ? : ?1950 ? Procedure Date: ? December 11, 2021 ?Case #: ? [id number] ? Room: ? 6 ? Case Physician: ? Nate madison, M.D. ? Start: ?09:42 ?Fellow: ? Juan Jose Gómez Jr., M.D. ?Admission: ??12/11/2021 ? Discharge: ??12/13/2021 ? Procedures: ?* Coronary Angiography ?* Left Heart Catheterization ?* Coronary Ultrasound ?* Coronary Stent Insertion ? Pre Case Status: ?These procedures were performed on an emergent basis. ? History ?Anastasia Foster is a 71 year ol d man. He has hypertension. The patient's ?smoking status is Current with Current - Every Day frequency, using ?cigarettes. Cigarette use is He ashley (>=10/day). He has ?hypercholesterolemia. The patie nt has diabetes managed by diet and oral ?medication. He is status post a n acute ST elevation myocardial ?infarction. The patient also rodriguez s a history of peripheral vascular ?disease. Prior to the initiatio n of this procedure, the patient was ?designated as ASA Class IV. The CSHA clinical frailty scale is 3: ?Managing Well. ? Diagnostic Tests: ?Prior Coronary Angiography: ? Prior coronary angiograp hy was performed on 05/27/2008 and showed ? non-obstructive CAD. ?Electrocardiography: ? EKG was assessed by ECG. EKG was Abnormal. EKG showed other ? abnormality. ?Medications Prior to Procedure: ? Angiotensin Converting E nzyme Inhibitor, Aspirin, Beta Casie and ? Statin. ? Indications for Diagnostic Cath: ?The priority of the diagnostic procedure was Emergent. The indication for ?the label machine operator visit is ACS less than or equal to 24 hrs. Chest pain ?symptom assessment was: Typical Angina. ? Technique: ?A 6 SLFr sheath was inserted in the right radial artery utilizing the ?Seldinger technique. The left c oronary artery was injected utilizing a ?5Fr TIG 4.0 catheter. A 5Fr TIG 4.0 catheter was used to inject the right ?coronary artery. Left ventricul ar pressure was performed utilizing a 5Fr ?TIG 4.0 catheter. Coronary sten t insertion was performed and the ?equipment utilized will be desc ribed in the intervention summary section. ?7,000 units of heparin were adm inistered. A total of 300cc of Iso-Julio ?were opened, 105cc of Iso-Julio w ere administered and 195cc of Iso-Julio were ?wasted. Radiation: Fluoro time was 14.0 minutes, dose area product was ?28,300 mGYcm2 and air kerma was 382 mGY. See the case log for additional ?details. ?The patient received the follow ing medications prior to and during the ?procedure: ? Unfractionated Heparin a nd Clopidogrel. ? Hemodynamics: ?Left Heart Pressures ? Resting: ? Syst D iast ? EDP ?a ?v ? m ?Ao 106 ?? 49 ?72 ?LV 113 ? 20 ? Coronary Angiography: ?Dominance: Right ?Left Main ? There was mild diffuse ( <=25% stenosis) disease of the entire vessel ? segment of the left main artery. ?Left Anterior Descending ? There was a 75% stenosis of the mid 1 segment of the left anterior ? descending artery (LAD). ??The mid 2 segment of the LAD had a ? calcified 95% stenosis. ? There was mild diffuse ( <=25% stenosis) disease of the entire vessel ? segment of the first joe gonal branch (Diagonal 1) of the LAD. ??The ? Diagonal 1 was moderate in size. ? There was an 80% single discrete stenosis of the ostial segment of ? the second diagonal bran ch (Diagonal 2) of the LAD. ?Left Circumflex ? There was mild diffuse ( <=25% stenosis) disease of the entire vessel ? segment of the left circ umflex artery (LCX). ? There was a 55% diffuse stenosis of the proximal segment of the ? second obtuse marginal b ranch (OM2) of the LCX. ?Right Coronary Artery ? There was a 95% stenosis of the proximal segment of the right ? coronary artery (RCA). ? ?The distal segment of the RCA had a diffuse ? 30% stenosis. ? Intravascular Imaging/Physiology: ?Intravascular Ultrasound was pe rformed in the proximal RCA using a 6 Fr ?AL 1 guiding catheter and a 3.1 Fr Refinity 42 MHz catheter using auto 1 ?mm/sec pullback. ??Imaging was successful. ??Image quality was good. ??The ?proximal RCA showed moderate di ffuse atherosclerotic plaque with ?scattered three quadrant calcif ication. ??Measurements were performed ?after pre-dilation. ?Post Intervention: The stent wa s well expanded and apposed. ??The post ?intervention MLD was 9.1 mm. ? Indication for Intervention: ?Coronary intervention was indic ated for primary therapy for an acute ?myocardial infarction. The prio rity for the procedure was Emergent. The ?NCDR indication for the procedu re was STEMI-Immediate PCI for Acute ?STEMI. STEMI onset was 12/11/19 22 at 7:30 PM, estimated. ? Intervention Summary: ?Right Coronary Artery ? Proximal 95% ? Stent insertion was performed on the 95% stenosis in the ? proximal segmen t of the RCA. This was a de alexei lesion. ? According to th e ACC/AHA classification system, this lesion ? was a type C hi gh risk lesion. Primary prevention of ? restenosis was the indication for stent insertion. This was ? the culprit les ion. A guidewire was placed across this lesion. ? Vessel flow pre intervention was KATIE 3. Lesion length was ? 15mm. This lesi on was severely calcified. ? Stent insertion was accomplished through a 6 Fr. AL 1 guide. ? The lesion was predilated with a 3.50mm NC EUPHORA 12 MM ? balloon with a maximum inflation pressure of 20 atmospheres. ? A premounted 4. 50 x18 mm Gifford [place] (MASON) was deployed with ? a maximum infla tion pressure of 14 atmospheres. ? The final outco me was defined as successful. There was no ? residual stenos is following this intervention. The final KATIE ? flow was 3. ? Vascular Access: ?Vascular Access Management: ? Mechanical Compression o f the right radial artery access site was ? performed. ? Dual Antiplatelet (DAPT) Recommendations : ?Drug eluting stent (MASON) insert ed. ?P2Y12 Loading dose administered prior to arrival in the label machine operator. ?Recommended anti-platelet/anti- thrombotic regimen: ?Continue aspirin 81 mg daily fo r indefinitely. ?Continue clopidogrel 75 mg martínez y for 12 months then stop. ?These recommendations are made at the time of the intervention. Patient ?and provider preferences or a c hanging clinical situation may require ?modification of this regimen. C [facility] Interventional Cardiology for ?questions. ?The 1 year [...] any medical treatment. Consult ?http://tools.acc.org/DAPTriskap p/#!/content/calculator/ or [facility] ?Interventional Cardiology for q uestions ? Conclusions: ?* Three vessel coronary artery disease (LAD, LCX and RCA) ?* Elevated left ventricular end diastolic pressure ?* Successful stent insertion of the proximal RCA lesion ?* See Dual Antiplatelet (DAPT) Recommendations above ?* Enrolled in Safe STEMI, rando mized to complete revascularization. ? Complications/Events: ?The patient had no complication s during these procedures. ? Recommendations: ?Based upon the results of this procedure, it was recommended that the ?patient be managed with medical therapy. ?The attending physician was en t for the entire procedure. ?Dr. Nate Gonzales M.D. was pre sent during the moderate sedation ?intraservice time as documented by the sedation nurse. ??Case time = 00:58. ?Dr. Nate Gonzales M.D. perform ed the coronary angiography, left heart ?catheterization, IVUS # coronary a nd stent insertion-coronary. ? Nate Gonzales M.D. ? Electronically Signed by: Nate kline M.D. ? Report Finalized: 12/11/2021 ??12:37 ? Report Last Ammended: 01/03/2022 ??17:16 ? Procedure Note Nate Gonzales MD - 01/03/2022Format ting of this note might be different from the original. [facility] Cardiac Catheterization/Intervention Re port Patient Name: Anastasia Foster Procedure Date: 12/11/2021 A #: [id number] Primary Physician: Nate Gonzales Case #: File Name: [id number] Catheterization Order Number: [id number] [facility] Midlevel Provider [facility] Final Report [place], [place] Patient Name: Anastasia Monroy Amparo ID#: [id number] : 1950 Procedure Date: December 11, 2021 Case #: Room: 6 Case Physician: Maryam Watkins tart: 09:42 Fellow: Maryam Sow Jr. ission: 12/11/2021 Discharge: 12/13/2021 Procedures: * Coronary Angiography * Left Heart Catheterization * Coronary Ultrasound * Coronary Stent Insertion Pre Case Status: These procedures were performed on an e mergent basis. History Anastasia Foster is a 71 year old man. Fozia taylor has hypertension. The patient's smoking status is Current with Current - Every Day frequency, using cigarettes. Cigarette use is Heavy (>=1 0/day). He has hypercholesterolemia. The patient has d iabetes managed by diet and oral medication. He is status post an acute ST elevation myocardial infarction. The patient also has a hist ory of peripheral vascular disease. Prior to the initiation of thi s procedure, the patient was designated as ASA Class IV. The [facility] inical frailty scale is 3: Managing Well. Diagnostic Tests: Prior Coronary Angiography: Prior coronary angiography was performe d on 05/27/2008 and showed non-obstructive CAD. Electrocardiography: EKG was assessed by ECG. EKG was Abnorm al. EKG showed other abnormality. Medications Prior to Procedure: Angiotensin Converting Enzyme Inhibitor , Aspirin, Beta Casie and Statin. Indications for Diagnostic Cath: The priority of the diagnostic procedur e was Emergent. The indication for the label machine operator visit is ACS less than or equal to 24 hrs. Chest pain symptom assessment was: Typical Angina. Technique: A 6 SLFr sheath was inserted in the rig ht radial artery utilizing the Seldinger technique. The left coronary artery was injected utilizing a 5Fr TIG 4.0 catheter. A 5Fr TIG 4.0 cat heter was used to inject the right coronary artery. Left ventricular press ure was performed utilizing a 5Fr TIG 4.0 catheter. Coronary stent insert ion was performed and the equipment utilized will be described in the intervention summary section. 7,000 units of heparin were administere d. A total of 300cc of Iso-Julio were opened, 105cc of Iso-Juilo were admi nistered and 195cc of Iso-Julio were wasted. Radiation: Fluoro time was 14.0 minutes, dose area product was 28,300 mGYcm2 and air kerma was 382 mGY . See the case log for additional details. The patient received the following medi cations prior to and during the procedure: Unfractionated Heparin and Clopidogrel. Hemodynamics: Left Heart Pressures Resting: Syst Diast EDP a v m Ao 106 49 72 LV 113 20 Coronary Angiography: Dominance: Right Left Main There was mild diffuse (<=25% stenosis) disease of the entire vessel segment of the left main artery. Left Anterior Descending There was a 75% stenosis of the mid 1 s egment of the left anterior descending artery (LAD). The mid 2 segm ent of the LAD had a calcified 95% stenosis. There was mild diffuse (<=25% stenosis) disease of the entire vessel segment of the first diagonal branch (D iagonal 1) of the LAD. The Diagonal 1 was moderate in size. There was an 80% single discrete stenos is of the ostial segment of the second diagonal branch (Diagonal 2) of the LAD. Left Circumflex There was mild diffuse (<=25% stenosis) disease of the entire vessel segment of the left circumflex artery ( LCX). There was a 55% diffuse stenosis of the proximal segment of the second obtuse marginal branch (OM2) of the LCX. Right Coronary Artery There was a 95% stenosis of the proxima l segment of the right coronary artery (RCA). The distal segme nt of the RCA had a diffuse 30% stenosis. Intravascular Imaging/Physiology: Intravascular Ultrasound was performed in the proximal RCA using a 6 Fr AL 1 guiding catheter and a 3.1 Fr Refi nity 42 MHz catheter using auto 1 mm/sec pullback. Imaging was successful . Image quality was good. The proximal RCA showed moderate diffuse at herosclerotic plaque with scattered three quadrant calcification. Measurements were performed after pre-dilation. Post Intervention: The stent was well e xpanded and apposed. The post intervention MLD was 9.1 mm. Indication for Intervention: Coronary intervention was indicated for primary therapy for an acute myocardial infarction. The priority for the procedure was Emergent. The [facility] indication for the procedure was S LAMAR-Immediate PCI for Acute STEMI. STEMI onset was 12/10/2021 at 7: 30 PM, estimated. Intervention Summary: Right Coronary Artery Proximal 95% Stent insertion was performed on the 95 % stenosis in the proximal segment of the RCA. This was a de alexei lesion. According to the ACC/AHA classification system, this lesion was a type C high risk lesion. Primary prevention of restenosis was the indication for stent insertion. This was the culprit lesion. A guidewire was aurelia margarita across this lesion. Vessel flow pre intervention was KATIE 3 . Lesion length was 15mm. This lesion was severely calcifie d. Stent insertion was accomplished throug h a 6 Fr. AL 1 guide. The lesion was predilated with a 3.50mm NC EUPHORA 12 MM balloon with a maximum inflation pressu re of 20 atmospheres. A premounted 4.50 x18 mm Gifford [place] (MASON) was deployed with a maximum inflation pressure of 14 atmo spheres. The final outcome was defined as succes sful. There was no residual stenosis following this interv ention. The final KATIE flow was 3. Vascular Access: Vascular Access Management: Mechanical Compression of the right rad ial artery access site was performed. Dual Antiplatelet (DAPT) Recommendations : Drug eluting stent (MASON) inserted. P2Y12 Loading dose administered prior t o arrival in the label machine operator. Recommended anti-platelet/anti-thrombot ic regimen: Continue aspirin 81 mg daily for indefi nitely. Continue clopidogrel 75 mg daily for 12 months then stop. These recommendations are made at the t jhonny of the intervention. Patient and provider preferences or a changing clinical situation may require modification of this regimen. Consult [facility] for questions. The 1 year bleeding risk as calculated by the PRECISE DAPT score is Low risk. This patient has a high DAPT score and may benefit from prolonged (12-30 months) dual antiplatelet therapy if th e patient has completed 12 months of DAPT without having a major bleeding or ischemic event and the patient is NOT on chronic anticoagulation. This should be used for guidance in the overall conversation about prolonge d dual antiplatelet therapy and not as a recommendation for or against any medical treatment. Consult http://tools.acc.org/DAPTriskapp/#!/con tent/calculator/ or [facility] Interventional Cardiology for questions Conclusions: * Three vessel coronary artery disease (LAD, LCX and RCA) * Elevated left ventricular end diastol ic pressure * Successful stent insertion of the pro ximal RCA lesion * See Dual Antiplatelet (DAPT) Recommen dations above * Enrolled in Safe STEMI, randomized to complete revascularization. Complications/Events: The patient had no complications during these procedures. Recommendations: Based upon the results of this procedur e, it was recommended that the patient be managed with medical therapy . The attending physician was present for the entire procedure. Dr. Nate Gonzales M.D. was present during the moderate sedation intraservice time as documented by the sedation nurse. Case time = 00:58. Dr. Nate Gonzales M.D. performed th e coronary angiography, left heart catheterization, IVUS # coronary and st ent insertion-coronary. Nate Gonzales M.D. Electronically Signed by: Nate kline M.D. Report Finalized: 12/11/2021 12:37 Report Last Ammended: 01/03/2022 17:16 Nate Gonzales MD CARDIAC CATH ORDERABLES POCT Glucose (12/11/2021 10:19 AM EDT) athologist Signature POC Glucose 111 65 - [address] [facility] mg/dL [facility] Comment: Supplemental ranges: <140 mg/dL before meals <180 mg/dL all other times of the day Specimen Anatomical Collection Method Collection Time Receive d Time (Source) Location / / Volume Laterality Blood 12/11/2021 10:19 12/11/2021 AM EDT 10:19 AM EDT Nate Gonzales MD POINT OF CARE TEST ORDERABLE S Performing Organization Address City/State/ZIP Code Phon e Number [place] [id number] documented in this encounter Visit Diagnoses Not on filedocumented in this encounter Admitting Diagnoses Diagnosis STEMI involving right coronary artery documented in this encounter Administered Medications Inactive Administered Medications - up to 3 most recent administrations Medication Order MAR Action Action Date Dose Rate Site aspirin EC tablet 81 mg Given 12/13/2021 8:14 AM EDT 81 mg 81 mg, Oral, DAILY, First dose on Sat12/12/21 at 0900, Until Discontinued, Routine Given 12/12/2021 9:54 AM EDT 81 mg atorvastatin (Lipitor) tablet 80 mg Given 12/12/2021 5:04 PM EDT 80 mg 80 mg, Oral, EVERY EVENING, First dose on Sat12/11/21 at 1700, Until Discontinued, Routine Given 12/11/2021 5:05 PM EDT 80 mg atropine (0.1 mg/mL) injection 1 mg 1 mg, Intravenous, EVERY 5 MIN PRN, 2 do ses, Starting on Sat12/11/21 at 1048, Until Sat12/13/21 at 1607, Other, vasovagal ep manny, Call interventional MD. , Routine clopidogreL (Plavix) tablet 75 mg Given 12/13/2021 8:13 AM EDT 75 mg 75 mg, Oral, DAILY, First dose on Sat12/12/21 at 0900, Until Discontinued, Routine Given 12/12/2021 9:54 AM EDT 75 mg dextrose 10% infusion 250 mL, at 1,000 mL/hr, Intravenous, DANI RY 30 MIN PRN, Starting on Sat12/11/21 at 1409, Until Sat12/13/21 at 1607, For BG 50-70 mg/dL: Oral treatment preferred: If able to drink, give 120 mL Juice or R egular (not diet) soda OR If NPO, give 15 gram glucose 40% oral gel massaged into buccal mucosa OR if unconscious or uncooperative, give 25 gram (250 mL) Dex trose 10% IV over 15 minutes per protocol OR, if no IV access, 1 mg Glucagon IM. * * For BG less than 50 mg/dL: Oral treatment preferred: If able to drink, give 240 mL Juice or Regu lar (not diet) soda OR If NPO, give 30 gram glucose 40% oral gel m assaged in buccal mucosa OR if unconscious or uncooperative, give 25 gram (250 mL) Dextrose 10% I V over 15 minutes per protocol OR, if no IV access, 1 mg Glucagon IM. Rech vargas BG in 30 minutes. May repeat juice/soda, gel, dextrose or gluc agon once per episode. For persistent hypoglycemia, consider longer-acting treatment for the duration of the active insulin. fentaNYL (pf) (50 mcg/mL) multi-dose Given 12/12/2021 3:07 PM ED T 12.5 mcg injection ONCE PRN, Starting on Sat12/12/21 at 1141, Until Sat12/12/21 at 1555, Intra-Operative (Intra-Procedure), Routine Given 12/12/2021 2:40 PM EDT 12.5 mcg Given 12/12/2021 2:11 PM EDT 25 mcg glucagon (Glucagen) (1 mg/mL) injection solution 1 mg 1 mg, Intramuscular, EVERY 30 MIN PRN, S tarting on Sat12/11/21 at 1409, Until Sat12/13/21 at 1607, Low blood sugar, For BG 50-70 mg/dL: Oral treatment preferred: If able to drink, give 120 mL Juice or R egular (not diet) soda OR If NPO, give 15 gram glucose 40% oral gel massaged into buccal mucosa OR if unconscious or uncooperative, give 25 gram (250 mL) Dex trose 10% IV over 15 minutes per protocol OR, if no IV access, 1 mg Glucagon IM. * * For BG less than 50 mg/dL: Oral treatment preferred: If able to drink, give 240 mL Juice or Regu lar (not diet) soda OR If NPO, give 30 gram glucose 40% oral gel m assaged in buccal mucosa OR if unconscious or uncooperative, give 25 gram (250 mL) Dextrose 10% I V over 15 minutes per protocol OR, if no IV access, 1 mg Glucagon IM. Rech vargas BG in 30 minutes. May repeat juice/soda, gel, dextrose or gluc agon once per episode. For persistent hypoglycemia, consider longer-acting treatment for the duration of the active insulin., Routine glucose (Glutose) 40% oral geL 15-30 g of glucose, Buccal, EVERY 30 MIN PRN, Starting on Sat12/11/21 at 1409, Until Sat12/13/21 at 1607, Low blood sug ar, For BG 50-70 mg/dL: Oral treatment preferred: If able to drink, give 120 mL Juice or Regu lar (not diet) soda OR If NPO, give 15 gram glucose 40% oral gel massaged into b uccal mucosa OR if unconscious or uncooperative, give 25 gr am (250 mL) Dextrose 10% IV over 15 minutes per protocol OR, if no IV access, 1 mg G lucagon IM. For BG less than 50 mg/dL: Oral treatment preferred: If able to dri nk, give 240 mL Juice or Regular (not diet) soda OR If NPO, give 30 gram glucose 40% oral gel massaged in buccal mucosa OR if unconscious or uncooperative, give 25 gr am (250 mL) Dextrose 10% IV over 15 minutes per protocol OR, if no IV access, 1 mg G lucagon IM. Recheck BG in 30 minutes. May repeat juice/soda, gel, dextrose or gluc agon once per episode. For persistent hypoglycemia, consider longer-acting treatment for the duration of the active insulin. 1 tube of Glutose-15 contains 1 5 grams of glucose (net weight of tube = 37.5 grams.), Routine heparin (porcine) (1,000 units/mL) Given 12/12/2021 1:42 PM EDT 3,000 Units injection ONCE PRN, Starting on Sat12/12/21 at 1150, Until Sat12/12/21 at 1555, Cath (Intra-Procedure), Routine Given 12/12/2021 1:31 PM EDT 2,000 Units Given 12/12/2021 11:50 AM EDT 5,000 Units heparin (porcine) (5,000 units/1 mL) Given 12/13/2021 5:19 AM ED T 5,000 Units subcutaneous injection 5,000 Units 5,000 Units, Subcutaneous, EVERY 8 HOURS SCHEDULED, First dose on Sat12/11/21 at 1500, Until Discontinued, Routine Given 12/12/2021 5:50 AM EDT 5,000 Units Given 12/11/2021 9:14 PM EDT 5,000 Units insulin lispro (HumaLOG;Admelog) (100 Given 12/13/2021 12:53 PM EDT 4 Units unit/mL) subcutaneous injection vial 0-8 Units 0-8 Units, Subcutaneous, 3 TIMES DAILY WITH MEALS, First dose on Sat12/11/21 at 1700, Until Discontinued, MEAL ASSOCIATED Give 1 unit for every 10 grams carbohydrate. Hold if not eating or if BG less than 70 mg/dL., Routine Given 12/13/2021 8:11 AM EDT 6 Units Given 12/12/2021 5:41 PM EDT 8 Units insulin lispro (HumaLOG;Admelog) (100 Given 12/11/2021 5:54 PM E DT 1 Units unit/mL) subcutaneous injection vial 1-4 Units 1-4 Units, Subcutaneous, 3 TIMES DAILY BEFORE MEALS, First dose on Sat12/11/21 at 1630, Until Discontinued, CORRECTION BOLUS [1-4 Units] Sensitive Sliding Scale (BG in mg/dL): Correction factor 40 (1 unit of insulin is expected to drop the glucose 40 mg/dL) BG 160 - 200 Give 1 unit BG 201 - 240 Give 2 units BG 241 - 280 Give 3 units BG greater than 280, give 4 units and recheck BG in 2 hours. - If recheck BG is LESS than 280, give no insulin and resume schedule - If recheck BG is GREATER than 280, give 4 units and repeat BG in 2 hours (no more than 3 times) & call for new insulin orders. DO NOT hold if NPO, unless specifically directed to do so by written order. Per Blood Glucose Monitoring Policy, re-check a BG of > 240 mg/dL in 2 hours., Routine lisinopriL (Zestril) tablet 5 mg Given 12/13/2021 8:13 AM EDT 5 mg 5 mg, Oral, DAILY, First dose on Sat12/13/21 at 0900, Until Discontinued, Routine magnesium oxide (Mag-Ox) tablet 400 mg Given 12/13/2021 9:00 AM EDT 400 mg 400 mg, Oral, DAILY, First dose on Sat12/12/21 at 0900, Until Discontinued, Routine Given 12/12/2021 9:00 AM EDT 400 mg metoprolol tartrate (Lopressor) tablet 12.5 Given 11/25 12:07 PM EDT 12.5 mg mg 12.5 mg, Oral, EVERY 6 HOURS SCHEDULED, First dose on Sat12/11/21 at 1800, Until Discontinued, Hold for SBP <90 or HR <55, Routine Given 12/13/2021 5:19 AM EDT 12.5 mg Given 12/12/2021 11:42 PM EDT 12.5 mg midazolam (pf) (Versed) (1 mg/mL) multi-dose Given 3:07 PM EDT 0.5 mg injection ONCE PRN, Starting on Sat12/12/21 at 1141, Until Sat12/12/21 at 1555, Cath (Intra-Procedure), Routine Given 12/12/2021 2:40 PM EDT 0.5 mg Given 12/12/2021 12:58 PM EDT 1 mg nicotine (Nicoderm CQ) Patch Applied 12/13/2021 8:10 AM 21 mg 03- Shoulder 21 mg/24 hr patch 21 mg EDT (Left) 21 mg (1 patch), Transdermal, DAILY, First dose on Sat12/11/21 at 1500, Until Discontinued, Apply new patch to nonhairy, clean, dry skin on the upper body or upper outer arm; each patch should be applied to a different site , Routine Patch Applied 12/12/2021 9:53 AM EDT 21 mg 11- Chest (Left) nicotine (NICODERM CQ) 21 mg/24 hr patch Patch Removal Transdermal, DAILY, First dose on Sat at 0900, Until Discontinued, Remove nicotine 21 mg/24 hr patch nicotine (NICODERM CQ) 21 mg/24 hr patch Patch Verification Transdermal, 2 TIMES DAILY, First dose o n Sat12/12/21 at 0215, Until Discontinued, Verify nicotine 21 mg/24 hr patch pantoprazole EC (Protonix) tablet 40 mg Given 12/13/2021 8:13 AM EDT 40 mg 40 mg, Oral, DAILY, First dose on Sat12/12/21 at 0900, Until Discontinued, DO NOT CRUSH OR OPEN, Routine Given 12/12/2021 9:54 AM EDT 40 mg pregabalin (Lyrica) capsule 75 mg Given 12/13/2021 8:13 AM EDT 75 mg 75 mg, Oral, 2 TIMES DAILY, First dose on Sat12/11/21 at 2100, Until Discontinued, Routine Given 12/12/2021 9:09 PM EDT 75 mg Given 12/12/2021 9:54 AM EDT 75 mg sodium chloride 0.45% infusion 1 mL/hr, Intravenous, CONTINUOUS, Starting on 12/12 at 1545, Until Sat12/13/21 at 1607, Recovery (Recovery-Hospital Unit) sodium chloride 0.9% infusion New Bag 12/12/2021 11:51 AM EDT 500 mLs CONTINUOUS PRN, Starting on Sat12/12/21 at 1151, Until Sat12/12/21 at 1151, Cath (Intra-Procedure) documented in this encounter Active and Recently Administered Medications Times are shown in EDT. Scheduled Medication Order 12/11/2021 12/12/2021 12/13/2021 aspirin EC tablet 81 mg 0954 (Given - Pr ovider: Marlee Pennington, RN)1126 (JUL Hold - Provider: Admin Adt - Reason: Transfer to a Procedural area)1555 (JUL Unhold - Provider: Admin Adt) 0814 (Given - Provider: Marlee Pennington RN) 81 mg, Oral, DAILY, First dose on Sat at 0900, Until Discontinued, Routine atorvastatin (Lipitor) tablet 80 mg 1705 (Given - Prov ider: Rita Plata, RAJ) 1128 (JUL Hold - Provider: Admin Adt - R zohreh: Transfer to a Procedural area)1555 (JUL Unhold - Provider: Admin Adt)1704 (Given - Provider: Marlee Pennington RN) 80 mg, Oral, EVERY EVENING, First dose o n Sat12/11/21 at 1700, Until Discontinued, Routine clopidogreL (Plavix) tablet 75 mg 0954 ( Given - Provider: Marlee Pennington RN)1128 (JUL Hold - Provider: Admin Adt - Reason: Transfer to a Procedural area)1555 (JUL Unhold - Provider: Admin Adt) 0813 (Given - Provider: Marlee Pennington RN) 75 mg, Oral, DAILY, First dose on Sat at 0900, Until Discontinued, Routine heparin (porcine) (5,000 units/1 mL) subcutaneous inje ction 5,000 Units 1500 (Not Given - Provider: Rita Plata RN - Reason: Patient/family refused)2114 (Given - Provider: Ifeoma Caballero RN) 0550 (Given - Provider: Ifeoma Caballero RN)1128 (JUL Hold - Provider: Admin Adt - Reason: Transfer to a Procedural area)1400 (Not Given - Provider: Marlee Pennington RN - Reason: See comment)1555 (JUL Unhold - Provider: Admin Adt) 0519 (Given - Provider: Ethel Leal, RN)1400 (Due - Provider: Admin Adt) 5,000 Units, Subcutaneous, EVERY 8 HOURS SCHEDULED, First dose on Sat12/11/21 at 1500, Until Discontinued, Routine 2108 (Not Given - Pr ovider: Ethel Leal, RN - Reason: Contraindicated - Comment: TR band within 4 hours) insulin lispro (HumaLOG;Admelog) (100 un it/mL) subcutaneous injection vial 0-8 Units 1755 (Given - Provider: Rita Plata RN) 0800 (No t Given - Provider: Marlee Pennington RN - Reason: NPO)1128 (MAR Hold - Provider: Admin Adt - Reason: Transfer to a Procedural area)1200 (Not Given - Provider: Marlee Pennington RN - Reason: NPO) 0811 (Given - Provider: Marlee ng RN)1253 (Given - Provider: Marlee Pennington RN) 0-8 Units, Subcutaneous, 3 TIMES DAILY W ITH MEALS, First dose on Sat12/11/21 at 1700, Until Discontinued, MEAL ASSOCIATED Give 1 unit for every 10 grams carbohydrate. Hold if not eating or if BG less than 70 mg/dL., Routine 1555 (MAR Unhold - Provider: Admin Adt)1741 (Given - Provider: Marlee Pennington RN) insulin lispro (HumaLOG;Admelog) (100 un it/mL) subcutaneous injection vial 1-4 Units(Linked Group 1) 1754 (Given - Provider: Rita Plata RN) 0730 (No t Given - Provider: Marlee Pennington RN - Reason: Order parameters not met)1128 (MAR Hold - Provider: Admin Adt - Reason: Transfer to a Procedural area) 0730 (Not Given - Provider: Marlee Pennington RN - Reason: Order parameters not met)1130 (Not Given - Provider: Marlee Pennington RN - Reason: Order parameters not met) 1-4 Units, Subcutaneous, 3 TIMES DAILY B EFORE MEALS, First dose on Sat12/11/21 at 1630, Until Discontinued, CORRECTION BOLUS [1-4 Units] Sensitive Sliding Scale (BG in mg/dL): Correction factor 40 ( 1130 (Not Given - Provider: Marlee Pennington RN - Reason: Order parameters not met)1555 (MAR Unhold - Provider: Admin Adt)1630 (Not Given - Provider: Marlee Pennington RN - Reason: Order parameters not met) 1 unit of insulin is expected to drop th e glucose 40 mg/dL) BG 160 - 200 Give 1 unit BG 201 - 240 Give 2 units BG 241 - 280 Give 3 units BG greater than 280, give 4 units and recheck BG in 2 hours. - If recheck BG is LESS than 280, give no in sulin and resume schedule - If recheck BG is GREATER than 280, give 4 units and repeat BG in 2 hours (no more than 3 times) & call for new insulin orders. DO NOT hold if NPO, unless specifically dir ected to do so by written order. Per Blood Glucose Monitoring Policy, re-check a BG of > 240 mg/dL in 2 hours., Routine lisinopriL (Zestril) tablet 5 mg 0813 (Given - Provider: Marlee Pennington, RAJ) 5 mg, Oral, DAILY, First dose on 11/25 at 0900, Until Discontinued, Routine magnesium oxide (Mag-Ox) tablet 400 mg 0 900 (Given - Provider: Marlee Pennington, RAJ)1128 (JUL Hold - Provider: Admin Adt - Reason: Transfer to a Procedural area)1555 (JUL Unhold - Provider: Admin Adt) 0900 (Given - Provider: Marlee Pennington, RAJ) 400 mg, Oral, DAILY, First dose on Sat at 0900, Until Discontinued, Routine metoprolol tartrate (Lopressor) tablet 12.5 mg 1706 (G iven - Provider: Rita Plata, RAJ)2335 (Given - Provider: Ifeoma Caballero, RAJ) 0550 (Given - Provider: Ifeoma Caballero, RAJ)1103 (Given - Provider: Marlee Pennington, RJA)1128 (JUL Hold - Provider: Admin Adt - Reason: Transfer to a Procedural area)1555 (MAR Unhold - Provider: Admin Adt) 0519 (Given - Provider: Ethel silverman RN)1207 (Given - Provider: Marlee Pennington, RAJ) 12.5 mg, Oral, EVERY 6 HOURS SCHEDULED, First dose on Sat12/11/21 at 1800, Until Discontinued, Hold for SBP <90 or HR <55, Routine 1704 (Given - Provider: Marlee Pennington, RAJ)2342 (Given - Provider: Ethel Leal, RAJ) nicotine (Nicoderm CQ) 21 mg/24 hr patch 21 mg(Linked Group 2) 1500 (Not Given - Provider: Rita Plata RN - Reason: Patient/family refused) 0953 (Patch Applied - Provider: Marlee Pennington RN)1128 (JUL Hold - Provider: Admin Adt - Reason: Transfer to a Procedural area)1555 (JUL Unhold - Provider: Admin Adt) 0810 (Patch Applied - Provider: Bronwyn Dover RN) 21 mg (1 patch), Transdermal, DAILY, Fir st dose on Sat12/11/21 at 1500, Until Discontinued, Apply new patch to nonhairy, clean, dry skin on the upper body or upper outer arm; each patch should be applied to a different site , Routine nicotine (NICODERM CQ) 21 mg/24 hr patch Patch Removal(Linke d Group 2) 0900 (Patch Not Removed (add comment) - Provider: Marlee Pennington RN - Comment: first dose)1128 (JUL Hold - Provider: Admin Adt - Reason: Transfer to a Procedural area)1555 (JUL Unhold - Provider: Admin Adt) 0900 (Patch Removed - Provider: Marlee Pennington RN) Transdermal, DAILY, First dose on Sat at 0900, Until Discontinued, Remove nicotine 21 mg/24 hr patch nicotine (NICODERM CQ) 21 mg/24 hr patch Patch Verification( Linked Group 2) 214 (Patch Not Verified (add comment) - Provider: Ifeoma Caballero RN - Comment: not present)0900 (Patch (dose and location) verified - Provider: Marlee Pennington RN)112 (JUL Hold - Provider: Admin Adt - Reason: Transfer to a Procedural area) 0900 (Patch (dose and location) verified - Provider: Marlee Pennington RN) Transdermal, 2 TIMES DAILY, First dose o n Sat12/12/21 at 0215, Until Discontinued, Verify nicotine 21 mg/24 hr patch 155 ( JUL Unhold - Provider: Admin Adt)2100 (Patch (dose and location) verified - Provider: Ethel Leal RN) pantoprazole EC (Protonix) tablet 40 mg 0954 (Given - Provider: Marlee Pennington RN)1128 (JUL Hold - Provider: Admin Adt - Reason: Transfer to a Procedural area)1555 (JUL Unhold - Provider: Admin Adt) 0813 (Given - Provider: Marlee Pennington, RAJ) 40 mg, Oral, DAILY, First dose on Sat at 0900, Until Discontinued, DO NOT CRUSH OR OPEN, Routine potassium chloride ER (K-Dur/Klor-Con) tablet 40 mEq ( COMPLETED) 1704 (Given - Provider: Rita Plata, RAJ) 40 mEq, Oral, ONCE, 1 dose, On Sat12/11/21 at 1715, Routine potassium chloride ER (K-Dur/Klor-Con) tablet 40 mEq (COMPLETED) 0620 (Given - Provider: Ethel Leal, RAJ) 40 mEq, Oral, ONCE, 1 dose, On Sat at 0700, 20 mEq tablet may be dissolved in water for administration, Routine pregabalin (Lyrica) capsule 75 mg 2113 (Given - Provider: Bridger Caballero RN) 0954 (Given - Provider: Marlee Pennington, RAJ)1128 (JUL Hold - Provider: Admin Adt - Reason: Transfer to a Procedural area)1555 (JUL Unhold - Provider: Admin Adt)210 (Given - Provider: Ethel Leal, RAJ) 0813 (Given - Provider: Marlee Pennington, RAJ) 75 mg, Oral, 2 TIMES DAILY, First dose o n Sat12/11/21 at 2100, Until Discontinued, Routine Continuous Medication Order 12/11/2021 12/12/2021 12/13/2021 sodium chloride 0.45% infusion 1545 (Not Given - Provider: Josesito Bradshaw RN - Reason: Contraindicated) 1 mL/hr, Intravenous, CONTINUOUS, Starti ng on Sat12/12/21 at 1545, Until Sat12/13/21 at 1607, Recovery (Recovery-Hospital Unit) sodium chloride 0.9% infusion () 1115 (New Bag - Provider: Ira Marques RN) 125 mL/hr, Intravenous, CONTINUOUS, Star ting on Sat12/11/21 at 1115, Until Sat12/11/21 at 1414, Recovery (Recovery-Hospital Unit) sodium chloride 0.9% infusion () 1536 (New Bag - Provider: Josesito Bradshaw RN) 250 mL/hr, Intravenous, CONTINUOUS, Star ting on Sat12/12/21 at 1600, Until Sat12/12/21 at 1959 PRN Medication Order 12/11/2021 12/12/2021 12/13/2021 acetaminophen (Tylenol) tablet 650 mg 04 23 ([facility] Hold - Provider: Admin Adt - Reason: Transfer to a Procedural area)1555 ([facility] Unhold - Provider: Admin Adt) 650 mg, Oral, EVERY 4 HOURS PRN, Startin g on Sat12/11/21 at 1409, Until Sat12/13/21 at 1607, Pain, Headaches, Maximum dose of acetaminophen is 4000 mg from all sources in 24 hours. When ordered for pain , acetaminophen should be given even whe n other ordered pain medications are indicated. , Routine atropine (0.1 mg/mL) injection 1 mg 112 ([facility] Hold - Provider: Admin Adt - Reason: Transfer to a Procedural area)155 ([facility] Unhold - Provider: Admin Adt) 1 mg, Intravenous, EVERY 5 MIN PRN, 2 do ses, Starting on Sat12/11/21 at 1048, Until Sat12/13/21 at 1607, Other, vasovagal episode, Call interventional MD. , Routine dextrose 10% infusion(Linked Group 3) 04 23 ([facility] Hold - Provider: Admin Adt - Reason: Transfer to a Procedural area)155 ([facility] Unhold - Provider: Admin Adt) 250 mL, at 1,000 mL/hr, Intravenous, DANI RY 30 MIN PRN, Starting on Sat12/11/21 at 1409, Until Sat12/13/21 at 1607, For BG 50-70 mg/dL: Oral treatment preferred: If able to drink, give 120 mL Juice or Regular (not diet) soda OR If NPO, give 15 gram glucose 40% oral gel massaged into buccal mucosa OR if unconscious or uncooperative, give 25 gram (250 mL) Dextrose 10% IV over 15 minutes per protocol O R, if no IV access, 1 mg Glucagon IM. For BG less than 50 mg/dL: Oral treatment preferred: If able to drink, give 240 mL Juice or Regular (not diet) soda OR If NPO, give 30 gram glucose 40% oral gel massaged in buccal mucosa OR if unconsci ous or uncooperative, give 25 gram (250 mL) Dextrose 10% IV over 15 minutes per protocol OR, if no IV access, 1 mg Glucagon IM. Recheck BG in 30 minutes. May re peat juice/soda, gel, dextrose or glucag on once per episode. For persistent hypoglycemia, consider longer-acting treatment for the duration of the active insulin. fentaNYL (pf) (50 mcg/mL) multi-dose injection (CANCEL ED) 0944 (Given - Provider: Josesito Bradshaw RN) ONCE PRN, Starting on Sat12/11/21 at 094 4, Until Sat12/11/21 at 1043, Cath (Intra-Procedure), Routine fentaNYL (pf) (50 mcg/mL) multi-dose injection (CANCELED) 1141 (Given - Provider: Will Macdonald RN)1258 (Given - Provider: Vidal Love, RAJ)1411 (Given - Provider: Vidal Love, RAJ)1440 (Given - Provider: Will Macdonald, RAJ)1507 (Given - Provider: Will Macdonald RN) ONCE PRN, Starting on Sat12/12/21 at 114 1, Until Sat12/12/21 at 1555, Intra- Operative (Intra-Procedure), Routine glucagon (Glucagen) (1 mg/mL) injection solution 1 mg(Linked Group 3) 1128 (JUL Hold - Provider: Admin Adt - Reason: Transfer to a Procedural area)1555 (JUL Unhold - Provider: Admin Adt) 1 mg, Intramuscular, EVERY 30 MIN PRN, S tarting on Sat12/11/21 at 1409, Until Sat12/13/21 at 1607, Low blood sugar, For BG 50-70 mg/dL: Oral treatment preferred: If able to drink, give 120 mL Juice o r Regular (not diet) soda OR If NPO, giv e 15 gram glucose 40% oral gel massaged into buccal mucosa OR if unconscious or uncooperative, give 25 gram (250 mL) Dextrose 10% IV over 15 minutes per protocol OR, if no IV access, 1 mg Glucagon IM. * * For BG less than 50 mg/dL: Oral treatment preferred: If able to drink, give 240 mL Juice or Regular (not diet) soda OR If NPO, give 30 gram glucose 40% oral gel massaged in buccal mucosa OR if unconsc ious or uncooperative, give 25 gram (250 mL) Dextrose 10% IV over 15 minutes per protocol OR, if no IV access, 1 mg Glucagon IM. Recheck BG in 30 minutes. May r epeat juice/soda, gel, dextrose or gluca leonel once per episode. For persistent hypoglycemia, consider longer-acting treatment for the duration of the active insulin., Routine glucose (Glutose) 40% oral geL(Linked Group 3) 1128 (JUL Hold - Provider: Admin Adt - Reason: Transfer to a Procedural area)1555 (JUL Unhold - Provider: Admin Adt) 15-30 g of glucose, Buccal, EVERY 30 MIN PRN, Starting on Sat12/11/21 at 1409, Until Sat12/13/21 at 1607, Low blood sugar, For BG 50-70 mg/dL: Oral treatment preferred: If able to drink, give 120 mL Juice or Regular (not diet) soda OR If N PO, give 15 gram glucose 40% oral gel massaged into buccal mucosa OR if unconscious or uncooperative, give 25 gram (250 mL) Dextrose 10% IV over 15 minutes per pr otocol OR, if no IV access, 1 mg Glucago n IM. For BG less than 50 mg/dL: Oral treatment preferred: If able to drink, give 240 mL Juice or Regular (not diet) soda OR If NPO, give 30 gram glucose 40% o ral gel massaged in buccal mucosa OR if unconscious or uncooperative, give 25 gram (250 mL) Dextrose 10% IV over 15 minutes per protocol OR, if no IV access, 1 mg Glucagon IM. Recheck BG in 30 minutes . May repeat juice/soda, gel, dextrose o r glucagon once per episode. For persistent hypoglycemia, consider longer-acting treatment for the duration of the active insulin. 1 tube of Glutose-15 contain s 15 grams of glucose (net weight of tube = 37.5 grams.), Routin e heparin (porcine) (1,000 units/mL) injection (CANCELED ) 0945 (Given - Provider: Josesito Bradshaw RN)0958 (Given - Provider: Josesito Bradshaw RN) ONCE PRN, Starting on Sat12/11/21 at 094 5, Until Sat12/11/21 at 1043, Cath (Intra-Procedure), Routine heparin (porcine) (1,000 units/mL) injection (CANCELED) 1150 (Given - Provider: Will Macdonald RN)1331 (Given - Provider: Vidal Love, RAJ)1342 (Given - Provider: Vidal Love RN) ONCE PRN, Starting on Sat12/12/21 at 115 0, Until Sat12/12/21 at 1555, Cath (Intra-Procedure), Routine iohexoL (Omnipaque) (350 mg/mL) solution (CANCELED) 10 42 (Given - Provider: Nate Gonzales MD) ONCE PRN, Starting on Sat12/11/21 at 104 2, Until Sat12/11/21 at 1043, Cath (Intra-Procedure), Routine midazolam (pf) (Versed) (1 mg/mL) multi-dose injection (CANCELED) 0944 (Given - Provider: Josesito Bradshaw RN) ONCE PRN, Starting on Sat12/11/21 at 094 4, Until Sat12/11/21 at 1043, Cath (Intra-Procedure), Routine midazolam (pf) (Versed) (1 mg/mL) multi-dose injection (CANC ELED) 1141 (Given - Provider: Will Macdonald RN)1258 (Given - Provider: Vidal Love RN)1440 (Given - Provider: Will Macdonald RN)1507 (Given - Provider: Will Macdonald RN) ONCE PRN, Starting on Sat12/12/21 at 114 1, Until Sat12/12/21 at 1555, Cath (Intra-Procedure), Routine nitroGLYcerin (Nitrostat) disintegrating tablet 0.4 mg 1128 (MAR Hold - Provider: Admin Adt - Reason: Transfer to a Procedural area)1555 (MAR Unhold - Provider: Admin Adt) 0.4 mg, Sublingual, EVERY 5 MIN PRN, Sta rting on Sat12/11/21 at 1409, Until Sat12/13/21 at 1607, Chest pain, May repeat every 5 minutes for a total of three doses. Notify provider if chest pain not reli eved with nitroglycerin. Do not administ er nitroglycerin if the patient has received or taken phosphodiesterase (PDE-5) inhibitors such as sildenafil, tadalafil or vardenafil within the last 24 to 72 hours., Routine nitroGLYcerin 100 mcg/mL intracoronary dilution (CANCE LED) 0943 (Given - Provider: Nate Gonzales MD) ONCE PRN, Starting on Sat12/11/21 at 094 3, Until Sat12/11/21 at 1043, Cath (Intra-Procedure), Routine sodium chloride 0.9% infusion (CANCELED) 0959 (New Bag - Provider: Josesito Bradshaw, RAJ) CONTINUOUS PRN, Starting on Sat12/11/21 at 0959, Until Sat12/11/21 at 1043, Cath (Intra-Procedure) sodium chloride 0.9% infusion (COMPLETED) 1151 (New Bag - Provider: Will Macdonald RN) CONTINUOUS PRN, Starting on Sat12/12/21 at 1151, Until Discontinued, Cath (Intra-Procedure) verapamiL (Isoptin) (2.5 mg/mL) injection (CANCELED) 0 943 (Given - Provider: Nate Gonzales MD) ONCE PRN, Starting on Sat12/11/21 at 094 3, Until Sat12/11/21 at 1043, Administer over 2 Minutes, Cath (Intra-Procedure) Linked Groups Order Group 1: POCT Fingerstick Glucose (CANCELED) Routine, 4 TIMES DAILY BEFORE MEALS & AT BEDTIME, First occurrence on Sat12/11/21 at 1700, Until Specified
Consider choosing FOUR TIMES A DAY BEFORE MEALS AND AT BEDTIME as frequency fo r: Patients who have good hypoglycemia a wareness: -Patients who are eating meals during the day and sleeping at night -Patient who are otherwise stable And insulin lispro (HumaLOG;Admelog) (100 unit/mL) subcutaneous injection vial 1-4 UnitsJump to med 1-4 Units, Subcutaneous, 3 TIMES DAILY B EFORE MEALS, First dose on Sat12/11/21 at 1630, Until Discontinued
CORRECTION BOLUS [1-4 Units] Sensitive Sliding Scale (BG in mg/dL): Corre ction factor 40 (1 unit of insulin is ex pected to drop the glucose 40 mg/dL) BG 160 - 200 Give 1 unit BG 201 - 240 Give 2 units BG 241 - 280 Give 3 units &nb sp;BG greater than 280, give 4 units and recheck BG in 2 hours. - If recheck BG is LESS than 280, give no insulin and resume schedule - If recheck BG is GREATER than 280, give 4 units and repeat BG in 2 hours (no more than 3 times) & call for new insulin orders. DO NOT hold if NPO, unless specifically directed to do so by written order. Per Blood Glucose Monitoring Policy, re-check a BG of > 240 mg/dL in 2 hours.
Routine Group 2: nicotine (Nicoderm CQ) 21 mg/24 hr patch 21 mgJump to med 21 mg (1 patch), Transdermal, DAILY, Fir st dose on Sat12/11/21 at 1500, Until Discontinued
Apply new patch to nonhairy, clean, dry skin on the upper body or upper outer arm; each patch should be applied to a different site
Routine And nicotine (NICODERM CQ) 21 mg/24 hr patch Patch VerificationJump to med Transdermal, 2 TIMES DAILY, First dose o n Sat12/12/21 at 0215, Until Discontinued
Verify nicotine 21 mg/24 hr patch
And nicotine (NICODERM CQ) 21 mg/24 hr patch Patch RemovalJump to med Transdermal, DAILY, First dose on Sat at 0900, Until Discontinued
Remove nicotine 21 mg/24 hr patch
Group 3: glucose (Glutose) 40% oral geLJump to med 15-30 g of glucose, Buccal, EVERY 30 MIN PRN, Starting on Sat12/11/21 at 1409, Until Sat12/13/21 at 1607, Low blood sugar
For BG 50-70 mg/dL: &nbs p;Oral treatment preferred: If able to d rink, give 120 mL Juice or Regular (not diet) soda OR If NPO, give 15 gram glucose 40% oral gel massaged into buccal mucosa OR if unconscious or uncooperative, gi ve 25 gram (250 mL) Dextrose 10% IV over 15 minutes per protocol OR, if no IV access, 1 mg Glucagon IM. For BG less than 50 mg/dL: Oral treatment pre ferred: If able to drink, give 240 mL Ju ice or Regular (not diet) soda OR If NPO, give 30 gram glucose 40% oral gel massaged in buccal mucosa OR if unconscious or uncooperative, give 25 gram (250 mL) De xtrose 10% IV over 15 minutes per protoc ol OR, if no IV access, 1 mg Glucagon IM. Recheck BG in 30 minutes. May repeat juice/soda, gel, dextrose or glucagon once per episode.&nb sp; For persistent hypoglycemia, consider longer-acting treatment for the duration of the active insulin. 1 tube of Glutose-15 contains 15 grams of glucose (net weight of tube = 37.5 grams.)
Routine Or dextrose 10% infusionJump to med 250 mL, at 1,000 mL/hr, Intravenous, DANI RY 30 MIN PRN, Starting on Sat12/11/21 at 1409, Until Sat12/13/21 at 1607
For BG 50-70 mg/dL: Oral t reatment preferred: If able to drink, gi ve 120 mL Juice or Regular (not diet) soda OR If NPO, give 15 gram glucose 40% oral gel massaged into buccal mucosa OR if unconscious or uncooperative, give 25 gr am (250 mL) Dextrose 10% IV over 15 fabiana michael per protocol OR, if no IV access, 1 mg Glucagon IM. For BG less than 50 mg/dL: Oral treatment preferred: If able to drink, give 240 mL Juice or R egular (not diet) soda OR If NPO, give 30 gram glucose 40% oral gel massaged in buccal mucosa OR if unconscious or uncooperative, give 25 gram (250 mL) Dextrose 1 0% IV over 15 minutes per protocol OR, i f no IV access, 1 mg Glucagon IM. Recheck BG in 30 minutes. May repeat juice/soda, gel, dextrose or glucagon once per episode. & nbsp; For persistent hypoglycemia, con control analyst longer-acting treatment for the duration of the active insulin.
Or glucagon (Glucagen) (1 mg/mL) injection solution 1 mgJump to med 1 mg, Intramuscular, EVERY 30 MIN PRN, S tarting on Sat12/11/21 at 1409, Until Sat12/13/21 at 1607, Low blood sugar
For BG 50-70 mg/dL: Oral treatment preferred: If able to drink, g nahomy 120 mL Juice or Regular (not diet) soda OR If NPO, give 15 gram glucose 40% oral gel massaged into buccal mucosa OR if unconscious or uncooperative, give 25 g jagdish (250 mL) Dextrose 10% IV over 15 min utes per protocol OR, if no IV access, 1 mg Glucagon IM. For BG less than 50 mg/dL: Oral treatment preferred: If able to drink, give 240 mL Juice or Regular (not diet) soda OR If NPO, give 30 gram glucose 40% oral gel massaged in buccal mucosa OR if unconscious or uncooperative, give 25 gram (250 mL) Dextrose 10% IV over 15 minutes per protocol OR, if no IV access, 1 mg Glucagon IM. Recheck BG in 30 minutes. May repeat juice/soda, gel, dextrose or glucagon once per episode. &amp ;nbsp; For persistent hypoglycemia, co nsider longer-acting treatment for the duration of the active insulin.
Routine documented in this encounter Care Teams Java Developer Consultant Relationship Specialty Start Date End Date None PCP - General 11/24/21 None documented as of this encounter
--- OUTSIDE RECORDS SUMMARY | 2022-02-09 10:45 | XMS_ITS | Encounter Summary ---
:1950 Author Organization [facility] [place] [address] Care Team Providers Name Role Phone None Primary Care Provider Unavailable Encounter Details Date Type Department Care Team Description 12/11/2021 [facility] [place] [address] Social History Tobacco Use Types Packs/Day Years Used Date Current Every Day Smoker Cigarettes 1 Sex Assigned at Date Recorded Not on file documented as of this encounter Plan of Treatment Not on filedocumented as of this encounter Procedures Procedure Name Priority Date/Time Associated Diagnosis Comme nts ECG SCAN Routine 12/11/2021 Results for thi s procedure are in the resu lts section. documented in this encounter Results Scan Doc: ECG (12/11/2021) Narrative This result has an attachment that is no t available. Historical Provider MD LOPEZ MGR SCAN EXT ORDR/RSLT documented in this encounter Visit Diagnoses Not on filedocumented in this encounter Care Teams Personal Financial Planner Relationship Specialty Start Date End Date None PCP - General 11/24/21 None documented as of this encounter
--- OUTSIDE RECORDS SUMMARY | 2022-02-09 10:45 | XMS_ITS | Encounter Summary ---
:1950 [place] [address] Care Team Providers Name Role Phone None Primary Care Provider Unavailable Encounter Details Date Type Department Care Team Description 12/11/2021 Notes Only Cardiology at [facility] Dwayne Cardenas [facility] [place] [address] Social History Tobacco Use Types Packs/Day Years Used Date Current Every Day Smoker Cigarettes 1 Sex Assigned at Date Recorded Not on file documented as of this encounter Progress Notes Dwayne Cardenas - 12/11/2021 10:52 AM EDT Safe STEMI for Seniors A prospective, Multi-center, Unblinded, Randomized trial in Primary PCI Subjects 65 or Older to Assess Safety and Efficacy of Radial Access, [employer]onic Resolute Dimas Family of Stents, Terumo Hemostasis Device and Complete versus Infarct Related Vessel Revascularization Dinkey Engine Mechanic Larry Velarde M.D. I spoke with Roberto Arguetaankit as they were brought into the cardiac slab installer having been diagnosed with a STEMI and explained the purposes of the Safe STEMI trial. Roberto Christensen agreed to participate and signed the Informed Consent ([facility] 11/30/2021). Roberto Christensen was provided a copy of this. No study related activities were conducted prior to completion of the consent process. documented in this encounter Plan of Treatment Not on filedocumented as of this encounter Visit Diagnoses Not on filedocumented in this encounter Care Teams Electrical Engineering Manager Relationship Specialty Start Date End Date None PCP - General 11/24/21 None documented as of this encounter
--- OUTSIDE RECORDS SUMMARY | 2022-02-09 10:45 | XMS_ITS | Encounter Summary ---
:1950 Author Organization [facility] [place] [address] Care Team Providers Name Role Phone None Primary Care Provider Unavailable Encounter Details Date Type Department Care Team Description 12/11/2021 Telephone Cardiology Ari Pritchett MD [facility] [place] [address] CARDIOLOGY DEPT [phone] [place], [place] [address] (Wo rk) Social History Tobacco Use Types Packs/Day Years Used Date Current Every Day Smoker Cigarettes 1 Sex Assigned at Date Recorded Not on file documented as of this encounter Miscellaneous Notes Telephone Encounter - Ari Pritchett MD - 12/11/2021 6:01 AM EDT Telephone Triage Note Initial contact date: 12/11/2021 Initial contact time: 6:02 AM Received a telephone call from the transfer center regarding Roberto Christensen, a 71 y.o. year old malewith a past medical history significant for diabetes, active smoking, coronary artery disease, hypertension, hyperlipidemia. Per provider Macie Velazco at [facility], the patient presented with syncope following a meal at a restaurant. EMS performed neuro check which was negative. He has been chest pain negative throughout admission. Review of systems per team at outside hospital is significant for Vital signs: T afebrile, HR 61, 108/68, RR 16, saturation 95% on room air Per primary team physical examination is without signs of fluid overload including rales or lower extremity edema. Scanned EKG demonstrates sinus rhythm with trifascicular block, poor R wave progression. EKG series demonstrates onset of ST elevation in inferior leads with high lateral lead ST depression, starting at 8:15pm yesterday evening and evolution of likely inferior STEMI Chest x-ray significant for effusion, CT with dissection protocol is negative Labs: troponin 81, 65, 845 (ULN 76), WBC 17, Hb 12.7, Mg 0.9, UA negative, Discussed with primary team. He was started on heparin drip 1 hour ago (5am) though did not receive any aspirin or plavix. Recommended stat load of aspirin 325mg and plavix 600mg. Will call a pharmaceutical laboratory technician alert at this time as this likely represents missed STEMI and EKG changes are approximately 10 hours old at this time. Unclear if the syncope represents electrical instability yesterday evening, though team not reporting ongoing electrical instability. Planned for DHART air if flying. These recommendations are limited by inability to personally examine or speak with patient at the time of triage. Primary team at outside hospital is in full agreement with plan and is aware to call should troponin increase, patient clinically worsen, or with any other questions or concerns. documented in this encounter Plan of Treatment Not on filedocumented as of this encounter Visit Diagnoses Not on filedocumented in this encounter Care Teams Strip Deburrer Relationship Specialty Start Date End Date None PCP - General 11/24/21 None documented as of this encounter
--- OUTSIDE RECORDS SUMMARY | 2022-02-09 10:45 | XMS_ITS | Encounter Summary ---
:1950 Author Organization [facility] [place] [address] Care Team Providers Name Role Phone Shari Limon MD Primary Care Provider Reason for Referral Diagnostic Test (Routine) - Specialty Diagnoses / Procedures Referred By Contact Refer red To Contact Procedures Adrian Bailey Jr., MD [facility] Rad Nuclear Med NM myocardial perfusion - [address] [facility] stress & [place] [address] [place] [address] Fax: Referral ID Status Reason Start Date Expiration Visits Visits Date Requested Authorized [id number] Specialty 04/04/2015 10/01/2015 1 1 Service Requested Encounter Details Date Type Department Care Team Description 04/04/2015 Ext Hos or ASC [facility] Adrian Bailey ASCVD (arteriosclerotic [facility] MD Silviano cardiovascular disease) [address] [facility] [address] [place] [id number] [phone] Social History Tobacco Use Types Packs/Day Years Used Date Never Assessed Sex Assigned at Date Recorded Not on file documented as of this encounter Plan of Treatment Not on filedocumented as of this encounter Procedures Procedure Name Priority Date/Time Associated Comments Diagnosis ECG SCAN 04/08/2015 12:00 AM EST NM EXERCISE STRESS Routine 04/04/2015 Results f or this AND REST MYOCARDIAL procedur e are in PERFUSION the results section. documented in this encounter Results SCAN DOC: ECG (04/08/2015 12:00 AM EST) Narrative This result has an attachment that is no t available. Scanning Provider MEDIA MGR SCAN EXT ORDR/RSLT NM myocardial perfusion - stress & rest (04/04/2015) Anatomical Region Laterality Modality Other Narrative 04/04/2015 Lexiscan MIBI Stress Test- Final Report ?Roberto Christensen 1950 [facility], [address] [place] [address] Primary Physician: Abbey Lipscomb DO ?Indication: ASCVD, pre op, atypical chest pain ??Date: 04/04/2015 Summary: Max Exercise: ?Lexiscan protocol Max HR: ??110 ? Max BP: ??175/[address] change: ??none Symptoms: ??dyspnea Imaging: ??Bowel artifact over inferior wall, otherwise normal ??EF 59% Impression: no ischemia on medications, preserved EF Details: Medication: on amlodipine and atenolol Risk Factors: ??Known ASCVD Resting EKG: ??NSR 74, RBBB ?? Resting B P: 161/79 Arrhythmias: none Recovery: ??BP ?? -> ?? 163/68 ?HR ? ? -> 95 Arrhythmias: none Rest Images: 29.2 mC MIBI, Spect-bowel a rtifact over inferior wall, otherwise normal Stress Images: ??9.9 mC MIBI, Spect-same Electronically signed: Adrian Bailey Jr, MD [facility] ??Date: 04/04/20 15 Historical Provider MD VALENTIN NM ORDERABLES documented in this encounter Visit Diagnoses Diagnosis ASCVD (arteriosclerotic cardiovascular d isease) Unspecified cardiovascular disease documented in this encounter Care Teams Corn Cutter Operator Relationship Specialty Start Date End Date Shari Limon MD PCP - General 04/18/10 01/11/19 [facility] [address] [place] [address] documented as of this encounter
--- OUTSIDE RECORDS SUMMARY | 2022-02-09 10:45 | XMS_ITS | Encounter Summary ---
:1950 [place] [address] Care Team Providers Name Role Phone None Primary Care Provider Unavailable Reason for Referral Consultation (Routine) - Closed Specialty Diagnoses / Procedures Referred By Contact Refer red To Contact Diagnoses ST elevation myocardial infarction involving right coronary artery Rodney Sullivan MD Cardiac Rehab, [facility] Cardiology [address] [place] [address] [place] [address] [place] [address] Fax: Referral ID Status Reason Start Date Expiration Date Visits V isits Requested Authorized [id number] Closed Consult, 12/13/2021 06/11/2022 36 36 Test & Treat Non DH PCP Reason for Visit Auth/Cert Specialty Diagnoses / Procedures Referred By Contact Refer red To Contact Diagnoses STEMI involving right coronary artery STEMI Kamran Martinez MD [facility] Procedures CARDIAC CATHETERIZATION emerg [facility] [place] [address] Referral ID Status Reason Start Date Expiration Date Visits Requ ested Visits Authorized [id number] 1 1 Encounter Details Date Type Department Care Team Description 12/11/2021 - Hospital Cardiac Special Nate Gonzales MD [facility] [place] [address] ST elevation myocardial infarction invol ving right coronary artery; 12/13/2021 Encounter Care Unit Rodney Alfonso MD [facility] [place] [address] ASCVD (arteriosclerotic cardiovascular d isease) [facility] Kamran Martinez MD [facility] [place] [address] [place] [address] Social History Tobacco Use Types Packs/Day Years [...] Anastasia Foster Patient Age: 71 y.o. Language: Zimbabwean Race: White Ethnicity: Unknown or Unavailable Admit date: 12/11/2021 Discharge date and time: 12/13/2021 10:58 AM Attending Physician: Rodney Sullivan MD Discharge Physician: Rodney Sullivan MD Follow-up Recommendations for Providers: Anastasia Foster is a 71 y.o. male who was admitted for STEMI management. # Inferior STEMI / Multivessel ASCVD ?? [facility] 12/11/21 with culprit prox RCA lesion MASON, residual LAD disease with plans for staged PCI ?? [facility] 12/12/21 with atherectomy and stent insertion [...] Information: MD Niecy Pérez PA-C Cardiovascular Medicine [phone] Discharge Diagnoses (Hospital Problems) and Secondary Diagnoses [...] to display for this patient. Operations/Major Procedures: [facility] 12/11/21 Hemodynamics: Left Heart Pressures Resting: [...] priority for the procedure was Emergent. [facility] the procedure was STEMI-Immediate PCI [...] 20 atmospheres. A premounted 4.50 x18 mm [place] (MASON) was deployed with a maximum inflation [...] dose administered prior to arrival in the laborer/key man. Recommended anti-platelet/anti-thrombotic regimen: Continue aspirin 81 mg daily for indefinitely. Continue clopidogrel 75 mg daily for 12 months then stop. These recommendations are made at the time of the intervention. Patient and provider preferences or a changing clinical situation may require modification of this regimen. Consult [facility] Interventional Cardiology for questions. The 1 year [...] against any medical treatment. Consult http://tools.acc.org/DAPTriskapp/#!/content/calculator/ or [facility] Interventional Cardiology for questions Conclusions: * Three vessel coronary artery disease (LAD, LCX and RCA) * Elevated left ventricular end diastolic pressure * Successful stent insertion of the proximal RCA lesion * See Dual Antiplatelet (DAPT) Recommendations above * Enrolled in Safe STEMI, randomized to complete revascularization. [facility] 12/12/2021 Coronary Angiography: Dominance: Right Left [...] guide. A premounted 3.00 x 38 mm [place] (MASON) was deployed with a maximum inflation pressure of 15 atmospheres. Following stent deployment, the lesion was dilated using a 3.50mm [place] EUPHORA 20 MM balloon with a maximum inflation pressure of 24 atmospheres. Another stent insertion was accomplished through a 7 Fr. EBU 4.0 guide. A premounted 3.50 x 12 mm [place] (MASON) was deployed with a maximum inflation [...] atmospheres. A premounted 3.00 x 18 mm [place] (MASON) was deployed with a maximum inflation [...] atmospheres. A premounted 3.00 x 18 mm [place] (MASON) was deployed with a maximum inflation [...] on chronic DAPT on arrival to the laborer/key man. Recommended anti-platelet/anti-thrombotic regimen: Start aspirin 81 mg daily now and continue for indefinitely. Start clopidogrel 75 mg daily now and continue for 12 months then stop. These recommendations are made at the time of the intervention. Patient and provider preferences or a changing clinical situation may require modification of this regimen. Consult [facility] Interventional Cardiology for questions. The 1 year [...] against any medical treatment. Consult http://tools.acc.org/DAPTriskapp/#!/content/calculator/ or [facility] Interventional Cardiology for questions Conclusions: * Obstructive [...] PVD, and GERD, who is transferred to [facility] for missed STEMI and syncope. ?? He presented to [facility] following a syncopal event. Syncope occurred at [...] 76). ProBNP 791. WBC 16.5, Hb 12.7, Mpw035. Na 138, K 3.2, Cr 1.13, Mag 0.9, UA negative. COVID negative. Started on heparin drip and loaded with ASA 325mg and Plavix 600mg. Transferred emergently as laborer/key man alert for missed STEMI. ?? On arrival he was symptom free. LHC revealed obstructive disease of RCA and LAD with proximal RCA culprit lesion stented. He was seen in recovery unit without chest pain or complaints. He is agreeable for admission and planned staged PCI to left system. ?? Notes he previously followed with Dr. Schroeder in [place] in [phone] however has not followed for years. Has diagnosis of nonobstructive ASCVD. Per patient, underwent angiogram in 2008 that had a 60% lesion that was not intervened on. Hospital Course: # Inferior STEMI, s/p LHC 12/11/21 with MASON to prox RCA and staged PCI to LAD (prox and mid) and ostial D2 # Multivessel ASCVD Anastasia Foster is a 71 y.o. male with a history of ASCVD (coronary angiogram ~2008 with nonobstructive disease), HTN, HLD, T2DM, tobacco use disorder (current, 1 ppd), PVD, and GERD, who is [facility] for missed STEMI and syncope. Presented to [facility] following syncopal episode with upper back discomfort. Found to have positive troponin (peak 845). ProBNP ~800. EKG with inferior SHABNAM and lateral STD consistent with STEMI. Loaded with aspirin 325mg and clopidogrel 600mg and started on IV heparin gtt. CTA chest negative for PE or aortic aneurysm or dissection. Transferred emergently for cath alert. [facility] 12/11/21 revealed LAD and RCA disease with proximal RCA culprit lesion; MASON to proximal RCA. Plan for staged PCI to left system this admission. TTE showed preserved LVEF 57% without LV WMAs, RV with mildly reduced function and with mid to apical RV free wall hypokinesis. Returned to laborer/key man 12/12/21 for planned stage PCI with atherectomy [...] attack. A heart attack (myocardial infarction, or IL) occurs when one or more of the [...] for this you went back to the laborer/key man and received stents to the left anterior [...] away. Stay on the phone. The emergency lockstitch tunnel elastic operator will tell you what to do. [...] of 8AM-5PM please call the Cardiology Clinic [phone] to speak with a nurse. All other hours please call the Hospital Cyber Workforce Developer And Manager [phone] and ask to speak to the jack strip assembler on-call. Return to work: One week Driving: No driving for 48 hours after cath Follow up Appointments: Doctor Where Phone # Date Time PCP Dr. Emeka Cherry ID [phone] You will be contacted with your appointment date and time. Record Changer Assembler Dr. Elda Cherry Cardiology [phone] January 09, 2022 2:15 PM Home oxygen therapy: N/A Arrangements for VNA/home care: N/A General Instructions None Future Appointments and Orders Future Orders Complete By Expires Referral to Cardiac Rehab [[id number] Custom] As directed Process Instructions: If no progress note charted, please enter Clinical details in comments. Scheduling Instructions: Questions: My question or request is: STEMI. Cardiac rehab at [facility]. Discharge References/Attachments None Discussed with MD Niecy Pérez PA-C Pager #[phone] 12/13/2021 documented in this encounter Discharge Instructions Patient InstructionsMiNiecy holt PA - 12/13/2021 10:33 AM EDT You were hospitalized for treatment of your heart attack. A heart attack (myocardial infarction, or IL) occurs when one or more of the [...] for this you went back to the laborer/key man and received stents to the left anterior [...] away. Stay on the phone. The emergency lockstitch tunnel elastic operator will tell you what to do. [...] of 8AM-5PM please call the Cardiology Clinic [phone] to speak with a nurse. All other hours please call the Hospital Cyber Workforce Developer And Manager [phone] and ask to speak to the jack strip assembler on-call. Return to work: One week Driving: No driving for 48 hours after cath Follow up Appointments: Doctor Where Phone # Date Time PCP Dr. Emeka Cherry ID [phone] You will be contacted with your appointment date and time. Record Changer Assembler Dr. Elda Cherry Cardiology [phone] January 09, 2022 2:15 PM Home oxygen therapy: N/A Arrangements for VNA/home care: N/A AttachmentsThe following attachments cannot be sent through Care Everywhere.PCI (Percutaneous Coronary Intervention): Post-op (Zimbabwean)Smoking: Anti-Smoking Medication: Deciding About (Zimbabwean)documented in this encounter Medications at Time of [...] Progress Note Patient Name: Anastasia Foster Service: CHILLING HOOD OPERATOR / PA Responsible Attending: Rodney Sullivan MD [...] Affect: Mood normal. Lab Comments: Recent Labs 12/13/21 0426 12/12/21 0415 12/11/21 1446 WBC 11.0* 10.8* 11.2* HGB 11.6* 12.4* 12.1* HCT 34.8* 37.8* 36.0* PLATELET 180 212 223 No results for input(s): INR in the last 168 hours. Recent Labs 12/13/21 0426 12/12/21 0415 12/11/21 1446 NA 136 137 134* K 3.7 4.0 3.4* CL 100 99 96* CO2 26 27 28 BUN 11 13 13 CREATININE 0.79* 0.85 0.77* No results for input(s): AST, ALT, ALKPHOS, BILITOT, BILIDIR in the last 168 hours. Recent Labs 12/13/21 0426 12/12/21 0415 12/11/21 1446 CALCIUM 7.9* 8.3* 7.9* MAGNESIUM -- -- 0.86 Recent Labs 12/11/21 1446 TROPONINT 0.32* Pertinent Radiographic/Diagnostic Results: [facility] 12/12/21 Conclusions: * Obstructive disease of [...] There is no prior study for comparison. [facility] 12/11/21 Conclusions: * Three vessel coronary [...] ppd), PVD, and GERD, who istransferred to [facility] for missed STEMI and syncope. Presented to [facility] following syncopal episode with upper back discomfort. Found to have positive troponin (peak 845). ProBNP ~800. EKG with inferior SHABNAM and lateral STD consistent with STEMI. Loaded with ASA and Plavix and started on IV heparin gtt. CTA chest negative for PE or aortic aneurysm or dissection. Transferred emergently for cath alert. [facility] 12/11/21 revealed 3VD with proximal RCA [...] telemetry monitoring. Plan: # Inferior STEMI, s/p [facility] 12/11/21 with MASON to prox RCA [...] Discussed with MD Niecy Pérez PA-C Pager #[phone] 12/13/2021 Cardiology Attending Note I interviewed and examined the patient during comprehensive bedside rounds. I concur with the summary of interval events, active hospital-focused problem list and plan of care as described in the note below. I personally reviewed the medications, laboratory results, treatment decisions and updated thepatient. Rodney Sullivan MD, FACP, FACC Section of Cardiovascular Medicine [facility] Certified Alcohol And Drug Counselorsupervisor feed mill [employer] [facility] This patient meets or has met medical criteria to require an inpatient level of care, i.e. a minimumof two midnights in the hospital with multiple complex problems. Rodney Sullivan MD - 12/12/2021 8:00 AM EDT Inpatient Cardiology Progress Note Patient Name: Anastasia Foster Service: CHILLING HOOD OPERATOR / PA Responsible Attending: Rodney Sullivan MD [...] There is no prior study for comparison. [facility] 12/11/21 Conclusions: * Three vessel coronary [...] ppd), PVD, and GERD, who istransferred to [facility] for missed STEMI and syncope. Presented to [facility] following syncopal episode with upper back discomfort. Found to have positive troponin (peak 845). ProBNP ~800. EKG with inferior SHABNAM and lateral STD consistent with STEMI. Loaded with ASA and Plavix and started on IV heparin gtt. CTA chest negative for PE or aortic aneurysm or dissection. Transferred emergently for cath alert. [facility] 12/11/21 revealed 3VD with proximal RCA culprit lesion; MASON to proximal RCA. Plan for staged PCI to left system this admission. TTE showed preserved LVEF 57% without rWMAs, RV with mildly reduced function and with hypokinetic mid to apical RV free wall. Initiate and optimize GDMT for ASCVD. Plan for staged PCI to LAD today, 7/19. Unclear etiology of syncope, however most likely vasovagal given inferior STEMI versus arrhythmia. Ongoing telemetry monitoring. Plan: # Inferior STEMI, s/p [facility] 12/11/21 with MASON to prox RCA [...] q6h (home 50mg) with holding parameters S/p [facility] 12/11/21 with MASON to prox RCA, [...] Discussed with MD Niecy Pérez PA-C Pager #[phone] 12/12/2021 Cardiology Attending Note I interviewed and [...] MD, FACP, FACC Section of Cardiovascular Medicine [facility] Certified Alcohol And Drug Counselorsupervisor feed mill [employer] [facility] This patient meets or has met medical [...] ppd), PVD, and GERD, who is transferred[facility] for missed STEMI and syncope. He presented to [facility] following a syncopal event. Syncope occurred at [...] 325mg and Plavix 600mg. Transferred emergently as laborer/key man alert for missed STEMI. On arrival he was symptom free. [facility] revealed obstructive disease of RCA and LAD with proximal RCA culprit lesion stented. He was seen in recovery unit without chest pain or complaints. He is agreeable for admission and planned staged PCI to left system. Notes he previously followed with Dr. Schroeder in [place] in [phone] however has not followed for years. Has [...] Psychiatric: Mood and Affect: Mood normal. Diagnostics: [facility] 12/11/21 Report pending, PCI to proximal RCA [...] ppd), PVD, and GERD, who istransferred to [facility] for missed STEMI and syncope. Presented to [facility] following syncopal episode with upper back discomfort. Found to have positive troponin (peak 845). ProBNP ~800. EKG with inferior SHABNAM and lateral STD consistent with STEMI. Loaded with ASA and Plavix and started on IV heparin gtt. CTA chest negative for PE or aortic aneurysm or dissection. Transferred emergently for cath alert. [facility] 12/11/21 revealed LAD and RCA disease with proximal RCA culprit lesion; MASON to proximal RCA. Plan for sta ged PCI to left system this admission. Unclear etiology of syncope, ? vasovagal given inferior STEMIversus arrhythmia. Ongoing telemetry monitoring. Obtain TTE. Initiate and optimize GDMT for ASCVD. Plan: # Missed STEMI, s/p [facility] 12/11/21 with MASON to prox RCA [...] q6h (home 50mg) with holding parameters S/p [facility] 12/11/21 with MASON to prox RCA, [...] subq Discussed with Rodney Mariee PA-C Pager #[phone] 12/11/2021 Cardiology Attending Note I interviewed and [...] radial access site - continue DAPT, BB, ANOOP-I, and statin - anticipate staged PCI to LAD this admission - awaiting TTE results # Diabetes mellitus # Tobacco use # Hypertension # Hyperlipidemia Rodney Sullivan MD, FACP, FACC Section of Cardiovascular Medicine [facility] Certified Alcohol And Drug Counselorsupervisor feed mill [employer] [facility] This patient meets or has met medical [...] in an outpatient cardiac rehabilitation program at [facility] was discussed. Patient agrees to a referral [...] ppd), PVD, and GERD,??who is transferred to [facility] for missed STEMI and syncope.??Presented to [facility] following syncopal episode with upper back discomfort. [...] of Discharge: 12/17/2021 Trace Gibson RN Case Support Services Specialist of Care Management Pager: [phone] Initial Assessments - Teagan Neil RN - 12/11/2021 6:28 PM EDTSummary: CM Initial Assessment Office of Care Management Initial Assessment Teagan Niel RN reviewed record and discussed patient with [...] PVD, and GERD, who is transferred to [facility] for missed STEMI and syncope. Presented to [facility] following syncopal episode with upper back discomfort. [...] , would be surrogate decision maker per [place] surrogate decision making law. (Only good for 90 days) Any patient receiving care in [place] must abide by [place] law. The hierarchy for surrogate decision making [...] (i) The agent with financial power of criminal attorney or a conservator appointed in accordance [...] Current DME: none Home Address confirmed as: [address] [place] [id number] Social & Family Supports: All names listed below confirmed with patient as current and correct Extended Emergency Contact Information Primary Emergency Contact: Jackelyn Foster [facility] Relation: Spouse Current Care Provided by: [...] the [facility].) Preferred Pharmacy: No Pharmacies Listed [place] Status: Patient is a : Yes Are you enrolled in the VA for your healthcare?: Yes ([place], 100% Service connected disability.) Are you here under your VA benefit?: Yes Primary Care Provider: Dr. Addy Hendrickson at the [facility]. Patient/Caregiver Goals of Treatment: Pt anticipates on [...] of care planning. Teagan Neil RN, BSN inspector health care facilities Office of Care Management Pager: [phone] Plan of Care - Niecy Mariee PA [...] cath without complications. Niecy Mariee PA-C Pager #[phone] 12/11/2021 documented in this encounter Plan of [...] Signature POC Glucose 103 65 - 199 [facility] Comment: Supplemental ranges: <140 mg/dL before meals <180 mg/dL all other times of the day Specimen Anatomical Collection Method Collection Time Receive d Time (Source) Location / / Volume Laterality Blood 12/13/2021 11:47 12/13/2021 AM EDT 11:47 AM EDT Rodney Sullivan MD POINT OF CARE TEST ORDERABLE S Performing Organization Address City/State/ZIP Code Phon e Number [address] POCT Glucose (12/13/2021 7:16 AM EDT) athologist Signature POC Glucose 106 65 - 199 [facility]/dL [facility] Comment: Supplemental ranges: <140 mg/dL before meals <180 mg/dL all other times of the day Specimen Anatomical Collection Method Collection Time Receive d Time (Source) Location / / Volume Laterality Blood 12/13/2021 7:16 AM 7:16 EDT AM EDT Rodney Sullivan MD POINT OF CARE TEST ORDERABLE S Performing Organization Address City/State/[place] [address] (ABNORMAL) Differential, Automated (12/13/2021 4:26 AM EDT) [facility] gist Method Time Signature Neutrophils % 73.2 % [facility] Neutr Abs (ANC) 8.04 (H) 1.70 - [facility] 6.10 [facility] x10(3)/[facility] LABORATORY Lymphocytes % 17.3 % [facility] Lymphocytes Abs 1.9 0.9 - 3.2 [facility] x10(3)/[facility] LABORATORY Monocytes % 7.3 % [facility] Monocyte Abs 0.8 0.3 - 0.9 [facility] x10(3)/[facility] LABORATORY Eosinophils % 1.3 % [facility] Eosinophils Abs 0.1 0.0 - 0.4 [facility] x10(3)/[facility] LABORATORY Basophils % 0.5 % [facility] Basophils Abs 0.0 0.0 - 0.1 [facility] x10(3)/[facility] LABORATORY Immature Gran % 0.40 % [facility] [...] Lindsay Gran Abs 0.04 0.00 - 0.04 x10(3)/[facility] LABORATORY Specimen Anatomical Collection Method Collection Time Receive d Time (Source) Location / / Volume Laterality Blood 12/13/2021 4:26 AM 2 4:42 EDT AM EDT Resulting Agency Comment Spec In Lab Niecy [facility] HEMATOLOGY ORDERABLES Performing Organization Address City/State/ZIP Code [place] [address] (ABNORMAL) Hemogram (12/13/2021 4:26 AM EDT) Analysis Performed At Patho logist Time Signature WBC 11.0 (H) 4.0 - 9.5 [facility] x10(3)/[facility] LABORATORY RBC 4.01 (L) 4.58 - [facility] 5.54 [facility] x10(6)/[facility] LABORATORY Hemoglobin 11.6 (L) 13.7 - [facility] 16.5 g/dL [facility] Hematocrit 34.8 (L) 40.5 - [facility] 48.5 % [facility] MCV 86.8 82.9 - [facility] [place] 93.1 [facility] LABORATORY MCH 28.9 27.5 - [facility] [place] 32.1 pg [facility] MCHC 33.3 32.0 - [facility] [place] 35.7 g/dL [facility] Platelets 180 145 - 357 [facility] [place] x10(3)/[facility] LABORATORY RDWSD 49.8 (H) 36.0 - [facility] [place] 45.0 [facility] LABORATORY RDWCV 15.8 (H) 11.4 - [facility] [place] 13.8 % [facility] MPV 10.9 7.6 - 12.9 [facility] LABORATORY nRBC % Auto 0.0 % [facility] nRBC Abs Auto 0.000 0.000 - [facility] [place] 0.000 [facility] x10(3)/[facility] LABORATORY Specimen Anatomical Collection Method Collection Time Receive d Time (Source) Location / / Volume Laterality Blood 12/13/2021 4:26 AM 4:42 EDT AM EDT Resulting Agency Comment Spec In Lab Niecy [facility] HEMATOLOGY ORDERABLES Performing Organization Address City/State/[place] [address] (ABNORMAL) BMP w/fasting Glucose (12/13/2021 4:26 AM EDT) athologist Signature Glucose 85 65 - 99 [facility] Fasting mg/dL [facility] Comment: ?Fasting* Glucose Interpretive C [...] of Diabetes Mellitus, Position Statement from the [place] [employer]. ??Diabete s Care, Volume 33, Supplement 1, May 2009 BUN 11 10 - 20 mg/dL [facility] Creatinine 0.79 (L) 0.80 - 1.50 mg/dL [facility] Sodium 136 135 - [...] Anion Gap 10 5 - 15 mmol/L [facility] Calcium 7.9 (L) 8.5 - 10.5 [...] Organization Address City/State/[place] [address] EKG 12 Lead (12/12/2021 11:24 PM EDT) Component Value Ref Range Test Analysis Performed Pathologis t Method Time At Signature Ventricular rate 71 BPM MUSE SYSTEM Atrial Rate 71 BPM MUSE SYSTEM P-R Interval 272 ms MUSE SYSTEM QRS Duration 108 ms MUSE SYSTEM Q-T Interval 430 ms MUSE SYSTEM QTC Calculated 467 ms MUSE SYSTEM (Bezet) Calculated P [place] -17 degrees MUSE SYSTEM Calculated R [place] -78 degrees MUSE SYSTEM Calculated T [place] -66 degrees MUSE SYSTEM INTERPRETATION Sinus rhythm [...] erpretation Confirmed by fellow MD Jennie, Jasmyn ([id number]) on 12/13/2021 12: 04:22 PM Confirmed by MD Kiran, Liborio ([id number]) on 12/13/2021 1:19:52 PM Specimen Anatomical Collection Method Collection Time Receive d Time (Source) Location / / Volume Laterality 12/12/2021 11:24 12/13/2021 1:19 PM EDT PM EDT Rodney Sullivan MD ECG ORDERABLES Performing Organization Address City/State/ZIP Code Phon e Number MUSE SYSTEM POCT Glucose (12/12/2021 9:13 PM EDT) P athologist Signature POC Glucose 105 65 - 199 [facility] mg/dL [facility] Comment: Supplemental ranges: <140 mg/dL before meals <180 mg/dL all other times of the day Specimen Anatomical Collection Method Collection Time Receive d Time (Source) Location / / Volume Laterality Blood 12/12/2021 9:13 PM 9:13 EDT PM EDT Rodney Sullivan MD POINT OF CARE TEST ORDERABLE S Performing Organization Address City/State/ZIP Code Phon e Number [place] [phone] [facility] [address] POCT Glucose (12/12/2021 4:11 PM EDT) athologist Signature POC Glucose 106 65 - 199 [facility] [place] mg/dL [facility] Comment: Supplemental ranges: <140 mg/dL before meals <180 mg/dL all other times of the day Specimen Anatomical Collection Method Collection Time Receive d Time (Source) Location / / Volume Laterality Blood 12/12/2021 4:11 PM 2 4:11 EDT PM EDT Rodney Sullivan MD POINT OF CARE TEST ORDERABLE S Performing Organization Address City/State/ZIP Code Phon e Number [address] EKG 12 Lead (12/12/2021 3:40 PM EDT) Component Value Ref Range Test Analysis Performed Pathologis t Method Time At Signature Ventricular rate 63 BPM MUSE SYSTEM Atrial Rate 63 BPM MUSE SYSTEM P-R Interval 264 ms MUSE SYSTEM QRS Duration 110 ms MUSE SYSTEM Q-T Interval 464 ms MUSE SYSTEM QTC Calculated 474 ms MUSE SYSTEM (Bezet) Calculated P [place] -28 degrees MUSE SYSTEM Calculated R [place] -77 degrees MUSE SYSTEM Calculated T [place] -60 degrees MUSE SYSTEM INTERPRETATION Sinus rhythm [...] Laterality Volume Narrative 12/12/2021 5:19 PM EDT ?[facility] ? Cardiac Cathete rization/Intervention Report ? Patient Name: Anastasia Foster. ? Procedure Date: 12/12/2021 ? A #: [id number] ? Primary Physician: Nate Gonzales ? Case #: [id number] ? File Name: [id number] ? Catheterization Order Number: [id number] ? [facility] ? Final Report [place], [place] ? Patient Name: ? Anastasia J. Ino e ?ID#: ?[id number] ? : ?1950 ? Procedure Date: ? December 12, 2021 ?Case #: ? [id number] ? Room: ? 2 ? Case Physician: ? Nate madison, M.D. ? Start: ?11:48 ?Fellow: ? Larry Schneider , D.O. ?Admission: ??12/11/2021 ? Referring Physician: ??Macie Sang, HUSBANDRY PERSON ? Procedures: ?* Coronary Angiography ?* Coronary [...] patient was ?designated as ASA Class III. [facility] clinical frailty scale is 3: ?Managing Well. ? Diagnostic Tests: ?Electrocardiography: ? EKG was assessed by ECG. EKG was Abnormal. EKG showed other ? abnormality. ?Medications Prior to Procedure: ? Angiotensin Converting E nzyme Inhibitor, Aspirin, Beta Casie, ? Non-Statin and Statin. ? Indications for Diagnostic Cath: ?The priority of the diagnostic procedure was Urgent. The indication for ?the laborer/key man visit is ACS less than or equal [...] ??A kana ounted 3.00 x 38 mm Dimas [place]li[place] (MASON) was ? deployed with a maximum inflation pressure of 15 atmospheres. ? Following stent deployment, the lesion was dilated using a ? 3.50mm NC EUPHO RA 20 MM balloon with a maximum inflation ? pressure of 24 atmospheres. ? Another stent i nsertion was accomplished through a 7 Fr. EBU ? 4.0 guide. ??A premounted 3.50 x 12 mm Dimas [place] (MASON) was ? deployed with a maximum [...] A premounted 3.00 x 18 mm Dimas [place]li[place] (MASON) ? was deployed wi th a [...] A premounted 3.00 x 18 mm Dimas [place] (MASON) ? was deployed wi th a [...] on chronic DAPT on arrival to the laborer/key man. ?Recommended anti-platelet/anti- thrombotic regimen: ?Start aspirin 81 mg daily now a nd continue for indefinitely. ?Start clopidogrel 75 mg daily n ow and continue for 12 months then stop. ?These recommendations are made at the time of the intervention. Patient ?and provider preferences or a c hanging clinical situation may require ?modification of this regimen. C onsult [facility] Interventional Cardiology for ?questions. ?The 1 year [...] any medical treatment. Consult ?http://tools.acc.org/DAPTriskap p/#!/content/calculator/ or [facility] ?Interventional Cardiology for q uestions ? Conclusions: [...] n presenting for complete ?revascularization following [place] with plan to intervene on the severely [...] ORDERABLES POCT Glucose (12/12/2021 10:57 AM EDT) P athologist Signature POC Glucose 125 65 - 199 [facility] Comment: Supplemental ranges: <140 mg/dL before meals <180 mg/dL all other times of the day Specimen Anatomical Collection Method Collection Time Receive d Time (Source) Location / / Volume Laterality Blood 12/12/2021 10:57 12/12/2021 AM EDT 10:57 AM EDT Rodney Sullivan MD POINT OF CARE TEST ORDERABLE S Performing Organization Address City/State/ZIP Code [place] [address] POCT Glucose (12/12/2021 7:03 AM EDT) P athologist Signature POC Glucose 100 65 - 199 [facility] Comment: Supplemental ranges: <140 mg/dL before meals <180 mg/dL all other times of the day Specimen Anatomical Collection Method Collection Time Receive d Time (Source) Location / / Volume Laterality Blood 12/12/2021 7:03 AM 2 7:03 EDT AM EDT Rodney Sullivan MD POINT OF CARE TEST ORDERABLE S Performing Organization Address City/State/ZIP Code [place] [address] (ABNORMAL) Differential, Automated (12/12/2021 4:15 AM EDT) [facility] Method Time Signature Neutrophils % 71.1 % [facility] Neutr Abs (ANC) 7.65 (H) 1.70 - [facility] 6.10 [facility] x10(3)/[facility] LABORATORY Lymphocytes % 18.8 % [facility] Lymphocytes Abs 2.0 0.9 - 3.2 [facility] x10(3)/[facility] LABORATORY Monocytes % 7.6 % [facility] Monocyte Abs 0.8 0.3 - 0.9 [facility] x10(3)/[facility] LABORATORY Eosinophils % 1.3 % [facility] Eosinophils Abs 0.1 0.0 - 0.4 [facility] x10(3)/[facility] LABORATORY Basophils % 0.7 % [facility] Basophils Abs 0.1 0.0 - 0.1 [facility] x10(3)/[facility] LABORATORY Immature Gran % 0.50 % [facility] Comment: Immature granulocytes(IG's)percentage an d absolute count will include metamyelocytes, myelocytes, and promyelo cytes. Blood smears from CBCs yielding IG's will be scanned manually for concor dance. If this scan disagrees with the automated IG or if promyelocytes are not ed, a manual differential will be performed. Lindsay Gran Abs 0.05 (H) 0.00 - 0.04 x10(3)/[facility] LABORATORY Specimen Anatomical Collection Method Collection Time Receive d Time (Source) Location / / Volume Laterality Blood 12/12/2021 4:15 AM 2 4:26 EDT AM EDT Resulting Agency Comment Spec In Lab Niecy Colón Kodi [facility] H[facility]ATOLOG[facility] ORDERABLES Performing Organization Address City/State/ZIP Code Phon e Number [place], [place] [id number] [place] [address] (ABNORMAL) Hemogram (12/12/2021 4:15 AM EDT) Analysis Performed At Patho logist Time Signature WBC 10.8 (H) 4.0 - 9.5 [facility] x[facility](3[facility] LABORATORY RBC 4.35 (L) 4.58 - [facility] [place] 5.54 [facility] x10(6)/[facility] LABORATORY Hemoglobin 12.4 (L) 13.7 - [facility] [place] 16.5 g/dL [facility] Hematocrit 37.8 (L) 40.5 - [facility] 48.5 % [facility] MCV 86.9 82.9 - [facility] 93.1 [facility] LABORATORY MCH 28.5 27.5 - [facility] [place] 32.1 pg [facility] MCHC 32.8 32.0 - [facility] [place] 35.7 g/dL [facility] Platelets 212 145 - 357 [facility] x[facility](3[facility] LABORATORY RDWSD 49.8 (H) 36.0 - [facility] 45.0 [facility] LABORATORY RDWCV 15.8 (H) 11.4 - [facility] 13.8 % [facility] MPV 10.2 7.6 - 12.9 [facility] LABORATORY nRBC % Auto 0.0 % [facility] nRBC Abs Auto 0.000 0.000 - [facility] [place] 0.000 [facility] x10(3)/[facility] LABORATORY Specimen Anatomical Collection Method Collection Time Receive d Time (Source) Location / / Volume Laterality Blood 12/12/2021 4:15 AM 2 4:26 EDT AM EDT Resulting Agency Comment Spec In Lab Niecy Colón Kodi [facility] HEMATOLOGY ORDERABLES Performing Organization Address City/State/[place] [address] (ABNORMAL) BMP w/fasting Glucose (12/12/2021 4:15 AM EDT) athologist Signature Glucose 88 65 - 99 [facility] Fasting mg/dL [facility] Comment: ?Fasting* Glucose Interpretive C [...] of Diabetes Mellitus, Position Statement from the [place] [employer]. ??Diabete s Care, Volume 33, Supplement 1, May 2009 BUN 13 10 - 20 mg/dL [facility] Creatinine 0.85 0.80 - 1.50 mg/dL [facility] Sodium 137 135 - 145 mmol/L [...] estions. Chloride 99 98 - 107 mmol/L [facility] CO2 27 22 - 31 mmol/L [facility] Anion Gap 11 5 - 15 mmol/L [facility] Calcium 8.3 (L) 8.5 - 10.5 mg/dL [facility] Estimated GFR 92 >=60 mL/min/1.73 m?? [facility] [...] Organization Address City/State/ZIP Code Phon e Number [place] [phone]OS[address] LAB[address]ORY Drive Lipid Panel (Reflex Direct LDL) (12/12/2021 4:15 AM EDT) athologist Signature Chol, Total 130 mg/dL [facility] Comment: Lower Risk: <200 mg/dL Average Risk: 200-239 mg/dL Higher Risk: >me=361 mg/dL Triglycerides 116 mg/dL [facility] Comment: Average Risk/Lower Risk: <150 mg/dL Borderline High Risk: 150-199 mg/dL High Risk: 200-499 mg/dL Very High Risk: >ht=457 mg/dL HDL 42 mg/dL [facility] Comment: Males: ?? Higher Risk: <40 mg/dL Females: ?? Higher Risk: <50 mg/dL LDL Cholesterol 65 mg/dL [facility] Comment: Lowest Risk: <100 mg/dL Lower Risk: 100-129 mg/dL Borderline High Risk: 130-159 mg/dL High Risk: 160-189 mg/dL Very High Risk: >ma=049 mg/dL Chol/HDL Ratio 3.1 ratio [facility] Lipid Interpretation See Note [facility] Comment: Lipid management should be guided by a p atient? s ASCVD risk, goals and preferences. ACC/AHA Guidelines recommend high intens ity statin if clinical ASCVD or LDL greater than or equal to 190 mg/dL. http://ParselyurRatePoint.com/RKD-FNU-Tfpupdwxo Adults aged 40-75 with LDL 70-189 mg/dL should have their 10 year ASCVD risk estimated with the ACC/AHA ASCVD risk es timator http://tools.acc.org/WEOXH-Ktro-Hvzlzemj r/ Statin should be discussed if risk [...] Organization Address City/State/[place] [address] POCT Glucose (12/11/2021 5:08 PM EDT) P athologist Signature POC Glucose 171 65 - 199 [facility] mg/dL [facility] Comment: Supplemental ranges: <140 mg/dL before meals <180 mg/dL all other times of the day Specimen Anatomical Collection Method Collection Time Receive d Time (Source) Location / / Volume Laterality Blood 12/11/2021 5:08 PM 2 5:08 EDT PM EDT Rodney Sullivan MD POINT OF CARE TEST ORDERABLE S Performing Organization Address City/[facility]/[place] [address] ECHOCARDIOGRAM COMPLETE W CONTRAST (12/11/2021 4:51 PM EDT) Anatomical Region Laterality Modality Cardiac Other Specimen (Source) Anatomical Collection Method Collection Time Re ceived Time Location / / Volume Laterality 12/11/2021 3:43 PM EDT Narrative 12/11/2021 5:17 PM EDT ? Echocardiogram Report Name: ANASTASIA FOSTER ? Study Date: 12/11/2021 03:43 PMBP: 126/70 mmHg ? Patient Location: CSCU^C441^A : 1950 ? Height: 68 in ? Account: [id number] Age: 71 yrs ? Weight: 198 lb Gender: Male ?BSA: 2.0 m2 Ordering Physician: RODNEY SULLIVAN Referring Physician: RODNEY SULLIVAN Performed By: Lacy Shepard RDCS Reason For Study: STEMI Interpreting Fellow: Primo Diaz. Exam Location: [facility]. Interpretation Summary 1. The left ventricle is [...] no prior study for compariso n. Procedure Complete-[id number]. Image enhancement Optiso n was used for [...] 2021 03:43 PMBP: 126/70 mmHg [facility] 1950 Height: 68 in Account: [id number] Age: 71 yrs Weight: 198 lb Gender: Male BSA: 2.0 m2 Ordering Physician: RODNEY SULLIVAN Referring Physician: RODNEY SULLIVAN Performed By: Lacy Shepard RDCS Reason For Study: STEMI Interpreting Fellow: Primo Diaz. Exam Location: [facility]. Interpretation Summary 1. The left ventricle is [...] no prior study for compariso n. Procedure Complete-[id number]. Image enhancement Optiso n was used for [...] (ABNORMAL) Differential, Automated (12/11/2021 2:46 PM EDT) [facility] Method Time Signature Neutrophils % 69.8 % [facility] Neutr Abs (ANC) 7.84 (H) 1.70 - [facility] 6.10 [facility] x10(3)/[facility] LABORATORY Lymphocytes % 22.2 % [facility] Lymphocytes Abs 2.5 0.9 - 3.2 [facility] x10(3)/[facility] LABORATORY Monocytes % 6.2 % [facility] Monocyte Abs 0.7 0.3 - 0.9 [facility] x10(3)/[facility] LABORATORY Eosinophils % 0.7 % [facility] Eosinophils Abs 0.1 0.0 - 0.4 [facility] x10(3)/[facility] LABORATORY Basophils % 0.7 % [facility] Basophils Abs 0.1 0.0 - 0.1 [facility] x10(3)/[facility] LABORATORY Immature Gran % 0.40 % [facility] [...] Lindsay Gran Abs 0.04 0.00 - 0.04 x10(3)/[facility] LABORATORY Specimen Anatomical Collection Method Collection Time Receive d Time (Source) Location / / Volume Laterality Blood 12/11/2021 2:46 PM 2 2:58 EDT PM EDT Resulting Agency Comment Spec In Lab Niecy [facility] HEMATOLOGY ORDERABLES Performing Organization Address City/State/ZIP Code [place] [address] (ABNORMAL) Hemogram (12/11/2021 2:46 PM EDT) Analysis Performed At Patho logist Time Signature WBC 11.2 (H) 4.0 - 9.5 [facility] x10(3)/[facility] LABORATORY RBC 4.24 (L) 4.58 - [facility] 5.54 [facility] x10(6)/[facility] LABORATORY Hemoglobin 12.1 (L) 13.7 - [facility] 16.[facility] g/dL [facility] Hematocrit 36.0 (L) 40.5 - [facility] 48.5 % [facility] MCV 84.9 82.9 - [facility] [place] 93.1 [facility] LABORATORY MCH 28.5 27.5 - [facility] HERNANDEZCK 32.1 pg [facility] MCHC 33.6 32.0 - [facility] [place] 35.7 g/dL [facility] Platelets 223 145 - 357 [facility] x10(3)/[facility] LABORATORY RDWSD 48.9 (H) 36.0 - [facility] [place] 45.0 [facility] LABORATORY RDWCV 15.9 (H) 11.4 - [facility] [place] 13.8 % [facility] MPV 10.3 7.6 - 12.9 [facility] [place] [facility] LABORATORY nRBC % Auto 0.0 % [facility] nRBC Abs Auto 0.000 0.000 - [facility] [place] 0.000 [facility] x10(3)/[facility] LABORATORY Specimen Anatomical Collection Method Collection Time Receive d Time (Source) Location / / Volume Laterality Blood 12/11/2021 2:46 PM 2 2:58 EDT PM EDT Resulting Agency Comment Spec In Lab Niecy [facility] HEMATOLOGY ORDERABLES Performing Organization Address City/State/[place] [address] Magnesium (12/11/2021 2:46 PM EDT) P athologist Signature Magnesium 0.86 0.69 - 1.07 [facility] mmol/L [facility] Specimen Anatomical Collection Method Collection Time Receive d Time (Source) Location / / Volume Laterality Blood 12/11/2021 2:46 PM 2 2:58 EDT PM EDT Resulting Agency Comment Spec In Lab Rodney Sullivan MD CHEMISTRY ORDERABLES Performing Organization Address City/State/[place] [address] (ABNORMAL) pro-Brain Natriuretic Peptide (12/11/2021 2:46 PM EDT) P athologist Signature ProBNP 1,648 (H) <=124 [facility] [place] pg/mL [facility] Specimen Anatomical Collection Method Collection Time Receive d Time (Source) Location / / Volume Laterality Blood 12/11/2021 2:46 PM 2 2:58 EDT PM EDT Resulting Agency Comment Spec In Lab Rodney Sullivan MD CHEMISTRY ORDERABLES Performing Organization Address City/State/ZIP Code [place] [address] (ABNORMAL) BMP w/fasting Glucose (12/11/2021 2:46 PM EDT) athologist Signature Glucose 107 (H) 65 - 99 [facility] Fasting mg/dL [facility] Comment: ?Fasting* Glucose Interpretive C [...] of Diabetes Mellitus, Position Statement from the [place] [employer]. ??Diabete s Care, Volume 33, Supplement 1, May 2009 BUN 13 10 - 20 mg/dL [facility] Creatinine 0.77 (L) 0.80 - 1.50 mg/dL [facility] Sodium 134 (L) 135 - 145 [...] Chloride 96 (L) 98 - 107 mmol/L [facility] CO2 28 22 - 31 mmol/L [facility] Anion Gap 10 5 - 15 mmol/L [facility] Calcium 7.9 (L) 8.5 - 10.5 mg/dL [facility] Estimated GFR 95 >=60 mL/min/1.73 m?? [facility] [...] Organization Address City/State/ZIP Code Phon e Number [place] [phone]OS[address] LAB[address]ORY Drive (ABNORMAL) Troponin (12/11/2021 2:46 PM EDT) P athologist Signature Troponin-T 0.32 (H) 0.00 - [facility] 0.00 ng/mL [facility] Comment: The 99th percentile for Troponin T is le ss than 0.01 ng/mL, any detectable cTnT concentration using this assay should be considered elevated. According to the third universal definit ion of myocardial infarction the following criteria with a clinical prese ntation consistent with acute myocardial ischemia meets the diagnosis for a myocardial infarction ([place]). Detection of a rise and/or fall of [...] additional sample may be indicated. Reference: Third Franklin Definition of Myocardial Infarction. Journal of the [place] [employer] 2012;60:1581-98 Specimen Anatomical Collection Method Collection Time Receive d Time (Source) Location / / Volume Laterality Blood 12/11/2021 2:46 PM 2 2:58 EDT PM EDT Resulting Agency Comment Spec In Lab Rodney Sullivan MD CHEMISTRY ORDERABLES Performing Organization Address City/State/ZIP [place] [address] (ABNORMAL) Hemoglobin A1c (12/11/2021 2:46 PM EDT) Analysis Performed At Patho logist Time Signature Hemoglobin A1C 5.9 (H) 4.3 - 5.6 [facility] Comment: Reference Range: 4.3 - [...] Mellitus, Diabetes Care 2013; 36: Suppl. 1, S67-77 Est Avg Gluc See note mg/dL [facility] LABORATORY Comment: Estimated Average Glucose not appropriat [...] with hemoglobinopathies. Additional resources are available on [facility] ADA website. Mook PERDOMO, Kana J, Shankar R, et al. ??Tr anslating the A1C assay into estimated average glucose values. ??Diabetes Care 2008:31(8):9453-9853. Specimen Anatomical Collection Method Collection Time Receive d Time (Source) Location / / Volume Laterality Blood 12/11/2021 2:46 PM 2 2:58 EDT PM EDT Resulting Agency Comment Spec In Lab Rodney Sullivan MD CHEMISTRY ORDERABLES Performing Organization Address City/State/ZIP Code Phon e Number [address] TSH Loving (12/11/2021 2:46 PM EDT) P athologist Signature TSH 0.67 0.27 - 4.20 [facility] [place] mcIU/mL [facility] Comment: Reference Interval (mcIU/mL): Females: ??First Trimester: 0.23-3.88 ??Second Trimester: 0.22-3.90 ??Third Trimester: 0.44-4.66 Specimen Anatomical Collection Method Collection Time Receive d Time (Source) Location / / Volume Laterality Blood 12/11/2021 2:46 PM 2 2:58 EDT PM EDT Resulting Agency Comment Spec In Lab Rodney Sullivan MD CHEMISTRY ORDERABLES Performing Organization Address City/State/ZIP Code Phon e Number [address] POCT Glucose (12/11/2021 2:21 PM EDT) P athologist Signature POC Glucose 107 65 - 199 [facility] [place] mg/dL [facility] Comment: Supplemental ranges: <140 mg/dL before meals <180 mg/dL all other times of the day Specimen Anatomical Collection Method Collection Time Receive d Time (Source) Location / / Volume Laterality Blood 12/11/2021 2:21 PM 2:21 EDT PM EDT Rodney Sullivan MD POINT OF CARE TEST ORDERABLE S Performing Organization Address City/State/[place] [address] EKG 12 Lead (12/11/2021 10:46 AM EDT) Component Value Ref Range Test Analysis Performed Pathologis t Method Time At Signature Ventricular rate 66 BPM MUSE SYSTEM Atrial Rate 66 BPM MUSE SYSTEM P-R Interval 254 ms MUSE SYSTEM QRS Duration 110 ms MUSE SYSTEM Q-T Interval 456 ms MUSE SYSTEM QTC Calculated 478 ms MUSE SYSTEM (Bezet) Calculated P [place] 89 degrees MUSE SYSTEM Calculated R [place] -71 degrees MUSE SYSTEM Calculated T [place] 19 degrees MUSE SYSTEM INTERPRETATION Sinus rhythm with 1st degree A-V block MUSE SYSTEM Pulmonary disease pattern Right bundle branch block Left anterior fascicular block Bifascicular block Abnormal ECG No previous ECGs available I personally reviewed the tracing and edited the fellows int erpretation Confirmed by fellow MD Abner, Tai ([id number]) on 022 2:31:21 PM Confirmed by MD Brayan, Nate ([id number]) on 12/11/2021 3:11:49 PM Specimen Anatomical Collection [...] Laterality Volume Narrative 12/11/2021 12:44 PM EDT ?[facility] ? Cardiac Cathete rization/Intervention Report ? Patient Name: Anastasia Foster. ? Procedure Date: 12/11/2021 ? A #: [id number] ? Primary Physician: Nate Gonzales S ? Case #: [id number] ? File Name: [id number] ? Catheterization Order Number: [id number] ? [facility] ? Final Report [place], [place] ? Patient Name: ? Anastasia J. Ino e ?ID#: ?[id number] ? : ?1950 ? Procedure Date: ? December 11, 2021 ?Case #: ? [id number] ? Room: ? 6 ? Case Physician: ? Nate madison, MBinD. ? Start: ?09:42 ?Fellow: ? Juan Jose [...] procedure was Emergent. The indication for ?the laborer/key man visit is ACS less than or equal [...] ? A premounted 4. 50 x18 mm [place] (MASON) was deployed with ? a maximum [...] dose administered prior to arrival in the laborer/key man. ?Recommended anti-platelet/anti- thrombotic regimen: ?Continue aspirin 81 mg daily fo r indefinitely. ?Continue clopidogrel 75 mg martínez y for 12 months then stop. ?These recommendations are made at the time of the intervention. Patient ?and provider preferences or a c hanging clinical situation may require ?modification of this regimen. [facility] ?[facility]. ?The 1 [...] any medical treatment. Consult ?http://tools.acc.org/DAPTriskap p/#!/content/calculator/ or [facility] ?Interventional Cardiology for q uestions ? Conclusions: [...] with medical therapy. ?The attending physician was presen t for [...] Ammended: 01/03/2022 ??17:16 ? Procedure Note Nate Gonzales, - 01/03/2022Format ting of this note might be different from the original. [facility] Cardiac Catheterization/Intervention Re port Patient Name: Anastasia Foster Procedure Date: 12/11/2021 A #: [id number] Primary Physician: Nate Gonzales Case #: File Name: [id number] Catheterization Order Number: [id number] [facility] Manufacturing Maintenance Manager [facility] Final Report [place], [place] Patient Name: Anastasia Foster ID#: [id number] : 1950 Procedure Date: December 11, 2021 Case #: Room: 6 Case Physician: Nate Gonzales M.D. S tart: 09:42 Fellow: Maryam Sow Jr. ission: 12/11/2021 Discharge: 12/13/2021 Procedures: * Coronary Angiography * Left Heart Catheterization * Coronary Ultrasound * Coronary Stent Insertion Pre Case Status: These procedures were performed on an e mergent basis. History Anastasia Foster is a 71 year old man. H e has hypertension. The patient's smoking status is [...] was designated as ASA Class IV. The [facility] cl inical frailty scale is 3: Managing Well. [...] e was Emergent. The indication for the laborer/key man visit is ACS less than or equal [...] 300cc of Iso-Julio were opened, 105cc of Iso-Julio were admi nistered and 195cc of Iso-Julio [...] priority for the procedure was Emergent. The [facility] indication for the procedure was S LAMAR-Immediate [...] 20 atmospheres. A premounted 4.50 x18 mm [place] (MASON) was deployed with a maximum inflation [...] administered prior t o arrival in the laborer/key man. Recommended anti-platelet/anti-thrombot ic regimen: Continue aspirin 81 mg daily for indefi nitely. Continue clopidogrel 75 mg daily for 12 months then stop. These recommendations are made at the t jhonny of the intervention. Patient and provider preferences or a changing clinical situation may require modification of this regimen. Consult [facility] Interventional Cardiology for questions. The 1 year [...] any medical treatment. Consult http://tools.acc.org/DAPTriskapp/#!/con tent/calculator/ or [facility] Interventional Cardiology for questions Conclusions: * Three [...] ORDERABLES POCT Glucose (12/11/2021 10:19 AM EDT) P athologist Signature POC Glucose 111 65 - 199 [facility] mg/dL [facility] Comment: Supplemental ranges: <140 mg/dL before meals <180 mg/dL all other times of the day Specimen Anatomical Collection Method Collection Time Receive d Time (Source) Location / / Volume Laterality Blood 12/11/2021 10:19 12/11/2021 AM EDT 10:19 AM EDT Nate Gonzales MD POINT OF CARE TEST ORDERABLE S Performing Organization Address City/State/ZIP [place] [address] documented in this encounter Visit Diagnoses Diagnosis ST elevation myocardial infarction invol ving right coronary artery Acute myocardial infarction of inferopos terior wall, initial episode of care ASCVD (arteriosclerotic cardiovascular d isease) Unspecified cardiovascular disease STEMI involving right coronary artery Hypertension, essential, benign Essential hypertension, benign Other hyperlipidemia 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 , Routine clopidogreL (Plavix) tablet 75 mg [...] for the duration of the active insulin. glucagon (Glucagen) (1 mg/mL) injection solution 1 [...] tube = 37.5 grams.), Routine heparin (porcine) (5,000 units/1 mL) Given 12/13/2021 [...] Given 12/12/2021 11:42 PM EDT 12.5 mg nicotine (Nicoderm CQ) Patch Applied 12/13/2021 [...] Given 12/12/2021 9:54 AM EDT 40 mg potassium chloride ER (K-Dur/Klor-Con) tablet Given 5:04 PM EDT 40 mEq 40 mEq 40 mEq, Oral, ONCE, 1 dose, On Sat12/11/21 at 1715, Routine potassium chloride ER (K-Dur/Klor-Con) tablet Given 6:20 AM EDT 40 mEq 40 mEq 40 mEq, Oral, ONCE, 1 dose, On Sat12/13/21 at 0700, 20 mEq tablet may be dissolved in water for administration, Routine pregabalin (Lyrica) capsule 75 mg Given 12/13/2021 [...] Unit) sodium chloride 0.9% infusion New Bag 12/11/2021 11:15 AM EDT 125 mL/hr 125 mL/hr 125 mL/hr, Intravenous, CONTINUOUS, Starting on Sat12/11/21 at 1115, Until Sat12/11/21 at 1414, Recovery (Recovery-Hospital Unit) sodium chloride 0.9% infusion New Bag 12/12/2021 3:36 PM EDT 250 mL/hr 250 mL/hr 250 mL/hr, Intravenous, CONTINUOUS, Starting on Sat12/12/21 at 1600, Until Sat12/12/21 at 1959 documented in this encounter Active and Recently Administered Medications Times are shown in EDT. Scheduled Medication Order 12/11/2021 12/12/2021 12/13/2021 aspirin EC tablet 81 mg 0954 (Given - Pr ovider: Marlee Pennington RN)1128 (JUL Hold - Provider: Admin Adt - Reason: Transfer to a Procedural area)1555 (JUL Unhold - Provider: Admin Adt) 0814 (Given - Provider: Marlee Pennington RN) 81 mg, Oral, DAILY, First dose on Sat at 0900, Until Discontinued, Routine atorvastatin (Lipitor) tablet 80 mg 1705 (Given - Prov ider: Rita Plata RN) 1128 (JUL Hold - Provider: Admin Adt [...] a Procedural area)1400 (Not Given - Provider: Malree Pennington RN - Reason: See comment)1555 (JUL Unhold - Provider: Admin Adt) 0519 (Given - Provider: Ethel Leal, RAJ)1400 (Due - Provider: Admin Adt) 5,000 Units, Subcutaneous, EVERY 8 HOURS SCHEDULED, First dose on Sat12/11/21 at 1500, Until Discontinued, Routine 2108 (Not Given - Pr ovider: Ethel Leal RN - Reason: Contraindicated - Comment: TR band within 4 hours) insulin lispro (HumaLOG;Admelog) (100 un it/mL) subcutaneous injection vial 0-8 Units 1755 (Given - Provider: Rita Plata RN) 0800 (No t Given - Provider: Marlee Pennington RN - Reason: NPO)1128 (JUL Hold - Provider: Admin Adt - [...] BG less than 70 mg/dL., Routine 1555 (JUL Unhold - Provider: Admin Adt)1741 (Given - Provider: Marlee Pennington RN) insulin lispro (HumaLOG;Admelog) (100 un it/mL) subcutaneous injection vial 1-4 Units(Linked Group 1) 1754 (Given - Provider: Rita Plata RN) 0730 (No t Given - Provider: Marlee Pennington RN - Reason: Order parameters not met)1128 (JUL Hold - Provider: Admin Adt - [...] RN - Reason: Order parameters not met)1555 (JUL Unhold - Provider: Admin Adt)1630 (Not Given [...] 5 mg 0813 (Given - Provider: Marlee Pennington RN) 5 mg, Oral, DAILY, First dose on 11/25 at 0900, Until Discontinued, Routine magnesium oxide (Mag-Ox) tablet 400 mg 0 900 (Given - Provider: Marlee Pennington RN)1128 (JUL Hold - Provider: Admin Adt - Reason: Transfer to a Procedural area)1555 (JUL Unhold - Provider: Admin Adt) 0900 (Given - Provider: Marlee Pennington RN) 400 mg, Oral, DAILY, First dose on Sat at 0900, Until Discontinued, Routine metoprolol tartrate (Lopressor) tablet 12.5 mg 1706 (G iven - Provider: Rita Plata RN)2335 (Given - Provider: Ifeoma Caballero, RAJ) 0550 (Given - Provider: Ifeoma Caballero RN)1103 (Given - Provider: Marlee Pennington RN)1128 (JUL Hold - Provider: Admin Adt - Reason: Transfer to a Procedural area)1555 (JUL Unhold - Provider: Admin Adt) 0519 (Given - Provider: Ethel silverman RN)1207 (Given - Provider: Marlee Pennington RN) 12.5 mg, Oral, EVERY 6 HOURS SCHEDULED, First dose on Sat12/11/21 at 1800, Until Discontinued, Hold for SBP <90 or HR <55, Routine 1704 (Given - Provider: Marlee Pennington RN)2342 (Given - Provider: Ethel Leal, RAJ) nicotine [...] Comment: first dose)1128 (JUL Hold - Provider: Corina Adt - Reason: Transfer to a Procedural [...] and location) verified - Provider: Marlee Pennington RN)1128 (JUL Hold - Provider: Admin Adt - Reason: Transfer to a Procedural area) 0900 (Patch (dose and location) verified - Provider: Marlee Pennington RN) Transdermal, 2 TIMES DAILY, First dose o n Sat12/12/21 at 0215, Until Discontinued, Verify nicotine 21 mg/24 hr patch 1555 ( JUL Unhold - Provider: Admin Adt)2100 (Patch (dose and location) verified - Provider: Ethel Leal, RAJ) pantoprazole EC (Protonix) tablet 40 mg 0954 (Given - Provider: Marlee Pennington RN)1128 (MAR Hold - Provider: Admin Adt - Reason: Transfer to a Procedural area)1555 (MAR Unhold - Provider: Admin Adt) 0813 (Given - Provider: Marlee Pennington RN) 40 mg, Oral, DAILY, First dose on Sat at 0900, Until Discontinued, DO NOT CRUSH OR OPEN, Routine potassium chloride ER (K-Dur/Klor-Con) tablet 40 mEq ( COMPLETED) 1704 (Given - Provider: Rita Plata RN) 40 mEq, Oral, ONCE, 1 dose, On Sat12/11/21 at 1715, Routine potassium chloride ER (K-Dur/Klor-Con) tablet 40 mEq (COMPLETED) 0620 (Given - Provider: Ethel Leal, RAJ) 40 mEq, Oral, ONCE, 1 dose, On Sat at 0700, 20 mEq tablet may be dissolved in water for administration, Routine pregabalin (Lyrica) capsule 75 mg 2114 (Given - Provider: Bridger Caballero RN) 0954 (Given - Provider: Marlee Pennington RN)1128 (MAR Hold - Provider: Admin Adt - Reason: Transfer to a Procedural area)1555 (MAR Unhold - Provider: Admin Adt)2109 (Given - Provider: Ethel Leal, RN) 0813 (Given - Provider: Marlee Pennington RN) 75 mg, Oral, 2 TIMES DAILY, First dose o n Sat12/11/21 at 2100, Until Discontinued, Routine Continuous Medication Order 12/11/2021 12/12/2021 12/13/2021 sodium chloride 0.45% infusion 1545 (Not Given - Provider: Josesito Bradshaw, RAJ - Reason: Contraindicated) 1 mL/hr, Intravenous, CONTINUOUS, [...] 12/12/2021 12/13/2021 acetaminophen (Tylenol) tablet 650 mg 11 28 (JUL Hold - Provider: Admin Adt - Reason: Transfer to a Procedural area)1555 ([facility] Unhold - Provider: Admin Adt) 650 mg, Oral, EVERY 4 HOURS PRN, Startin g on Sat12/11/21 at 1409, Until Sat12/13/21 at 1607, Pain, Headaches, Maximum dose of acetaminophen is 4000 mg from all sources in 24 hours. When ordered for pain , acetaminophen should be given even whe n other ordered pain medications are indicated. , Routine atropine (0.1 mg/mL) injection 1 mg 1128 (JUL Hold - Provider: Admin Adt - Reason: Transfer to a Procedural area)1555 ([facility] Unhold - Provider: Admin Adt) 1 mg, Intravenous, EVERY 5 MIN PRN, 2 do ses, Starting on Sat12/11/21 at 1048, Until Sat12/13/21 at 1607, Other, vasovagal episode, Call interventional MD. , Routine dextrose 10% infusion(Linked Group 3) 11 28 (JUL Hold - Provider: Admin Adt - Reason: Transfer to a Procedural area)1555 (JUL Unhold - Provider: Admin Adt) 250 mL, [...] mg/mL) injection solution 1 mg(Linked Group 3) 112 (JUL Hold - Provider: Admin Adt - Reason: Transfer to a Procedural area)155 (JUL Unhold - Provider: Admin Adt) 1 [...] - Reason: Transfer to a Procedural area)155 (JUL Unhold - Provider: Admin Adt) 15-30 [...] Vidal Love, RAJ)1342 (Given - Provider: Vidal Love, RAJ) ONCE PRN, Starting on Sat12/12/21 at 115 [...] (CANC ELED) 1141 (Given - Provider: Will Macdonald, RN)1258 (Given - Provider: Vidal Love, RAJ)1440 (Given - Provider: Will Macdonald, RN)1507 (Given - Provider: Will Macdonald, RN) ONCE PRN, Starting on Sat12/12/21 at 114 1, Until Sat12/12/21 at 1555, Cath (Intra-Procedure), Routine nitroGLYcerin (Nitrostat) disintegrating tablet 0.4 mg 1128 (JUL Hold - Provider: Admin Adt - Reason: Transfer to a Procedural area)1555 (JUL Unhold - Provider: Admin Adt) 0.4 mg, [...] episode. & nbsp; For persistent hypoglycemia, con client service executive longer-acting treatment for the duration of the [...]
Routine documented in this encounter Care Teams Fire Alarm Technician Relationship Specialty Start Date End Date None PCP - General 11/24/21 None documented as of this encounter
--- OUTSIDE RECORDS SUMMARY | 2022-02-09 10:45 | XMS_ITS | Encounter Summary ---
:1950 [place] [address] Care Team Providers Name Role Phone None Primary Care Provider Unavailable Reason for Visit Auth/Cert Specialty Diagnoses / Procedures Referred By Contact Refer red To Contact Diagnoses STEMI involving right coronary artery STEMI Kamran Martinez MD [facility] Procedures CARDIAC CATHETERIZATION emerg [facility] [place] [address] Referral ID Status Reason Start Date Expiration Date Visits Requ ested Visits Authorized [id number] 1 1 Encounter Details Date Type Department Care Team Description 12/11/2021 Hospital [facility] [place] [address] Social History Tobacco Use Types Packs/Day Years Used Date Current Every Day Smoker Cigarettes 1 Sex Assigned at Date Recorded Not on file documented as of this encounter Medications at Time of Discharge Medication Sig Dispensed Refills Start Date End Date metFORMIN (Glucophage) Take 1 tablet by 60 tablet 12 022 1,000 mg Tablet mouth 2 times daily (with meals). atorvastatin (Lipitor) 80 Take 1 tablet by 30 tablet 3 11/25 mg Tablet mouth daily. nicotine (Nicoderm CQ) 21 Change 1 patch on 28 patch 0 mg/24 hr Patch 24 hr the skin daily. nitroGLYcerin (Nitrostat) Place 1 tablet under 25 tablet 12/13/2021 0.4 mg Tablet, Sublingual the tongue every 5 minutes as needed for Chest pain. clopidogreL (Plavix) 75 Take 1 tablet by 15 tablet 0 2021 mg Tablet mouth daily. aspirin EC 81 mg Tablet, Take 81 mg by mouth 0 Delayed Release (E.C.) daily. albuteroL 90 Inhale 2 puffs into 0 mcg/actuation HFA Aerosol the lungs every 4 Inhaler hours as needed for Wheezing. Use with spacer alogliptin (Nesina) 6.25 Take 6.25 mg by 0 mg Tablet mouth daily. magnesium oxide (Mag-Ox) Take 400 mg by mouth 0 400 mg (241.3 mg daily. magnesium) Tablet metOLazone (Zaroxolyn) Take 2.5 mg by mouth 0 2.5 mg Tablet daily. metoprolol succinate XL Take 50 mg by mouth 0 (Toprol-XL) 50 mg Tablet daily. Sustained Release 24 hr multivitamin Capsule Take 1 capsule by 0 mouth daily. pantoprazole EC Take 40 mg by mouth 0 (Protonix) 40 mg Tablet, daily. Delayed Release (E.C.) potassium chloride ER Take 10 mEq by mouth 0 (K-Dur/Klor-Con) 10 mEq daily. Tablet Sustained Release sildenafiL (VIAGRA) 100 Take 100 mg by mouth 0 mg Tablet as needed for Erectile Dysfunction. pregabalin (Lyrica) 75 mg Take 75 mg by mouth 0 Capsule 2 times daily. lisinopril 0 05/02/2009 (PRINIVIL;ZESTRIL) 5 mg tablet clopidogreL (Plavix) 75 Take 1 tablet by 90 tablet 3 202112/13/2021 mg Tablet mouth daily. atorvastatin (Lipitor) 10 Take 10 mg by mouth 0 12/13/2021 mg Tablet daily. metFORMIN (Glucophage) Take by mouth 2 0 05/02/20 09 12/13/2021 1,000 mg Tablet times daily (with meals). documented as of this encounter Plan of Treatment Not on filedocumented as of this encounter Procedures Procedure Name Priority Date/Time Associated Comments Diagnosis ECHOCARDIOGRAM COMPLETE Routine 12/11/2021 4:[address] elevatio n Results for this W CONTRAST EDT myocardial procedure are i n infarction the results involving right section. coronary artery documented in this encounter Visit Diagnoses Not on filedocumented in this encounter Administered Medications Inactive Administered Medications - up to 3 most recent administrations Medication Order MAR Action Action Date Dose Rate Site perflutren protein-A microsphers Given 12/11/2021 4:20 PM EDT 3 mLs (Optison) (0.22 mg/mL) injection 0.5 mL 0.5 mL, Intravenous, ONCE PRN, 1 dose, Starting on Sat12/11/21 at 1651, Until Sat12/11/21 at 1620, for enhancement of sub-optimal echo images, Echo Lab (Intra-Procedure), Routine documented in this encounter Care Teams Field Attendant Relationship Specialty Start Date End Date None PCP - General 11/24/21 None documented as of this encounter
--- OUTSIDE RECORDS SUMMARY | 2022-02-09 10:45 | XMS_ITS | Encounter Summary ---
:1950 [place] [address] Care Team Providers Name Role Phone None Primary Care Provider Unavailable Reason for Visit Auth/Cert Specialty Diagnoses / Procedures Referred By Contact Refer red To Contact Diagnoses STEMI involving right coronary artery STEMI Kamran Martinez MD [facility] Procedures CARDIAC CATHETERIZATION emerg i [facility] [place] [address] Referral ID Status Reason Start Date Expiration Date Visits Requ ested Visits Authorized [id number] 1 1 Encounter Details Date Type Department Care Team Description 12/11/2021 Surgery Manager Technical Sales Nate Ortiz , CARDIAC CATHETERIZATION [facility] [place] [address] CARDIOLOGY [phone] [place], [place] [address] (Wo rk) Social History Tobacco Use Types Packs/Day Years Used Date Current Every Day Smoker Cigarettes 1 Alcohol Use Standard Drinks/Week Comments Not Asked 0 (1 standard drink = 0.6 oz pure alcoho l) Sex Assigned at Date Recorded Not on file documented as of this encounter Last Filed Vital Signs Vital Sign Reading Time Taken Comments Blood Pressure 122/68 12/11/2021 10:13 AM EDT Pulse 66 12/11/2021 10:13 AM EDT Temperature - - Respiratory Rate 16 12/11/2021 10:13 AM EDT Oxygen Saturation 96% 12/11/2021 10:13 AM EDT Inhaled Oxygen Concentration - - Weight 90.3 kg (199 lb 1.2 oz) 12/11/2021 9:00 AM EDT Height 173 cm (5' 8.11) 12/11/2021 9:00 AM EDT Body Mass Index 29.47 12/11/2021 9:00 AM EDT documented in this encounter Discharge Summaries Rodney Sullivan MD - 12/13/2021 10:58 AM EDT Discharge Summary Patient Name: Anastasia Foster Patient Age: 71 y.o. Language: Argentine Race: White Ethnicity: Unknown or Unavailable Admit date: 12/11/2021 Discharge date and time: 12/13/2021 10:58 AM Attending Physician: Rodney Sullivan MD Discharge Physician: Rodney Sullivan MD Follow-up Recommendations for Providers: Anastasia Foster is a 71 y.o. male who was admitted for STEMI management. # Inferior STEMI / Multivessel ASCVD ?? LHC 12/11/21 with culprit prox RCA lesion MASON, [...] Information: MD Niecy Pérez PA-C Cardiovascular Medicine [phone] Discharge Diagnoses (Hospital Problems) and Secondary Diagnoses [...] to display for this patient. Operations/Major Procedures: [facility] 12/11/21 Hemodynamics: Left Heart Pressures Resting: [...] priority for the procedure was Emergent. The [facility] indication for the procedure was STEMI-Immediate PCI [...] atmospheres. A premounted 4.50 x18 mm Dimas Gallion (MASON) was deployed with a maximum inflation [...] dose administered prior to arrival in the pathology laboratory aides teacher. Recommended anti-platelet/anti-thrombotic regimen: Continue aspirin 81 mg daily for indefinitely. Continue clopidogrel 75 mg daily for 12 months then stop. These recommendations are made at the time of the intervention. Patient and provider preferences or a changing clinical situation may require modification of this regimen. Consult [facility] for questions. The 1 year [...] against any medical treatment. Consult http://tools.acc.org/DAPTriskapp/#!/content/calculator/ or [facility] for questions Conclusions: * Three vessel coronary artery disease (LAD, LCX and RCA) * Elevated left ventricular end diastolic pressure * Successful stent insertion of the proximal RCA lesion * See Dual Antiplatelet (DAPT) Recommendations above * Enrolled in Safe STEMI, randomized to complete revascularization. [facility] 12/12/2021 Coronary Angiography: Dominance: Right Left [...] guide. A premounted 3.00 x 38 mm [place] Gallion (MASON) was deployed with a maximum inflation pressure of 15 atmospheres. Following stent deployment, the lesion was dilated using a 3.50mm NC EUPHORA 20 MM balloon with a maximum inflation pressure of 24 atmospheres. Another stent insertion was accomplished through a 7 Fr. EBU 4.0 guide. A premounted 3.50 x 12 mm Dimas Gallion (MASON) was deployed with a maximum inflation [...] atmospheres. A premounted 3.00 x 18 mm Diams Gallion (MASON) was deployed with a maximum inflation [...] A premounted 3.00 x 18 mm Dimas Gallion (MASON) was deployed with a maximum inflation [...] on chronic DAPT on arrival to the pathology laboratory aides teacher. Recommended anti-platelet/anti-thrombotic regimen: Start aspirin 81 mg daily now and continue for indefinitely. Start clopidogrel 75 mg daily now and continue for 12 months then stop. These recommendations are made at the time of the intervention. Patient and provider preferences or a changing clinical situation may require modification of this regimen. Consult [facility] for questions. The 1 year [...] against any medical treatment. Consult http://tools.acc.org/DAPTriskapp/#!/content/calculator/ or [facility] for questions Conclusions: * Obstructive [...] disease. History of Presentation: Per H&P 12/11/21 Anatsasia Foster is a 71 y.o. male with a history of ASCVD (coronary angiogram ~2008 with nonobstructive disease), HTN, HLD, T2DM, tobacco use disorder (current, 1 ppd), PVD, and GERD, who is transferred to [facility] for missed STEMI and syncope. ?? He presented to [facility] following a syncopal event. Syncope occurred [...] 76). ProBNP 791. WBC 16.5, Hb 12.7, Jfd133. Na 138, K 3.2, Cr 1.13, Mag 0.9, UA negative. COVID negative. Started on heparin drip and loaded with ASA 325mg and Plavix 600mg. Transferred emergently as pathology laboratory aides teacher alert for missed STEMI. ?? On arrival he was symptom free. [facility] revealed obstructive disease of RCA and LAD with proximal RCA culprit lesion stented. He was seen in recovery unit without chest pain or complaints. He is agreeable for admission and planned staged PCI to left system. ?? Notes he previously followed with Dr. Schroeder in [place] in [phone] however has not followed for years. Has diagnosis of nonobstructive ASCVD. Per patient, underwent angiogram in 2008 that had a 60% lesion that was not intervened on. Hospital Course: # Inferior STEMI, s/p [facility] 12/11/21 with MASON to prox RCA and staged PCI to LAD (prox and mid) and ostial D2 # Multivessel ASCVD Anastasia Foster is a 71 y.o. male with a history of ASCVD (coronary angiogram ~2008 with nonobstructive disease), HTN, HLD, T2DM, tobacco use disorder (current, 1 ppd), PVD, and GERD, who is [facility] and syncope. Presented to [facility] following syncopal episode with upper back discomfort. Found to have positive troponin (peak 845). ProBNP ~800. EKG with inferior SHABNAM and lateral STD consistent with STEMI. Loaded with aspirin 325mg and clopidogrel 600mg and started on IV heparin gtt. CTA chest negative for PE or aortic aneurysm or dissection. Transferred emergently for cath alert. [facility] 12/11/21 revealed LAD and RCA disease with proximal RCA culprit lesion; MASON to proximal RCA. Plan for staged PCI to left system this admission. TTE showed preserved LVEF 57% without LV WMAs, RV with mildly reduced function and with mid to apical RV free wall hypokinesis. Returned to pathology laboratory aides teacher 12/12/21 for planned stage PCI with atherectomy [...] attack. A heart attack (myocardial infarction, or CO) occurs when one or more of the [...] for this you went back to the pathology laboratory aides teacher and received stents to the left anterior [...] away. Stay on the phone. The emergency cathead operator will tell you what to do. [...] of 8AM-5PM please call the Cardiology Clinic [phone] to speak with a nurse. All other hours please call the Hospital [facility] [phone] and ask to speak to the supervisor underwriting clerks on-call. Return to work: One week Driving: No driving for 48 hours after cath Follow up Appointments: Doctor Where Phone # Date Time PCP Dr. Emeka Cherry [place] [phone] You will be contacted with your appointment date and time. Metal Template Maker Dr. [facility] Card[facility] [phone] January 09, 2022 2:15 PM Home oxygen therapy: N/A Arrangements for VNA/home care: N/A General Instructions None Future Appointments and Orders Future Orders Complete By Expires Referral to Cardiac Rehab [DSD838 Custom] As directed Process Instructions: If no progress note charted, please enter Clinical details in comments. Scheduling Instructions: Questions: My question or request is: STEMI. Cardiac rehab at [facility]. Discharge References/Attachments None Discussed with MD Niecy Pérez PA-C Pager #[phone] 12/13/2021 documented in this encounter Discharge Instructions Patient InstructionsNiecy Mariee PA - 12/13/2021 10:33 AM EDT You were hospitalized for treatment of your heart attack. A heart attack (myocardial infarction, or CO) occurs when one or more of the [...] for this you went back to the pathology laboratory aides teacher and received stents to the left anterior [...] away. Stay on the phone. The emergency cathead operator will tell you what to do. [...] of 8AM-5PM please call the Cardiology Clinic [phone] to speak with a nurse. All other hours please call the Hospital [facility] [phone] and ask to speak to the supervisor underwriting clerks on-call. Return to work: One week Driving: No driving for 48 hours after cath Follow up Appointments: Doctor Where Phone # Date Time PCP Dr. Emeka Cherry [place] [phone] You will be contacted with your appointment date and time. Metal Template Maker Dr. [facility] Card[facility] [phone] January 09, 2022 2:15 PM Home oxygen therapy: N/A Arrangements for VNA/home care: N/A AttachmentsThe following attachments cannot be sent through Care Everywhere.PCI (Percutaneous Coronary Intervention): Post-op (Argentine)Smoking: Anti-Smoking Medication: Deciding About (Argentine)documented in this encounter Medications at Time of [...] Progress Note Patient Name: Anastasia Foster Service: SURVEY ANALYST / PA Responsible Attending: Rodney Sullivan [...] Mood normal. Lab Comments: Recent Labs 12/13/2142512/12/21 04112/11/21 1446 WBC 11.0* 10.8* 11.2* HGB 11.6* 12.4* 12.1* HCT 34.8* 37.8* 36.0* PLATELET 180 212 223 No results for input(s): INR in the last 168 hours. Recent Labs 12/13/21 04212/12/21 0415 12/11/21 1446 NA 136 137 134* [...] 12/11/21 1446 TROPONINT 0.32* Pertinent Radiographic/Diagnostic Results: [facility] 12/12/21 Conclusions: * Obstructive disease of [...] There is no prior study for comparison. [facility] 12/11/21 Conclusions: * Three vessel coronary [...] ppd), PVD, and GERD, who istransferred [facility] missed [facility] and syncope. Presented to [facility] following syncopal episode with upper back discomfort. Found to have positive troponin (peak 845). ProBNP ~800. EKG with inferior SHABNAM and lateral STD consistent with STEMI. Loaded with ASA and Plavix and started on IV heparin gtt. CTA chest negative for PE or aortic aneurysm or dissection. Transferred emergently for cath alert. [facility] 12/11/21 revealed 3VD with proximal RCA culprit lesion; MASON to proximal RCA. Plan for staged PCI to left system this admission. TTE showed preserved LVEF 57% without rWMAs, RV with mildly reduced function and with hypokinetic mid to apical RV free wall. Underwent staged PCI to LAD system 7/19 with atherectomy of mid LAD with stent insertion as well as MASON to proximal LAD and ostial D2. Initiated and optimized GDMT for ASCVD. Cardiac rehab consult today then discharge home following. Unclear etiology of syncope, however most likely vasovagal given inferior STEMI versus arrhythmia. No concerning arrhythmias on telemetry monitoring. Plan: # Inferior STEMI, s/p [facility] 12/11/21 with MASON to prox RCA [...] q6h (home 50mg) with holding parameters S/p [facility] 12/11/21 and 12/12/21 as above Cardiac rehab [...] Discussed with MD Niecy Pérez PA-C Pager #[phone] 12/13/2021 Cardiology Attending Note I interviewed and examined the patient during comprehensive bedside rounds. I concur with the summary of interval events, active hospital-focused problem list and plan of care as described in the note below. I personally reviewed the medications, laboratory results, treatment decisions and updated thepatient. Rodney Sullivan MD, FACP, FACC Section of Cardiovascular Medicine [facility] Gearmandie turner [employer] [facility] This patient meets or has met medical criteria to require an inpatient level of care, i.e. a minimumof two midnights in the hospital with multiple complex problems. Rodney Sullivan MD - 12/12/2021 8:00 AM EDT Inpatient Cardiology Progress Note Patient Name: Anastasia Foster Service: SURVEY ANALYST / PA Responsible Attending: Rodney Sullivan [...] There is no prior study for comparison. [facility] 12/11/21 Conclusions: * Three vessel coronary [...] ppd), PVD, and GERD, who istransferred [facility] and syncope. Presented to [facility] following syncopal episode with upper back discomfort. Found to have positive troponin (peak 845). ProBNP ~800. EKG with inferior SHABNAM and lateral STD consistent with STEMI. Loaded with ASA and Plavix and started on IV heparin gtt. CTA chest negative for PE or aortic aneurysm or dissection. Transferred emergently for cath alert. [facility] 12/11/21 revealed 3VD with proximal RCA [...] telemetry monitoring. Plan: # Inferior STEMI, s/p [facility] 12/11/21 with MASON to prox RCA [...] q6h (home 50mg) with holding parameters S/p [facility] 12/11/21 with MASON to prox RCA, [...] Discussed with MD Niecy Pérez PA-C Pager #[phone] 12/12/2021 Cardiology Attending Note I interviewed and [...] MD, FACP, FACC Section of Cardiovascular Medicine [facility] Gearmandie turner [employer] [facility] This patient meets or has met medical [...] ppd), PVD, and GERD, who is [facility] and syncope. He presented to [facility] following a syncopal event. Syncope occurred [...] 325mg and Plavix 600mg. Transferred emergently as pathology laboratory aides teacher alert for missed STEMI. On arrival he was symptom free. LHC revealed obstructive disease of RCA and LAD with proximal RCA culprit lesion stented. He was seen in recovery unit without chest pain or complaints. He is agreeable for admission and planned staged PCI to left system. Notes he previously followed with Dr. Schroeder in [place] in [phone] however has not followed for years. Has [...] ppd), PVD, and GERD, who istransferred to [facility] missed STEMI and syncope. Presented to [facility] following syncopal episode with upper back discomfort. Found to have positive troponin (peak 845). ProBNP ~800. EKG with inferior SHABNAM and lateral STD consistent with STEMI. Loaded with ASA and Plavix and started on IV heparin gtt. CTA chest negative for PE or aortic aneurysm or dissection. Transferred emergently for cath alert. [facility] 12/11/21 revealed LAD and RCA disease with proximal RCA culprit lesion; MASON to proximal RCA. Plan for sta ged PCI to left system this admission. Unclear etiology of syncope, ? vasovagal given inferior STEMIversus arrhythmia. Ongoing telemetry monitoring. Obtain TTE. Initiate and optimize GDMT for ASCVD. Plan: # Missed STEMI, s/p [facility] 12/11/21 with MASON to prox RCA [...] q6h (home 50mg) with holding parameters S/p [facility] 12/11/21 with MASON to prox RCA, [...] subq Discussed with Rodney Mariee PA-C Pager #[phone] 12/11/2021 Cardiology Attending Note I interviewed and [...] MD, FACP, FACC Section of Cardiovascular Medicine [facility] Gearmandie turner [employer] [facility] This patient meets or has met medical [...] in an outpatient cardiac rehabilitation program at [facility] was discussed. Patient agrees to [...] ppd), PVD, and GERD,??who is transferred to [facility] for missed STEMI and syncope.??Presented to [facility] following syncopal episode with upper back discomfort. [...] of Discharge: 12/17/2021 Trace Gibson RN Case Program Support Specialist of Care Management Pager: [phone] Initial Assessments - Teagan Neil RN - [...] PVD, and GERD, who is transferred to [facility] for missed STEMI and syncope. Presented to [facility] following syncopal episode with upper back discomfort. [...] , would be surrogate decision maker per [place] surrogate decision making law. (Only good for 90 days) Any patient receiving care in [place] must abide by [place] law. The hierarchy for surrogate decision making [...] (i) The agent with financial power of deputy commonwealth's attorney or a conservator appointed in accordance [...] Current DME: none Home Address confirmed as: [address] [place] [id number] Social & Family Supports: All names listed below confirmed with patient as current and correct Extended Emergency Contact Information Primary Emergency Contact: Jackelyn Foster [facility] Mobile Relation: Spouse Current Care Provided by: [...] the VA.) Preferred Pharmacy: No Pharmacies Listed [place] Status: Patient is a : Yes Are you enrolled in the VA for your healthcare?: Yes ([place], 100% Service connected disability.) Are you here under your VA benefit?: Yes Primary Care Provider: Dr. Addy Hendrickson at the [facility]. Patient/Caregiver Goals of Treatment: Pt anticipates [...] of care planning. Teagan Neil RN, BSN alarm installation technician Office of Care Management Pager: [phone] Plan of Care - Niecy Mariee PA [...] cath without complications. Niecy Mariee PA-C Pager #[phone] 12/11/2021 documented in this encounter Plan of [...] Signature POC Glucose 103 65 - 199 [facility] mg/dL [facility] LABORATORY Comment: Supplemental ranges: <140 mg/dL before meals <180 mg/dL all other times of the day Specimen Anatomical Collection Method Collection Time Receive d Time (Source) Location / / Volume Laterality Blood 12/13/2021 11:47 12/13/2021 AM EDT 11:47 AM EDT Rodney Sullivan MD POINT OF CARE TEST ORDERABLE S Performing Organization Address City/State/[place] [address] POCT Glucose (12/13/2021 7:16 AM EDT) athologist Signature POC Glucose 106 65 - 199 [facility] Comment: Supplemental ranges: <140 mg/dL before meals <180 mg/dL all other times of the day Specimen Anatomical Collection Method Collection Time Receive d Time (Source) Location / / Volume Laterality Blood 12/13/2021 7:16 AM 7:16 EDT AM EDT Rodney Sullivan MD POINT OF CARE TEST ORDERABLE S Performing Organization Address City/State/[place] [address] (ABNORMAL) Differential, Automated (12/13/2021 4:26 AM EDT) [facility] Method Time Signature Neutrophils % 73.2 % [facility] LABORATORY Neutr Abs (ANC) 8.04 (H) 1.70 - [facility] 6.[address] [facility] x10(3)/[facility] LABORATORY Lymphocytes % 17.3 % [facility] LABOR[facility] Lymphocytes Abs 1.9 0.9 - 3.2 [facility] x10(3)/[facility] LABORATORY Monocytes % 7.3 % [facility] LAB[facility] Monocyte Abs 0.8 0.3 - 0.9 [facility] x10(3)/[facility] LABORATORY Eosinophils % 1.3 % [facility] LAB[facility] Eosinophils Abs 0.1 0.0 - 0.4 [facility] x10(3)/[facility] LABORATORY Basophils % 0.5 % [facility] LABOR[facility] Basophils Abs 0.0 0.0 - 0.1 [facility] x10(3)/[facility] LABORATORY Immature Gran % 0.40 % [facility] Comment: Immature granulocytes(IG's)percentage an d absolute count will include metamyelocytes, myelocytes, and promyelo cytes. Blood smears from CBCs yielding IG's will be scanned manually for concor dance. If this scan disagrees with the automated IG or if promyelocytes are not ed, a manual differential will be performed. Lindsay Gran Abs 0.04 0.00 - 0.04 x10(3)/[facility] LABORATORY Specimen Anatomical Collection Method Collection Time Receive d Time (Source) Location / / Volume Laterality Blood 12/13/2021 4:26 AM 2 4:42 EDT AM EDT Resulting Agency Comment Spec In Lab Niecy Colón K[facility] HEMATOLOGY ORDERABLES Performing Organization Address City/State/[place] [address] (ABNORMAL) Hemogram (12/13/2021 4:26 AM EDT) Analysis Performed At Patho logist Time Signature WBC 11.0 (H) 4.0 - 9.5 [facility] LABORATORY RBC 4.01 (L) 4.58 - [facility] KASSANDRA [address] [facility] x10(6)/[facility] LABORATORY Hemoglobin 11.6 (L) 13.7 - [facility] 16.5 g/dL [facility] LABORATORY Hematocrit 34.8 (L) 40.5 - [facility] 48.5 % [facility] LABORATORY MCV 86.8 82.9 - [facility] 93.1 [facility] LABORATORY MCH 28.9 27.5 - [facility] KASSANDRA 32.1 pg [facility] LABORATORY MCHC 33.3 32.0 - [facility] 35.7 g/dL [facility] LABORATORY Platelets 180 145 - 357 [facility] x10(3)/[facility] LABORATORY RDWSD 49.8 (H) 36.0 - [facility] 45.0 [facility] LABORATORY RDWCV 15.8 (H) 11.4 - [facility] KASSANDRA 13.8 % [facility] LABORATORY MPV 10.9 7.6 - 12.9 [facility] LABORATORY nRBC % Auto 0.0 % [facility] LABORATORY nRBC Abs Auto 0.000 0.000 - [facility] KASSANDRA 0.[address] [facility] x10(3)/[facility] LABORATORY Specimen Anatomical Collection Method Collection Time Receive d Time (Source) Location / / Volume Laterality Blood 12/13/2021 4:26 AM 2 4:42 EDT AM EDT Resulting Agency Comment Spec In Lab Niecy Colón K[facility] HEMATOLOGY ORDERABLES Performing Organization Address City/State/[place] [address] (ABNORMAL) BMP w/fasting Glucose (12/13/2021 4:26 AM EDT) athologist Signature Glucose 85 65 - 99 [facility] Fasting mg/dL [facility] LAB[facility]ORY Comment: ?Fasting* Glucose Interpretive C riteria [...] of Diabetes Mellitus, Position Statement from the [place] [employer]. ??Diabete s Care, Volume 33, Supplement 1, May 2009 BUN 11 10 - 20 mg/dL [facility] LABORATORY Creatinine 0.79 (L) 0.80 - 1.50 mg/dL [facility] LABORATORY Sodium 136 135 - 145 mmol/L [facility] LABORATORY Potassium 3.7 3.5 - 5.0 mmol/L [facility] LAB[facility] Comment: Please note: ??Patients with WBC >100,00 0 may have falsely elevated Potassium levels. ??For accurate Potassium quantif ication in these patients send serum separator tube (gold top) for subsequent determinations. ??Contact the Clinical Chemistry Laboratory if there are any qu estions. Chloride 100 98 - 107 mmol/L [facility] CO2 26 22 - 31 mmol/L [facility] Anion Gap 10 5 - 15 mmol/L [facility] Calcium 7.9 (L) 8.5 - 10.5 mg/dL [facility] Estimated GFR 94 >=60 mL/min/1.73 m?? [facility] Comment: This patient's estimated GFR was calcula shannon using the 2021 CKD-EPI equation. The estimated GFR can vary [...] Organization Address City/State/ZIP Code Phon e Number [place] [id number] EKG 12 Lead (12/12/2021 11:24 PM EDT) Component Value Ref Range Test Analysis Performed Pathologis t Method Time At Signature Ventricular rate 71 BPM MUSE SYSTEM Atrial Rate 71 BPM MUSE SYSTEM P-R Interval 272 ms MUSE SYSTEM QRS Duration 108 ms MUSE SYSTEM Q-T Interval 430 ms MUSE SYSTEM QTC Calculated 467 ms MUSE SYSTEM (Bezet) Calculated P [place] -17 degrees MUSE SYSTEM Calculated R [place] -78 degrees MUSE SYSTEM Calculated T [place] -66 degrees MUSE SYSTEM INTERPRETATION Sinus rhythm [...] erpretation Confirmed by fellow MD Jennie, Jasmyn ([id number]) on 12/13/2021 12: 04:22 PM Confirmed by [...] Signature POC Glucose 105 65 - 199 [facility] Comment: Supplemental ranges: <140 mg/dL before meals <180 mg/dL all other times of the day Specimen Anatomical Collection Method Collection Time Receive d Time (Source) Location / / Volume Laterality Blood 12/12/2021 9:13 PM 2 9:13 EDT PM EDT Rodney Sullivan MD POINT OF CARE TEST ORDERABLE S Performing Organization Address City/[facility]/[place] [address] POCT Glucose (12/12/2021 4:11 PM EDT) athologist Signature POC Glucose 106 65 - 199 [facility] mg/dL [facility] Comment: Supplemental ranges: <140 mg/dL before meals <180 mg/dL all other times of the day Specimen Anatomical Collection Method Collection Time Receive d Time (Source) Location / / Volume Laterality Blood 12/12/2021 4:11 PM 2 4:11 EDT PM EDT Rodney Sullivan MD POINT OF CARE TEST ORDERABLE S Performing Organization Address City/[facility]/[place] [address] EKG 12 Lead (12/12/2021 3:40 PM EDT) Component Value Ref Range Test Analysis Performed Pathologis t Method Time At Signature Ventricular rate 63 BPM MUSE SYSTEM Atrial Rate 63 BPM MUSE SYSTEM P-R Interval 264 ms MUSE SYSTEM QRS Duration 110 ms MUSE SYSTEM Q-T Interval 464 ms MUSE SYSTEM QTC Calculated 474 ms MUSE SYSTEM (Bezet) Calculated P [place] -28 degrees MUSE SYSTEM Calculated R [place] -77 degrees MUSE SYSTEM Calculated T [place] -60 degrees MUSE SYSTEM INTERPRETATION Sinus rhythm [...] Laterality Volume Narrative 12/12/2021 5:19 PM EDT ?[facility] ? Cardiac Cathete rization/Intervention Report ? Patient Name: Anastasia Foster. ? Procedure Date: 12/12/2021 ? A #: [id number] ? Primary Physician: Nate Gonzales ? Case #: [id number] ? File Name: [id number] ? Catheterization Order Number: [id number] ? [facility] ? Final Report [place], [place] ? Patient Name: ? Anastasia J. Ino e ?ID#: ?[id number] ? : ?1950 ? Procedure Date: ? December 12, 2021 ?Case #: ? [id number] ? Room: ? 2 ? Case Physician: ? Nate Gilliland n, M.D. ? Start: ?11:48 ?Fellow: ? Larry Schneider , D.O. ?Admission: ??12/11/2021 ? Referring Physician: ??Macie Sang, LOAN FUNDER ? Procedures: ?* Coronary Angiography ?* Coronary [...] patient was ?designated as ASA Class III. [facility] clinical frailty scale is 3: ?Managing Well. ? Diagnostic Tests: ?Electrocardiography: ? EKG was assessed by ECG. EKG was Abnormal. EKG showed other ? abnormality. ?Medications Prior to Procedure: ? Angiotensin Converting E nzyme Inhibitor, Aspirin, Beta Casie, ? Non-Statin and Statin. ? Indications for Diagnostic Cath: ?The priority of the diagnostic procedure was Urgent. The indication for ?the pathology laboratory aides teacher visit is ACS less than or equal [...] ??A kana ounted 3.00 x 38 mm [place] Gallion (MASON) was ? deployed with a maximum inflation pressure of 15 atmospheres. ? Following stent deployment, the lesion was dilated using a ? 3.50mm NC EUPHO RA 20 MM balloon with a maximum inflation ? pressure of 24 atmospheres. ? Another stent i nsertion was accomplished through a 7 Fr. EBU ? 4.0 guide. ??A premounted 3.50 x 12 mm [place] Gallion (MASON) was ? deployed with a maximum [...] ?? A premounted 3.00 x 18 mm [place] Gallion (MASON) ? was deployed wi th a [...] A premounted 3.00 x 18 mm Dim[place] Gallion (MASON) ? was deployed wi th a [...] on chronic DAPT on arrival to the pathology laboratory aides teacher. ?Recommended anti-platelet/anti- thrombotic regimen: ?Start aspirin 81 mg daily now a nd continue for indefinitely. ?Start clopidogrel 75 mg daily n ow and continue for 12 months then stop. ?These recommendations are made at the time of the intervention. Patient ?and provider preferences or a c hanging clinical situation may require ?modification of this regimen. C [facility] Interventional Cardiology for ?questions. ?The 1 [...] any medical treatment. Consult ?http://tools.acc.org/DAPTriskap p/#!/content/calculator/ or [facility] ?Interventional Cardiology for q uestions ? Conclusions: [...] n presenting for complete ?revascularization following SHABNAM CO with plan to intervene on the severely [...] result was excellent. ?The attending physician was julian vogt for the entire procedure. ?Dr. Nate Gonzales [...] Signature POC Glucose 125 65 - 199 [facility] [place] mg/dL [facility] Comment: Supplemental ranges: <140 mg/dL before meals <180 mg/dL all other times of the day Specimen Anatomical Collection Method Collection Time Receive d Time (Source) Location / / Volume Laterality Blood 12/12/2021 10:57 12/12/2021 AM EDT 10:57 AM EDT Rodney Sullivan MD POINT OF CARE TEST ORDERABLE S Performing Organization Address City/State/[place] [address] POCT Glucose (12/12/2021 7:03 AM EDT) P athologist Signature POC Glucose 100 65 - 199 [facility] Comment: Supplemental ranges: <140 mg/dL before meals <180 mg/dL all other times of the day Specimen Anatomical Collection Method Collection Time Receive d Time (Source) Location / / Volume Laterality Blood 12/12/2021 7:03 AM 7:03 EDT AM EDT Rodney Sullivan MD POINT OF CARE TEST ORDERABLE S Performing Organization Address City/State/[place] [address] (ABNORMAL) Differential, Automated (12/12/2021 4:15 AM EDT) Patholo gist Method Time Signature Neutrophils % 71.1 % [facility] Neutr Abs (ANC) 7.65 (H) 1.70 - [facility] 6.[address] [facility] x10(3)/[facility] L LABORATORY Lymphocytes % 18.8 % [facility] Lymphocytes Abs 2.0 0.9 - 3.2 [facility] x10(3)/[facility] LABORATORY Monocytes % 7.6 % [facility] Monocyte Abs 0.8 0.3 - 0.9 [facility] x10(3)/[facility] LABORATORY Eosinophils % 1.3 % [facility] Eosinophils Abs 0.1 0.0 - 0.4 [facility] x10(3)/[facility] LABORATORY Basophils % 0.7 % [facility] Basophils Abs 0.1 0.0 - 0.1 [facility] x10(3)/[facility] LABORATORY Immature Gran % 0.50 % [facility] Comment: Immature granulocytes(IG's)percentage an d absolute count will include metamyelocytes, myelocytes, and promyelo cytes. Blood smears from CBCs yielding IG's will be scanned manually for concor dance. If this scan disagrees with the automated IG or if promyelocytes are not ed, a manual differential will be performed. Lindsay Gran Abs 0.05 (H) 0.00 - 0.04 x10(3)/[facility] LABORATORY Specimen Anatomical Collection Method Collection Time Receive d Time (Source) Location / / Volume Laterality Blood 12/12/2021 4:15 AM 4:26 EDT AM EDT Resulting Agency Comment Spec In Lab Niecy [facility] HEMATOLOGY ORDERABLES Performing Organization Address City/State/[place] [address] (ABNORMAL) Hemogram (12/12/2021 4:15 AM EDT) Analysis Performed At Patho logist Time Signature WBC 10.8 (H) 4.0 - 9.5 [facility] x10(3)/[facility] LABORATORY RBC 4.35 (L) 4.58 - [facility] 5.[address] [facility] x10(6)/[facility] LABORATORY Hemoglobin 12.4 (L) 13.7 - [facility] 16.5 g/dL [facility]ORY Hematocrit 37.8 (L) 40.5 - [facility] 48.5 % [facility]ORY MCV 86.9 82.9 - [facility] 93.1 [facility]ORY MCH 28.5 27.5 - [facility] 32.1 pg [facility] LABORATORY MCHC 32.8 32.0 - [facility] 35.7 g/dL [facility]ORY Platelets 212 145 - 357 [facility] x10(3)/[facility] LABORATORY RDWSD 49.8 (H) 36.0 - [facility] 45.0 [facility] LABORATORY RDWCV 15.8 (H) 11.4 - [facility] 13.8 % [facility] LABORATORY MPV 10.2 7.6 - 12.9 [facility] LABORATORY nRBC % Auto 0.0 % [facility] nRBC Abs Auto 0.000 0.000 - [facility] 0.[address] [facility] x10(3)/[facility] LABORATORY Specimen Anatomical Collection Method Collection Time Receive d Time (Source) Location / / Volume Laterality Blood 12/12/2021 4:15 AM 4:26 EDT AM EDT Resulting Agency Comment Spec In Lab Niecy [facility] HEMATOLOGY ORDERABLES Performing Organization Address City/State/[place] [address] (ABNORMAL) BMP w/fasting Glucose (12/12/2021 4:15 AM EDT) athologist Signature Glucose 88 65 - 99 [facility] Fasting mg/dL [facility] Comment: ?Fasting* Glucose Interpretive C riteria [...] of Diabetes Mellitus, Position Statement from the [place] [employer]. ??Diabete s Care, Volume 33, Supplement 1, May 2009 BUN 13 10 - 20 mg/dL [facility] Creatinine 0.85 0.80 - 1.50 mg/dL [facility] Sodium 137 135 - 145 mmol/L [facility] Potassium 4.0 3.5 - 5.0 mmol/L [facility] Comment: Please note: ??Patients with WBC >100,00 0 may have falsely elevated Potassium levels. ??For accurate Potassium quantif ication in these patients send serum separator tube (gold top) for subsequent determinations. ??Contact the Clinical Chemistry Laboratory if there are any qu estions. Chloride 99 98 - 107 mmol/L [facility] CO2 27 22 - 31 mmol/L [facility] Anion Gap 11 5 - 15 mmol/L [facility] Calcium 8.3 (L) 8.5 - 10.5 mg/dL [facility] Estimated GFR 92 >=60 mL/min/1.73 m?? [facility] Comment: This patient's estimated GFR [...] Organization Address City/State/[place] [address] Lipid Panel (Reflex Direct LDL) (12/12/2021 4:15 AM EDT) athologist Signature Chol, Total 130 mg/dL [facility] Comment: Lower Risk: <200 mg/dL Average Risk: 200-239 mg/dL Higher Risk: >te=007 mg/dL Triglycerides 116 mg/dL [facility] Comment: Average Risk/Lower Risk: <150 mg/dL Borderline High Risk: 150-199 mg/dL High Risk: 200-499 mg/dL Very High Risk: >ux=729 mg/dL HDL 42 mg/dL [facility] Comment: Males: ?? Higher Risk: <40 mg/dL Females: ?? Higher Risk: <50 mg/dL LDL Cholesterol 65 mg/dL [facility] Comment: Lowest Risk: <100 mg/dL Lower Risk: 100-129 mg/dL Borderline High Risk: 130-159 mg/dL High Risk: 160-189 mg/dL Very High Risk: >dz=584 mg/dL Chol/HDL Ratio 3.1 ratio [facility] Lipid Interpretation See Note [facility] Comment: Lipid management should be guided by a p atient? s ASCVD risk, goals and preferences. ACC/AHA Guidelines recommend high intens ity statin if clinical ASCVD or LDL greater than or equal to 190 mg/dL. http://TapBookAuthor.[employer]/RMP-GUJ-Mtqbldoqk Adults aged 40-75 with LDL 70-189 mg/dL should have their 10 year ASCVD risk estimated with the ACC/AHA ASCVD risk es timator http://tools.acc.org/LKYWP-Fqob-Xvclqklu r/ Statin should be discussed if risk [...] Organization Address City/State/[place] [address] POCT Glucose (12/11/2021 5:08 PM EDT) athologist Signature POC Glucose 171 65 - 199 [facility] [place] mg/dL [facility] Comment: Supplemental ranges: <140 mg/dL before meals <180 mg/dL all other times of the day Specimen Anatomical Collection Method Collection Time Receive d Time (Source) Location / / Volume Laterality Blood 12/11/2021 5:08 PM 5:08 EDT PM EDT Rodney Sullivan MD POINT OF CARE TEST ORDERABLE S Performing Organization Address City/State/ZIP Code Phon e Number [place] [address] ECHOCARDIOGRAM COMPLETE W CONTRAST [...] 1950 ? Height: 68 in ? Account: [id number] Age: 71 yrs ? Weight: 198 lb Gender: Male ?BSA: 2.0 m2 Ordering Physician: RODNEY SULLIVAN Referring Physician: RODNEY SULLIVAN Performed By: Lacy Shepard RDCS Reason For Study: STEMI Interpreting Fellow: Primo Diaz. Exam Location: [facility]. Interpretation Summary 1. The left ventricle is [...] no prior study for compariso n. Procedure Complete-[id number]. Image enhancement Optiso n was used for [...] 2021 03:43 PMBP: 126/70 mmHg Patient Location: [facility] 441^A : 1950 Height: 68 in Account: [id number] Age: 71 yrs Weight: 198 lb Gender: Male BSA: 2.0 m2 Ordering Physician: RODNEY SULLIVAN Referring Physician: RODNEY SULLIVAN Performed By: Lacy Shepard RDCS Reason For Study: STEMI Interpreting Fellow: Primo Diaz. Exam Location: [facility]. Interpretation Summary 1. The left ventricle is [...] no prior study for compariso n. Procedure Complete-[id number]. Image enhancement Optiso n was used for [...] small Interpret Hypokinetic Dyskinetic 3-5 mod erate - -14 large Aneurysmal 15-16 diffuse Rodney Sullivan MD ECHO ORDERABLES (ABNORMAL) Differential, Automated (12/11/2021 2:46 PM EDT) [facility] Method Time Signature Neutrophils % 69.8 % [facility] Neutr Abs (ANC) 7.84 (H) 1.70 - [facility] 6.[address] [facility] x10(3)/[facility] LABORATORY Lymphocytes % 22.2 % [facility] Lymphocytes Abs 2.5 0.9 - 3.2 [facility] x10(3)/[facility] LABORATORY Monocytes % 6.2 % [facility] Monocyte Abs 0.7 0.3 - 0.9 [facility] x10(3)/[facility] LABORATORY Eosinophils % 0.7 % [facility] Eosinophils Abs 0.1 0.0 - 0.4 [facility] x10(3)/[facility] LABORATORY Basophils % 0.7 % [facility] Basophils Abs 0.1 0.0 - 0.1 [facility] x10(3)/[facility] LABORATORY Immature Gran % 0.40 % [facility] Comment: Immature granulocytes(IG's)percentage an d absolute count will include metamyelocytes, myelocytes, and promyelo cytes. Blood smears from CBCs yielding IG's will be scanned manually for concor dance. If this scan disagrees with the automated IG or if promyelocytes are not ed, a manual differential will be performed. Lindsay Gran Abs 0.04 0.00 - 0.04 x10(3)/[facility] Specimen Anatomical Collection Method Collection Time Receive d Time (Source) Location / / Volume Laterality Blood 12/11/2021 2:46 PM 2:58 EDT PM EDT Resulting Agency Comment Spec In Lab Niecy [facility] HEMATOLOGY ORDERABLES Performing Organization Address City/State/[place] [address] (ABNORMAL) Hemogram (12/11/2021 2:46 PM EDT) Analysis Performed At Patho logist Time Signature WBC 11.2 (H) 4.0 - 9.5 [facility] x10(3)/[facility] LABORATORY RBC 4.24 (L) 4.58 - [facility] 5.[address] [facility] x10(6)/[facility] LABORATORY Hemoglobin 12.1 (L) 13.7 - [facility] 16.5 g/dL [facility] LABORATORY Hematocrit 36.0 (L) 40.5 - [facility] 48.5 % [facility] LAB[facility]ATORY MCV 84.9 82.9 - [facility] 93.1 [facility] LABORATORY MCH 28.5 27.5 - [facility] 32.1 pg [facility] LABORATORY MCHC 33.6 32.0 - [facility] 35.7 g/dL [facility] LABORATORY Platelets 223 145 - 357 [facility] x[facility](3[facility] LABORATORY RDWSD 48.9 (H) 36.0 - [facility] KASS[facility]DRA 45.0 [facility] LABORATORY RDWCV 15.9 (H) 11.4 - [facility] KASSANDRA 13.8 % [facility] LABORATORY MPV 10.3 7.6 - 12.9 [facility] LABORATORY nRBC % Auto 0.0 % [facility] nRBC Abs Auto 0.000 0.000 - [facility] [place] 0.[address] [facility] x10(3)/[facility] LABORATORY Specimen Anatomical Collection Method Collection Time Receive d Time (Source) Location / / Volume Laterality Blood 12/11/2021 2:46 PM 2 2:58 EDT PM EDT Resulting Agency Comment Spec In Lab Niecy [facility] HEMATOLOGY ORDERABLES Performing Organization Address City/State/[place] [address] Magnesium (12/11/2021 2:46 PM EDT) P athologist Signature Magnesium 0.86 0.69 - 1.07 [facility] [place] mmol/L [facility] LABORATORY Specimen Anatomical Collection Method Collection Time Receive d Time (Source) Location / / Volume Laterality Blood 12/11/2021 2:46 PM 2 2:58 EDT PM EDT Resulting Agency Comment Spec In Lab Rodney Sullivan MD CHEMISTRY ORDERABLES Performing Organization Address City/[facility]/ZIP Code Phon e Number [address] (ABNORMAL) pro-Brain Natriuretic Peptide (12/11/2021 2:46 PM EDT) P athologist Signature ProBNP 1,648 (H) <=124 [facility] [place] pg/mL [facility] LABORATORY Specimen Anatomical Collection Method Collection Time Receive d Time (Source) Location / / Volume Laterality Blood 12/11/2021 2:46 PM 2 2:58 EDT PM EDT Resulting Agency Comment Spec In Lab Rodney Sullivan MD CHEMISTRY ORDERABLES Performing Organization Address City/[facility]/ZIP Code Phon e Number [address] (ABNORMAL) BMP w/fasting Glucose (12/11/2021 2:46 PM EDT) P athologist Signature Glucose 107 (H) 65 - 99 [facility] Fasting mg/dL [facility]ORY Comment: ?Fasting* Glucose Interpretive C riteria [...] of Diabetes Mellitus, Position Statement from the [place] [employer]. ??Diabete s Care, Volume 33, Supplement 1, May 2009 BUN 13 10 - 20 mg/dL [facility] Creatinine 0.77 (L) 0.80 - 1.50 mg/dL [facility]ORY Sodium 134 (L) 135 - 145 mmol/L [facility] Potassium 3.4 (L) 3.5 - 5.0 mmol/L [facility] Comment: Please note: ??Patients with WBC >100,00 0 may have falsely elevated Potassium levels. ??For accurate Potassium quantif ication in these patients send serum separator tube (gold top) for subsequent determinations. ??Contact the Clinical Chemistry Laboratory if there are any qu estions. Chloride 96 (L) 98 - 107 mmol/L [facility] CO2 28 22 - 31 mmol/L [facility] Anion Gap 10 5 - 15 mmol/L [facility]ORY Calcium 7.9 (L) 8.5 - 10.5 mg/dL [facility] Estimated GFR 95 >=60 mL/min/1.73 m?? [facility] Comment: This patient's estimated GFR [...] Organization Address City/State/[place] [address] (ABNORMAL) Troponin (12/11/2021 2:46 PM EDT) P athologist Signature Troponin-T 0.32 (H) 0.00 - [facility] [place] 0.00 ng/mL [facility]ORY Comment: The 99th percentile for Troponin T is le ss than 0.01 ng/mL, any detectable cTnT concentration using this assay should be considered elevated. According to the third universal definit ion of myocardial infarction the following criteria with a clinical prese ntation consistent with acute myocardial ischemia meets the diagnosis for a myocardial infarction (CO). Detection of a rise and/or fall of [...] additional sample may be indicated. Reference: Third Gideon Definition of Myocardial Infarction. Journal of the [place] [employer] 2012;60:1581-98 Specimen Anatomical Collection Method Collection Time Receive d Time (Source) Location / / Volume Laterality Blood 12/11/2021 2:46 PM 2 2:58 EDT PM EDT Resulting Agency Comment Spec In Lab Rodney Sullivan MD CHEMISTRY ORDERABLES Performing Organization Address City/State/[place] [address] (ABNORMAL) Hemoglobin A1c (12/11/2021 2:46 PM EDT) Analysis Performed At Patho logist Time Signature Hemoglobin A1C 5.9 (H) 4.3 - 5.6 [facility] % [facility] LABORATORY Comment: Reference Range: 4.3 - 5.6% [...] Mellitus, Diabetes Care 2013; 36: Suppl. 1, I07-04 Est Avg Gluc See note mg/dL [facility] LABORATORY Comment: Estimated Average Glucose not appropriat [...] with hemoglobinopathies. Additional resources are available on [facility] ADA website. Mook PERDOMO, Kana J, Shankar R, et al. ??Tr anslating the A1C assay into estimated average glucose values. ??Diabetes Care 2008:31(8):8160-1426. Specimen Anatomical Collection Method Collection Time Receive d Time (Source) Location / / Volume Laterality Blood 12/11/2021 2:46 PM 2 2:58 EDT PM EDT Resulting Agency Comment Spec In Lab Rodney Sullivan MD CHEMISTRY ORDERABLES Performing Organization Address City/State/[place] [address] [facility] [place] (12/11/2021 2:46 PM EDT) P athologist Signature TSH 0.67 0.27 - 4.20 IFEOMA KASSANDRA mcIU/mL [facility] Comment: Reference Interval (mcIU/mL): Females: ??First Trimester: 0.23-3.88 ??Second Trimester: 0.22-3.90 ??Third Trimester: 0.44-4.66 Specimen Anatomical Collection Method Collection Time Receive d Time (Source) Location / / Volume Laterality Blood 12/11/2021 2:46 PM 2 2:58 EDT PM EDT Resulting Agency Comment Spec In Lab Rodney Sullivan MD CHEMISTRY ORDERABLES Performing Organization Address City/[facility]/ZIP Code Phon e Number [address] POCT Glucose (12/11/2021 2:21 PM EDT) athologist Signature POC Glucose 107 65 - 199 [facility] KASSANDRA mg/dL [facility] Comment: Supplemental ranges: <140 mg/dL before meals <180 mg/dL all other times of the day Specimen Anatomical Collection Method Collection Time Receive d Time (Source) Location / / Volume Laterality Blood 12/11/2021 2:21 PM 2 2:21 EDT PM EDT Rodney Sullivan MD POINT OF CARE TEST ORDERABLE S Performing Organization Address City/[facility]/[place] [address] EKG 12 Lead (12/11/2021 10:46 AM EDT) Component Value Ref Range Test Analysis Performed Pathologis t Method Time At Signature Ventricular rate 66 BPM MUSE SYSTEM Atrial Rate 66 BPM MUSE SYSTEM P-R Interval 254 ms MUSE SYSTEM QRS Duration 110 ms MUSE SYSTEM Q-T Interval 456 ms MUSE SYSTEM QTC Calculated 478 ms MUSE SYSTEM (Bezet) Calculated P [place] 89 degrees MUSE SYSTEM Calculated R [place] -71 degrees MUSE SYSTEM Calculated T [place] 19 degrees MUSE SYSTEM INTERPRETATION Sinus rhythm with 1st degree A-V block MUSE SYSTEM Pulmonary disease pattern Right bundle branch block Left anterior fascicular block Bifascicular block Abnormal ECG No previous ECGs available I personally reviewed the tracing and edited the fellows int erpretation Confirmed by fellow MD Abner, Tai ([id number]) on 022 2:31:21 PM Confirmed by MD [...] Laterality Volume Narrative 12/11/2021 12:44 PM EDT ?[facility] ? Cardiac Cathete rization/Intervention Report ? Patient Name: Anastasia Foster Astrid. ? Procedure Date: 12/11/2021 ? A #: [id number] ? Primary Physician: Nate Gonzales ? Case #: [id number] ? File Name: [id number] ? Catheterization Order Number: [id number] ? [facility] ? Final Report [place], [place] ? Patient Name: ? Anastasia J. Ino e ?ID#: ?[id number] ? : ?1950 ? Procedure Date: ? December 11, 2021 ?Case #: ? [id number] ? Room: ? 6 ? Case Physician: ? Nate Gilliland n, M.D. ? Start: ?09:42 ?Fellow: ? Juan [...] was ?designated as ASA Class IV. The HA clinical frailty scale is 3: ?Managing Well. [...] procedure was Emergent. The indication for ?the pathology laboratory aides teacher visit is ACS less than or equal [...] PCI for Acute ?STEMI. STEMI onset was 12/10/ 22 at 7:30 PM, estimated. ? Intervention [...] ? A premounted 4. 50 x18 mm Dimas Gallion (MASON) was deployed with ? a maximum [...] dose administered prior to arrival in the pathology laboratory aides teacher. ?Recommended anti-platelet/anti- thrombotic regimen: ?Continue aspirin 81 mg daily fo r indefinitely. ?Continue clopidogrel 75 mg martínez y for 12 months then stop. ?These recommendations are made at the time of the intervention. Patient ?and provider preferences or a c hanging clinical situation may require ?modification of this regimen. C [facility] Interventional Cardiology for ?questions. ?The 1 [...] any medical treatment. Consult ?http://tools.acc.org/DAPTriskap p/#!/content/calculator/ or [facility] ?Interventional Cardiology for q uestions ? Conclusions: [...] coronary a nd stent insertion-coronary. ? Nate Gonzales, M.D. ? Electronically Signed by: Nate Gonzáles in, M.D. ? Report Finalized: 12/11/2021 ??12:37 ? Report Last Ammended: 01/03/2022 ??17:16 ? Procedure Note Nate Gonzales MD - 01/03/2022Format ting of this note might be different from the original. [facility] Cardiac Catheterization/Intervention Re port Patient Name: Anastasia Foster Procedure Date: 12/11/2021 A #: [id number] Primary Physician: Nate Gonzales Case #: File Name: [id number] Catheterization Order Number: [id number] [facility] Final Report [place], [place] Patient Name: Anastasia Monroy Amparo ID#: [id number] : 1950 Procedure Date: December 11, [...] was designated as ASA Class IV. The [facility] inical frailty scale is 3: Managing Well. [...] e was Emergent. The indication for the pathology laboratory aides teacher visit is ACS less than or equal [...] priority for the procedure was Emergent. The [facility] indication for the procedure was S LAMAR-Immediate [...] 20 atmospheres. A premounted 4.50 x18 mm [place] Gallion (MASON) was deployed with a maximum inflation [...] administered prior t o arrival in the pathology laboratory aides teacher. Recommended anti-platelet/anti-thrombot ic regimen: Continue aspirin 81 mg daily for indefi nitely. Continue clopidogrel 75 mg daily for 12 months then stop. These recommendations are made at the t jhonny of the intervention. Patient and provider preferences or a changing clinical situation may require modification of this regimen. Consult [facility] Interventional Cardiology for questions. The 1 year [...] any medical treatment. Consult http://tools.acc.org/DAPTriskapp/#!/con tent/calculator/ or [facility] Interventional Cardiology for questions Conclusions: * Three [...] = 00:58. Dr. Nate Gonzales M.D. performed e coronary angiography, left heart catheterization, IVUS # coronary and st ent insertion-coronary. Nate Gonzales M.D. Electronically Signed by: Nate kline M.D. Report Finalized: 12/11/2021 12:37 Report Last Ammended: 01/03/2022 17:16 Nate Gonzales MD CARDIAC CATH ORDERABLES POCT Glucose (12/11/2021 10:19 AM EDT) P athologist Signature POC Glucose 111 65 - 199 [facility] mg/dL [facility] Comment: Supplemental ranges: <140 mg/dL before meals <180 mg/dL all other times of the day Specimen Anatomical Collection Method Collection Time Receive d Time (Source) Location / / Volume Laterality Blood 12/11/2021 10:19 12/11/2021 AM EDT 10:19 AM EDT Nate Gonzales MD POINT OF CARE TEST ORDERABLE S Performing Organization Address City/State/[place] [address] documented in this encounter [...] Until Sat12/13/21 at 1607, Other, vasovagal ep isode, Call interventional MD. , Routine clopidogreL (Plavix) [...] insulin. fentaNYL (pf) (50 mcg/mL) multi-dose Given 12/11/2021 9:44 AM ED T 25 mcg injection ONCE PRN, Starting on Sat12/11/21 at 0944, Until Sat12/11/21 at 1043, Cath (Intra-Procedure), Routine glucagon (Glucagen) (1 mg/mL) injection [...] grams.), Routine heparin (porcine) (1,000 units/mL) Given 12/11/2021 9:58 AM EDT 2,000 Units injection ONCE PRN, Starting on Sat12/11/21 at 0945, Until Sat12/11/21 at 1043, Cath (Intra-Procedure), Routine Given 12/11/2021 9:45 AM EDT 5,000 Units heparin (porcine) (5,000 [...] > 240 mg/dL in 2 hours., Routine iohexoL (Omnipaque) (350 mg/mL) solution Given 12/11/2021 10:42 AM EDT 105 mLs ONCE PRN, Starting on Sat12/11/21 at 1042, Until Sat12/11/21 at 1043, Cath (Intra-Procedure), Routine lisinopriL (Zestril) tablet 5 mg Given [...] midazolam (pf) (Versed) (1 mg/mL) multi-dose Given 12/11/2021 9: 44 AM EDT 1 mg injection ONCE PRN, Starting on Sat12/11/21 at 0944, Until Sat12/11/21 at 1043, Cath (Intra-Procedure), Routine nicotine (Nicoderm CQ) Patch Applied 12/13/2021 8:10 [...] Discontinued, Verify nicotine 21 mg/24 hr patch nitroGLYcerin 100 mcg/mL intracoronary Given 12/11/2021 9:43 AM EDT 150 mcg dilution ONCE PRN, Starting on Sat12/11/21 at 0943, Until Sat12/11/21 at 1043, Cath (Intra-Procedure), Routine pantoprazole EC (Protonix) tablet 40 mg Given [...] sodium chloride 0.9% infusion New Bag 12/11/2021 9:59 AM EDT 500 mLs CONTINUOUS PRN, Starting on Sat12/11/21 at 0959, Until Sat12/11/21 at 1043, Cath (Intra-Procedure) verapamiL (Isoptin) (2.5 mg/mL) injectio n Given 12/11/2021 9:43 AM EDT 2.5 mg ONCE PRN, Starting on Sat12/11/21 at 0943, Until Sat12/11/21 at 1043, Administer over 2 Minutes, Cath (Intra-Procedure) documented in this encounter Active and Recently Administered Medications Times are shown in EDT. Scheduled Medication Order 12/11/2021 12/12/2021 12/13/2021 aspirin EC tablet 81 mg 0954 (Given - Pr ovider: Marlee Pennington RN)1128 (JUL Hold - Provider: Admin Adt - Reason: Transfer to a Procedural area)1555 ([facility] Unhold - Provider: Admin Adt) 0814 (Given - Provider: Marlee Pennington RN) 81 mg, Oral, DAILY, First dose on Sat at 0900, Until Discontinued, Routine atorvastatin (Lipitor) tablet 80 mg 1705 (Given - Prov ider: Rita Plata RN) 1128 (JUL Hold - Provider: Admin Adt - R zohreh: Transfer to a Procedural area)155 ([facility] Unhold - Provider: Admin Adt)1704 (Given - Provider: Marlee Pennington RN) 80 mg, Oral, EVERY EVENING, First dose o n Sat12/11/21 at 1700, Until Discontinued, Routine clopidogreL (Plavix) tablet 75 mg 0954 ( Given - Provider: Marlee Pennington RN)1128 ([facility] Hold - Provider: Admin Adt - Reason: Transfer to a Procedural area)1555 ([facility] Unhold - Provider: Admin Adt) 0813 (Given - Provider: Marlee Pennington RN) 75 mg, Oral, DAILY, First dose on Sat at 0900, Until Discontinued, Routine heparin (porcine) (5,000 units/1 mL) subcutaneous inje ction 5,000 Units 1500 (Not Given - Provider: Rita Plata RN - Reason: Patient/family refused)2114 (Given - Provider: Ifeoma Caballero RN) 0550 (Given - Provider: Ifeoma Caballero RN)1128 ([facility] Hold - Provider: Admin Adt - Reason: Transfer to a Procedural area)1400 (Not Given - Provider: Marlee Pennington RN - Reason: See comment)1555 ([facility] Unhold - Provider: Admin Adt) 0519 (Given - Provider: Ethel Leal RN)1400 (Due - Provider: Admin Adt) 5,000 Units, Subcutaneous, EVERY 8 HOURS SCHEDULED, First dose on 7/18/22 at 1500, Until Discontinued, Routine 2109 (Not Given - Pr ovider: Ethel Leal [...] Admin Adt)1630 (Not Given - Provider: Marlee Pennington, RAJ - Reason: Order parameters not met) 1 [...] 1706 (G iven - Provider: Rita Plata, RN)2335 (Given - Provider: Ifeoma Caballero, RAJ) 0550 (Given - Provider: Ifeoma Caballero, RN)1103 (Given - Provider: Marlee Pennington RN)1128 [...] Marlee Pennington RN)2342 (Given - Provider: Ethel Leal RN) nicotine (Nicoderm CQ) 21 mg/24 hr patch [...] hr patch Patch Verification( Linked Group 2) 021 (Patch Not Verified (add comment) - Provider: Ifeoma Caballero RN - Comment: not present)0900 (Patch (dose and location) verified - Provider: Marlee Pennington RN)1128 (JUL Hold - Provider: Admin Adt - Reason: Transfer to a Procedural area) 0900 (Patch (dose and location) verified - Provider: Marlee Peninngton RN) Transdermal, 2 TIMES DAILY, First dose [...] chloride ER (K-Dur/Klor-Con) tablet 40 mEq (COMPLETED) 06 (Given - Provider: Ethel Leal RN) 40 mEq, Oral, ONCE, 1 dose, On Sat at 0700, 20 mEq tablet may be dissolved in water for administration, Routine pregabalin (Lyrica) capsule 75 mg 211 (Given - Provider: Bridger Caballero RN) 0954 (Given - Provider: Marlee Pennington RN)1128 (JUL Hold - Provider: Admin Adt - Reason: Transfer to a Procedural area)1555 ([facility] Unhold - Provider: Admin Adt)2109 (Given - Provider: Ethel Leal RN) 0813 (Given - Provider: Marlee Pennington [...] acetaminophen (Tylenol) tablet 650 mg 04 23 (JUL Hold - Provider: Admin Adt - Reason: Transfer to a Procedural area)1554 ([facility] Unhold - Provider: Admin Adt) [...] Routine atropine (0.1 mg/mL) injection 1 mg 1127 (JUL Hold - Provider: Admin Adt - Reason: Transfer to a Procedural area)1554 ([facility] Unhold - Provider: Admin Adt) 1 mg, Intravenous, EVERY 5 MIN PRN, 2 do ses, Starting on Sat12/11/21 at 1048, Until Sat12/13/21 at 1607, Other, vasovagal episode, Call interventional MD. , Routine dextrose 10% infusion(Linked Group 3) 04 23 ([facility] Hold - Provider: Admin Adt - Reason: Transfer to a Procedural area)1554 ([facility] Unhold - Provider: Admin Adt) 250 mL, [...] injection (CANCELED) 1141 (Given - Provider: Will Macdonald, RAJ)1258 (Given - Provider: Vidal Love, RAJ)1411 (Given - Provider: Vidal Love, RAJ)1440 (Given - Provider: Will Macdonald, RAJ)1507 (Given - Provider: Will Macdnoald, RN) ONCE PRN, Starting on Sat12/12/21 at [...] Macdonald RN)1258 (Given - Provider: Vidal Love, RAJ)1440 [...] (CANCELED) 0959 (New Bag - Provider: Josesito Bradshaw RN) CONTINUOUS PRN, Starting on Sat12/11/21 at 0959, [...] episode. & nbsp; For persistent hypoglycemia, con engineer specialist longer-acting treatment for the duration of the [...]
Routine documented in this encounter Care Teams Patient Care Specialist Relationship Specialty Start Date End Date None PCP - General 11/24/21 None documented as of this encounter
--- OUTSIDE RECORDS SUMMARY | 2022-02-09 10:45 | XMS_ITS | Encounter Summary ---
:1950 [place] [address] Care Team Providers Name Role Phone None Primary Care Provider Unavailable Encounter Details Date Type Department Care Team Description 12/12/2021 Notes Only Card[facility] [place] [address] Social History Tobacco Use Types Packs/Day Years Used Date Current Every Day Smoker Cigarettes 1 Alcohol Use Standard Drinks/Week Comments Not Asked 0 (1 standard drink = 0.6 oz pure alcoho l) Sex Assigned at Date Recorded Not on file documented as of this encounter Progress Notes Dwayne Cardenas - 12/12/2021 8:16 AM EDT Safe STEMI for Seniors A prospective, Multi-center, Unblinded, Randomized trial in Primary PCI Subjects, 65 or Older to assess Safety and Efficacy of Radial Access, Medtronic Resolute Family of Stents, Terumo Hemostasis Device and Complete versus Infarct Related Vessel Revascularization. Investment Professional Larry Velarde M.D. Pager # [phone] I met with Roberto in follow up to his presentation to the phlebotomist medical lab assistant with a diagnosis of STEMI. At the time of presentation, subject gave consent to participate in the Safe STEMI trial. As this was done in the setting of acute care, this conversation was a follow up to obtain contact information as required by the study protocol and to answer any incidental questions related to the study. Roberto confirmed that he would continue in the study. documented in this encounter Plan of Treatment Not on filedocumented as of this encounter Visit Diagnoses Not on filedocumented in this encounter Care Teams Master Scheduler Relationship Specialty Start Date End Date None PCP - General 11/24/21 None documented as of this encounter
--- OUTSIDE RECORDS SUMMARY | 2022-02-09 10:51 | XMS_ITS | Encounter Summary ---
:1950 Author Organization [facility] Address [address] [place] [address] Care Team Providers Name Role Phone Byron Pedro DO Primary Care Provider Encounter Details Date Type Department Care Team Description 01/01/2017 Results Only [facility] Jozef Quintana MD [phone] [address] [place] [address] (Wo rk) Social History Tobacco Use Types Packs/Day Years Used Date Never Assessed Sex Assigned at Date Recorded Not on file documented as of this encounter Plan of Treatment Not on filedocumented as of this encounter Procedures Procedure Name Priority Date/Time Associated Diagnosis Comme [facility] SURGICAL PATHOLOGY Routine 01/01/2017 18:19 Resul ts for this EDT procedure are i n the results section. documented in this encounter Results SURGICAL PATHOLOGY (01/01/2017 18:19 EDT) Pathology Report: SURGICAL PATHOLOGY REPORT [facility] Reports generated via electronic interface contain amisha ginal data; LABORATORY however they are lacking the format of the original re port. SERVICES Caution should be taken when reading/interpreting unfo rmatted reports. Name: ? ANASTASIA FOSTER ? Accession #: ? [id number] ? : ? 1950 (Age: [age]) ??M ? Collect Date: ? 01/01/2017 ? Location: ? [facility] ? Receive Date: ? 01/02/2017 ? Provider: ALAN QUINTANA MD Copy to: ? Final Pathologic Diagnosis: A. DUODENUM, 2ND PORTION, BIOPSY: - ??Duodenal mucosa with no specific pathologic featur es. B. STOMACH, ANTRUM AND BODY, BIOPSY: - ??Gastric antral mucosa with reactive (chemical) gas tropathy. - ??No histological evidence of H. pylori on H&E stain . C. ESOPHAGUS, DISTAL, BIOPSY: - ??Squamocolumnar junctiona l mucosa with intestinal metaplasia consistent with Pierre's esophagus. - ??Negative for dysplasia. Document reviewed and electronically signed by: PAIGE ROSS MD Report ??Date: 01/03/2017 15:57 By the signature above, the attending physician certif ies that he/she has personally conducted a gross and/or microscopic examin ation of the described specimens and rendered or confirmed the above diagnosi s. Specimen(s) Received: A. ??2nd portion of duodenum bx B. ??Antrum and body bx C. ??Distal esophagus bx Clinical History: Pierre's; clinical diagnosis code: ??K22.70 Gross Description: A. ?Received in formalin labelled with proper p atient identification (initials M, A) and A. 2nd portion of duodenum bx are two light parsons tissues (0.3 x 0.1 x 0.1 cm and 0.4 x 0.2 x 0.2 cm). Entirely submitted in A1. B. ?Received in formalin labelled with proper p atient identification (initials M, A) and B. antr um + body bx are three parsons-white tissues (0.4 x 0.1 x 0.1 cm, 0.5 x 0.1 x 0.1 cm and 0.7 x 0.1 x 0.1 cm). Entirely submitted in B1. C. ?Received in formalin labelled with proper p atient identification (initials M, A) and C. distal esophagus bx are six pale white tissues (0.1 x 0.1 x 0.1 cm to 0.5 x 0.2 x 0.1 cm). Entirely submitte d in C1 and C2. Bob Diop 01/03/2017 7:55 AM End of Report Specimen Performing Organization Address City/State/ZIP Code Phon e Number [facility] [address] [place] [address] SERVICES documented in this encounter Visit Diagnoses Not on filedocumented in this encounter Care Teams Respiratory Scientist Relationship Specialty Start Date End Date Byron Pedro DO PCP - General 10/02/16 [address] [place] [address] documented as of this encounter
--- OUTSIDE RECORDS SUMMARY | 2022-02-09 10:51 | XMS_ITS | Encounter Summary ---
:1950 Author Organization [facility] Address [address] [place] [address] Care Team Providers Name Role Phone Unavailable Primary Care Provider Unavailable Encounter Details Date Type Department Care Team Description 06/21/[address] [facility] River Burch MD [facility] [address] [place] [address] [place] [id number] [place] [address] [phone] Social History Tobacco Use Types Packs/Day Years Used Date Never Assessed Sex Assigned at Date Recorded Not on file documented as of this encounter Plan of Treatment Not on filedocumented as of this encounter Procedures Procedure Name Priority Date/Time Associated Diagnosis Comme [facility] SURGICAL PATHOLOGY Routine 06/21/2009 0:00 EST Re sults for this procedure are i n the results section. documented in this encounter Results SURGICAL PATHOLOGY (06/21/2009 0:00 EST) Pathology Report: SURGICAL PATHOLOGY REPORT ? [facility] Reports generated via ISORG interface contain original data; ? LAB however they are lacking the format of the original report. ? Caution should be taken when reading/interpreting unformatted reports. ? Name: ? MATTE, ANASTASIA J ? Accession #: ? [id number] ? : ? 1950 (Age: 59) ??M ? Collec t Date: ? 06/21/2009 ? Location: ? [facility] ? R eceive Date: ? 06/21/2009 ? Provider: RIVER WALKO MD ? Copy to: JESÚS SANDRA DO ? ANGELICA KUMAR MD ? Final Pathologic Diagnosis: ? Colon, sigmoid, segme ntal resection: ? 1. ?Muscularis propria and pericolic adipose tissue with foreign body ?? giant cell reaction, acute a nd chronic inflammation and fibrosis. See comment. ?? 2. ? Acute and chronic d iverticulitis with focal abscess formation. ? 3. ? Diverticulosis. ? 4. ? Organizing serositi s. ? 5. ? One benign lymph no de (0/1). ? 6. ? Surgical resection margins are viable. ? Comment: ? The muscularis propri a demonstrates fibrosis, foreign body giant cell ? reaction, and acute and rock mason suhas inflammation in the region marked with a suture. The fibrosis and chronic inf lammation extend into the pericolic adipose tissue. These findings may be seen a t a fistula site, although no definitive fistula ? tract is seen (see gross radu cription). ? Document reviewed and electr onically signed by: ? BABAK MARES MD ? Report ??Date: 06/23/2009 17 :31 ? By the signature above, the attending physician certifies that he/she has ? personally conducted a gross and/or microscopic examination of the described ? specimens and rendered or co nfirmed the above diagnosis. ? Specimen(s) Received: ? Sigmoid colon with lazcano ture at fistula site ? Clinical History: ? Hx diverticulitis and colovesical fistula ? Gross Description: ? Received in formalin labelled Anastasia Christensen and sigmoid colon with ? suture at fistula is a 13.0 cm in length by 5.0 cm in inner circumference ? segment of colon, received o pen. ??The mid portion of the colon is received with a black silk suture on its s erosa. ??The mucosa is light parsons, velvety, and ? folded. ??Sections of the sp ecimen reveal several scattered diverticula, which ?? are focally hyperemic. ??The re is a small amount of hemorrhage as well as ? perimuscular fibrosis and sc ant chalky, yellow-white changes in the ? submuscularis portion of the adipose tissue, consistent with fat necrosis in the region of the suture. ??Alth ough there is dense fibrosis in the region of the ? suture, a discrete fistula i s not discernible. ??The serosa in this region is ? black inked for orientation purposes only. ??The muscularis is moderately ? thickened, with the bowel wa ll measuring up to 1.5 cm in thickness. ??There is a large amount of pericolonic adipose tissue and the serosa is light yellow, ? generally smooth, and hypere michelle in the region of the black silk suture. ? Entry Level Sales Associate sections of t miguel specimen are submitted as follows: ? BLOCK FERRER ? A1, A2 ?Section s of both surgical margins, reverse en face ? A3-A5 ?Three se ctions taken through area of bowel marked by black silk ?? suture denoting fistula site ? A6, A7 ?Two add itional sections demonstrating diverticula ? (J. Tessitore)/ljn ? End of Report ? Specimen Performing Organization Address City/State/ZIP Code Phon e Number [facility] [address] [place] [address] SERVICES [facility] [address] [place] [address] documented in this encounter Visit Diagnoses Not on filedocumented in this encounter
--- OUTSIDE RECORDS SUMMARY | 2022-02-09 10:51 | XMS_ITS | Encounter Summary ---
:1950 Author Organization [facility] Address [address] [place] [address] Care Team Providers Name Role Phone Jesús Lipscomb Primary Care Provider Encounter Details Date Type Department Care Team Description 09/01/2012 Results Only [facility] River Eaton MD Laboratory Services - [address] [place] [address] [address] [facility] [place] [address] [phone] Social History Tobacco Use Types Packs/Day Years Used Date Never Assessed Sex Assigned at Date Recorded Not on file documented as of this encounter Plan of Treatment Not on filedocumented as of this encounter Procedures Procedure Name Priority Date/Time Associated Diagnosis Comme [facility] SURGICAL PATHOLOGY Routine 09/01/2012 8:29 EDT Re sults for this procedure are i n the results section. documented in this encounter Results SURGICAL PATHOLOGY (09/01/2012 8:29 EDT) Pathology Report: SURGICAL PATHOLOGY REPORT DAMIAN BRUNO Reports generated via electronic interface contain amisha ginal data; LAB however they are lacking the format of the original re port. Caution should be taken when reading/interpreting unfo rmatted reports. Name: ? ANASTASIA FOSTER ? Accession #: ? [id number] ? : ? 1950 (Age: 62) ??M ? Collect Date: ? 09/01/2012 ? Location: ? [facility] ? Receive Date: ? 013 ? Provider: RIVER EATON MD Copy to: JESÚS LIPSCOMB DO ? Final Pathologic Diagnosis: A. ?Esophagus, lower, 40 cm, biopsies: 1. ?Predominant ly gastric body-type mucosa with mild reactive features. 2. ? Cardiac-type mucosa with reactive features. 3. ? All biopsy pieces negative for intestinal met aplasia; Negative for dysplasia. B. ?Esophagus, 38 cm, biopsies: 1. ?Squamocolumnar junctional mucosa with extensive intestinal metaplasia. 2. ? Negative for dysplasia. C. ?Colon, ascending, polyps, biopsies: 1. ?Fragments of tubular adenoma(s). D. ?Colon, transverse, polyp, biopsies: 1. ?Polypoid co lonic mucosa with hyperplastic surface change. ??See comment. E. ?Colon, descending, polyp, biopsy: 1. ?Tubular adenoma. Comment: ? Deeper sections have been reviewed on specimens (D) and (E). ??(Dr. Rodriguez)/anson Document reviewed and electronically signed by: LAURIE RODRIGUEZ MD Report ??Date: 09/04/2012 09:37 By the signature above, the attending physician certif ies that he/she has personally conducted a gross and/or microscopic examin ation of the described specimens and rendered or confirmed the above diagnosi s. Specimen(s) Received: A. ?Lower esophagus 40 cm Pierre's B. ? Esophagus 38 cm C. ? Ascending colon polyps x3 D. ? Transverse colon polyp E. ? Descending colon polyp Clinical History: ? A,B. EGD; C-E. Colonoscopy; h/o Pierre's esoph shan, h/o colon polyps Gross Description: ? Received in formalin labelled Anastasia Foster and #1 lower esophagus 40 cm Pierre's are four light parsons biopsies w hich vary in size from 0.3 x 0.2 x 0.1 cm up to 0.6 x 0.2 x 0.2 cm. ??The specimen is submitted intact as (A1) and (A2). Received in formalin mike d Anastasia Foster and #2 esophagus 38 cm are four light parsons biopsies which gwen y in size from 0.3 x 0.2 x 0.1 cm up to 0.4 x 0.3 x 0.1 cm. ??The specimen is submitted intact as (B1) and (B2). Received in formalin mike Anastasia Thomas and #3 ascending colon polyps x3 are three light parsons biopsies which vary in size from 0.3 x 0.2 x 0.2 cm up to 0.4 x 0.3 x 0.2 cm. ??The specimen is submitted intact as (C1). Received in formalin labelled Anastasia Foster an d #4 transverse colon polyp are two light parsons biopsies m easuring 0.3 x 0.2 x 0.1 cm and 0.4 x 0.2 x 0.1 cm. The specimen is submitted intact as (D1). Received in formalin mike Anastasia Thomas and #5 descending colon polyp is a parsons-brown polyp measuring 0.6 x 0.4 x 0.2 cm. ??The specimen is submitted intact as (E1). ??(OCTAVIANO King)/tmg End of Report Specimen Performing Organization Address City/State/ZIP Code Phon e Number [facility] [address] [place] [address] SERVICES [facility] [address] [place] [address] documented in this encounter Visit Diagnoses Not on filedocumented in this encounter Care Teams Bottle Hop Relationship Specialty Start Date End Date Jesús Lipscomb DO PCP - General 06/23/09 10/01/[address] [place] [address] documented as of this encounter
--- OUTSIDE RECORDS SUMMARY | 2022-02-09 10:51 | XMS_ITS | Encounter Summary ---
:1950 Author Organization [facility] Address [address] [place] [address] Care Team Providers Name Role Phone Byron Pedro DO Primary Care Provider Encounter Details Date Type Department Care Team Description 01/01/2017 Hospital Encounter [facility] - S Unknown, Pro Rakesh calle MD [address] [facility] [phone] [place] [address] (Work) [phone] Social History Tobacco Use Types Packs/Day Years Used Date Never Assessed Sex Assigned at Date Recorded Not on file documented as of this encounter Discharge Disposition Disposition Code Departure Means Destination Home or Self Snf documented in this encounter Plan of Treatment Not on filedocumented as of this encounter Visit Diagnoses Not on filedocumented in this encounter Care Teams Vb Net Programmer Relationship Specialty Start Date End Date Byron Pedro DO PCP - General 10/02/16 [address] [place] [address] documented as of this encounter
--- OUTSIDE RECORDS SUMMARY | 2022-02-09 10:51 | XMS_ITS | Encounter Summary ---
:1950 Author Organization [facility] Address [address] [place] [address] Care Team Providers Name Role Phone Byron Pedro Primary Care Provider Encounter Details Date Type Department Care Team Description 11/22/2020 Lab Requisition [facility] Eliecer Maciel Encounter for other Pathology & MD Oswaldo general examination Laboratory Medicine [address] [place] [phone] Social History Tobacco Use Types Packs/Day Years Used Date Never Assessed Sex Assigned at Date Recorded Not on file documented as of this encounter Plan of Treatment Not on filedocumented as of this encounter Procedures Procedure Name Priority Date/Time Associated Diagnosis Comme nts SURGICAL PATHOLOGY Today 11/21/2020 7:24 EDT Encounter for o ther Results for this general examination procedur e are in the results section. documented in this encounter Results SURGICAL PATHOLOGY (11/21/2020 7:24 EDT) Final Diagnosis A. STOMACH, ANTRUM, BIOPSY: [facility] - Gastric antral mucosa with reactive (chemical) gastr opathy. [facility] B. STOMACH, BODY, BIOPSY: SERVICES - Gastric body mucosa with reactive (chemical) gastrop athy. C. ESOPHAGUS, 40 CM, BIOPSY: - Squamocolumnar mucosa with mild reflux esophagitis. - Negative for intestinal metaplasia; Negative for dys plasia. D. ESOPHAGUS, 39 CM, BIOPSY: - Intestinal metaplasia. - Negative for dysplasia. E. ESOPHAGUS, 38 CM, BIOPSY: - Intestinal metaplasia. - Negative for dysplasia. Attestation There was significant [facility] Electr onically resident/fellow CENTER signed by Jean Pierre keyes, involvement in the LABORATORY MD Monica on diagnostic evaluation SERVICES 11/25/19 21 at 0914 of this case. By the signature below, the attending physician certifies that they have personally conducted a gross and/or microscopic examination of the described specimens and rendered or confirmed the above diagnosis. Clinical History History of Pierre's [facility] esophagus; gastric CENTER erosions; clinical LABORATORY diagnosis code: K22.7 SERVICES Gross Description A. [facility] Received in formalin mike d with proper patient identification (initials M, A) and antrum is a light parsons tissue measuring 0.3 x 0.2 x 0.1 cm. Submitted intact in A1. [facility] B. SERVICES Received in formalin mike d with proper patient identification (initials M, A) and body are 2 light parsons tissues measuring 0.3 x 0.2 x 0.1 cm and 0.4 x 0.2 x 0.1 cm. Submitted intact in B1. C. Received in formalin mike d with proper patient identification (initials M, A) and esophagus at 40 cm is a 0.3 x 0.2 x 0.1 cm light parsons tissue. Submitted intact in C1. D. Received in formalin mike d with proper patient identification (initials M, A) and esophagus at 39 cm are 2 2 light parsons tissues measuring 0.2 x 0.2 x 0.1 cm and 0.3 x 0.2 x 0.1 cm. Submitted intact in D1. E. Received in formalin mike d with proper patient identification (initials M, A) and esophagus at 38 cm are 2 light parsons tissues measuring 0.3 x 0.2 x 0.1 cm and 0.3 x 0.2 x 0.1 cm. Submitted intact in E1. SILVIA RAMIRES(ASCP) 11/22/2020 18:37 Resident/Fellow: Addy Almendarez MD [facility] SERVICES Performing Lab [facility] Scanned Images [facility] Specimen Tissue - Entire esophagus (body structur e) Tissue specimen (specimen) - Entire stom ach (body structure) Tissue specimen (specimen) - Entire esop hagus (body structure) Tissue specimen (specimen) - Entire esop hagus (body structure) Tissue specimen (specimen) - Entire esop hagus (body structure) Performing Organization Address City/State/ZIP Code Phon e Number [facility] [address] [place] [address] SERVICES documented in this encounter Visit Diagnoses Diagnosis Encounter for other general examination documented in this encounter Care Teams Quantitative Manager Relationship Specialty Start Date End Date Byron Pedro DO PCP - General 10/02/16 [address] [place] [address] documented as of this encounter
--- OUTSIDE RECORDS SUMMARY | 2022-02-09 10:51 | XMS_ITS | Encounter Summary ---
:1950 Author Organization [facility] Address [address] [place] [address] Care Team Providers Name Role Phone Sid Lipscomb Primary Care Provider Encounter Details Date Type Department Care Team Description 09/29/2007 Results Only [facility] - River Garrett MD conversion [address] [place] [address] [place] [address] [phone] Social History Tobacco Use Types Packs/Day Years Used Date Never Assessed Sex Assigned at Date Recorded Not on file documented as of this encounter Plan of Treatment Not on filedocumented as of this encounter Procedures Procedure Name Priority Date/Time Associated Diagnosis Com[facility] SURGICAL PATHOLOGY Routine 09/29/2007 0:00 EDT Re sults for this procedure are i n the results section. documented in this encounter Results SURGICAL PATHOLOGY (09/29/2007 0:00 EDT) Pathology Report: SURGICAL PATHOLOGY REPORT DAMIAN BRUNO Reports generated via electronic interface contain amisha ginal data; LAB however they are lacking the format of the original re port. Caution should be taken when reading/interpreting unfo rmatted reports. Name: ? ANASTASIA FOSTER ? Accession #: ? [id number] ? : ? 1950 (Age: 57) ??M ? Collect Date: ? 09/29/2007 ? Location: ? [facility] ? Receive Date: ? 008 ? Provider: RIVER HERMOSILLO MD Copy to: BERENICE MATA DO ? Final Pathologic Diagnosis: A. ?Stomach, antrum, biopsies: 1. ?Antral type mucosa with reactive john ropathy. ?? B. ?Gastroesophageal junction, biopsies: 1. 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 ? - No dysplasia identified. Document reviewed and electronically signed by: PARK ALBARRAN MD Report ??Date: 10/01/2007 16:37 By the signature above, the attending physician certif ies that he/she has personally conducted a gross and/or microscopic examin ation of the described specimens and rendered or confirmed the above diagnosi s. Specimen(s) Received: A. ?Bx gastric antrum B. ? Bx Pierre's EG junction Clinical History: ? GERD and h/o serrated colon polyp Gross Description: ? Received in Hollande' s fixative labelled Matte and bx gastric antrum are three parsons-pink soft tiss ues averaging 0.2 x 0.2 x 0.2 cm. ??The specimens are entirely submitted as (A). Received in Hollande's fixat nahomy labelled Matte and bx Pierre's EG junction are four parsons-pink soft tissues ranging from 0.2 x 0.2 x 0.2 cm to 0.3 x 0.2 x 0.2 cm. ??The specimens are entirely submitted as (B1) and (B2). ??(Jessica Marin/anson End of Report Specimen Performing Organization Address City/State/ZIP Code Phon e Number [facility] [address] [place] [address] SERVICES [facility] [address] [place] [address] documented in this encounter Visit Diagnoses Not on filedocumented in this encounter Care Teams Flour Mixer Relationship Specialty Start Date End Date Sid Lipscomb DO PCP - General 06/23/09 10/01/16 [facility] [place] [address] documented as of this encounter
== END 2022-02-23 23:59 | disposition home or self-care (01) ==
LOC: CR 10:17
PROVIDERS: PCP Family Medicine; Visit Provider Internal Medicine Cardiovascular Disease
DX: Z51.89 Encounter for other specified aftercare (principal); I25.2 Old myocardial infarction; Z95.5 Presence of coronary angioplasty implant and graft
CPT/HCPCS: S9472

== ENCOUNTER 2022-03-26 09:00 | Outpatient (RCR) | payer OTHER, SELFPAY | END 2022-03-26 23:59 | disposition home or self-care (01) | LOC: CR 09:00 | PROVIDERS: PCP Family Medicine; Visit Provider Internal Medicine Cardiovascular Disease | DX: Z51.89 Encounter for other specified aftercare (principal); I25.2 Old myocardial infarction; Z95.5 Presence of coronary angioplasty implant and graft | CPT/HCPCS: S9472 ==

== ENCOUNTER 2022-04-09 09:00 | Outpatient (RCR) | payer OTHER, SELFPAY | END 2022-04-25 23:59 | disposition home or self-care (01) | LOC: CR 09:00 | PROVIDERS: PCP Family Medicine; Visit Provider Internal Medicine Cardiovascular Disease | DX: I25.2 Old myocardial infarction (principal); Z95.5 Presence of coronary angioplasty implant and graft; Z51.89 Encounter for other specified aftercare | CPT/HCPCS: S9472 ==